=== PATIENT | male | born 1945 | race African-American/Black ===

== ENCOUNTER 2020-03-12 13:46 | Inpatient (IN) | payer MEDICAID, MEDICARE, OTHER ==
[~2020-03-12] VITALS: Ht 172.7 cm; Wt 111.9 kg
[2020-03-12] MEDS ORDERED: IV NORMAL SALINE 1000ML BAG 1,000 ML IV ONE ×4 (14:30→15:30)
[2020-03-12 14:37] LABS: BASO % 0 % (0-3); EOS % 0 % (0-3); HEMATOCRIT 42.1 % (39.0-53.0); HEMOGLOBIN 14.2 g/dL (13.0-17.5); LYMPH # 0.2 x10^3/uL (1.0-4.8); LYMPH % 2 % (24-48); MEAN CORPUSCULAR HEMOGLOBIN 30 pg (25-35); MEAN CORPUSCULAR HGB CONC 34 g/dL (31-37); MEAN CORPUSCULAR VOLUME 89 fL (79-100); MONO # 0.2 x10^3/uL (0.0-1.1); MONO % 2 % (0-9); NEUT # 10.5 x10^3/uL (1.8-7.7); NEUT % 97 % (31-73); PLATELET COUNT 131 x10^3/uL (140-400); RED BLOOD COUNT 4.73 x10^6/uL (4.30-5.70); RED CELL DISTRIBUTION WIDTH 14.9 % (11.5-14.5); WHITE BLOOD COUNT 10.9 x10^3/uL (4.0-11.0)
[2020-03-12 14:46] LABS: PROTHROMBIN TIME PATIENT 15.6 SEC (11.7-14.0)
[2020-03-12] MEDS ORDERED: cefTRIAXone IV Push 1 GM VIAL. IVP ONE (15:00)
--- NOTE | 2020-03-12 15:04 | RAD ---
INDICATION: Reason: fever / Spl. Instructions: / History: COMPARISON: None. FINDINGS: Single view of chest obtained. Enlarged cardiomediastinal Silhouette with poststernotomy changes. AICD. Degenerative changes of the shoulders and spine. Hypoexpanded examination with mild interstitial and groundglass opacities. IMPRESSION: * Hypoexpansion with mild interstitial and groundglass opacities. Could be from crowding of the vascular markings from hypoexpansion with atelectasis but mild edema or interstitial infiltrate can have this appearance. Electronically signed by: Herminio Huffman MD (03/12/2020 3:01 PM) [id number]
[2020-03-12 15:14] LABS: % BANDS 22 % (0-9); % LYMPHS 2 % (24-48); % MONOS 2 % (0-10); % SEGS 74 % (35-66)
[2020-03-12 15:15] LABS: PLT ESTIMATE DECREASED (ADEQUATE); TOXIC GRANULATION MOD; TOXIC VACUOLATION MOD
[2020-03-12] MEDS ORDERED: 0.9 % SOD CHL for STERILE FIELD 10 ML DISP.SYRIN. ONE (15:24)
[2020-03-12] MEDS ORDERED: LIDOCAINE 1% Multi-Dose 20 ML VIAL. INJ ONE (15:30)
[2020-03-12 16:14] LABS: CALCIUM 7.2 mg/dL (8.5-10.1); CREATININE 1.6 mg/dL (0.7-1.3); GFR 51.1; POTASSIUM 3.3 mmol/L (3.5-5.1)
[2020-03-12] MEDS ORDERED: NOREPINEPHRINE VIAL 8 MG in IV DEXTROSE 5% 250 ML IV ONE (16:15)
[2020-03-12 16:19] LABS: ALBUMIN 1.7 g/dL (3.4-5.0); ALBUMIN/GLOBULIN RATIO 0.5 (1.0-1.7); TOTAL BILIRUBIN 4.1 mg/dL (0.2-1.0)
[2020-03-12] MEDS ORDERED: IV NORMAL SALINE 1000ML BAG 1,000 ML IV SCH ×2 (16:28→16:33)
[2020-03-12] MEDS ORDERED: ONDANSETRON PF 4 MG/2 ML VIAL. IV PRN (16:30)
--- NOTE | 2020-03-12 16:30 | PDOC1 ---
History and Physical Date of Admission Date of Admission DATE: 03/12/20 TIME: 16:30 Identification/Chief Complaint Chief Complaint seen in er with fever from nursing facility 74 year old male who was brought here by EMS from [facility] area due to altered mental status. Per report, Patient's home health nurse checked on him today , found him to be confused and having a temperature so she called EMS to take him here. Upon to arrival to room, patient was confused, tachycardic and hypotensive. central line placed, started on pressors and iv antibiotics was not able to provide any information. History was very limited. Past Medical History Cardiovascular: HTN Family History Family History: Hypertension Social History Smoke: No ALCOHOL: none Drugs: None Current Medications Current Medications Current Medications Sodium Chloride 1,000 ml @ 1,000 mls/hr 1X ONCE IV Last administered on 03/12/20at 14:00; Start 03/12/20 at 14:30; Stop 03/12/20 at 15:29; Status DC Sodium Chloride 1,000 ml @ 1,000 mls/hr 1X ONCE IV Last administered on 03/12/20at 14:05; Start 03/12/20 at 14:30; Stop 03/12/20 at 15:29; Status DC Ceftriaxone Sodium (Rocephin) 1 gm 1X ONCE IVP ; Start 03/12/20 at 15:00; Stop 03/12/20 at 15:01; Status DC Sodium Chloride 1,000 ml @ 1,000 mls/hr 1X ONCE IV ; Start 03/12/20 at 15:30; Stop 03/12/20 at 16:29; Status DC Sodium Chloride 1,000 ml @ 1,000 mls/hr 1X ONCE IV ; Start 03/12/20 at 15:30; Stop 03/12/20 at 16:29; Status DC Sodium Chloride (NORMAL SALINE FLUSH for STERILE FIELD) 10 ml STK-MED ONCE .ROUTE ; Start 03/12/20 at 15:24; Stop 03/12/20 at 15:24; Status DC Lidocaine HCl (Lidocaine 1% 20ml Vial) 20 ml 1X ONCE INJ ; Start 03/12/20 at 15:30; Stop 03/12/20 at 15:31; Status DC Norepinephrine Bitartrate 8 mg/ Dextrose 258 ml @ 21.285 mls/ hr 1X ONCE IV ; Start 03/12/20 at 16:15; Stop 03/13/20 at 04:22 Calcium Gluconate (Calcium Gluconate) 1,000 mg 1X ONCE IVP ; Start 03/12/20 at 17:00; Stop 03/12/20 at 17:01 Allergies Allergies: Coded Allergies: No Known Drug Allergies (Unverified , 03/12/20) ROS Review of System unable to participate Hematological and Lymphatic: No: Bleeding Problems, Blood Clots, Blood Transf usions, Brusing, Night Sweats, Pallor, Swollen Lymph Nodes, Other Musculoskeletal: Yes Joint Stiffness Neurological: Yes Confusion Physical Exam Physical Exam acute distress, toxic appearance. [] HENT: Normocephalic, atraumatic, bilateral external ears normal, oropharynx selma st, no oral exudates, nose normal. [] Eyes: PERRLA, EOMI, conjunctiva normal, no discharge. [] Neck: Normal range of motion, no tenderness, supple, no stridor. [] Cardiovascular: Sinus tachycardia, regular rhythm, no murmur [] Lungs & Thorax: Bilateral breath sounds clear to auscultation [] Abdomen: Bowel sounds normal, soft, no tenderness, no masses, no pulsatile masses. [] Skin: Warm, dry, no erythema, no rash. [] Back: No tenderness, no CVA tenderness. [] Extremities: No tenderness, no cyanosis, no clubbing, ROM intact, no edema. [] Neurologic: appeared toxic but arousable to answer questions, moved all extremities, very confused. Psychologic:not able to evaluate due to condition. Heart: RRR Abdomen: Normal bowel sounds, Soft, No tenderness Rectal Exam: not examined Labs Labs Laboratory Tests Test 03/12/20 14:10 03/12/20 16:00 White Blood Count 10.9 x10^3/uL (4.0-11.0) Red Blood Count 4.73 x10^6/uL (4.30-5.70) Hemoglobin 14.2 g/dL (13.0-17.5) Hematocrit 42.1 % (39.0-53.0) Mean Corpuscular Volume 89 fL (79-100) Mean Corpuscular Hemoglobin 30 pg (25-35) Mean Corpuscular Hemoglobin Concent 34 g/dL (31-37) Red Cell Distribution Width 14.9 % (11.5-14.5) Platelet Count 131 x10^3/uL (140-400) Neutrophils (%) (Auto) 97 % (31-73) Lymphocytes (%) (Auto) 2 % (24-48) Monocytes (%) (Auto) 2 % (0-9) Eosinophils (%) (Auto) 0 % (0-3) Basophils (%) (Auto) 0 % (0-3) Neutrophils # (Auto) 10.5 x10^3/uL (1.8-7.7) Lymphocytes # (Auto) 0.2 x10^3/uL (1.0-4.8) Monocytes # (Auto) 0.2 x10^3/uL (0.0-1.1) Eosinophils # (Auto) 0.0 x10^3/uL (0.0-0.7) Basophils # (Auto) 0.0 x10^3/uL (0.0-0.2) Segmented Neutrophils % 74 % (35-66) Band Neutrophils % 22 % (0-9) Lymphocytes % 2 % (24-48) Monocytes % 2 % (0-10) Toxic Granulation Mod Toxic Vacuolation Mod Platelet Estimate Decreased (ADEQUATE) Prothrombin Time 15.6 SEC (11.7-14.0) Prothromb Time International Ratio 1.3 (0.8-1.1) Activated Partial Thromboplast Time 26 SEC (24-38) Lactic Acid Level 5.1 mmol/L (0.4-2.0) Sodium Level 139 mmol/L (136-145) Potassium Level 3.3 mmol/L (3.5-5.1) Chloride Level 104 mmol/L (98-107) Carbon Dioxide Level 23 mmol/L (21-32) Anion Gap 12 (6-14) Blood Urea Nitrogen 16 mg/dL (8-26) Creatinine 1.6 mg/dL (0.7-1.3) Estimated GFR (Cockcroft-Gault) 51.1 BUN/Creatinine Ratio 10 (6-20) Glucose Level 366 mg/dL (70-99) Calcium Level 7.2 mg/dL (8.5-10.1) Total Bilirubin 4.1 mg/dL (0.2-1.0) Aspartate Amino Transf (AST/SGOT) 131 U/L (15-37) Alanine Aminotransferase (ALT/SGPT) 99 U/L (16-63) Alkaline Phosphatase 273 U/L (46-116) Total Protein 5.0 g/dL (6.4-8.2) Albumin 1.7 g/dL (3.4-5.0) Albumin/Globulin Ratio 0.5 (1.0-1.7) Lipase 100 U/L (73-393) Laboratory Tests Test 03/12/20 14:10 03/12/20 16:00 White Blood Count 10.9 x10^3/uL (4.0-11.0) Red Blood Count 4.73 x10^6/uL (4.30-5.70) Hemoglobin 14.2 g/dL (13.0-17.5) Hematocrit 42.1 % (39.0-53.0) Mean Corpuscular Volume 89 fL (79-100) Mean Corpuscular Hemoglobin 30 pg (25-35) Mean Corpuscular Hemoglobin Concent 34 g/dL (31-37) Red Cell Distribution Width 14.9 % (11.5-14.5) Platelet Count 131 x10^3/uL (140-400) Neutrophils (%) (Auto) 97 % (31-73) Lymphocytes (%) (Auto) 2 % (24-48) Monocytes (%) (Auto) 2 % (0-9) Eosinophils (%) (Auto) 0 % (0-3) Basophils (%) (Auto) 0 % (0-3) Neutrophils # (Auto) 10.5 x10^3/uL (1.8-7.7) Lymphocytes # (Auto) 0.2 x10^3/uL (1.0-4.8) Monocytes # (Auto) 0.2 x10^3/uL (0.0-1.1) Eosinophils # (Auto) 0.0 x10^3/uL (0.0-0.7) Basophils # (Auto) 0.0 x10^3/uL (0.0-0.2) Segmented Neutrophils % 74 % (35-66) Band Neutrophils % 22 % (0-9) Lymphocytes % 2 % (24-48) Monocytes % 2 % (0-10) Toxic Granulation Mod Toxic Vacuolation Mod Platelet Estimate Decreased (ADEQUATE) Prothrombin Time 15.6 SEC (11.7-14.0) Prothromb Time International Ratio 1.3 (0.8-1.1) Activated Partial Thromboplast Time 26 SEC (24-38) Lactic Acid Level 5.1 mmol/L (0.4-2.0) Sodium Level 139 mmol/L (136-145) Potassium Level 3.3 mmol/L (3.5-5.1) Chloride Level 104 mmol/L (98-107) Carbon Dioxide Level 23 mmol/L (21-32) Anion Gap 12 (6-14) Blood Urea Nitrogen 16 mg/dL (8-26) Creatinine 1.6 mg/dL (0.7-1.3) Estimated GFR (Cockcroft-Gault) 51.1 BUN/Creatinine Ratio 10 (6-20) Glucose Level 366 mg/dL (70-99) Calcium Level 7.2 mg/dL (8.5-10.1) Total Bilirubin 4.1 mg/dL (0.2-1.0) Aspartate Amino Transf (AST/SGOT) 131 U/L (15-37) Alanine Aminotransferase (ALT/SGPT) 99 U/L (16-63) Alkaline Phosphatase 273 U/L (46-116) Total Protein 5.0 g/dL (6.4-8.2) Albumin 1.7 g/dL (3.4-5.0) Albumin/Globulin Ratio 0.5 (1.0-1.7) Lipase 100 U/L (73-393) Images Images PROCEDURE CT lumbar spine without contrast. HISTORY Low back pain and left radiculopathy. Defibrillator. TECHNIQUE Axial images and coronal and sagittal re-formatted images are provided. COMPARISON None. FINDINGS There are 5 lumbar type vertebral bodies. There is no fracture or dislocation. There is endplate sclerosis at L3-L4. There are vacuum discs at L1-L2, L2-L3, and L4-L5. There is narrowing of the interspace and potentially partial bridging fusion across L3-L4. There is atheromatous disease in the thoracic aorta. Degenerative findings would be better evaluated post myelogram. Estimates will be provided below: L1-L2: There is ligamentum flavum hypertrophy and facet hypertrophy which is greater on the right. Ligamentum flavum is partially calcified. There is also a disc bulge. There is at least mild to moderate canal stenosis and foraminal narrowing is probably high-grade. L2-L3: There is a disc osteophyte complex and there is facet and ligamentum flavum hypertrophy. There is probably severe canal stenosis and lateral recess narrowing. There is high-grade bilateral foraminal narrowing. L3-L4: There is a disc osteophyte complex and there is facet hypertrophy. There is at least mild to moderate canal stenosis and moderate foraminal narrowing. L4-L5: Disc bulge, facet hypertrophy, and ligamentum flavum hypertrophy likely results in at least moderate canal stenosis and high-grade foraminal narrowing. L5-S1: Disc bulge and facet hypertrophy are noted with at least mild to moderate right and mild left foraminal narrowing. IMPRESSION Multilevel degenerative changes with several levels of high-grade canal and foraminal compromise suspected. Consider post myelogram CT to better evaluate the degree of stenosis. Electronically signed by: Kristofer Santo MD (Apr 25, 2015 13:17:17) AP chest. HISTORY: Post line placement AP view was taken of the chest. There is a right jugular central line which extends to the right atrium. There is no pneumothorax. Left pacemaker is unchanged. Heart is mildly enlarged. There is mild vascular congestion. There is hazy basilar edema or infiltrates or atelectasis with little change. IMPRESSION: 1. Right jugular central line extends to the right atrium. 2. Little other change. Electronically signed by: Javi Ruelas MD (03/12/2020 4:42 PM) [id number] PATIENT: JIM BENTLEY NACCOUNT: [id number] : 1945 LOCATION: ER AGE: 74 SEX: M EXAM STATUS: PRE ER ORD. PHYSICIAN: KHOI MCCORMACK DO REASON: fever PROCEDURE: PORTABLE CHEST 1V INDICATION: Reason: fever / Spl. Instructions: / History: COMPARISON: None. FINDINGS: Single view of chest obtained. Enlarged cardiomediastinal Silhouette with poststernotomy changes. AICD. Degenerative changes of the shoulders and spine. Hypoexpanded examination with mild interstitial and groundglass opacities. IMPRESSION: * Hypoexpansion with mild interstitial and groundglass opacities. Could be from crowding of the vascular markings from hypoexpansion with atelectasis but mild edema or interstitial infiltrate can have this appearance. Electronically signed by: Francisco Mederos MD (03/12/2020 3:01 PM) [id number] DICTATED and SIGNED BY: FRANCISCO MEDEROS MD DATE: 03/12/20 1501 VTE Prophylaxis Ordered VTE Prophylaxis Devices: Yes VTE Pharmacological Prophylaxi: Yes Assessment/Plan Assessment/Plan Impression: Septic shock morbid obesity Suspected 2019 novel coronavirus infection AMS (altered mental status) Hypocalcemia Hypokalemia Multilevel degenerative changes with several levels of high-grade canal and foraminal compromise suspected. ON lS CT IN 2014 ADMITTED icu bed iv cefepime blood and urine cultures iv vanc pending ID CONSULT SEVERE SEPSIS PROTOCOL DVT PROPHYLAXIS ct abd, pelvis, PENDING 56 min cc time Justicifation of Admission Dx: Justifications for Admission: Justification of Admission Dx: Yes CHF: Cardiac Arrhythmias Comminuty Aquired Pneumonia: Bactermia Chronic Renal Failure: Encephalopathy Sepsis: Altered Mental Status Comments: SEPTIC SHOCK ERICA BARLOW MD Mar 12, 2020 16:30
--- NOTE | 2020-03-12 16:32 | PHYS DOC ---
General Adult EDM: Chief Complaint: ALTERED MENTAL STATUS HPI: HPI: Patient is a 74 year old male who was brought here by EMS from assisted area due to altered mental status. Per report, Patient's home health nurse checked on him today , found him to be confused and having a temperature so she called EMS to take him here. Upon to arrival to room, patient was confused, tachycardic and hypotensive. Patient was not able to provide any information. History was very limited. Review of Systems: Review of Systems: Able to obtain due to condition Heart Score: Risk Factors: Risk Factors: DM, Current or recent (<one month) smoker, HTN, HLP, family history of CAD, obesity. Risk Scores: Score 0 - 3: 2.5% MACE over next 6 weeks - Discharge Home Score 4 - 6: 20.3% MACE over next 6 weeks - Admit for Clinical Observation Score 7 - 10: 72.7% MACE over next 6 weeks - Early Invasive Strategies Current Medications: Current Medications Medications (Trade) Dose Ordered Sig/Uma Start Time Stop Time Status Last Admin Dose Admin Calcium Gluconate (Calcium Gluconate) 1,000 mg 1X ONCE 03/12/20 17:00 03/12/20 17:01 Ceftriaxone Sodium (Rocephin) 1 gm 1X ONCE 03/12/20 15:00 03/12/20 15:01 DC Lidocaine HCl (Lidocaine 1% 20ml Vial) 20 ml 1X ONCE 03/12/20 15:30 03/12/20 15:31 DC Norepinephrine Bitartrate 8 mg/ Dextrose 258 ml @ 21.285 mls/ hr 1X ONCE 03/12/20 16:15 03/13/20 04:22 Sodium Chloride (NORMAL SALINE FLUSH for STERILE FIELD) 10 ml STK-MED ONCE 03/12/20 15:24 03/12/20 15:24 DC Allergies: Allergies: Allergies Coded Allergies Type Severity Reaction Last Updated Verified Unable to Assess 03/12/20 No Physical Exam: PE: Constitutional: Well developed, well nourished, acute distress, toxic appearance. [] HENT: Normocephalic, atraumatic, bilateral external ears normal, oropharynx moist, no oral exudates, nose normal. [] Eyes: PERRLA, EOMI, conjunctiva normal, no discharge. [] Neck: Normal range of motion, no tenderness, supple, no stridor. [] Cardiovascular: Sinus tachycardia, regular rhythm, no murmur [] Lungs & Thorax: Bilateral breath sounds clear to auscultation [] Abdomen: Bowel sounds normal, soft, no tenderness, no masses, no pulsatile masses. [] Skin: Warm, dry, no erythema, no rash. [] Back: No tenderness, no CVA tenderness. [] Extremities: No tenderness, no cyanosis, no clubbing, ROM intact, no edema. [] Neurologic: appeared toxic but arousable to answer questions, moved all extremities, very confused. Psychologic:not able to evaluate due to condition. d Current Patient Data: Labs: Laboratory Tests Test 03/12/20 14:10 03/12/20 16:00 White Blood Count 10.9 x10^3/uL (4.0-11.0) Red Blood Count 4.73 x10^6/uL (4.30-5.70) Hemoglobin 14.2 g/dL (13.0-17.5) Hematocrit 42.1 % (39.0-53.0) Mean Corpuscular Volume 89 fL (79-100) Mean Corpuscular Hemoglobin 30 pg (25-35) Mean Corpuscular Hemoglobin Concent 34 g/dL (31-37) Red Cell Distribution Width 14.9 % (11.5-14.5) H Platelet Count 131 x10^3/uL (140-400) L Neutrophils (%) (Auto) 97 % (31-73) H Lymphocytes (%) (Auto) 2 % (24-48) L Monocytes (%) (Auto) 2 % (0-9) Eosinophils (%) (Auto) 0 % (0-3) Basophils (%) (Auto) 0 % (0-3) Neutrophils # (Auto) 10.5 x10^3/uL (1.8-7.7) H Lymphocytes # (Auto) 0.2 x10^3/uL (1.0-4.8) L Monocytes # (Auto) 0.2 x10^3/uL (0.0-1.1) Eosinophils # (Auto) 0.0 x10^3/uL (0.0-0.7) Basophils # (Auto) 0.0 x10^3/uL (0.0-0.2) Segmented Neutrophils % 74 % (35-66) H Band Neutrophils % 22 % (0-9) H Lymphocytes % 2 % (24-48) L Monocytes % 2 % (0-10) Toxic Granulation Mod Toxic Vacuolation Mod Platelet Estimate Decreased (ADEQUATE) Prothrombin Time 15.6 SEC (11.7-14.0) H Prothrombin Time INR 1.3 (0.8-1.1) H Activated Partial Thromboplast Time 26 SEC (24-38) Lactic Acid Level 5.1 mmol/L (0.4-2.0) *H Sodium Level 139 mmol/L (136-145) Potassium Level 3.3 mmol/L (3.5-5.1) L Chloride Level 104 mmol/L (98-107) Carbon Dioxide Level 23 mmol/L (21-32) Anion Gap 12 (6-14) Blood Urea Nitrogen 16 mg/dL (8-26) Creatinine 1.6 mg/dL (0.7-1.3) H Estimated GFR (Cockcroft-Gault) 51.1 BUN/Creatinine Ratio 10 (6-20) Glucose Level 366 mg/dL (70-99) H Calcium Level 7.2 mg/dL (8.5-10.1) L Total Bilirubin 4.1 mg/dL (0.2-1.0) H Aspartate Amino Transferase (AST) 131 U/L (15-37) H Alanine Aminotransferase (ALT) 99 U/L (16-63) H Alkaline Phosphatase 273 U/L (46-116) H Total Protein 5.0 g/dL (6.4-8.2) L Albumin 1.7 g/dL (3.4-5.0) L Albumin/Globulin Ratio 0.5 (1.0-1.7) L Lipase 100 U/L (73-393) Laboratory Tests 03/12/20 14:10 Laboratory Tests 03/12/20 16:00 EKG: EKG: EKG was done at 1359, heart rate 113 bpm, sinus tachycardia, no ST segment elevation. Radiology/Procedures: Radiology/Procedures: [][facility] [address] [place], [place] [id number] IMAGING REPORT Signed PATIENT: JIM BENTLEY NACCOUNT: [id number] : 1945 LOCATION: ER AGE: 74 SEX: M EXAM STATUS: PRE ER ORD. PHYSICIAN: KHOI MCCORMACK DO REASON: fever PROCEDURE: PORTABLE CHEST 1V INDICATION: Reason: fever / Spl. Instructions: / History: COMPARISON: None. FINDINGS: Single view of chest obtained. Enlarged cardiomediastinal Silhouette with poststernotomy changes. AICD. Degenerative changes of the shoulders and spine. Hypoexpanded examination with mild interstitial and groundglass opacities. IMPRESSION: * Hypoexpansion with mild interstitial and groundglass opacities. Could be from crowding of the vascular markings from hypoexpansion with atelectasis but mild edema or interstitial infiltrate can have this appearance. Electronically signed by: Francisco Mederos MD (03/12/2020 3:01 PM) [id number] DICTATED and SIGNED BY: FRANCISCO MEDEROS MD DATE: 03/12/20 1501 [facility] [address] [place] [address] IMAGING REPORT Signed PATIENT: JIM BENTLEY NACCOUNT: [id number] : 1945 LOCATION: ER AGE: 74 SEX: M EXAM STATUS: REG ER ORD. PHYSICIAN: KHOI MCCORMACK DO REASON: post CVL PLACEMENT PROCEDURE: CHEST AP ONLY AP chest. HISTORY: Post line placement AP view was taken of the chest. There is a right jugular central line which extends to the right atrium. There is no pneumothorax. Left pacemaker is unchanged. Heart is mildly enlarged. There is mild vascular congestion. There is hazy basilar edema or infiltrates or atelectasis with little change. IMPRESSION: 1. Right jugular central line extends to the right atrium. 2. Little other change. Electronically signed by: Javi Ruelas MD (03/12/2020 4:42 PM) [id number] DICTATED and SIGNED BY: JAVI RUELAS MD DATE: 03/12/20 1642 Central line placement procedure: Indication: Vascular access Consent: OBTAINED EMERGENTLY. Procedure: The patient was positioned appropriately and the skin over the RIGHT SIDE NECK, RIGHT IJ VEIN was prepped and draped in a sterile fashion. Local anesthesia was used. Ultrasound guidance was not utilized. A large bore needle was used to identify the vein. A guide wire was then inserted into the vein through the needle. A triple lumen catheter was then inserted into the vessel over the guide wire using the Seldinger technique. All ports showed good, free flowing blood return and were flushed with saline solution. The catheter was then securely fastened to the skin with sutures and covered with a sterile dressing. A post procedure X-ray was ordered. The patient tolerated the procedure well. Complications: none. Critical care time was [45] minutes which includes time at bedside, spent in discussion of patient's care with specialist and/or family members, with interpretation of laboratory and/or radiological studies and is exclusive of procedures. Course & Med Decision Making: Course & Med Decision Making Pertinent Labs and Imaging studies reviewed. (See chart for details) Patient is a 74-year-old male who was brought here from her long-term area due to altered mental status. Patient was found to have fever, low blood pressure, rapid heart rate. His lactic acid was elevated as well. Patient was given IV fluids in the ED, after 3 L normal saline her blood pressure was too low, a central venous catheter was placed on the right internal jugular vein. Levophed was initiated in the ER. Patient was given IV Rocephin and Zithromax. Patient will be admitted to the intensive care unit for further evaluation and treatment. Elizabeth Disclaimer: Elizabeth Disclaimer: This electronic medical record was generated, in whole or in part, using a voice recognition dictation system. Departure Departure Impression: Primary Impression: Septic shock Additional Impressions: Suspected 2019 novel coronavirus infection AMS (altered mental status) Hypocalcemia Hypokalemia Disposition: ADMITTED INPATIENT Admitting Physician: WILEY (DR. BARLOW) Condition: CRITICAL Referrals: UNKNOWN PCP NAME (PCP) Justicifation of Admission Dx: Justifications for Admission: Justification of Admission Dx: Yes Sepsis: Altered Mental Status KHOI MCCORMACK DO Mar 12, 2020 16:32
[2020-03-12] MEDS ORDERED: 0.9 % SODIUM CHLORIDE 10 ML DISP.SYRIN. IV PRN (16:45)
[2020-03-12] MEDS ORDERED: POTASSIUM CHLORIDE 10MEQ 100 ML IV SCH ×2 (16:45)
[2020-03-12] MEDS ORDERED: DEXTROSE 50% 25 GM / 50ML DISP.SYRIN. IV PRN ×2 (16:45→22:30)
[2020-03-12] MEDS ORDERED: VANCOMYCIN PER PHARMACY MC PRN (16:45)
[2020-03-12] MEDS ORDERED: SODIUM PHOSPHATE 15 MMOL in IV NORMAL SALINE 250ML 250 ML IV ONE (16:45)
[2020-03-12] MEDS ORDERED: SODIUM PHOSPHATE 30 MMOL in IV NORMAL SALINE 250ML 250 ML IV ONE (16:45)
[2020-03-12] MEDS ORDERED: PROCHLORPERAZINE 25 MG SUPP.RECT. PR PRN (16:45)
[2020-03-12] MEDS ORDERED: BISACODYL 10 MG SUPP.RECT. PR PRN (16:45)
--- NOTE | 2020-03-12 16:45 | RAD ---
AP chest. HISTORY: Post line placement AP view was taken of the chest. There is a right jugular central line which extends to the right atrium. There is no pneumothorax. Left pacemaker is unchanged. Heart is mildly enlarged. There is mild vascular congestion. There is hazy basilar edema or infiltrates or atelectasis with little change. IMPRESSION: 1. Right jugular central line extends to the right atrium. 2. Little other change. Electronically signed by: Javi Ruelas MD (03/12/2020 4:42 PM) [id number]
[2020-03-12] MEDS ORDERED: CALCIUM GLUCONATE 1,000 MG/10 ML VIAL. IVP ONE (17:00)
[2020-03-12] MEDS ORDERED: ELECTROLYTE (ICU) PROTOCOL. MC PRN (17:00)
[2020-03-12] MEDS ORDERED: INSULIN LISPRO 300 UNITS/3 ML VIAL. SQ SCH (17:00)
[2020-03-12] MEDS ORDERED: MAGNESIUM SULFATE 2GM 50 ML IV ONE (17:00)
[2020-03-12] MEDS ORDERED: AZITHRMYCN 500MG IVPB FOR OMNI 250 ML IV ONE (17:00)
[2020-03-12] MEDS: IV NORMAL SALINE 1000ML BAG 1,000 ML IV SCH (17:50)
[2020-03-12] MEDS: POTASSIUM CHLORIDE 10MEQ 100 ML IV SCH ×5 (17:55→22:51)
[2020-03-12] MEDS ORDERED: VANCOMYCIN 2 GM in IV NORMAL SALINE 500ML BAG 500 ML IV ONE (18:00)
[2020-03-12 18:31] LABS: BILIRUBIN,URINE LARGE (NEG); CLARITY,URINE TURBID; NITRITE,URINE POSITIVE (NEG); PROTEIN,URINE 100 mg/dL (NEG-TRACE)
--- NOTE | 2020-03-12 18:47 | NUR ---
Pharmacy Vancomycin Dosing Note S: Consulted to monitor and dose vancomycin started 03/12/20. O: JIM BENTLEY is a 74 year old M with Sepsis Other Antibiotics: CEFEPIME LABS: Last BUN: 16 Last Creatinine: 1.6 Creatinine Clearance: 49 mL/min Last WBC: 10.9 Tmax (past 24 hours): 102.1 Vancomycin Dosing: Dosing Weight: Adjusted Target Trough: 15-20 A: Based on: VANCO dosing guidelines P: 1. Begin Vancomycin 1500 mg IV q24h 2. Follow up Trough level on 03/14/20 at 1730 3. Pharmacy will continue to monitor, follow and adjust therapy as needed. KORI RIBEIRO, [facility], 03/12/20 0274
[2020-03-12 18:51] LABS: COLOR,URINE DK YELLOW
[2020-03-12 18:52] LABS: BACTERIA,URINE MANY /HPF (0-FEW); WBC,URINE TNTC /HPF (0-4)
[2020-03-12 19:03] LABS: YEAST,URINE PRESENT /HPF
[2020-03-12 19:05] LABS: RBC,URINE TNTC /HPF (0-2); SQUAMOUS EPITHELIAL CELL,UR FEW /LPF
[2020-03-12] MEDS ORDERED: FAMOTIDINE 20 MG/2 ML VIAL IVP SCH (21:00)
[2020-03-12] MEDS: NOREPINEPHRINE VIAL 8 MG in IV DEXTROSE 5% 250 ML IV PRN (21:20)
--- NOTE | 2020-03-12 21:21 | RAD ---
Exam: CT of abdomen and pelvis without contrast INDICATION: Sepsis TECHNIQUE: Sequential axial images through the abdomen and pelvis obtained without IV contrast. Sagittal and coronal reformatted images were reconstructed from the axial data and reviewed. Comparisons: None FINDINGS: Heart size is normal. Pacer with leads terminating the right heart. No pericardial. Trace bilateral pleural effusion. Strandy opacities at dependent portion lungs likely represent atelectasis. Evaluation of solid organs limited secondary to noncontrast technique. Liver, spleen, pancreas and adrenals are unremarkable. Gallbladder is distended. There is mild pericholecystic inflammatory changes noted. No perinephric inflammation or hydronephrosis. No renal or ureteral calculi are identified. No renal or ureteral calculi are identified. Bladder is decompressed not well evaluated. Prostate is normal. Large and small bowel are unremarkable. Appendix is is not identified. No free intra-abdominal air or fluid. No obstruction. Abdominal aorta has a normal course and caliber. No enlarged abdominal lymph nodes are identified. No suspicious osseous lesions or acute fracture. IMPRESSION: 1. Inflammatory changes surrounding the gallbladder which is mildly distended. Findings are suspicious for acute cholecystitis. HIDA scan can BE used for definitive evaluation. 2. Trace bilateral pleural effusions. Exposure: One or more of the following in the visualized dose reduction techniques were utilized for this examination: 1. Automated exposure control 2. Adjustment of the MA and/or KV according to patient size 3. Use of iterative of reconstructive technique Electronically signed by: Shavon Chavez MD (03/12/2020 9:18 PM) [id number]
[2020-03-12 22:00] VITALS: BP 96/64
[2020-03-12] MEDS: CEFEPIME HCL IV Push 1 GM VIAL. IVP SCH (22:49)
[2020-03-12] MEDS: HEPARIN for SUB-Q USE 5,000 UNIT/ML VIAL. SQ SCH (22:50)
[2020-03-12 23:00] VITALS: BP 107/74
[2020-03-13] VITALS (31 sets, daily range): BP systolic 72–167; BP diastolic 53–84
[2020-03-13] MEDS ORDERED: DEXTROSE 50% 25 GM / 50ML DISP.SYRIN. IV PRN (00:30)
[2020-03-13] MEDS: NOREPINEPHRINE VIAL 8 MG in IV DEXTROSE 5% 250 ML IV PRN ×3 (01:25→18:01)
[2020-03-13] MEDS: INSULIN LISPRO 300 UNITS/3 ML VIAL. SQ SCH ×5 (04:31→21:25)
[2020-03-13] MEDS: CEFEPIME HCL IV Push 1 GM VIAL. IVP SCH (05:51)
[2020-03-13] MEDS: HEPARIN for SUB-Q USE 5,000 UNIT/ML VIAL. SQ SCH ×3 (05:51→21:19)
--- NOTE | 2020-03-13 06:24 | EKG ---
[facility] [address] [place] [address] Test Date: 2020-03-12 Test Time: 13:59:55 Pat Name: JIM BENTLEY Department: Room: Gender: M Belly Packer: BIENVENIDO : 1945 Requested By: KHOI MCCORMACK Order Number: [id number] Reading MD: Measurements Intervals [place] Rate: 113 P: 127 IA: 180 QRS: -44 QRSD: 102 T: 51 QT: 326 QTc: 453 Interpretive Statements SINUS TACHYCARDIA ABNORMAL LEFT AXIS DEVIATION LEFT ANTERIOR FASCICULAR BLOCK ST & T ABNORMALITY, CONSIDER HIGH LATERAL ISCHEMIA OR LEFT VENTRICULAR STRAIN ABNORMAL ECG RI6.02 No previous ECG available for comparison
[2020-03-13 06:50] LABS: BASO # 0.1 x10^3/uL (0.0-0.2); BASO % 0 % (0-3); EOS % 0 % (0-3); HEMATOCRIT 38.2 % (39.0-53.0); HEMOGLOBIN 12.3 g/dL (13.0-17.5); LYMPH # 0.6 x10^3/uL (1.0-4.8); LYMPH % 2 % (24-48); MEAN CORPUSCULAR HEMOGLOBIN 29 pg (25-35); MEAN CORPUSCULAR HGB CONC 32 g/dL (31-37); MEAN CORPUSCULAR VOLUME 90 fL (79-100); MONO # 1.3 x10^3/uL (0.0-1.1); MONO % 4 % (0-9); NEUT % 93 % (31-73); PLATELET COUNT 123 x10^3/uL (140-400); RED BLOOD COUNT 4.26 x10^6/uL (4.30-5.70)
[2020-03-13 07:02] LABS: ALBUMIN 1.9 g/dL (3.4-5.0); ALBUMIN/GLOBULIN RATIO 0.5 (1.0-1.7); CALCIUM 7.3 mg/dL (8.5-10.1); CREATININE 1.7 mg/dL (0.7-1.3); GFR 47.7; POTASSIUM 4.8 mmol/L (3.5-5.1); TOTAL BILIRUBIN 6.1 mg/dL (0.2-1.0); TOTAL PROTEIN 5.9 g/dL (6.4-8.2)
[2020-03-13] MEDS ORDERED: INSULIN LISPRO 300 UNITS/3 ML VIAL. SQ SCH (08:00)
[2020-03-13] MEDS ORDERED: MEROPENEM 500 MG in IV NORMAL SALINE 50ML 50 ML IV SCH (08:45)
--- NOTE | 2020-03-13 08:58 | PDOC ---
Infectious Disease Note Vital Signs: Vital Signs Vital Signs Date Time Temp Pulse Resp B/P (MAP) Pulse Ox O2 Delivery O2 Flow Rate FiO2 03/13/20 06:00 92 26 109/72 (84) 99 Nasal Cannula 2.0 03/13/20 04:00 98.0 98.0 Medications: Inpatient Meds: Current Medications Medications (Trade) Dose Ordered Sig/Uma Start Time Stop Time Status Last Admin Dose Admin Azithromycin 250 ml @ 250 mls/hr 1X ONCE 03/12/20 17:00 03/12/20 17:59 DC 03/12/20 17:51 250 MLS/HR Bisacodyl (Dulcolax Supp) 10 mg PRN DAILY PRN 03/12/20 16:45 Calcium Gluconate (Calcium Gluconate) 1,000 mg 1X ONCE 03/12/20 17:00 03/12/20 17:01 DC 03/12/20 17:50 1,000 MG Cefepime HCl (Maxipime) 1 gm Q8HRS 03/12/20 22:00 03/13/20 08:46 DC 03/13/20 05:51 1 GM Ceftriaxone Sodium (Rocephin) 1 gm 1X ONCE 03/12/20 15:00 03/12/20 15:01 DC 03/12/20 16:41 1 GM Dextrose (Dextrose 50%-Water Syringe) 12.5 gm PRN Q15MIN PRN 03/13/20 00:30 Famotidine (Pepcid Vial) 20 mg BID 03/12/20 21:00 03/12/20 22:49 20 MG Heparin Sodium (Porcine) (Heparin Sodium) 5,000 unit Q8HRS 03/12/20 22:00 03/13/20 05:51 5,000 UNIT Info (Icu Electrolyte Protocol) 1 ea CONT PRN PRN 03/12/20 17:00 03/12/20 17:06 DC Insulin Human Lispro (HumaLOG) 0-9 UNITS Q4HRS 03/13/20 04:00 03/13/20 04:31 9 UNITS Lidocaine HCl (Lidocaine 1% 20ml Vial) 20 ml 1X ONCE 03/12/20 15:30 03/12/20 15:31 DC 03/12/20 15:30 20 ML Magnesium Sulfate 50 ml @ 25 mls/hr 1X ONCE 03/12/20 17:00 03/12/20 18:59 DC 03/12/20 17:51 25 MLS/HR Norepinephrine Bitartrate 8 mg/ Dextrose 258 ml @ 21.285 mls/ hr CONT PRN 03/12/20 22:30 03/13/20 05:52 57.8 MLS/HR Ondansetron HCl (Zofran) 4 mg PRN Q6HRS PRN 03/12/20 16:45 Potassium Chloride/Water 100 ml @ 100 mls/hr Q1H 03/12/20 16:45 03/12/20 17:00 DC Prochlorperazine (Compazine) 25 mg PRN Q12HR PRN 03/12/20 16:45 Sodium Chloride 1,000 ml @ 100 mls/hr Q10H 03/12/20 16:33 03/12/20 17:50 100 MLS/HR Sodium Chloride (NORMAL SALINE FLUSH for STERILE FIELD) 10 ml STK-MED ONCE 03/12/20 15:24 03/12/20 15:24 DC Sodium Chloride (Normal Saline Flush) 3 ml QSHIFT PRN 03/12/20 16:45 Sodium Phosphate 15 mmol/Sodium Chloride 255 ml @ 62.5 mls/hr 1X ONCE 03/12/20 16:45 03/12/20 17:00 DC Sodium Phosphate 30 mmol/Sodium Chloride 260 ml @ 62.5 mls/hr 1X ONCE 03/12/20 16:45 03/12/20 17:00 DC Vancomycin HCl (Vanco Per Pharmacy) 1 each PRN DAILY PRN 03/12/20 16:45 03/13/20 08:46 DC 03/12/20 18:45 1 EACH Vancomycin HCl (Vancomycin Trough Level) 1 each 1X ONCE 03/14/20 17:30 03/14/20 17:31 Vancomycin HCl 1.5 gm/Sodium Chloride 500 ml @ 250 mls/hr Q24H 03/13/20 18:00 Vancomycin HCl 2 gm/Sodium Chloride 500 ml @ 250 mls/hr 1X ONCE 03/12/20 18:00 03/12/20 19:59 DC 03/12/20 17:53 250 MLS/HR Labs: Lab Laboratory Tests Test 03/12/20 14:10 03/12/20 16:00 03/12/20 17:21 8/12/20 18:20 White Blood Count 10.9 x10^3/uL (4.0-11.0) Red Blood Count 4.73 x10^6/uL (4.30-5.70) Hemoglobin 14.2 g/dL (13.0-17.5) Hematocrit 42.1 % (39.0-53.0) Mean Corpuscular Volume 89 fL (79-100) Mean Corpuscular Hemoglobin 30 pg (25-35) Mean Corpuscular Hemoglobin Concent 34 g/dL (31-37) Red Cell Distribution Width 14.9 % (11.5-14.5) Platelet Count 131 x10^3/uL (140-400) Neutrophils (%) (Auto) 97 % (31-73) Lymphocytes (%) (Auto) 2 % (24-48) Monocytes (%) (Auto) 2 % (0-9) Eosinophils (%) (Auto) 0 % (0-3) Basophils (%) (Auto) 0 % (0-3) Neutrophils # (Auto) 10.5 x10^3/uL (1.8-7.7) Lymphocytes # (Auto) 0.2 x10^3/uL (1.0-4.8) Monocytes # (Auto) 0.2 x10^3/uL (0.0-1.1) Eosinophils # (Auto) 0.0 x10^3/uL (0.0-0.7) Basophils # (Auto) 0.0 x10^3/uL (0.0-0.2) Segmented Neutrophils % 74 % (35-66) Band Neutrophils % 22 % (0-9) Lymphocytes % 2 % (24-48) Monocytes % 2 % (0-10) Toxic Granulation Mod Toxic Vacuolation Mod Platelet Estimate Decreased (ADEQUATE) Prothrombin Time 15.6 SEC (11.7-14.0) Prothromb Time International Ratio 1.3 (0.8-1.1) Activated Partial Thromboplast Time 26 SEC (24-38) Lactic Acid Level 5.1 mmol/L (0.4-2.0) 2.8 mmol/L (0.4-2.0) Sodium Level 139 mmol/L (136-145) Potassium Level 3.3 mmol/L (3.5-5.1) Chloride Level 104 mmol/L (98-107) Carbon Dioxide Level 23 mmol/L (21-32) Anion Gap 12 (6-14) Blood Urea Nitrogen 16 mg/dL (8-26) Creatinine 1.6 mg/dL (0.7-1.3) Estimated GFR (Cockcroft-Gault) 51.1 BUN/Creatinine Ratio 10 (6-20) Glucose Level 366 mg/dL (70-99) Calcium Level 7.2 mg/dL (8.5-10.1) Magnesium Level 1.4 mg/dL (1.8-2.4) Total Bilirubin 4.1 mg/dL (0.2-1.0) Aspartate Amino Transf (AST/SGOT) 131 U/L (15-37) Alanine Aminotransferase (ALT/SGPT) 99 U/L (16-63) Alkaline Phosphatase 273 U/L (46-116) Troponin I Quantitative 0.062 ng/mL (0.000-0.055) Total Protein 5.0 g/dL (6.4-8.2) Albumin 1.7 g/dL (3.4-5.0) Albumin/Globulin Ratio 0.5 (1.0-1.7) Lipase 100 U/L (73-393) Thyroid Stimulating Hormone (TSH) 2.124 uIU/mL (0.358-3.74) Ammonia 17 mcmol/L (11-34) Urine Collection Type U cath Urine Color Dk yellow Urine Clarity Turbid Urine pH 5.0 (<5.0-8.0) Urine Specific [place] 1.020 (1.000-1.030) Urine Protein 100 mg/dL (NEG-TRACE) Urine Glucose (UA) 100 mg/dL (NEG) Urine Ketones (Stick) Trace mg/dL (NEG) Urine Blood Large (NEG) Urine Nitrite Positive (NEG) Urine Bilirubin Large (NEG) Urine Urobilinogen Dipstick 1.0 mg/dL (0.2 mg/dL) Urine Leukocyte Esterase Moderate (NEG) Urine RBC Tntc /HPF (0-2) Urine WBC Tntc /HPF (0-4) Urine Squamous Epithelial Cells Few /LPF Urine Transitional Epithelial Cells Few /LPF Urine Bacteria Many /HPF (0-FEW) Urine Mucus Marked /LPF Urine Yeast Present /HPF Test 03/12/20 21:32 03/13/20 00:18 03/13/20 04:27 03/13/20 06:15 Glucose (Fingerstick) 415 mg/dL (70-99) 436 mg/dL (70-99) 416 mg/dL (70-99) White Blood Count 29.0 x10^3/uL (4.0-11.0) Red Blood Count 4.26 x10^6/uL (4.30-5.70) Hemoglobin 12.3 g/dL (13.0-17.5) Hematocrit 38.2 % (39.0-53.0) Mean Corpuscular Volume 90 fL (79-100) Mean Corpuscular Hemoglobin 29 pg (25-35) Mean Corpuscular Hemoglobin Concent 32 g/dL (31-37) Red Cell Distribution Width 15.0 % (11.5-14.5) Platelet Count 123 x10^3/uL (140-400) Neutrophils (%) (Auto) 93 % (31-73) Lymphocytes (%) (Auto) 2 % (24-48) Monocytes (%) (Auto) 4 % (0-9) Eosinophils (%) (Auto) 0 % (0-3) Basophils (%) (Auto) 0 % (0-3) Neutrophils # (Auto) 27.0 x10^3/uL (1.8-7.7) Lymphocytes # (Auto) 0.6 x10^3/uL (1.0-4.8) Monocytes # (Auto) 1.3 x10^3/uL (0.0-1.1) Eosinophils # (Auto) 0.0 x10^3/uL (0.0-0.7) Basophils # (Auto) 0.1 x10^3/uL (0.0-0.2) Sodium Level 134 mmol/L (136-145) Potassium Level 4.8 mmol/L (3.5-5.1) Chloride Level 102 mmol/L (98-107) Carbon Dioxide Level 22 mmol/L (21-32) Anion Gap 10 (6-14) Blood Urea Nitrogen 23 mg/dL (8-26) Creatinine 1.7 mg/dL (0.7-1.3) Estimated GFR (Cockcroft-Gault) 47.7 BUN/Creatinine Ratio 14 (6-20) Glucose Level 450 mg/dL (70-99) Calcium Level 7.3 mg/dL (8.5-10.1) Total Bilirubin 6.1 mg/dL (0.2-1.0) Aspartate Amino Transf (AST/SGOT) 461 U/L (15-37) Alanine Aminotransferase (ALT/SGPT) 274 U/L (16-63) Alkaline Phosphatase 295 U/L (46-116) Total Protein 5.9 g/dL (6.4-8.2) Albumin 1.9 g/dL (3.4-5.0) Albumin/Globulin Ratio 0.5 (1.0-1.7) Objective: Assessment: Pt seen and examined IMP: Septic shock Gram neg bacteremia Hyperbilirubinemia, Abn LFTs,GB distention UTI Lactic acidosis NELLI Plan: Plan of Care DC Cefepime and Vanc Start merrem and zyvox f/u GNR in BC, repeat bc in am f/u labs and cults HIDA scan GI consult Critically ill D/W Nursing staff Thank you [id number] JAIDEN MARKS MD Mar 13, 2020 08:58
[2020-03-13] MEDS ORDERED: MAGNESIUM SULFATE 4GM 100 ML IV SCH (09:00)
[2020-03-13] MEDS: ELECTROLYTE (ICU) PROTOCOL. MC SCH (09:00)
[2020-03-13] MEDS ORDERED: LINEZOLID 600 MG TABLET PO SCH (09:00)
--- NOTE | 2020-03-13 09:21 | CONS ---
DATE OF CONSULTATION: 03/13/2020 REFERRING PHYSICIAN: Lai Davidson MD REASON FOR CONSULTATION: Septic shock. HISTORY OF PRESENT ILLNESS: A 74-year-old male who lives in assisted care living, who was brought in by EMS from the [facility] area due to altered mental status. The patient's home health nurse comes to visit him 3 times a week. She found him confused with fever. On arrival to the ER, the patient was confused, tachycardic, febrile and hypotensive. His white count was 10.9, hemoglobin of 14.2, hematocrit 42, platelets 131. Bandemia. Lactate of 5.1, creatinine of 1.6, lipase of 100, potassium of 3.3. The patient underwent chest x-ray, which showed mild interstitial and ground-glass opacities. COVID has been sent. He underwent right IJ tube placement. Abdomen and pelvic CT showed inflammatory changes around the gallbladder, which is mildly distended. Trace bilateral pleural effusion. The patient received azithromycin and ceftriaxone in the ER due to his antibiotics were changed to cefepime and IV vancomycin. ID consult has been requested for antibiotic management. Today, the patient is in ICU bed, a little more alert. Denies any headache or sore throat. Does have shortness of breath, some cough, abdominal pain, more in the lower quadrant and upper quadrant. Had burning while passing urine. Prior to admission, he also has neuropathy, which causes burning sensation in both the lower extremities. He is usually wheelchair bound. Denies any rash. Denies any sick contact. COVID-19 has been sent, which is pending at this time. Blood culture and urine culture are pending. PAST MEDICAL HISTORY: Hypertension, diabetes, snf resident, wheelchair bound. FAMILY HISTORY: As per HPI. SOCIAL HISTORY: No smoking, ETOH, or illicit drug use. 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 ALLERGIES: No known drug allergies. REVIEW OF SYSTEMS: Negative except for above in HPI. CURRENT MEDICATION: IV cefepime and vancomycin. Had dose of ceftriaxone and azithromycin in the ER, also had norepinephrine. PHYSICAL EXAMINATION: VITAL SIGNS: Temperature 98, T-max 102, pulse 92, respiratory rate 26, blood pressure 109/72, oxygen saturation 99% on 2 liters by nasal cannula. GENERAL: Alert, awake male, comfortable, tired appearing, in no acute distress. HEENT: Normocephalic, atraumatic, anicteric. No thrush. Oral mucosa moist. NECK: Supple. No JVD. LUNGS: Decreased breath sounds at the bases. No wheezing. HEART: S1, S2. No gallops or murmurs. Left sided chest wall PPM looks intact, clean. No overlying redness. ABDOMEN: Soft, obese, mildly distended. Mild diffuse tenderness, mainly in the lower quadrant and right upper quadrant. No rebound, no guarding. EXTREMITIES: No edema, no cyanosis, no clubbing. Nontender. NEUROLOGIC: Alert, awake, generalized weakness. PSYCHIATRIC: Pleasant, cooperative. LABORATORY DATA: WBC 29, was 10.9. Hemoglobin 12.3, was 14.2. Hematocrit 38.2, platelets 123. Lactate 5.1, repeat is 2.8. Sodium 134, potassium 4.8, chloride 102, bicarbonate 22, BUN 23, creatinine 1.7, calcium 7.3, lactate 2.8, total bilirubin 6.1, AST 461, ALT 274, alkaline phosphatase 295, total protein 5.9, albumin 1.5, lipase 100. TSH normal. Troponin 0.62, magnesium 1.4. UA shows moderate leukocyte esterase, wbc's too numerous to count, yeast present. DIAGNOSTICS: Abdominal and pelvic CT; inflammatory changes surrounding the gallbladder, which is mildly distended. Findings suspicious for acute cholecystitis. Trace bilateral pleural effusion. Chest x-ray as above. IMPRESSION: 1. Septic shock, source gastrointestinal and/or genitourinary. 2. Leukocytosis with bandemia. 3. Lactic acidosis. 4. Gram negative bacteremia source and or GI 5. Urinary tract infection. 6. Acute kidney injury. 7. Thrombocytopenia, likely sepsis. 8. Encephalopathy, likely sepsis, improving. 9. Hyperbilirubinemia, abnormal LFTs, gallbladder distention on CT. 10. Diabetes mellitus. 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 12.MO resident RECOMMENDATIONS: Discontinue IV vancomycin due to NELLI. Discontinue cefepime. Start Merrem and Zyvox. Follow up blood culture and urine culture. Obtain HIDA scan and or Ultrasound of abdomen GI consult. Follow up labs and cultures. COVID 19 pending Continue supportive care. Critically ill. Discussed with nursing staff. Thank you for allowing me to participate in this patient's care. If you have any questions, do not hesitate to contact me. JAIDEN MARKS MD DR: GEOVANY/errol JOB#: [id number] / [id number] ARSH
--- NOTE | 2020-03-13 09:48 | CONS ---
DATE OF CONSULTATION: 03/13/2020 PULMONARY CONSULTATION ATTENDING PHYSICIAN: Lai Davidson MD REASON FOR CONSULTATION: Sepsis. HISTORY OF PRESENT ILLNESS: The patient is a 74-year-old male who was brought in by EMS from a care home area to altered mental status. The patient was noted by health nurse that he was confused and having a temperature. EMS was called. He was confused on arrival. He was also hypotensive. The patient's blood pressure was in the 90s. He is not in any obvious respiratory distress. His pulse ox is 99% on 2 liters. His chest x-ray revealed only faint basal atelectasis. The patient received about 3 liters of IV fluids for sepsis. His white cell count is 29,000. His urine is consistent with too many wbc's and consistent with urinary tract infection. He is also requiring low-dose Levophed. I have been asked to see him for further evaluation. His COVID test is pending and visual exam was performed due to COVID pandemia. PAST MEDICAL HISTORY: History of hypertension. PAST SURGICAL HISTORY: Unknown. ALLERGIES: None. FAMILY HISTORY: Hypertension. SOCIAL HISTORY: Nonsmoker. MEDICATIONS: Reviewed as listed in the MRAD including antibiotic, meropenem and subcutaneous heparin for DVT prophylaxis. REVIEW OF SYSTEMS: Unable to obtain from the patient. PHYSICAL EXAMINATION: VITAL SIGNS: Stable. Pulse ox 99% on 2 liters. GENERAL: He is in no obvious respiratory distress. No paradoxical breathing. EXTREMITIES: Legs with no edema. LABORATORY DATA: Reviewed. BUN 23, creatinine 1.7. His AST and ALT are increased. Albumin is 1.9. INR 1.3. White cell count 29,000 this morning from admission of 10.9, hemoglobin 12.3 and platelets are 123. IMPRESSION: 1. Acute hypoxic respiratory failure secondary to septic shock. 2. Septic shock secondary to urinary tract infection. 3. Urinary tract infection. 4. No history of tobacco use. 5. Abnormal chest x-ray with only mild basal atelectasis. 6. Low suspicion for COVID. 7. Marked leukocytosis secondary to sepsis. I did not see the patient receive any steroids in the Emergency Room. 8. Possible mild chronic kidney disease. 9. Severe protein-calorie malnutrition. 10. Abnormal LFTs secondary to hypoperfusion from shock. RECOMMENDATIONS: 1. Continue with present nasal cannula at 2 liters. 2. Continue IV fluids. 3. Wean Levophed. 4. Broad-spectrum antibiotic per Infectious Disease. 5. Monitor all cultures including urine cultures. 6. DVT prophylaxis with heparin. 7. Discussed with RN. We will follow along with you. Critical care time 37 minutes. NAFISA SIN MD DR: CALEB/errol JOB#: [id number] / [id number]
[2020-03-13] MEDS: MEROPENEM 500 MG in IV NORMAL SALINE 50ML 50 ML IV SCH ×3 (10:24→18:33)
[2020-03-13] MEDS: FAMOTIDINE 20 MG/2 ML VIAL IVP SCH (10:44)
[2020-03-13] MEDS: MULTIVITAMIN with MINERAL TABLET. PO SCH (10:48)
[2020-03-13] MEDS: MORPHINE SULFATE 2 MG/ML VIAL. IV PRN (11:12)
[2020-03-13] MEDS: methylPREDNISolone SOD SUCC PF 40 MG/ML VIAL. IV SCH ×2 (11:14→18:34)
--- NOTE | 2020-03-13 12:02 | PDOC ---
[employer] PROGRESS NOTE Date of Service DOS: DATE: 03/13/20 TIME: 11:44 Chief Complaint Chief Complaint Acute hypoxic respiratory failure secondary to septic shock Septic shock secondary to urinary tract infection Urinary tract infection Diabetes mellitus No history of tobacco use Abnormal chest x-ray with only mild basal atelectasis. Low suspicion for COVID Marked leukocytosis secondary to sepsis Possible mild chronic kidney disease. Severe protein-calorie malnutrition. Abnormal LFTs secondary to hypoperfusion from shock History of Present Illness History of Present Illness 03/12/2020 Patient seen and examined in the ICU Afebrile On 2L O2 NC Calcium 7.3, Potassium 4.8 being replaced COVID-19 results pending Discussed with RN Chart reviewed Vitals/I&O Vitals/I&O: Vital Signs Date Time Temp Pulse Resp B/P (MAP) Pulse Ox O2 Delivery O2 Flow Rate FiO2 03/13/20 11:12 23 96 Nasal Cannula 2.0 03/13/20 06:00 92 109/72 (84) 03/13/20 04:00 98.0 98.0 I & O 03/12/20 03/12/20 03/13/20 15:00 23:00 07:00 Intake Total 4800 ml 2099.3 ml Output Total 20 ml 130 ml Balance 4780 ml 1969.3 ml Physical Exam General: Alert, Cooperative, No acute distress Heart: Regular rate, Normal S1 Abdomen: Normal bowel sounds, Soft, No tenderness Extremities: No clubbing, No cyanosis, No edema Skin: No rashes, No breakdown, No significant lesion Labs Labs: Laboratory Tests Test 03/12/20 14:10 03/12/20 16:00 03/12/20 17:21 03/12/20 18:20 White Blood Count 10.9 x10^3/uL (4.0-11.0) Red Blood Count 4.73 x10^6/uL (4.30-5.70) Hemoglobin 14.2 g/dL (13.0-17.5) Hematocrit 42.1 % (39.0-53.0) Mean Corpuscular Volume 89 fL (79-100) Mean Corpuscular Hemoglobin 30 pg (25-35) Mean Corpuscular Hemoglobin Concent 34 g/dL (31-37) Red Cell Distribution Width 14.9 % (11.5-14.5) Platelet Count 131 x10^3/uL (140-400) Neutrophils (%) (Auto) 97 % (31-73) Lymphocytes (%) (Auto) 2 % (24-48) Monocytes (%) (Auto) 2 % (0-9) Eosinophils (%) (Auto) 0 % (0-3) Basophils (%) (Auto) 0 % (0-3) Neutrophils # (Auto) 10.5 x10^3/uL (1.8-7.7) Lymphocytes # (Auto) 0.2 x10^3/uL (1.0-4.8) Monocytes # (Auto) 0.2 x10^3/uL (0.0-1.1) Eosinophils # (Auto) 0.0 x10^3/uL (0.0-0.7) Basophils # (Auto) 0.0 x10^3/uL (0.0-0.2) Segmented Neutrophils % 74 % (35-66) Band Neutrophils % 22 % (0-9) Lymphocytes % 2 % (24-48) Monocytes % 2 % (0-10) Toxic Granulation Mod Toxic Vacuolation Mod Platelet Estimate Decreased (ADEQUATE) Prothrombin Time 15.6 SEC (11.7-14.0) Prothromb Time International Ratio 1.3 (0.8-1.1) Activated Partial Thromboplast Time 26 SEC (24-38) Lactic Acid Level 5.1 mmol/L (0.4-2.0) 2.8 mmol/L (0.4-2.0) Sodium Level 139 mmol/L (136-145) Potassium Level 3.3 mmol/L (3.5-5.1) Chloride Level 104 mmol/L (98-107) Carbon Dioxide Level 23 mmol/L (21-32) Anion Gap 12 (6-14) Blood Urea Nitrogen 16 mg/dL (8-26) Creatinine 1.6 mg/dL (0.7-1.3) Estimated GFR (Cockcroft-Gault) 51.1 BUN/Creatinine Ratio 10 (6-20) Glucose Level 366 mg/dL (70-99) Calcium Level 7.2 mg/dL (8.5-10.1) Magnesium Level 1.4 mg/dL (1.8-2.4) Total Bilirubin 4.1 mg/dL (0.2-1.0) Aspartate Amino Transf (AST/SGOT) 131 U/L (15-37) Alanine Aminotransferase (ALT/SGPT) 99 U/L (16-63) Alkaline Phosphatase 273 U/L (46-116) Troponin I Quantitative 0.062 ng/mL (0.000-0.055) Total Protein 5.0 g/dL (6.4-8.2) Albumin 1.7 g/dL (3.4-5.0) Albumin/Globulin Ratio 0.5 (1.0-1.7) Lipase 100 U/L (73-393) Thyroid Stimulating Hormone (TSH) 2.124 uIU/mL (0.358-3.74) Ammonia 17 mcmol/L (11-34) Urine Collection Type U cath Urine Color Dk yellow Urine Clarity Turbid Urine pH 5.0 (<5.0-8.0) Urine Specific [place] 1.020 (1.000-1.030) Urine Protein 100 mg/dL (NEG-TRACE) Urine Glucose (UA) 100 mg/dL (NEG) Urine Ketones (Stick) Trace mg/dL (NEG) Urine Blood Large (NEG) Urine Nitrite Positive (NEG) Urine Bilirubin Large (NEG) Urine Urobilinogen Dipstick 1.0 mg/dL (0.2 mg/dL) Urine Leukocyte Esterase Moderate (NEG) Urine RBC Tntc /HPF (0-2) Urine WBC Tntc /HPF (0-4) Urine Squamous Epithelial Cells Few /LPF Urine Transitional Epithelial Cells Few /LPF Urine Bacteria Many /HPF (0-FEW) Urine Mucus Marked /LPF Urine Yeast Present /HPF Test 03/12/20 21:32 03/13/20 00:18 03/13/20 04:27 03/13/20 06:15 Glucose (Fingerstick) 415 mg/dL (70-99) 436 mg/dL (70-99) 416 mg/dL (70-99) White Blood Count 29.0 x10^3/uL (4.0-11.0) Red Blood Count 4.26 x10^6/uL (4.30-5.70) Hemoglobin 12.3 g/dL (13.0-17.5) Hematocrit 38.2 % (39.0-53.0) Mean Corpuscular Volume 90 fL (79-100) Mean Corpuscular Hemoglobin 29 pg (25-35) Mean Corpuscular Hemoglobin Concent 32 g/dL (31-37) Red Cell Distribution Width 15.0 % (11.5-14.5) Platelet Count 123 x10^3/uL (140-400) Neutrophils (%) (Auto) 93 % (31-73) Lymphocytes (%) (Auto) 2 % (24-48) Monocytes (%) (Auto) 4 % (0-9) Eosinophils (%) (Auto) 0 % (0-3) Basophils (%) (Auto) 0 % (0-3) Neutrophils # (Auto) 27.0 x10^3/uL (1.8-7.7) Lymphocytes # (Auto) 0.6 x10^3/uL (1.0-4.8) Monocytes # (Auto) 1.3 x10^3/uL (0.0-1.1) Eosinophils # (Auto) 0.0 x10^3/uL (0.0-0.7) Basophils # (Auto) 0.1 x10^3/uL (0.0-0.2) Sodium Level 134 mmol/L (136-145) Potassium Level 4.8 mmol/L (3.5-5.1) Chloride Level 102 mmol/L (98-107) Carbon Dioxide Level 22 mmol/L (21-32) Anion Gap 10 (6-14) Blood Urea Nitrogen 23 mg/dL (8-26) Creatinine 1.7 mg/dL (0.7-1.3) Estimated GFR (Cockcroft-Gault) 47.7 BUN/Creatinine Ratio 14 (6-20) Glucose Level 450 mg/dL (70-99) Calcium Level 7.3 mg/dL (8.5-10.1) Total Bilirubin 6.1 mg/dL (0.2-1.0) Aspartate Amino Transf (AST/SGOT) 461 U/L (15-37) Alanine Aminotransferase (ALT/SGPT) 274 U/L (16-63) Alkaline Phosphatase 295 U/L (46-116) Total Protein 5.9 g/dL (6.4-8.2) Albumin 1.9 g/dL (3.4-5.0) Albumin/Globulin Ratio 0.5 (1.0-1.7) Assessment and Plan Assessmemt and Plan Problems Medical Problems: (1) AMS (altered mental status) Status: Acute (2) Hypocalcemia Status: Acute (3) Hypokalemia Status: Acute (4) Septic shock Status: Acute (5) Suspected 2019 novel coronavirus infection Status: Acute ASSESSMENT Acute hypoxic respiratory failure secondary to septic shock Septic shock secondary to urinary tract infection Urinary tract infection Diabetes mellitus No history of tobacco use Abnormal chest x-ray with only mild basal atelectasis. Low suspicion for COVID Marked leukocytosis secondary to sepsis Possible mild chronic kidney disease. Severe protein-calorie malnutrition. Abnormal LFTs secondary to hypoperfusion from shock PLAN IV morphine PRN for pain Zyvox per ID Meropenem per ID Oxygen supplementation IV Fluids IV steroids Wean Levophed Blood and urine cultures pending Monitor electrolytes Awaiting GI consult DVT prophylaxis Full code Appreciate subspeciality input Comment Review of Relevant I have reviewed the following items thee (where applicable) has been applied. Medications: Current Medications Medications (Trade) Dose Ordered Sig/Uma Route PRN Reason Start Time Stop Time Status Last Admin Dose Admin Sodium Chloride 1,000 ml @ 1,000 mls/hr 1X ONCE IV 03/12/20 14:30 03/12/20 15:29 DC 03/12/20 14:00 Sodium Chloride 1,000 ml @ 1,000 mls/hr 1X ONCE IV 03/12/20 14:30 03/12/20 15:29 DC 03/12/20 14:05 Ceftriaxone Sodium (Rocephin) 1 gm 1X ONCE IVP 03/12/20 15:00 03/12/20 15:01 DC 03/12/20 16:41 Sodium Chloride 1,000 ml @ 1,000 mls/hr 1X ONCE IV 03/12/20 15:30 03/12/20 16:29 DC 03/12/20 16:38 Sodium Chloride 1,000 ml @ 1,000 mls/hr 1X ONCE IV 03/12/20 15:30 03/12/20 16:29 DC 03/12/20 16:39 Lidocaine HCl (Lidocaine 1% 20ml Vial) 20 ml 1X ONCE INJ 03/12/20 15:30 03/12/20 15:31 DC 03/12/20 15:30 Norepinephrine Bitartrate 8 mg/ Dextrose 258 ml @ 21.285 mls/ hr 1X ONCE IV 03/12/20 16:15 03/13/20 04:22 DC 03/12/20 16:28 Calcium Gluconate (Calcium Gluconate) 1,000 mg 1X ONCE IVP 03/12/20 17:00 03/12/20 17:01 DC 03/12/20 17:50 Ondansetron HCl (Zofran) 4 mg PRN Q8HRS PRN IV NAUSEA/VOMITING 03/12/20 16:30 03/13/20 16:29 03/13/20 02:56 Azithromycin 250 ml @ 250 mls/hr 1X ONCE IV 03/12/20 17:00 03/12/20 17:59 DC 03/12/20 17:51 Famotidine (Pepcid Vial) 20 mg BID IVP 03/12/20 21:00 03/13/20 09:34 DC 03/12/20 22:49 Heparin Sodium (Porcine) (Heparin Sodium) 5,000 unit Q8HRS SQ 03/12/20 22:00 03/13/20 05:51 Sodium Chloride 1,000 ml @ 100 mls/hr Q10H IV 03/12/20 16:33 03/12/20 17:50 Cefepime HCl (Maxipime) 1 gm Q8HRS IVP 03/12/20 22:00 03/13/20 08:46 DC 03/13/20 05:51 Vancomycin HCl (Vanco Per Pharmacy) 1 each PRN DAILY PRN MC SEE COMMENTS 03/12/20 16:45 03/13/20 08:46 DC 03/12/20 18:45 Potassium Chloride/Water 100 ml @ 100 mls/hr Q1H IV 03/12/20 19:00 03/12/20 22:59 DC 03/12/20 22:51 Magnesium Sulfate 50 ml @ 25 mls/hr 1X ONCE IV 03/12/20 17:00 03/12/20 18:59 DC 03/12/20 17:51 Vancomycin HCl 2 gm/Sodium Chloride 500 ml @ 250 mls/hr 1X ONCE IV 03/12/20 18:00 03/12/20 19:59 DC 03/12/20 17:53 Norepinephrine Bitartrate 8 mg/ Dextrose 258 ml @ 21.285 mls/ hr CONT PRN IV PER PROTOCOL 03/12/20 22:30 03/13/20 05:52 Insulin Human Lispro (HumaLOG) 0-9 UNITS Q4HRS SQ 03/13/20 04:00 03/13/20 10:42 Linezolid (Zyvox) 600 mg BID PO 03/13/20 09:00 03/13/20 10:48 Meropenem 500 mg/ Sodium Chloride 50 ml @ 100 mls/hr Q6HRS IV 03/13/20 09:00 03/13/20 10:24 Famotidine (Pepcid Vial) 20 mg DAILY IVP 03/14/20 09:00 03/13/20 10:44 Multivitamins (Thera M Plus) 1 tab DAILY PO 03/13/20 10:30 03/13/20 10:48 Methylprednisolone Sodium Succinate (SOLU-Medrol 40MG VIAL) 40 mg Q6HRS IV 03/13/20 11:00 03/13/20 11:14 Morphine Sulfate (Morphine Sulfate) 2 mg PRN Q2HR PRN IV PAIN 03/13/20 11:00 03/13/20 11:12 Justicifation of Admission Dx: Justifications for Admission: Justification of Admission Dx: Yes CHF: Cardiac Arrhythmias Comminuty Aquired Pneumonia: Bactermia Chronic Renal Failure: Encephalopathy Sepsis: Altered Mental Status THELMA BRUCE III DO Mar 13, 2020 12:02
[2020-03-13] MEDS: IV NORMAL SALINE 1000ML BAG 1,000 ML IV SCH ×3 (12:33→22:33)
[2020-03-13] MEDS ORDERED: INSULIN LISPRO 300 UNITS/3 ML VIAL. SQ STA (13:39)
--- NOTE | 2020-03-13 13:53 | NUR ---
SS following for discharge planning. SS reviewed pt chart and discussed with pt RN. Pt is from home and is currently requiring oxygen. Pt has sepsis. Pt on IV Meropenem and PO Zyvox. COVID19 pending. Pt has morin catheter and is NPO. SS will continue to follow for discharge planning.
--- NOTE | 2020-03-13 14:34 | PDOC2 ---
GI CONSULT Date of Service: DATE: 03/13/20 TIME: 14:34 Reason For Consult: sepsis, hyperbilirubinemia, GB distention HPI: HPI: 74 y/o male admitted w/ AMS, noted w/ UTI and GNR bacteremia. Additionally has been hypotensive and LFTs are elevated. CT noted inflammatory changes surrounding the gallbladder which is mildly distended. D/w nurse - mental status and BP have improved. Has c/o some abdominal pain. HIDA was ordered - not done due to pending COVID test. He tells me he vomited a few days ago at home but otherwise was feeling well until Tuesday when he "collapsed" in his chair waiting for a nurse to come take care of his legs - talks in detail about neuropathy. Thinks abdominal pain started Tuesday as well - across the middle, "sore," pretty much there all the time. Not sure aggravating or alleviating factors. Seems to also describe some urinary symptoms at home as well. Denies reflux/heartburn, dysphagia, chronic n/v, chronic abd pain, diarrhea, constipation, hematochezia, melena, change in appetite, or weight loss. No EGD or colonoscopy. "I think someone was going to give me a medicine for my gallbladder." No liver, pancreas, or PUD history. PMH: PMH: per chart - CAD, CHF, CVA, HTN, HLD, DM, UTI, neuropathy CABG, pacemaker FH: Family History: No pertinent hx Social History: Smoke: No ALCOHOL: none Drugs: None ROS: GEN: Denies fevers, chills, sweats HEENT: Denies blurred vision, sore throat CV: Denies chest pain RESP: Denies shortness of air, cough GI: Per HPI : Denies hematuria, dysuria ENDO: Denies weight changes NEURO: Denies confusion, dizziness MSK: +weakness SKIN: Denies jaundice, pruritus Vitals: Vitals: Vital Signs Date Time Temp Pulse Resp B/P (MAP) Pulse Ox O2 Delivery O2 Flow Rate FiO2 03/13/20 13:00 86 25 133/74 (93) 97 Nasal Cannula 2.0 03/13/20 07:00 98.5 98.5 Labs: Labs: Laboratory Tests Test 03/12/20 16:00 03/12/20 17:21 03/12/20 18:20 03/12/20 21:32 Sodium Level 139 mmol/L (136-145) Potassium Level 3.3 mmol/L (3.5-5.1) Chloride Level 104 mmol/L (98-107) Carbon Dioxide Level 23 mmol/L (21-32) Anion Gap 12 (6-14) Blood Urea Nitrogen 16 mg/dL (8-26) Creatinine 1.6 mg/dL (0.7-1.3) Estimated GFR (Cockcroft-Gault) 51.1 BUN/Creatinine Ratio 10 (6-20) Glucose Level 366 mg/dL (70-99) Calcium Level 7.2 mg/dL (8.5-10.1) Magnesium Level 1.4 mg/dL (1.8-2.4) Total Bilirubin 4.1 mg/dL (0.2-1.0) Aspartate Amino Transf (AST/SGOT) 131 U/L (15-37) Alanine Aminotransferase (ALT/SGPT) 99 U/L (16-63) Alkaline Phosphatase 273 U/L (46-116) Troponin I Quantitative 0.062 ng/mL (0.000-0.055) Total Protein 5.0 g/dL (6.4-8.2) Albumin 1.7 g/dL (3.4-5.0) Albumin/Globulin Ratio 0.5 (1.0-1.7) Lipase 100 U/L (73-393) Thyroid Stimulating Hormone (TSH) 2.124 uIU/mL (0.358-3.74) Ammonia 17 mcmol/L (11-34) Urine Collection Type U cath Urine Color Dk yellow Urine Clarity Turbid Urine pH 5.0 (<5.0-8.0) Urine Specific [place] 1.020 (1.000-1.030) Urine Protein 100 mg/dL (NEG-TRACE) Urine Glucose (UA) 100 mg/dL (NEG) Urine Ketones (Stick) Trace mg/dL (NEG) Urine Blood Large (NEG) Urine Nitrite Positive (NEG) Urine Bilirubin Large (NEG) Urine Urobilinogen Dipstick 1.0 mg/dL (0.2 mg/dL) Urine Leukocyte Esterase Moderate (NEG) Urine RBC Tntc /HPF (0-2) Urine WBC Tntc /HPF (0-4) Urine Squamous Epithelial Cells Few /LPF Urine Transitional Epithelial Cells Few /LPF Urine Bacteria Many /HPF (0-FEW) Urine Mucus Marked /LPF Urine Yeast Present /HPF Lactic Acid Level 2.8 mmol/L (0.4-2.0) Glucose (Fingerstick) 415 mg/dL (70-99) Test 03/13/20 00:18 03/13/20 04:27 03/13/20 06:15 03/13/20 12:26 Glucose (Fingerstick) 436 mg/dL (70-99) 416 mg/dL (70-99) 366 mg/dL (70-99) White Blood Count 29.0 x10^3/uL (4.0-11.0) Red Blood Count 4.26 x10^6/uL (4.30-5.70) Hemoglobin 12.3 g/dL (13.0-17.5) Hematocrit 38.2 % (39.0-53.0) Mean Corpuscular Volume 90 fL (79-100) Mean Corpuscular Hemoglobin 29 pg (25-35) Mean Corpuscular Hemoglobin Concent 32 g/dL (31-37) Red Cell Distribution Width 15.0 % (11.5-14.5) Platelet Count 123 x10^3/uL (140-400) Neutrophils (%) (Auto) 93 % (31-73) Lymphocytes (%) (Auto) 2 % (24-48) Monocytes (%) (Auto) 4 % (0-9) Eosinophils (%) (Auto) 0 % (0-3) Basophils (%) (Auto) 0 % (0-3) Neutrophils # (Auto) 27.0 x10^3/uL (1.8-7.7) Lymphocytes # (Auto) 0.6 x10^3/uL (1.0-4.8) Monocytes # (Auto) 1.3 x10^3/uL (0.0-1.1) Eosinophils # (Auto) 0.0 x10^3/uL (0.0-0.7) Basophils # (Auto) 0.1 x10^3/uL (0.0-0.2) Sodium Level 134 mmol/L (136-145) Potassium Level 4.8 mmol/L (3.5-5.1) Chloride Level 102 mmol/L (98-107) Carbon Dioxide Level 22 mmol/L (21-32) Anion Gap 10 (6-14) Blood Urea Nitrogen 23 mg/dL (8-26) Creatinine 1.7 mg/dL (0.7-1.3) Estimated GFR (Cockcroft-Gault) 47.7 BUN/Creatinine Ratio 14 (6-20) Glucose Level 450 mg/dL (70-99) Calcium Level 7.3 mg/dL (8.5-10.1) Total Bilirubin 6.1 mg/dL (0.2-1.0) Aspartate Amino Transf (AST/SGOT) 461 U/L (15-37) Alanine Aminotransferase (ALT/SGPT) 274 U/L (16-63) Alkaline Phosphatase 295 U/L (46-116) Total Protein 5.9 g/dL (6.4-8.2) Albumin 1.9 g/dL (3.4-5.0) Albumin/Globulin Ratio 0.5 (1.0-1.7) BLOOD CULTURE Final GRAM NEGATIVE RODS, IN 4 OF 4 BOTTLES, TWO SETS DRAWN. Allergies: Coded Allergies: No Known Drug Allergies (Unverified , 03/12/20) Medications: Current Medications Medications (Trade) Dose Ordered Sig/Uma Route PRN Reason Start Time Stop Time Status Last Admin Dose Admin Ceftriaxone Sodium (Rocephin) 1 gm 1X ONCE IVP 03/12/20 15:00 03/12/20 15:01 DC 03/12/20 16:41 Sodium Chloride 1,000 ml @ 1,000 mls/hr 1X ONCE IV 03/12/20 15:30 03/12/20 16:29 DC 03/12/20 16:38 Sodium Chloride 1,000 ml @ 1,000 mls/hr 1X ONCE IV 03/12/20 15:30 03/12/20 16:29 DC 03/12/20 16:39 Lidocaine HCl (Lidocaine 1% 20ml Vial) 20 ml 1X ONCE INJ 03/12/20 15:30 03/12/20 15:31 DC 03/12/20 15:30 Norepinephrine Bitartrate 8 mg/ Dextrose 258 ml @ 21.285 mls/ hr 1X ONCE IV 03/12/20 16:15 03/13/20 04:22 DC 03/12/20 16:28 Calcium Gluconate (Calcium Gluconate) 1,000 mg 1X ONCE IVP 03/12/20 17:00 8/12/20 17:01 DC 03/12/20 17:50 Ondansetron HCl (Zofran) 4 mg PRN Q8HRS PRN IV NAUSEA/VOMITING 03/12/20 16:30 03/13/20 16:29 03/13/20 02:56 Azithromycin 250 ml @ 250 mls/hr 1X ONCE IV 03/12/20 17:00 03/12/20 17:59 DC 03/12/20 17:51 Famotidine (Pepcid Vial) 20 mg BID IVP 03/12/20 21:00 03/13/20 09:34 DC 03/12/20 22:49 Heparin Sodium (Porcine) (Heparin Sodium) 5,000 unit Q8HRS SQ 03/12/20 22:00 03/13/20 05:51 Sodium Chloride 1,000 ml @ 100 mls/hr Q10H IV 03/12/20 16:33 03/12/20 17:50 Cefepime HCl (Maxipime) 1 gm Q8HRS IVP 03/12/20 22:00 03/13/20 08:46 DC 03/13/20 05:51 Vancomycin HCl (Vanco Per Pharmacy) 1 each PRN DAILY PRN MC SEE COMMENTS 03/12/20 16:45 03/13/20 08:46 DC 03/12/20 18:45 Potassium Chloride/Water 100 ml @ 100 mls/hr Q1H IV 03/12/20 19:00 03/12/20 22:59 DC 03/12/20 22:51 Magnesium Sulfate 50 ml @ 25 mls/hr 1X ONCE IV 03/12/20 17:00 03/12/20 18:59 DC 03/12/20 17:51 Vancomycin HCl 2 gm/Sodium Chloride 500 ml @ 250 mls/hr 1X ONCE IV 03/12/20 18:00 03/12/20 19:59 DC 03/12/20 17:53 Norepinephrine Bitartrate 8 mg/ Dextrose 258 ml @ 21.285 mls/ hr CONT PRN IV PER PROTOCOL 03/12/20 22:30 03/13/20 05:52 Insulin Human Lispro (HumaLOG) 0-9 UNITS Q4HRS SQ 03/13/20 04:00 03/13/20 10:42 Linezolid (Zyvox) 600 mg BID PO 8/13/20 09:00 03/13/20 10:48 Meropenem 500 mg/ Sodium Chloride 50 ml @ 100 mls/hr Q6HRS IV 03/13/20 09:00 03/13/20 10:24 Famotidine (Pepcid Vial) 20 mg DAILY IVP 03/14/20 09:00 03/13/20 10:44 Multivitamins (Thera M Plus) 1 tab DAILY PO 03/13/20 10:30 03/13/20 10:48 Methylprednisolone Sodium Succinate (SOLU-Medrol 40MG VIAL) 40 mg Q6HRS IV 03/13/20 11:00 03/13/20 11:14 Morphine Sulfate (Morphine Sulfate) 2 mg PRN Q2HR PRN IV PAIN 03/13/20 11:00 03/13/20 11:12 Imaging: Imaging: CXR IMPRESSION: * Hypoexpansion with mild interstitial and groundglass opacities. Could be from crowding of the vascular markings from hypoexpansion with atelectasis but mild edema or interstitial infiltrate can have this appearance. CXR IMPRESSION: 1. Right jugular central line extends to the right atrium. 2. Little other change. CT A/P FINDINGS: Heart size is normal. Pacer with leads terminating the right heart. No pericardial. Trace bilateral pleural effusion. Strandy opacities at dependent portion lungs likely represent atelectasis. Evaluation of solid organs limited secondary to noncontrast technique. Liver, spleen, pancreas and adrenals are unremarkable. Gallbladder is distended. There is mild pericholecystic inflammatory changes noted. No perinephric inflammation or hydronephrosis. No renal or ureteral calculi are identified. No renal or ureteral calculi are identified. Bladder is decompressed not well evaluated. Prostate is normal. Large and small bowel are unremarkable. Appendix is is not identified. No free intra-abdominal air or fluid. No obstruction. Abdominal aorta has a normal course and caliber. No enlarged abdominal lymph nodes are identified. No suspicious osseous lesions or acute fracture. IMPRESSION: 1. Inflammatory changes surrounding the gallbladder which is mildly distended. Findings are suspicious for acute cholecystitis. HIDA scan can BE used for definitive evaluation. 2. Trace bilateral pleural effusions. PE: GEN: NAD - has green mouth swabs dumped all over bed HEENT: Atraumatic, PERRL LUNGS: CTAB HEART: RRR ABD: quiet BS, soft, some distention, non-specifically tender throughout EXTREMITY: trace edema BLE, cool right foot SKIN: No rashes, no jaundice NEURO/PSYCH: awake and alert, probably some confusion, speaks slowly A/P: A/P: AMS, weakness, abd pain, vomiting Fever, hypotension GNR bacteremia, leukocytosis, lactic acidosis, anemia, elevated LFTs, UTI Abnormal CT - inflammatory changes surrounding GB w/ mild distention CRC screen - none R/o COVID-19 -- Await COVID test and HIDA, also added US and Hepatitis serology after d/w physician. Will also check anemia parameters for completeness. Agree w/ empiric acid-personal service representative. Other pending. LEONEL TYSON Mar 13, 2020 14:34
[2020-03-13] MEDS ORDERED: VANCOMYCIN 1.5 GM in IV NORMAL SALINE 500ML BAG 500 ML IV SCH (18:00)
[2020-03-13] MEDS: LACTOBACILLUS RHAMNOSUS GG 1 CAPSULE. PO SCH (21:00)
--- NOTE | 2020-03-13 23:32 | RAD ---
Limited abdomen ultrasound HISTORY: Elevated liver function tests, distended gallbladder on recent CT abdomen imaging. FINDINGS: The pancreas, upper bowel aorta and upper abdominal IVC are normal. The lower abdominal segments of the vessels are obscured by bowel gas shadowing. Normal liver echogenicity. No liver mass or nodularity. Small right pleural effusion along the diaphragm. Hepatopedal portal vein blood flow. No gallstones or inflammatory change of the gallbladder, bridging cap the gallbladder is noted. No biliary ductal dilation common body diameters 5 mm Right renal length 13.3 cm. No right renal mass, calculus or hydronephrosis. Spleen and left kidney were not evaluated. IMPRESSION: 1. Gallbladder is normal. No sonographic correlate for the inflammatory edema surrounding the gallbladder on recent CT imaging. No biliary ductal dilation. 2. Small right pleural effusion. Electronically signed by: Kyle Mata MD (03/13/2020 11:29 PM) [facility]
[2020-03-14] VITALS (21 sets, daily range): BP systolic 91–115; BP diastolic 58–73
[2020-03-14] MEDS: MEROPENEM 500 MG in IV NORMAL SALINE 50ML 50 ML IV SCH ×4 (00:26→22:17)
[2020-03-14] MEDS: methylPREDNISolone SOD SUCC PF 40 MG/ML VIAL. IV SCH ×4 (00:26→20:33)
[2020-03-14] MEDS: INSULIN LISPRO 300 UNITS/3 ML VIAL. SQ SCH ×6 (00:34→20:40)
[2020-03-14] MEDS: IV NORMAL SALINE 1000ML BAG 1,000 ML IV SCH ×2 (04:39→20:33)
[2020-03-14] MEDS: HEPARIN for SUB-Q USE 5,000 UNIT/ML VIAL. SQ SCH ×3 (07:28→22:21)
--- NOTE | 2020-03-14 08:19 | PDOC ---
Infectious Disease Note Subjective: Subjective pt is confused, alert comfortable off pressors no fevers last 24 hrs Vital Signs: Vital Signs Vital Signs Date Time Temp Pulse Resp B/P (MAP) Pulse Ox O2 Delivery O2 Flow Rate FiO2 03/14/20 07:00 80 21 115/73 (87) 99 Room Air 03/14/20 04:00 98.0 98.0 03/14/20 01:00 2.0 Physical Exam: PHYSICAL EXAM GENERAL: Alert, awake male, comfortable, tired appearing, in no acute distress. HEENT: Normocephalic, atraumatic, anicteric. No thrush. Oral mucosa moist. NECK: Supple. No JVD. LUNGS: Decreased breath sounds at the bases. No wheezing. HEART: S1, S2. No gallops or murmurs. Left sided chest wall PPM looks intact, clean. No overlying redness. ABDOMEN: Soft, obese, mildly distended. Mild diffuse tenderness, mainly in the lower quadrant and right upper quadrant. No rebound, no guarding. EXTREMITIES: No edema, no cyanosis, no clubbing. Nontender. NEUROLOGIC: Alert, awake, generalized weakness. PSYCHIATRIC: Pleasant, cooperative. Medications: Inpatient Meds: Current Medications Medications (Trade) Dose Ordered Sig/Uma Start Time Stop Time Status Last Admin Dose Admin Azithromycin 250 ml @ 250 mls/hr 1X ONCE 03/12/20 17:00 03/12/20 17:59 DC 03/12/20 17:51 250 MLS/HR Bisacodyl (Dulcolax Supp) 10 mg PRN DAILY PRN 03/12/20 16:45 Calcium Gluconate (Calcium Gluconate) 1,000 mg 1X ONCE 03/12/20 17:00 03/12/20 17:01 DC 03/12/20 17:50 1,000 MG Cefepime HCl (Maxipime) 1 gm Q8HRS 03/12/20 22:00 03/13/20 08:46 DC 03/13/20 05:51 1 GM Ceftriaxone Sodium (Rocephin) 1 gm 1X ONCE 03/12/20 15:00 03/12/20 15:01 DC 03/12/20 16:41 1 GM Dextrose (Dextrose 50%-Water Syringe) 12.5 gm PRN Q15MIN PRN 03/13/20 00:30 Famotidine (Pepcid Vial) 20 mg DAILY 03/14/20 09:00 03/13/20 10:44 20 MG Heparin Sodium (Porcine) (Heparin Sodium) 5,000 unit Q8HRS 03/12/20 22:00 03/14/20 07:28 5,000 UNIT Info (Icu Electrolyte Protocol) 1 ea CONT PRN PRN 03/12/20 17:00 03/12/20 17:06 DC Insulin Human Lispro (HumaLOG) 30 units 1X STAT 03/13/20 13:39 03/13/20 13:49 DC 03/13/20 13:39 30 UNITS Lactobacillus Rhamnosus (Culturelle) 1 cap BID 03/13/20 21:00 Lidocaine HCl (Lidocaine 1% 20ml Vial) 20 ml 1X ONCE 03/12/20 15:30 03/12/20 15:31 DC 03/12/20 15:30 20 ML Linezolid (Zyvox) 600 mg BID 03/13/20 09:00 03/13/20 21:11 DC 03/13/20 10:48 600 MG Linezolid/Dextrose 300 ml @ 300 mls/hr Q12HR 03/13/20 22:00 03/13/20 21:19 300 MLS/HR Magnesium Sulfate 50 ml @ 25 mls/hr 1X ONCE 03/12/20 17:00 03/12/20 18:59 DC 03/12/20 17:51 25 MLS/HR Meropenem 500 mg/ Sodium Chloride 50 ml @ 100 mls/hr Q6HRS 03/13/20 09:00 03/14/20 07:26 100 MLS/HR Methylprednisolone Sodium Succinate (SOLU-Medrol 40MG VIAL) 40 mg Q6HRS 03/13/20 11:00 03/14/20 07:27 40 MG Morphine Sulfate (Morphine Sulfate) 2 mg PRN Q2HR PRN 03/13/20 11:00 03/13/20 11:12 2 MG Multivitamins (Thera M Plus) 1 tab DAILY 03/13/20 10:30 03/13/20 10:48 1 TAB Norepinephrine Bitartrate 8 mg/ Dextrose 258 ml @ 21.285 mls/ hr CONT PRN 03/12/20 22:30 03/13/20 18:01 27.671 MLS/HR Ondansetron HCl (Zofran) 4 mg PRN Q6HRS PRN 03/12/20 16:45 Potassium Chloride/Water 100 ml @ 100 mls/hr Q1H 03/12/20 16:45 03/12/20 17:00 DC Prochlorperazine (Compazine) 25 mg PRN Q12HR PRN 03/12/20 16:45 Sodium Chloride 1,000 ml @ 100 mls/hr Q10H 03/12/20 16:33 03/14/20 04:39 100 MLS/HR Sodium Chloride (NORMAL SALINE FLUSH for STERILE FIELD) 10 ml STK-MED ONCE 03/12/20 15:24 03/12/20 15:24 DC Sodium Chloride (Normal Saline Flush) 3 ml QSHIFT PRN 03/12/20 16:45 Sodium Phosphate 15 mmol/Sodium Chloride 255 ml @ 62.5 mls/hr 1X ONCE 03/12/20 16:45 03/12/20 17:00 DC Sodium Phosphate 30 mmol/Sodium Chloride 260 ml @ 62.5 mls/hr 1X ONCE 03/12/20 16:45 03/12/20 17:00 DC Vancomycin HCl (Vanco Per Pharmacy) 1 each PRN DAILY PRN 03/12/20 16:45 03/13/20 08:46 DC 03/12/20 18:45 1 EACH Vancomycin HCl (Vancomycin Trough Level) 1 each 1X ONCE 03/14/20 17:30 03/14/20 17:31 Cancel Vancomycin HCl 1.5 gm/Sodium Chloride 500 ml @ 250 mls/hr Q24H 03/13/20 18:00 03/13/20 08:48 DC Vancomycin HCl 2 gm/Sodium Chloride 500 ml @ 250 mls/hr 1X ONCE 03/12/20 18:00 03/12/20 19:59 DC 03/12/20 17:53 250 MLS/HR Labs: Lab Laboratory Tests Test 03/13/20 12:26 03/13/20 18:26 03/13/20 21:21 03/14/20 00:27 Glucose (Fingerstick) 366 mg/dL (70-99) 246 mg/dL (70-99) 249 mg/dL (70-99) 256 mg/dL (70-99) Test 03/14/20 04:23 Glucose (Fingerstick) 191 mg/dL (70-99) Objective: Assessment: 1. Septic shock from gram neg sepsis ,improving 2. Leukocytosis with bandemia. 3. Lactic acidosis. 4. Gram negative bacteremia source and or GI 5. Urinary tract infection. 6. Acute kidney injury. 7. Thrombocytopenia, likely sepsis. 8. Encephalopathy, likely sepsis, improving. 9. Acute cholecysitis Hyperbilirubinemia, abnormal LFTs, gallbladder distention on CT.HIDA scan noted 10. Diabetes mellitus. 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 Follow up blood culture and urine culture. Follow up labs and cultures. Continue supportive care. Critically ill. gen surgery consulted Discussed with nursing staff. JAIDEN MARKS MD Mar 14, 2020 08:18
[2020-03-14] MEDS: ELECTROLYTE (ICU) PROTOCOL. MC SCH (09:00)
[2020-03-14] MEDS: MULTIVITAMIN with MINERAL TABLET. PO SCH (09:00)
[2020-03-14] MEDS: LACTOBACILLUS RHAMNOSUS GG 1 CAPSULE. PO SCH ×2 (09:00→20:44)
[2020-03-14] MEDS ORDERED: MORPHINE SULFATE 4 MG/ML VIAL. IV ONE (09:15)
--- NOTE | 2020-03-14 10:35 | RAD ---
HEPATOBILIARY SCAN WITH EJECTION FRACTION 03/14/2020 10:26 AM History: Reason: abn liver func,abn ct / Spl. Instructions: / History: Procedure: Serial static images are obtained of the liver and biliary system in the frontal projection following IV administration of 5.5 mCi of Technetium 99m Choletec. Over one hour, gallbladder was nonvisualized, subsequently 4 mg of IV morphine was administered imaging over the abdomen continued for 30 minutes. Findings: There is clearance of radiotracer from the blood pool in the liver. Excretion into the biliary tree and proximal small bowel is seen. The gallbladder is nonvisualized despite the administration of morphine. Findings are concerning for acute cholecystitis. Abnormal radiotracer seen projecting over the thorax. Scattered represent minimal residual radiotracer within the patient's known right internal jugular central line. IMPRESSION: Nonvisualization of the gallbladder, despite the administration of IV morphine, concerning for acute cholecystitis Electronically signed by: Brian Rose MD (03/14/2020 10:31 AM) [id number]
--- NOTE | 2020-03-14 10:37 | NUR ---
[id number] To and from [place], full monitor,RN w" probable " cholecystitis" reported. Speech in room w swallow completed.. Edentulous at this time. Call to significant other to "hopefully bring in". Communication w hospitalist on return to unit. Able to down grade w MD to place orders. Earlier communication w charge nurse on above plan. Able to talk w girlfriend w observed improved emotional outlook afterwards. Bedside echo in progress. Surgery consult per Ross ALCALA . Frances -Gail ALCALA in room w brief H/P . will communicate Luis Enrique Alexandre after his current case is complete.
--- NOTE | 2020-03-14 11:17 | PDOC ---
[facility] [facility] PROGRESS NOTE Date of Service DOS: DATE: 03/14/20 TIME: 11:13 Chief Complaint Chief Complaint Acute hypoxic respiratory failure secondary to septic shock Septic shock secondary to urinary tract infection Urinary tract infection Diabetes mellitus No history of tobacco use Abnormal chest x-ray with only mild basal atelectasis. Low suspicion for COVID Marked leukocytosis secondary to sepsis Possible mild chronic kidney disease. Severe protein-calorie malnutrition. Abnormal LFTs secondary to hypoperfusion from shock History of Present Illness History of Present Illness 03/14/2020 Patient seen and examined in ICU Afebrile, off oxygen supplementation Off Levophed COVID negative Discussed with RN Chart reviewed 03/12/2020 Patient seen and examined in the ICU Afebrile On 2L O2 NC Calcium 7.3, Potassium 4.8 being replaced COVID-19 results pending Discussed with RN Chart reviewed Vitals/I&O Vitals/I&O: Vital Signs Date Time Temp Pulse Resp B/P (MAP) Pulse Ox O2 Delivery O2 Flow Rate FiO2 03/14/20 09:22 20 96 Room Air 03/14/20 07:00 80 115/73 (87) 03/14/20 04:00 98.0 98.0 03/14/20 01:00 2.0 I & O 03/13/20 03/13/20 03/14/20 15:00 23:00 07:00 Intake Total 50 ml 1100 ml 1598 ml Output Total 240 ml 186 ml 145 ml Balance -190 ml 914 ml 1453 ml Physical Exam Physical Exam: GENERAL: Alert, awake male, comfortable, tired appearing, in no acute distress. HEENT: Normocephalic, atraumatic, anicteric. No thrush. Oral mucosa moist. NECK: Supple. No JVD. LUNGS: Decreased breath sounds at the bases. No wheezing. HEART: S1, S2. No gallops or murmurs. Left sided chest wall PPM looks intact, clean. No overlying redness. ABDOMEN: Soft, obese, mildly distended. Mild diffuse tenderness, mainly in the lower quadrant and right upper quadrant. No rebound, no guarding. EXTREMITIES: No edema, no cyanosis, no clubbing. Nontender. NEUROLOGIC: Alert, awake, generalized weakness. PSYCHIATRIC: Pleasant, cooperative. General: Alert, Cooperative, No acute distress Heart: Regular rate, Normal S1 Abdomen: Normal bowel sounds, Soft, No tenderness Extremities: No clubbing, No cyanosis, No edema Skin: No rashes, No breakdown, No significant lesion Labs Labs: Laboratory Tests Test 03/13/20 12:26 03/13/20 18:26 03/13/20 21:21 03/14/20 00:27 Glucose (Fingerstick) 366 mg/dL (70-99) 246 mg/dL (70-99) 249 mg/dL (70-99) 256 mg/dL (70-99) Test 03/14/20 04:23 Glucose (Fingerstick) 191 mg/dL (70-99) Assessment and Plan Assessmemt and Plan Problems Medical Problems: (1) AMS (altered mental status) Status: Acute (2) Hypocalcemia Status: Acute (3) Hypokalemia Status: Acute (4) Septic shock Status: Acute (5) Suspected 2019 novel coronavirus infection Status: Acute ASSESSMENT Acute hypoxic respiratory failure secondary to septic shock Septic shock secondary to urinary tract infection Urinary tract infection Diabetes mellitus No history of tobacco use Abnormal chest x-ray with only mild basal atelectasis. Low suspicion for COVID Marked leukocytosis secondary to sepsis Possible mild chronic kidney disease. Severe protein-calorie malnutrition. Abnormal LFTs secondary to hypoperfusion from shock PLAN IV morphine PRN for pain Zyvox per ID Meropenem per ID Oxygen supplementation IV Fluids IV steroids Replace electrolytes per protocol Monitor electrolytes DVT prophylaxis Full code Appreciate subspeciality input Comment Review of Relevant I have reviewed the following items thee (where applicable) has been applied. Medications: Current Medications Medications (Trade) Dose Ordered Sig/Uma Route PRN Reason Start Time Stop Time Status Last Admin Dose Admin Famotidine (Pepcid Vial) 20 mg DAILY IVP 03/14/20 09:00 03/13/20 10:44 Insulin Human Lispro (HumaLOG) 30 units 1X STAT SQ 03/13/20 13:39 03/13/20 13:49 DC 03/13/20 13:39 Linezolid/Dextrose 300 ml @ 300 mls/hr Q12HR IV 03/13/20 22:00 03/13/20 21:19 Morphine Sulfate (Morphine Sulfate) 4 mg 1X ONCE IV 03/14/20 09:15 03/14/20 09:16 DC 03/14/20 09:22 Justicifation of Admission Dx: Justifications for Admission: Justification of Admission Dx: Yes CHF: Cardiac Arrhythmias Comminuty Aquired Pneumonia: Bactermia Chronic Renal Failure: Encephalopathy Sepsis: Altered Mental Status THELMA BRUCE III DO Mar 14, 2020 11:17
--- NOTE | 2020-03-14 11:36 | PDOC ---
Provider Note Provider Note pt not seen. Out of ICU for tests Justicifation of Admission Dx: Justifications for Admission: Justification of Admission Dx: Yes CHF: Cardiac Arrhythmias Comminuty Aquired Pneumonia: Bactermia Chronic Renal Failure: Encephalopathy Sepsis: Altered Mental Status NAFISA SIN MD Mar 14, 2020 11:36
--- NOTE | 2020-03-14 11:43 | PDOC2 ---
RAMU RED GRIEF COUNSELLOR 03/14/20 1143: CONSULT Date of Consult Date of Consult DATE: 03/14/20 TIME: 11:36 Reason for Consult Reason for Consult: cholecystitis Referring Physician Referring Physician: Dr Negrete Identification/Chief Complaint Chief Complaint abdominal pain Source Source: Chart review, Patient History of Present Illness Reason for Visit: Admitted with AMS, UTI, bactereima Hypotensive, pressor support now off Elevated LFTs, HIDA with cholecystitis--reports generalized abdominal pain for a few weeks. Associated nausea and emesis. Past Medical History Past Medical History CAD, CHF, CVA, HTN, HLD, DM, UTI, neuropathy CABG, pacemaker Past Surgical History Past Surgical History: CABG Family History Family History: Hypertension Social History No ALCOHOL: none Drugs: None Current Problem List Problem List Problems Medical Problems: (1) AMS (altered mental status) Status: Acute (2) Hypocalcemia Status: Acute (3) Hypokalemia Status: Acute (4) Septic shock Status: Acute (5) Suspected 2019 novel coronavirus infection Status: Acute Current Medications Current Medications Current Medications Sodium Chloride 1,000 ml @ 1,000 mls/hr 1X ONCE IV Last administered on 03/12/20at 14:00; Start 03/12/20 at 14:30; Stop 03/12/20 at 15:29; Status DC Sodium Chloride 1,000 ml @ 1,000 mls/hr 1X ONCE IV Last administered on 03/12/20at 14:05; Start 03/12/20 at 14:30; Stop 03/12/20 at 15:29; Status DC Ceftriaxone Sodium (Rocephin) 1 gm 1X ONCE IVP Last administered on 03/12/20at 16:41; Start 03/12/20 at 15:00; Stop 03/12/20 at 15:01; Status DC Sodium Chloride 1,000 ml @ 1,000 mls/hr 1X ONCE IV Last administered on 03/12/20at 16:38; Start 03/12/20 at 15:30; Stop 03/12/20 at 16:29; Status DC Sodium Chloride 1,000 ml @ 1,000 mls/hr 1X ONCE IV Last administered on 03/12/20at 16:39; Start 03/12/20 at 15:30; Stop 03/12/20 at 16:29; Status DC Sodium Chloride (NORMAL SALINE FLUSH for STERILE FIELD) 10 ml STK-MED ONCE .ROUTE ; Start 03/12/20 at 15:24; Stop 03/12/20 at 15:24; Status DC Lidocaine HCl (Lidocaine 1% 20ml Vial) 20 ml 1X ONCE INJ Last administered on 03/12/20at 15:30; Start 03/12/20 at 15:30; Stop 03/12/20 at 15:31; Status DC Norepinephrine Bitartrate 8 mg/ Dextrose 258 ml @ 21.285 mls/ hr 1X ONCE IV Last administered on 03/12/20at 16:28; Start 03/12/20 at 16:15; Stop 03/13/20 at 04:22; Status DC Calcium Gluconate (Calcium Gluconate) 1,000 mg 1X ONCE IVP Last administered on 03/12/20at 17:50; Start 03/12/20 at 17:00; Stop 03/12/20 at 17:01; Status DC Ondansetron HCl (Zofran) 4 mg PRN Q8HRS PRN IV NAUSEA/VOMITING Last administered on 03/13/20at 02:56; Start 03/12/20 at 16:30; Stop 03/13/20 at 16:29; Status DC Sodium Chloride 1,000 ml @ 75 mls/hr [id number] IV ; Start 03/12/20 at 16:28; Stop 03/12/20 at 22:33; Status DC Azithromycin 250 ml @ 250 mls/hr 1X ONCE IV Last administered on 03/12/20at 17:51; Start 03/12/20 at 17:00; Stop 03/12/20 at 17:59; Status DC Ondansetron HCl (Zofran) 4 mg PRN Q6HRS PRN IVP NAUSEA/VOMITING; Start 03/12/20 at 16:45 Prochlorperazine (Compazine) 25 mg PRN Q12HR PRN [place] NAUSEA/VOMITING; Start 03/12/20 at 16:45 Famotidine (Pepcid Vial) 20 mg BID IVP Last administered on 03/12/20at 22:49; Start 03/12/20 at 21:00; Stop 03/13/20 at 09:34; Status DC Info (Icu Electrolyte Protocol) 1 ea DAILY MC ; Start 03/13/20 at 09:00 Heparin Sodium (Porcine) (Heparin Sodium) 5,000 unit Q8HRS SQ Last administered on 03/14/20at 07:28; Start 03/12/20 at 22:00 Sodium Chloride (Normal Saline Flush) 3 ml QSHIFT PRN IV AFTER MEDS AND BLOOD DRAWS; Start 03/12/20 at 16:45 Sodium Chloride 1,000 ml @ 1,000 mls/hr Q1H IV ; Start 03/12/20 at 16:33; Stop 03/12/20 at 17:32; Status DC Sodium Chloride 1,000 ml @ 100 mls/hr Q10H IV Last administered on 03/14/20at 04:39; Start 03/12/20 at 16:33 Bisacodyl (Dulcolax Supp) 10 mg PRN DAILY PRN [place] CONSTIPATION; Start 03/12/20 at 16:45 Cefepime HCl (Maxipime) 1 gm Q8HRS IVP Last administered on 03/13/20at 05:51; Start 03/12/20 at 22:00; Stop 03/13/20 at 08:46; Status DC Vancomycin HCl (Vanco Per Pharmacy) 1 each PRN DAILY PRN MC SEE COMMENTS Last administered on 03/12/20at 18:45; Start 03/12/20 at 16:45; Stop 03/13/20 at 08:46; Status DC Potassium Chloride/Water 100 ml @ 100 mls/hr Q1H IV Last administered on 03/12/20at 22:51; Start 03/12/20 at 19:00; Stop 03/12/20 at 22:59; Status DC Potassium Chloride/Water 100 ml @ 100 mls/hr Q1H IV ; Start 03/12/20 at 16:45; Stop 03/12/20 at 17:00; Status DC Potassium Chloride/Water 100 ml @ 100 mls/hr Q1H IV ; Start 03/12/20 at 16:45; Stop 03/12/20 at 17:00; Status DC Magnesium Sulfate 100 ml @ 50 mls/hr DAILY IV ; Start 03/13/20 at 09:00; Stop 03/12/20 at 17:00; Status DC Sodium Phosphate 15 mmol/Sodium Chloride 255 ml @ 62.5 mls/hr 1X ONCE IV ; Start 03/12/20 at 16:45; Stop 03/12/20 at 17:00; Status DC Sodium Phosphate 30 mmol/Sodium Chloride 260 ml @ 62.5 mls/hr 1X ONCE IV ; Start 03/12/20 at 16:45; Stop 03/12/20 at 17:00; Status DC Insulin Human Lispro (HumaLOG) 0-7 UNITS TIDWMEALS SQ ; Start 03/12/20 at 17:00; Stop 03/12/20 at 22:33; Status DC Dextrose (Dextrose 50%-Water Syringe) 12.5 gm PRN Q15MIN PRN IV SEE COMMENTS; Start 03/12/20 at 16:45; Stop 03/12/20 at 22:33; Status DC Info (Icu Electrolyte Protocol) 1 ea CONT PRN PRN MC SEE COMMENTS; Start 03/12/20 at 17:00; Stop 03/12/20 at 17:06; Status DC Magnesium Sulfate 50 ml @ 25 mls/hr 1X ONCE IV Last administered on 03/12/20at 17:51; Start 03/12/20 at 17:00; Stop 03/12/20 at 18:59; Status DC Vancomycin HCl 2 gm/Sodium Chloride 500 ml @ 250 mls/hr 1X ONCE IV Last administered on 03/12/20at 17:53; Start 03/12/20 at 18:00; Stop 03/12/20 at 19:59; Status DC Vancomycin HCl 1.5 gm/Sodium Chloride 500 ml @ 250 mls/hr Q24H IV ; Start 03/13/20 at 18:00; Stop 03/13/20 at 08:48; Status DC Vancomycin HCl (Vancomycin Trough Level) 1 each 1X ONCE MC ; Start 03/14/20 at 17:30; Stop 03/14/20 at 17:31; Status Cancel Norepinephrine Bitartrate 8 mg/ Dextrose 258 ml @ 21.285 mls/ hr CONT PRN IV PER PROTOCOL Last administered on 03/13/20at 18:01; Start 03/12/20 at 22:30 Insulin Human Lispro (HumaLOG) 0-7 UNITS TIDWMEALS SQ ; Start 03/13/20 at 08:00; Stop 03/13/20 at 00:30; Status DC Dextrose (Dextrose 50%-Water Syringe) 12.5 gm PRN Q15MIN PRN IV SEE COMMENTS; Start 03/12/20 at 22:30; Stop 03/13/20 at 00:30; Status DC Insulin Human Lispro (HumaLOG) 0-9 UNITS Q4HRS SQ Last administered on 03/14/20at 00:34; Start 03/13/20 at 04:00 Dextrose (Dextrose 50%-Water Syringe) 12.5 gm PRN Q15MIN PRN IV SEE COMMENTS; Start 03/13/20 at 00:30 Meropenem 500 mg/ Sodium Chloride 50 ml @ 100 mls/hr Q6H IV ; Start 03/13/20 at 08:45; Stop 03/13/20 at 08:53; Status DC Linezolid (Zyvox) 600 mg BID PO Last administered on 03/13/20at 10:48; Start 03/13/20 at 09:00; Stop 03/13/20 at 21:11; Status DC Meropenem 500 mg/ Sodium Chloride 50 ml @ 100 mls/hr Q6HRS IV Last administered on 03/14/20at 07:26; Start 03/13/20 at 09:00 Famotidine (Pepcid Vial) 20 mg DAILY IVP Last administered on 03/13/20at 10:44; Start 03/14/20 at 09:00 Multivitamins (Thera M Plus) 1 tab DAILY PO Last administered on 03/13/20at 10:48; Start 03/13/20 at 10:30 Methylprednisolone Sodium Succinate (SOLU-Medrol 40MG VIAL) 40 mg Q6HRS IV Last administered on 03/14/20at 07:27; Start 03/13/20 at 11:00 Morphine Sulfate (Morphine Sulfate) 2 mg PRN Q2HR PRN IV PAIN Last administered on 03/13/20at 11:12; Start 03/13/20 at 11:00 Insulin Human Lispro (HumaLOG) 30 units 1X STAT SQ Last administered on 03/13/20at 13:39; Start 03/13/20 at 13:39; Stop 03/13/20 at 13:49; Status DC Lactobacillus Rhamnosus (Culturelle) 1 cap BID PO ; Start 03/13/20 at 21:00 Linezolid/Dextrose 300 ml @ 300 mls/hr Q12HR IV Last administered on 03/13/20at 21:19; Start 03/13/20 at 22:00 Morphine Sulfate (Morphine Sulfate) 4 mg 1X ONCE IV Last administered on 03/14/20at 09:22; Start 03/14/20 at 09:15; Stop 03/14/20 at 09:16; Status DC Allergies Allergies: Coded Allergies: No Known Drug Allergies (Unverified , 03/12/20) ROS General: YES: Fatigue (+); No: Chills, Other (fevers ) PSYCHOLOGICAL ROS: No: Anxiety, Depression Eyes: No Blurry vision, No Double vision Hematological and Lymphatic: No: Bleeding Problems, Blood Clots Respiratory: No: Cough, Shortness of breath Cardiovascular: No Chest Pain, No Palpitations Gastrointestinal: Yes Other (see hpi) Genitourinary: No Dysuria, No Retention Musculoskeletal: Yes Muscular Weakness; No Joint Pain Neurological: No Impaired Coord/balance, No Numbness/Tingling Skin: No Pruritus, No Rash Physical Exam General: Alert, Cooperative HEENT: Atraumatic, PERRLA Lungs: Clear to auscultation, Normal air movement Heart: Regular rate, Normal S1, Normal S2 Abdomen: Soft, Other (tenderness to upper abdomen) Extremities: No clubbing, No cyanosis Skin: No rashes, No breakdown Psych/Mental Status: Other (dementia ) Vitals VITALS Vital Signs Date Time Temp Pulse Resp B/P (MAP) Pulse Ox O2 Delivery O2 Flow Rate FiO2 03/14/20 09:22 20 96 Room Air 03/14/20 07:00 80 115/73 (87) 03/14/20 04:00 98.0 98.0 03/14/20 01:00 2.0 Labs Labs Laboratory Tests Test 03/12/20 14:00 03/12/20 14:10 03/12/20 16:00 03/12/20 17:21 Coronavirus (PCR) Not detected (Not Detected) White Blood Count 10.9 x10^3/uL (4.0-11.0) Red Blood Count 4.73 x10^6/uL (4.30-5.70) Hemoglobin 14.2 g/dL (13.0-17.5) Hematocrit 42.1 % (39.0-53.0) Mean Corpuscular Volume 89 fL (79-100) Mean Corpuscular Hemoglobin 30 pg (25-35) Mean Corpuscular Hemoglobin Concent 34 g/dL (31-37) Red Cell Distribution Width 14.9 % (11.5-14.5) Platelet Count 131 x10^3/uL (140-400) Neutrophils (%) (Auto) 97 % (31-73) Lymphocytes (%) (Auto) 2 % (24-48) Monocytes (%) (Auto) 2 % (0-9) Eosinophils (%) (Auto) 0 % (0-3) Basophils (%) (Auto) 0 % (0-3) Neutrophils # (Auto) 10.5 x10^3/uL (1.8-7.7) Lymphocytes # (Auto) 0.2 x10^3/uL (1.0-4.8) Monocytes # (Auto) 0.2 x10^3/uL (0.0-1.1) Eosinophils # (Auto) 0.0 x10^3/uL (0.0-0.7) Basophils # (Auto) 0.0 x10^3/uL (0.0-0.2) Segmented Neutrophils % 74 % (35-66) Band Neutrophils % 22 % (0-9) Lymphocytes % 2 % (24-48) Monocytes % 2 % (0-10) Toxic Granulation Mod Toxic Vacuolation Mod Platelet Estimate Decreased (ADEQUATE) Prothrombin Time 15.6 SEC (11.7-14.0) Prothromb Time International Ratio 1.3 (0.8-1.1) Activated Partial Thromboplast Time 26 SEC (24-38) Lactic Acid Level 5.1 mmol/L (0.4-2.0) Sodium Level 139 mmol/L (136-145) Potassium Level 3.3 mmol/L (3.5-5.1) Chloride Level 104 mmol/L (98-107) Carbon Dioxide Level 23 mmol/L (21-32) Anion Gap 12 (6-14) Blood Urea Nitrogen 16 mg/dL (8-26) Creatinine 1.6 mg/dL (0.7-1.3) Estimated GFR (Cockcroft-Gault) 51.1 BUN/Creatinine Ratio 10 (6-20) Glucose Level 366 mg/dL (70-99) Calcium Level 7.2 mg/dL (8.5-10.1) Magnesium Level 1.4 mg/dL (1.8-2.4) Total Bilirubin 4.1 mg/dL (0.2-1.0) Aspartate Amino Transf (AST/SGOT) 131 U/L (15-37) Alanine Aminotransferase (ALT/SGPT) 99 U/L (16-63) Alkaline Phosphatase 273 U/L (46-116) Troponin I Quantitative 0.062 ng/mL (0.000-0.055) Total Protein 5.0 g/dL (6.4-8.2) Albumin 1.7 g/dL (3.4-5.0) Albumin/Globulin Ratio 0.5 (1.0-1.7) Lipase 100 U/L (73-393) Thyroid Stimulating Hormone (TSH) 2.124 uIU/mL (0.358-3.74) Ammonia 17 mcmol/L (11-34) Test 03/12/20 18:20 03/12/20 21:32 03/13/20 00:18 03/13/20 04:27 Urine Collection Type U cath Urine Color Dk yellow Urine Clarity Turbid Urine pH 5.0 (<5.0-8.0) Urine Specific [place] 1.020 (1.000-1.030) Urine Protein 100 mg/dL (NEG-TRACE) Urine Glucose (UA) 100 mg/dL (NEG) Urine Ketones (Stick) Trace mg/dL (NEG) Urine Blood Large (NEG) Urine Nitrite Positive (NEG) Urine Bilirubin Large (NEG) Urine Urobilinogen Dipstick 1.0 mg/dL (0.2 mg/dL) Urine Leukocyte Esterase Moderate (NEG) Urine RBC Tntc /HPF (0-2) Urine WBC Tntc /HPF (0-4) Urine Squamous Epithelial Cells Few /LPF Urine Transitional Epithelial Cells Few /LPF Urine Bacteria Many /HPF (0-FEW) Urine Mucus Marked /LPF Urine Yeast Present /HPF Lactic Acid Level 2.8 mmol/L (0.4-2.0) Glucose (Fingerstick) 415 mg/dL (70-99) 436 mg/dL (70-99) 416 mg/dL (70-99) Test 03/13/20 06:15 03/13/20 12:26 03/13/20 18:26 03/13/20 21:21 White Blood Count 29.0 x10^3/uL (4.0-11.0) Red Blood Count 4.26 x10^6/uL (4.30-5.70) Hemoglobin 12.3 g/dL (13.0-17.5) Hematocrit 38.2 % (39.0-53.0) Mean Corpuscular Volume 90 fL (79-100) Mean Corpuscular Hemoglobin 29 pg (25-35) Mean Corpuscular Hemoglobin Concent 32 g/dL (31-37) Red Cell Distribution Width 15.0 % (11.5-14.5) Platelet Count 123 x10^3/uL (140-400) Neutrophils (%) (Auto) 93 % (31-73) Lymphocytes (%) (Auto) 2 % (24-48) Monocytes (%) (Auto) 4 % (0-9) Eosinophils (%) (Auto) 0 % (0-3) Basophils (%) (Auto) 0 % (0-3) Neutrophils # (Auto) 27.0 x10^3/uL (1.8-7.7) Lymphocytes # (Auto) 0.6 x10^3/uL (1.0-4.8) Monocytes # (Auto) 1.3 x10^3/uL (0.0-1.1) Eosinophils # (Auto) 0.0 x10^3/uL (0.0-0.7) Basophils # (Auto) 0.1 x10^3/uL (0.0-0.2) Sodium Level 134 mmol/L (136-145) Potassium Level 4.8 mmol/L (3.5-5.1) Chloride Level 102 mmol/L (98-107) Carbon Dioxide Level 22 mmol/L (21-32) Anion Gap 10 (6-14) Blood Urea Nitrogen 23 mg/dL (8-26) Creatinine 1.7 mg/dL (0.7-1.3) Estimated GFR (Cockcroft-Gault) 47.7 BUN/Creatinine Ratio 14 (6-20) Glucose Level 450 mg/dL (70-99) Calcium Level 7.3 mg/dL (8.5-10.1) Iron Level 17 ug/dL (65-175) Total Iron Binding Capacity 128 ug/dL (250-450) Iron Saturation 13 % (15-34) Total Bilirubin 6.1 mg/dL (0.2-1.0) Aspartate Amino Transf (AST/SGOT) 461 U/L (15-37) Alanine Aminotransferase (ALT/SGPT) 274 U/L (16-63) Alkaline Phosphatase 295 U/L (46-116) Total Protein 5.9 g/dL (6.4-8.2) Albumin 1.9 g/dL (3.4-5.0) Albumin/Globulin Ratio 0.5 (1.0-1.7) Vitamin B12 Level 1044 pg/mL (247-911) Hepatitis A IgM Antibody Nonreactive (Nonreactive) Hepatitis B Surface Antigen Nonreactive (Nonreactive) Hepatitis B Core IgM Antibody Nonreactive (Nonreactive) Hepatitis C IgG Antibody Nonreactive (Nonreactive) Glucose (Fingerstick) 366 mg/dL (70-99) 246 mg/dL (70-99) 249 mg/dL (70-99) Test 03/14/20 00:27 03/14/20 04:23 Glucose (Fingerstick) 256 mg/dL (70-99) 191 mg/dL (70-99) Laboratory Tests Test 03/13/20 12:26 03/13/20 18:26 03/13/20 21:21 03/14/20 00:27 Glucose (Fingerstick) 366 mg/dL (70-99) 246 mg/dL (70-99) 249 mg/dL (70-99) 256 mg/dL (70-99) Test 03/14/20 04:23 Glucose (Fingerstick) 191 mg/dL (70-99) Assessment/Plan Assessment/Plan Cholecystitis--wbc 29, noted LFTS t bili 6 UTI, bactereima beside echo currently will review with ERICA Lundberg MD 03/14/20 1350: CONSULT Assessment/Plan Assessment/Plan Patient seen and examined by me, patient very confused does not understand why he is here in the hospital. His abdomen is soft nondistended he is tender in the right upper quadrant. HIDA scan does show nonopacification of the gallbladder consistent with cholecystitis his sepsis is likely related to both cholecystitis as well as urosepsis. 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 We will plan for laparoscopic cholecystectomy in the next day or 2 after he is received antibiotics and has been overall condition is improved. Agree with Lina assessment plan RAMU RED APRN Mar 14, 2020 11:43 ERICA MANCINI MD Mar 14, 2020 13:50
[2020-03-14] MEDS ORDERED: PERFLUTREN PROTEIN-A MICROSPHR 0.22 MG/ML 3 ML VIAL. IV ONE (12:15)
[2020-03-14 12:49] LABS: BASO # 0.1 x10^3/uL (0.0-0.2); BASO % 0 % (0-3); EOS # 0.2 x10^3/uL (0.0-0.7); EOS % 1 % (0-3); HEMATOCRIT 39.5 % (39.0-53.0); HEMOGLOBIN 13.3 g/dL (13.0-17.5); LYMPH # 0.4 x10^3/uL (1.0-4.8); LYMPH % 2 % (24-48); MEAN CORPUSCULAR HEMOGLOBIN 30 pg (25-35); MEAN CORPUSCULAR HGB CONC 34 g/dL (31-37); MEAN CORPUSCULAR VOLUME 88 fL (79-100); MONO # 0.4 x10^3/uL (0.0-1.1); MONO % 2 % (0-9); NEUT # 19.9 x10^3/uL (1.8-7.7); NEUT % 95 % (31-73); PLATELET COUNT 87 x10^3/uL (140-400); RED BLOOD COUNT 4.47 x10^6/uL (4.30-5.70); RED CELL DISTRIBUTION WIDTH 15.4 % (11.5-14.5)
[2020-03-14 12:59] LABS: CALCIUM 7.4 mg/dL (8.5-10.1); CREATININE 2.5 mg/dL (0.7-1.3); GFR 30.5
[2020-03-14 13:05] LABS: ALBUMIN 1.7 g/dL (3.4-5.0); DIRECT BILIRUBIN 2.9 mg/dL (0.0-0.2); TOTAL BILIRUBIN 3.3 mg/dL (0.2-1.0); TOTAL PROTEIN 4.7 g/dL (6.4-8.2)
[2020-03-14 13:07] LABS: POTASSIUM 5.2 mmol/L (3.5-5.1)
[2020-03-14 13:11] LABS: % BANDS 21 % (0-9); % LYMPHS 1 % (24-48); % METAS 1 % (0-0); % MONOS 2 % (0-10); % SEGS 75 % (35-66); ANISOCYTOSIS SLIGHT; NUCLEATED RBC 1; PLT ESTIMATE DECREASED (ADEQUATE)
[2020-03-14 13:12] LABS: TOXIC VACUOLATION SLIGHT
--- NOTE | 2020-03-14 13:26 | PDOC ---
Date of Service: DATE: 03/14/20 TIME: 13:19 Subjective: Subjective: Trying to figure out what's going on. Has some abdominal pain. Says he was told his gallbladder was a problem a year ago - "I should be mindful of it." Objective: Objective: D/w Dr. Rose this morning, also pt's nurse. Surgery consulted re: abnormal HIDA. BP better. Vital Signs: Vital Signs Date Time Temp Pulse Resp B/P (MAP) Pulse Ox O2 Delivery O2 Flow Rate FiO2 03/14/20 09:22 20 96 Room Air 03/14/20 07:00 80 115/73 (87) 03/14/20 04:00 98.0 98.0 03/14/20 01:00 2.0 Labs: Laboratory Tests Test 03/13/20 18:26 03/13/20 21:21 03/14/20 00:27 03/14/20 04:23 Glucose (Fingerstick) 246 mg/dL 249 mg/dL 256 mg/dL 191 mg/dL Test 03/14/20 12:35 White Blood Count 21.0 x10^3/uL Red Blood Count 4.47 x10^6/uL Hemoglobin 13.3 g/dL Hematocrit 39.5 % Mean Corpuscular Volume 88 fL Mean Corpuscular Hemoglobin 30 pg Mean Corpuscular Hemoglobin Concent 34 g/dL Red Cell Distribution Width 15.4 % Platelet Count 87 x10^3/uL Neutrophils (%) (Auto) 95 % Lymphocytes (%) (Auto) 2 % Monocytes (%) (Auto) 2 % Eosinophils (%) (Auto) 1 % Basophils (%) (Auto) 0 % Neutrophils # (Auto) 19.9 x10^3/uL Lymphocytes # (Auto) 0.4 x10^3/uL Monocytes # (Auto) 0.4 x10^3/uL Eosinophils # (Auto) 0.2 x10^3/uL Basophils # (Auto) 0.1 x10^3/uL Segmented Neutrophils % 75 % Band Neutrophils % 21 % Lymphocytes % 1 % Monocytes % 2 % Metamyelocytes % 1 % Nucleated Red Blood Cells 1 Toxic Vacuolation Slight Dohle Bodies Present Platelet Estimate Decreased Anisocytosis Slight Sodium Level 136 mmol/L Potassium Level 5.2 mmol/L Chloride Level 104 mmol/L Carbon Dioxide Level 21 mmol/L Anion Gap 11 Blood Urea Nitrogen 38 mg/dL Creatinine 2.5 mg/dL Estimated GFR (Cockcroft-Gault) 30.5 Glucose Level 278 mg/dL Calcium Level 7.4 mg/dL Total Bilirubin 3.3 mg/dL Direct Bilirubin 2.9 mg/dL Aspartate Amino Transf (AST/SGOT) 213 U/L Alanine Aminotransferase (ALT/SGPT) 245 U/L Alkaline Phosphatase 270 U/L Total Protein 4.7 g/dL Albumin 1.7 g/dL Imaging: US IMPRESSION: 1. Gallbladder is normal. No sonographic correlate for the inflammatory edema surrounding the gallbladder on recent CT imaging. No biliary ductal dilation. 2. Small right pleural effusion. HIDA IMPRESSION: Nonvisualization of the gallbladder, despite the administration of IV morphine, concerning for acute cholecystitis. 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 See full rpt in interventions. Swallow of thin and puree appeared safe and generally efficient. Solids were non-functional d/t lmtd dentition. Pt reported a friend could bring his upper denture to the hospital. IMPRESSIONS: Functional swallow. Needs modified diet until upper denture is available. Anticipate safe and efficient intake to meet nutritional needs and take po meds. RECOMMENDATIONS: Initiate full liquid diet, thin liquid ok. Will f/u w/solids when denture available. Precautions posted. Diet orders entered. Results d/w RN Mansi and pt. PE: GEN: NAD LUNGS: CTAB HEART: RRR ABD: soft, doesn't seem tender NEURO/PSYCH: probably a little forgetful/confused A/P: Abd pain GNR bacteremia, leukocytosis (better), ACD/ROSALBA, thrombocytopenia, elevated LFTs (better), UTI, hyperkalemina/NELLI (worse) Abnormal HIDA COVID negative -- Await surgery recs - defer diet to them. Justicifation of Admission Dx: Justifications for Admission: Justification of Admission Dx: Yes CHF: Cardiac Arrhythmias Comminuty Aquired Pneumonia: Bactermia Chronic Renal Failure: Encephalopathy Sepsis: Altered Mental Status LEONEL TYSON Mar 14, 2020 13:26
--- NOTE | 2020-03-14 14:51 | NUR ---
SS following up with discharge planning. SS reviewed pt chart and discussed with pt RN. Pt is currently on room air. Pt on IV Zyvox and IV Meropenem. COVID19 negative. Pt scheduled for Gall Bladder removal. SS will continue to follow for discharge planning.
--- NOTE | 2020-03-14 17:22 | CARD ---
MR#: [id number] Date of Study: 03/14/2020 Ordering Physician: ERICA BARLOW, Referring Physician: ERICA BARLOW, Tech: APPROVED REPORT EXAM: Two-dimensional and M-mode echocardiogram with Doppler and color Doppler. Other Information Technically limited study due to body habitus. INDICATION Dyspnea Chest Pain Echo Enhancing Agent Indication: Endocardial border delineation Agent/Amount Used: Optison 2mL RISK FACTORS Hypertension Obesity Hyperlipidemia 2D DIMENSIONS RVDd2.4 (2.9-3.5cm)Left Atrium(2D)3.4 (1.6-4.0cm) IVSd0.9 (0.7-1.1cm)Aortic Root(2D)3.6 (2.0-3.7cm) LVDd5.2 (3.9-5.9cm)LVOT Diameter1.9 (1.8-2.4cm) PWd0.9 (0.7-1.1cm)LVDs4.8 (2.5-4.0cm) FS (%) 8.5 %SV24.6 ml LVEF(%)18.6 (>50%) Aortic Valve AoV Peak Awde.116.1cm/sAoV VTI26.7cm AO Peak GR.5.4mmHgLVOT Peak Wade.56.3cm/s AO Mean GR.3mmHgAVA (VMAX)1.33cm2 Mitral Valve MV E Idpthxoo37.7cm/sMV DECEL [id number] MV A Jqmkzqxy30.9cm/sE/A Ratio0.9 Pulmonary Valve PV Peak Jsqdztpe58.3cm/s Tricuspid Valve TR P. Aixinlpg144gw/sTR Peak Gr.19mmHg LEFT VENTRICLE The left ventricle is normal size. There is normal left ventricular wall thickness. The systolic func tion is moderately reduced. EF 30-35% Inferior and posterior adan appear severely hypokinetic. Tissu e Doppler imaging reveals severe left ventricular diastolic dysfunction. RIGHT VENTRICLE The right ventricle is normal size. There is normal right ventricular wall thickness. The right ventr icular systolic function is normal. There is a pacemaker/ICD lead in the RV/RA ATRIA The left atrium is moderately dilated. The right atrium is moderately dilated. The interatrial septum is intact with no evidence for an atrial septal defect or patent foramen ovale as noted on 2-D or Do ppler imaging. AORTIC VALVE The aortic valve is normal in structure and function. Doppler and Color Flow revealed no significant aortic regurgitation. There is no significant aortic valvular stenosis. MITRAL VALVE The mitral valve is normal in structure and function. There is no evidence of mitral valve prolapse. There is no mitral valve stenosis. Doppler and Color-flow revealed mild mitral regurgitation. TRICUSPID VALVE The tricuspid valve is normal in structure and function. Doppler and Color Flow revealed trace tricus pid regurgitation. There is no tricuspid valve prolapse or vegetation. There is no tricuspid valve st enosis. PULMONIC VALVE Doppler and Color Flow revealed no pulmonic valvular regurgitation. There is no pulmonic valvular anastacia nosis. GREAT VESSELS The aortic root is normal in size. The ascending aorta is normal in size. The IVC is normal in size a nd collapses >50% with inspiration. PERICARDIAL EFFUSION There is no evidence of significant pericardial effusion. Critical Notification Critical Value: No <Conclusion> The systolic function is moderately reduced. EF 30-35% Inferior and posterior adan appear severely hypokinetic. There is a pacemaker/ICD lead in the RV/RA Signed by : Arturo Merchant, Electronically Approved : 03/14/2020 17:21:53
[2020-03-15] VITALS (18 sets, daily range): BP systolic 16–142; BP diastolic 60–78
[2020-03-15] MEDS: INSULIN LISPRO 300 UNITS/3 ML VIAL. SQ SCH ×6 (00:14→20:40)
[2020-03-15] MEDS: methylPREDNISolone SOD SUCC PF 40 MG/ML VIAL. IV SCH ×4 (00:15→16:58)
[2020-03-15] MEDS: IV NORMAL SALINE 1000ML BAG 1,000 ML IV SCH ×2 (04:06→16:18)
[2020-03-15 04:23] LABS: BASO # 0.1 x10^3/uL (0.0-0.2); BASO % 0 % (0-3); EOS % 0 % (0-3); HEMATOCRIT 38.2 % (39.0-53.0); HEMOGLOBIN 12.7 g/dL (13.0-17.5); LYMPH # 0.6 x10^3/uL (1.0-4.8); LYMPH % 3 % (24-48); MEAN CORPUSCULAR HEMOGLOBIN 29 pg (25-35); MEAN CORPUSCULAR HGB CONC 33 g/dL (31-37); MEAN CORPUSCULAR VOLUME 88 fL (79-100); MONO # 0.4 x10^3/uL (0.0-1.1); MONO % 2 % (0-9); NEUT # 21.1 x10^3/uL (1.8-7.7); NEUT % 95 % (31-73); PLATELET COUNT 91 x10^3/uL (140-400); RED BLOOD COUNT 4.35 x10^6/uL (4.30-5.70); RED CELL DISTRIBUTION WIDTH 14.7 % (11.5-14.5); WHITE BLOOD COUNT 22.2 x10^3/uL (4.0-11.0)
[2020-03-15 05:04] LABS: CALCIUM 6.7 mg/dL (8.5-10.1); CREATININE 2.7 mg/dL (0.7-1.3); GFR 27.9; POTASSIUM 4.6 mmol/L (3.5-5.1)
[2020-03-15 05:06] LABS: ALBUMIN 1.5 g/dL (3.4-5.0); DIRECT BILIRUBIN 1.4 mg/dL (0.0-0.2); TOTAL BILIRUBIN 1.8 mg/dL (0.2-1.0); TOTAL PROTEIN 4.5 g/dL (6.4-8.2)
[2020-03-15] MEDS: MEROPENEM 500 MG in IV NORMAL SALINE 50ML 50 ML IV SCH ×3 (05:35→21:54)
[2020-03-15] MEDS: HEPARIN for SUB-Q USE 5,000 UNIT/ML VIAL. SQ SCH ×3 (05:41→21:56)
--- NOTE | 2020-03-15 06:21 | PDOC ---
PULMONARY PROGRESS NOTES DATE: 03/15/20 TIME: 06:19 Subjective on ra, denies sob, cough, has abd pain, off levo Vitals Vital Signs Date Time Temp Pulse Resp B/P (MAP) Pulse Ox O2 Delivery O2 Flow Rate FiO2 03/15/20 06:00 65 13 99/67 (78) 95 Room Air 03/15/20 04:00 96.3 96.3 Comments ros as mentioned as above other sys otherwise neg ROS: No Nausea, No Chest Pain General: Alert HEENT: Other (nc at perrl ) Lungs: Clear Cardiovascular: S1, S2 Abdomen: Soft Neuro Exam: Alert Extremities: Other (edema) Skin: Warm Labs Laboratory Tests Test 03/13/20 12:26 03/13/20 18:26 03/13/20 21:21 03/14/20 00:27 Glucose (Fingerstick) 366 mg/dL (70-99) 246 mg/dL (70-99) 249 mg/dL (70-99) 256 mg/dL (70-99) Test 03/14/20 04:23 03/14/20 12:35 03/14/20 13:14 03/14/20 17:58 Glucose (Fingerstick) 191 mg/dL (70-99) 302 mg/dL (70-99) 276 mg/dL (70-99) White Blood Count 21.0 x10^3/uL (4.0-11.0) Red Blood Count 4.47 x10^6/uL (4.30-5.70) Hemoglobin 13.3 g/dL (13.0-17.5) Hematocrit 39.5 % (39.0-53.0) Mean Corpuscular Volume 88 fL (79-100) Mean Corpuscular Hemoglobin 30 pg (25-35) Mean Corpuscular Hemoglobin Concent 34 g/dL (31-37) Red Cell Distribution Width 15.4 % (11.5-14.5) Platelet Count 87 x10^3/uL (140-400) Neutrophils (%) (Auto) 95 % (31-73) Lymphocytes (%) (Auto) 2 % (24-48) Monocytes (%) (Auto) 2 % (0-9) Eosinophils (%) (Auto) 1 % (0-3) Basophils (%) (Auto) 0 % (0-3) Neutrophils # (Auto) 19.9 x10^3/uL (1.8-7.7) Lymphocytes # (Auto) 0.4 x10^3/uL (1.0-4.8) Monocytes # (Auto) 0.4 x10^3/uL (0.0-1.1) Eosinophils # (Auto) 0.2 x10^3/uL (0.0-0.7) Basophils # (Auto) 0.1 x10^3/uL (0.0-0.2) Segmented Neutrophils % 75 % (35-66) Band Neutrophils % 21 % (0-9) Lymphocytes % 1 % (24-48) Monocytes % 2 % (0-10) Metamyelocytes % 1 % (0-0) Nucleated Red Blood Cells 1 Toxic Vacuolation Slight Dohle Bodies Present Platelet Estimate Decreased (ADEQUATE) Anisocytosis Slight Sodium Level 136 mmol/L (136-145) Potassium Level 5.2 mmol/L (3.5-5.1) Chloride Level 104 mmol/L (98-107) Carbon Dioxide Level 21 mmol/L (21-32) Anion Gap 11 (6-14) Blood Urea Nitrogen 38 mg/dL (8-26) Creatinine 2.5 mg/dL (0.7-1.3) Estimated GFR (Cockcroft-Gault) 30.5 Glucose Level 278 mg/dL (70-99) Calcium Level 7.4 mg/dL (8.5-10.1) Total Bilirubin 3.3 mg/dL (0.2-1.0) Direct Bilirubin 2.9 mg/dL (0.0-0.2) Aspartate Amino Transf (AST/SGOT) 213 U/L (15-37) Alanine Aminotransferase (ALT/SGPT) 245 U/L (16-63) Alkaline Phosphatase 270 U/L (46-116) Total Protein 4.7 g/dL (6.4-8.2) Albumin 1.7 g/dL (3.4-5.0) Test 03/14/20 20:37 03/15/20 00:12 03/15/20 04:02 03/15/20 04:05 Glucose (Fingerstick) 216 mg/dL (70-99) 222 mg/dL (70-99) 235 mg/dL (70-99) White Blood Count 22.2 x10^3/uL (4.0-11.0) Red Blood Count 4.35 x10^6/uL (4.30-5.70) Hemoglobin 12.7 g/dL (13.0-17.5) Hematocrit 38.2 % (39.0-53.0) Mean Corpuscular Volume 88 fL (79-100) Mean Corpuscular Hemoglobin 29 pg (25-35) Mean Corpuscular Hemoglobin Concent 33 g/dL (31-37) Red Cell Distribution Width 14.7 % (11.5-14.5) Platelet Count 91 x10^3/uL (140-400) Neutrophils (%) (Auto) 95 % (31-73) Lymphocytes (%) (Auto) 3 % (24-48) Monocytes (%) (Auto) 2 % (0-9) Eosinophils (%) (Auto) 0 % (0-3) Basophils (%) (Auto) 0 % (0-3) Neutrophils # (Auto) 21.1 x10^3/uL (1.8-7.7) Lymphocytes # (Auto) 0.6 x10^3/uL (1.0-4.8) Monocytes # (Auto) 0.4 x10^3/uL (0.0-1.1) Eosinophils # (Auto) 0.0 x10^3/uL (0.0-0.7) Basophils # (Auto) 0.1 x10^3/uL (0.0-0.2) Sodium Level 135 mmol/L (136-145) Potassium Level 4.6 mmol/L (3.5-5.1) Chloride Level 106 mmol/L (98-107) Carbon Dioxide Level 20 mmol/L (21-32) Anion Gap 9 (6-14) Blood Urea Nitrogen 46 mg/dL (8-26) Creatinine 2.7 mg/dL (0.7-1.3) Estimated GFR (Cockcroft-Gault) 27.9 Glucose Level 239 mg/dL (70-99) Calcium Level 6.7 mg/dL (8.5-10.1) Total Bilirubin 1.8 mg/dL (0.2-1.0) Direct Bilirubin 1.4 mg/dL (0.0-0.2) Aspartate Amino Transf (AST/SGOT) 110 U/L (15-37) Alanine Aminotransferase (ALT/SGPT) 185 U/L (16-63) Alkaline Phosphatase 288 U/L (46-116) Total Protein 4.5 g/dL (6.4-8.2) Albumin 1.5 g/dL (3.4-5.0) Lipase 139 U/L (73-393) Laboratory Tests Test 03/14/20 12:35 03/14/20 13:14 03/14/20 17:58 03/14/20 20:37 White Blood Count 21.0 x10^3/uL (4.0-11.0) Red Blood Count 4.47 x10^6/uL (4.30-5.70) Hemoglobin 13.3 g/dL (13.0-17.5) Hematocrit 39.5 % (39.0-53.0) Mean Corpuscular Volume 88 fL (79-100) Mean Corpuscular Hemoglobin 30 pg (25-35) Mean Corpuscular Hemoglobin Concent 34 g/dL (31-37) Red Cell Distribution Width 15.4 % (11.5-14.5) Platelet Count 87 x10^3/uL (140-400) Neutrophils (%) (Auto) 95 % (31-73) Lymphocytes (%) (Auto) 2 % (24-48) Monocytes (%) (Auto) 2 % (0-9) Eosinophils (%) (Auto) 1 % (0-3) Basophils (%) (Auto) 0 % (0-3) Neutrophils # (Auto) 19.9 x10^3/uL (1.8-7.7) Lymphocytes # (Auto) 0.4 x10^3/uL (1.0-4.8) Monocytes # (Auto) 0.4 x10^3/uL (0.0-1.1) Eosinophils # (Auto) 0.2 x10^3/uL (0.0-0.7) Basophils # (Auto) 0.1 x10^3/uL (0.0-0.2) Segmented Neutrophils % 75 % (35-66) Band Neutrophils % 21 % (0-9) Lymphocytes % 1 % (24-48) Monocytes % 2 % (0-10) Metamyelocytes % 1 % (0-0) Nucleated Red Blood Cells 1 Toxic Vacuolation Slight Dohle Bodies Present Platelet Estimate Decreased (ADEQUATE) Anisocytosis Slight Sodium Level 136 mmol/L (136-145) Potassium Level 5.2 mmol/L (3.5-5.1) Chloride Level 104 mmol/L (98-107) Carbon Dioxide Level 21 mmol/L (21-32) Anion Gap 11 (6-14) Blood Urea Nitrogen 38 mg/dL (8-26) Creatinine 2.5 mg/dL (0.7-1.3) Estimated GFR (Cockcroft-Gault) 30.5 Glucose Level 278 mg/dL (70-99) Calcium Level 7.4 mg/dL (8.5-10.1) Total Bilirubin 3.3 mg/dL (0.2-1.0) Direct Bilirubin 2.9 mg/dL (0.0-0.2) Aspartate Amino Transf (AST/SGOT) 213 U/L (15-37) Alanine Aminotransferase (ALT/SGPT) 245 U/L (16-63) Alkaline Phosphatase 270 U/L (46-116) Total Protein 4.7 g/dL (6.4-8.2) Albumin 1.7 g/dL (3.4-5.0) Glucose (Fingerstick) 302 mg/dL (70-99) 276 mg/dL (70-99) 216 mg/dL (70-99) Test 03/15/20 00:12 03/15/20 04:02 03/15/20 04:05 Glucose (Fingerstick) 222 mg/dL (70-99) 235 mg/dL (70-99) White Blood Count 22.2 x10^3/uL (4.0-11.0) Red Blood Count 4.35 x10^6/uL (4.30-5.70) Hemoglobin 12.7 g/dL (13.0-17.5) Hematocrit 38.2 % (39.0-53.0) Mean Corpuscular Volume 88 fL (79-100) Mean Corpuscular Hemoglobin 29 pg (25-35) Mean Corpuscular Hemoglobin Concent 33 g/dL (31-37) Red Cell Distribution Width 14.7 % (11.5-14.5) Platelet Count 91 x10^3/uL (140-400) Neutrophils (%) (Auto) 95 % (31-73) Lymphocytes (%) (Auto) 3 % (24-48) Monocytes (%) (Auto) 2 % (0-9) Eosinophils (%) (Auto) 0 % (0-3) Basophils (%) (Auto) 0 % (0-3) Neutrophils # (Auto) 21.1 x10^3/uL (1.8-7.7) Lymphocytes # (Auto) 0.6 x10^3/uL (1.0-4.8) Monocytes # (Auto) 0.4 x10^3/uL (0.0-1.1) Eosinophils # (Auto) 0.0 x10^3/uL (0.0-0.7) Basophils # (Auto) 0.1 x10^3/uL (0.0-0.2) Sodium Level 135 mmol/L (136-145) Potassium Level 4.6 mmol/L (3.5-5.1) Chloride Level 106 mmol/L (98-107) Carbon Dioxide Level 20 mmol/L (21-32) Anion Gap 9 (6-14) Blood Urea Nitrogen 46 mg/dL (8-26) Creatinine 2.7 mg/dL (0.7-1.3) Estimated GFR (Cockcroft-Gault) 27.9 Glucose Level 239 mg/dL (70-99) Calcium Level 6.7 mg/dL (8.5-10.1) Total Bilirubin 1.8 mg/dL (0.2-1.0) Direct Bilirubin 1.4 mg/dL (0.0-0.2) Aspartate Amino Transf (AST/SGOT) 110 U/L (15-37) Alanine Aminotransferase (ALT/SGPT) 185 U/L (16-63) Alkaline Phosphatase 288 U/L (46-116) Total Protein 4.5 g/dL (6.4-8.2) Albumin 1.5 g/dL (3.4-5.0) Lipase 139 U/L (73-393) Impression . IMPRESSION: 1. Acute hypoxic respiratory failure secondary to septic shock. 2. Septic shock secondary to urinary tract infection, ? cholecystitis. off pressors 3. Urinary tract infection. 4. No history of tobacco use. 5. Abnormal chest x-ray with only mild basal atelectasis. 6. COVID neg. 7. Marked leukocytosis secondary to sepsis. I did not see the patient receive any steroids in the Emergency Room. 8. Possible mild chronic kidney disease. 9. Severe protein-calorie malnutrition. 10. Abnormal LFTs secondary to hypoperfusion from shock. Plan . RECOMMENDATIONS: 1. 02 titration 2. Continue IV fluids. 3. off Levophed. 4. Broad-spectrum antibiotic per Infectious Disease. 5. Monitor all cultures including urine cultures. 6. DVT prophylaxis with heparin. 7. laparoscopic cholecystectomy per surgery Discussed with RN. We will follow along with you. FRANKIE EHAD MD Mar 15, 2020 06:20
[2020-03-15] MEDS: FAMOTIDINE 20 MG/2 ML VIAL IVP SCH (08:37)
[2020-03-15] MEDS: ELECTROLYTE (ICU) PROTOCOL. MC SCH (08:43)
[2020-03-15] MEDS: LACTOBACILLUS RHAMNOSUS GG 1 CAPSULE. PO SCH ×2 (08:44→20:27)
[2020-03-15] MEDS: MULTIVITAMIN with MINERAL TABLET. PO SCH (08:44)
--- NOTE | 2020-03-15 08:46 | PDOC ---
SURGICAL PROGRESS NOTE DATE: 03/15/20 TIME: 08:44 Subjective Patient resting comfortably no complaints Vital Signs Vital Signs Date Time Temp Pulse Resp B/P (MAP) Pulse Ox O2 Delivery O2 Flow Rate FiO2 03/15/20 08:00 97.4 67 18 16/78 (58) 96 Room Air 97.4 I&O Intake and Output 03/15/20 07:00 Intake Total 1801 ml Output Total 415 ml Balance 1386 ml Intake Oral 60 ml IV Total 1741 ml Output Urine Total 415 ml PATIENT HAS A CARRION: Yes General: Alert, Cooperative, No acute distress Abdomen: Normal bowel sounds, Soft, Other (Mildly tender to palpation over the pubic symphysis more so than right upper quadrant) Labs Laboratory Tests Test 03/13/20 12:26 03/13/20 18:26 03/13/20 21:21 03/14/20 00:27 Glucose (Fingerstick) 366 mg/dL (70-99) 246 mg/dL (70-99) 249 mg/dL (70-99) 256 mg/dL (70-99) Test 03/14/20 04:23 03/14/20 12:35 03/14/20 13:14 03/14/20 17:58 Glucose (Fingerstick) 191 mg/dL (70-99) 302 mg/dL (70-99) 276 mg/dL (70-99) White Blood Count 21.0 x10^3/uL (4.0-11.0) Red Blood Count 4.47 x10^6/uL (4.30-5.70) Hemoglobin 13.3 g/dL (13.0-17.5) Hematocrit 39.5 % (39.0-53.0) Mean Corpuscular Volume 88 fL (79-100) Mean Corpuscular Hemoglobin 30 pg (25-35) Mean Corpuscular Hemoglobin Concent 34 g/dL (31-37) Red Cell Distribution Width 15.4 % (11.5-14.5) Platelet Count 87 x10^3/uL (140-400) Neutrophils (%) (Auto) 95 % (31-73) Lymphocytes (%) (Auto) 2 % (24-48) Monocytes (%) (Auto) 2 % (0-9) Eosinophils (%) (Auto) 1 % (0-3) Basophils (%) (Auto) 0 % (0-3) Neutrophils # (Auto) 19.9 x10^3/uL (1.8-7.7) Lymphocytes # (Auto) 0.4 x10^3/uL (1.0-4.8) Monocytes # (Auto) 0.4 x10^3/uL (0.0-1.1) Eosinophils # (Auto) 0.2 x10^3/uL (0.0-0.7) Basophils # (Auto) 0.1 x10^3/uL (0.0-0.2) Segmented Neutrophils % 75 % (35-66) Band Neutrophils % 21 % (0-9) Lymphocytes % 1 % (24-48) Monocytes % 2 % (0-10) Metamyelocytes % 1 % (0-0) Nucleated Red Blood Cells 1 Toxic Vacuolation Slight Dohle Bodies Present Platelet Estimate Decreased (ADEQUATE) Anisocytosis Slight Sodium Level 136 mmol/L (136-145) Potassium Level 5.2 mmol/L (3.5-5.1) Chloride Level 104 mmol/L (98-107) Carbon Dioxide Level 21 mmol/L (21-32) Anion Gap 11 (6-14) Blood Urea Nitrogen 38 mg/dL (8-26) Creatinine 2.5 mg/dL (0.7-1.3) Estimated GFR (Cockcroft-Gault) 30.5 Glucose Level 278 mg/dL (70-99) Calcium Level 7.4 mg/dL (8.5-10.1) Total Bilirubin 3.3 mg/dL (0.2-1.0) Direct Bilirubin 2.9 mg/dL (0.0-0.2) Aspartate Amino Transf (AST/SGOT) 213 U/L (15-37) Alanine Aminotransferase (ALT/SGPT) 245 U/L (16-63) Alkaline Phosphatase 270 U/L (46-116) Total Protein 4.7 g/dL (6.4-8.2) Albumin 1.7 g/dL (3.4-5.0) Test 03/14/20 20:37 03/15/20 00:12 03/15/20 04:02 03/15/20 04:05 Glucose (Fingerstick) 216 mg/dL (70-99) 222 mg/dL (70-99) 235 mg/dL (70-99) White Blood Count 22.2 x10^3/uL (4.0-11.0) Red Blood Count 4.35 x10^6/uL (4.30-5.70) Hemoglobin 12.7 g/dL (13.0-17.5) Hematocrit 38.2 % (39.0-53.0) Mean Corpuscular Volume 88 fL (79-100) Mean Corpuscular Hemoglobin 29 pg (25-35) Mean Corpuscular Hemoglobin Concent 33 g/dL (31-37) Red Cell Distribution Width 14.7 % (11.5-14.5) Platelet Count 91 x10^3/uL (140-400) Neutrophils (%) (Auto) 95 % (31-73) Lymphocytes (%) (Auto) 3 % (24-48) Monocytes (%) (Auto) 2 % (0-9) Eosinophils (%) (Auto) 0 % (0-3) Basophils (%) (Auto) 0 % (0-3) Neutrophils # (Auto) 21.1 x10^3/uL (1.8-7.7) Lymphocytes # (Auto) 0.6 x10^3/uL (1.0-4.8) Monocytes # (Auto) 0.4 x10^3/uL (0.0-1.1) Eosinophils # (Auto) 0.0 x10^3/uL (0.0-0.7) Basophils # (Auto) 0.1 x10^3/uL (0.0-0.2) Sodium Level 135 mmol/L (136-145) Potassium Level 4.6 mmol/L (3.5-5.1) Chloride Level 106 mmol/L (98-107) Carbon Dioxide Level 20 mmol/L (21-32) Anion Gap 9 (6-14) Blood Urea Nitrogen 46 mg/dL (8-26) Creatinine 2.7 mg/dL (0.7-1.3) Estimated GFR (Cockcroft-Gault) 27.9 Glucose Level 239 mg/dL (70-99) Calcium Level 6.7 mg/dL (8.5-10.1) Total Bilirubin 1.8 mg/dL (0.2-1.0) Direct Bilirubin 1.4 mg/dL (0.0-0.2) Aspartate Amino Transf (AST/SGOT) 110 U/L (15-37) Alanine Aminotransferase (ALT/SGPT) 185 U/L (16-63) Alkaline Phosphatase 288 U/L (46-116) Total Protein 4.5 g/dL (6.4-8.2) Albumin 1.5 g/dL (3.4-5.0) Lipase 139 U/L (73-393) Test 03/15/20 07:44 Glucose (Fingerstick) 203 mg/dL (70-99) Laboratory Tests Test 03/14/20 12:35 03/14/20 13:14 03/14/20 17:58 03/14/20 20:37 White Blood Count 21.0 x10^3/uL (4.0-11.0) Red Blood Count 4.47 x10^6/uL (4.30-5.70) Hemoglobin 13.3 g/dL (13.0-17.5) Hematocrit 39.5 % (39.0-53.0) Mean Corpuscular Volume 88 fL (79-100) Mean Corpuscular Hemoglobin 30 pg (25-35) Mean Corpuscular Hemoglobin Concent 34 g/dL (31-37) Red Cell Distribution Width 15.4 % (11.5-14.5) Platelet Count 87 x10^3/uL (140-400) Neutrophils (%) (Auto) 95 % (31-73) Lymphocytes (%) (Auto) 2 % (24-48) Monocytes (%) (Auto) 2 % (0-9) Eosinophils (%) (Auto) 1 % (0-3) Basophils (%) (Auto) 0 % (0-3) Neutrophils # (Auto) 19.9 x10^3/uL (1.8-7.7) Lymphocytes # (Auto) 0.4 x10^3/uL (1.0-4.8) Monocytes # (Auto) 0.4 x10^3/uL (0.0-1.1) Eosinophils # (Auto) 0.2 x10^3/uL (0.0-0.7) Basophils # (Auto) 0.1 x10^3/uL (0.0-0.2) Segmented Neutrophils % 75 % (35-66) Band Neutrophils % 21 % (0-9) Lymphocytes % 1 % (24-48) Monocytes % 2 % (0-10) Metamyelocytes % 1 % (0-0) Nucleated Red Blood Cells 1 Toxic Vacuolation Slight Dohle Bodies Present Platelet Estimate Decreased (ADEQUATE) Anisocytosis Slight Sodium Level 136 mmol/L (136-145) Potassium Level 5.2 mmol/L (3.5-5.1) Chloride Level 104 mmol/L (98-107) Carbon Dioxide Level 21 mmol/L (21-32) Anion Gap 11 (6-14) Blood Urea Nitrogen 38 mg/dL (8-26) Creatinine 2.5 mg/dL (0.7-1.3) Estimated GFR (Cockcroft-Gault) 30.5 Glucose Level 278 mg/dL (70-99) Calcium Level 7.4 mg/dL (8.5-10.1) Total Bilirubin 3.3 mg/dL (0.2-1.0) Direct Bilirubin 2.9 mg/dL (0.0-0.2) Aspartate Amino Transf (AST/SGOT) 213 U/L (15-37) Alanine Aminotransferase (ALT/SGPT) 245 U/L (16-63) Alkaline Phosphatase 270 U/L (46-116) Total Protein 4.7 g/dL (6.4-8.2) Albumin 1.7 g/dL (3.4-5.0) Glucose (Fingerstick) 302 mg/dL (70-99) 276 mg/dL (70-99) 216 mg/dL (70-99) Test 03/15/20 00:12 03/15/20 04:02 03/15/20 04:05 03/15/20 07:44 Glucose (Fingerstick) 222 mg/dL (70-99) 235 mg/dL (70-99) 203 mg/dL (70-99) White Blood Count 22.2 x10^3/uL (4.0-11.0) Red Blood Count 4.35 x10^6/uL (4.30-5.70) Hemoglobin 12.7 g/dL (13.0-17.5) Hematocrit 38.2 % (39.0-53.0) Mean Corpuscular Volume 88 fL (79-100) Mean Corpuscular Hemoglobin 29 pg (25-35) Mean Corpuscular Hemoglobin Concent 33 g/dL (31-37) Red Cell Distribution Width 14.7 % (11.5-14.5) Platelet Count 91 x10^3/uL (140-400) Neutrophils (%) (Auto) 95 % (31-73) Lymphocytes (%) (Auto) 3 % (24-48) Monocytes (%) (Auto) 2 % (0-9) Eosinophils (%) (Auto) 0 % (0-3) Basophils (%) (Auto) 0 % (0-3) Neutrophils # (Auto) 21.1 x10^3/uL (1.8-7.7) Lymphocytes # (Auto) 0.6 x10^3/uL (1.0-4.8) Monocytes # (Auto) 0.4 x10^3/uL (0.0-1.1) Eosinophils # (Auto) 0.0 x10^3/uL (0.0-0.7) Basophils # (Auto) 0.1 x10^3/uL (0.0-0.2) Sodium Level 135 mmol/L (136-145) Potassium Level 4.6 mmol/L (3.5-5.1) Chloride Level 106 mmol/L (98-107) Carbon Dioxide Level 20 mmol/L (21-32) Anion Gap 9 (6-14) Blood Urea Nitrogen 46 mg/dL (8-26) Creatinine 2.7 mg/dL (0.7-1.3) Estimated GFR (Cockcroft-Gault) 27.9 Glucose Level 239 mg/dL (70-99) Calcium Level 6.7 mg/dL (8.5-10.1) Total Bilirubin 1.8 mg/dL (0.2-1.0) Direct Bilirubin 1.4 mg/dL (0.0-0.2) Aspartate Amino Transf (AST/SGOT) 110 U/L (15-37) Alanine Aminotransferase (ALT/SGPT) 185 U/L (16-63) Alkaline Phosphatase 288 U/L (46-116) Total Protein 4.5 g/dL (6.4-8.2) Albumin 1.5 g/dL (3.4-5.0) Lipase 139 U/L (73-393) Problem List Problems Medical Problems: (1) AMS (altered mental status) Status: Acute (2) Hypocalcemia Status: Acute (3) Hypokalemia Status: Acute (4) Septic shock Status: Acute (5) Suspected 2019 novel coronavirus infection Status: Acute Assessment/Plan Multiple medical problems likely urosepsis. Unsure as to how much the gonzalez makayla contributes to his current problems Agree with GI will observe at this point possible surgical intervention if needed first of the week Advance diet when patient able Justicifation of Admission Dx: Justifications for Admission: Justification of Admission Dx: Yes CHF: Cardiac Arrhythmias Comminuty Aquired Pneumonia: Bactermia Chronic Renal Failure: Encephalopathy Sepsis: Altered Mental Status ERICA MANCINI MD Mar 15, 2020 08:46
--- NOTE | 2020-03-15 08:56 | PDOC ---
Infectious Disease Note Subjective Subjective c/o abdominal pain No fevers last 48 hrs ROS ROS as mentioned above Vital Sign Vital Signs Vital Signs Date Time Temp Pulse Resp B/P (MAP) Pulse Ox O2 Delivery O2 Flow Rate FiO2 03/15/20 08:00 97.4 67 18 16/78 (58) 96 Room Air 97.4 Physical Exam PHYSICAL EXAM GENERAL: Propped up in bed, awake, calm in NAD HEENT: Oral mucosa moist. No thrush NECK: Supple. No JVD. LUNGS: Decreased breath sounds at the bases. No wheezing. HEART: S1, S2. No gallops or murmurs. Left sided chest wall PPM looks intact, clean. ABDOMEN: Soft, obese, mild diffuse tenderness. No rebound, no guarding. : Gates in place EXTREMITIES: Trace edema lower extremities, bilaterally. No cyanosis, no clubbing. NEUROLOGIC: Awake, generalized weakness. RIJ (03/12) without signs of complications Labs Lab Laboratory Tests Test 03/14/20 12:35 03/14/20 13:14 03/14/20 17:58 03/14/20 20:37 White Blood Count 21.0 x10^3/uL (4.0-11.0) Red Blood Count 4.47 x10^6/uL (4.30-5.70) Hemoglobin 13.3 g/dL (13.0-17.5) Hematocrit 39.5 % (39.0-53.0) Mean Corpuscular Volume 88 fL (79-100) Mean Corpuscular Hemoglobin 30 pg (25-35) Mean Corpuscular Hemoglobin Concent 34 g/dL (31-37) Red Cell Distribution Width 15.4 % (11.5-14.5) Platelet Count 87 x10^3/uL (140-400) Neutrophils (%) (Auto) 95 % (31-73) Lymphocytes (%) (Auto) 2 % (24-48) Monocytes (%) (Auto) 2 % (0-9) Eosinophils (%) (Auto) 1 % (0-3) Basophils (%) (Auto) 0 % (0-3) Neutrophils # (Auto) 19.9 x10^3/uL (1.8-7.7) Lymphocytes # (Auto) 0.4 x10^3/uL (1.0-4.8) Monocytes # (Auto) 0.4 x10^3/uL (0.0-1.1) Eosinophils # (Auto) 0.2 x10^3/uL (0.0-0.7) Basophils # (Auto) 0.1 x10^3/uL (0.0-0.2) Segmented Neutrophils % 75 % (35-66) Band Neutrophils % 21 % (0-9) Lymphocytes % 1 % (24-48) Monocytes % 2 % (0-10) Metamyelocytes % 1 % (0-0) Nucleated Red Blood Cells 1 Toxic Vacuolation Slight Dohle Bodies Present Platelet Estimate Decreased (ADEQUATE) Anisocytosis Slight Sodium Level 136 mmol/L (136-145) Potassium Level 5.2 mmol/L (3.5-5.1) Chloride Level 104 mmol/L (98-107) Carbon Dioxide Level 21 mmol/L (21-32) Anion Gap 11 (6-14) Blood Urea Nitrogen 38 mg/dL (8-26) Creatinine 2.5 mg/dL (0.7-1.3) Estimated GFR (Cockcroft-Gault) 30.5 Glucose Level 278 mg/dL (70-99) Calcium Level 7.4 mg/dL (8.5-10.1) Total Bilirubin 3.3 mg/dL (0.2-1.0) Direct Bilirubin 2.9 mg/dL (0.0-0.2) Aspartate Amino Transf (AST/SGOT) 213 U/L (15-37) Alanine Aminotransferase (ALT/SGPT) 245 U/L (16-63) Alkaline Phosphatase 270 U/L (46-116) Total Protein 4.7 g/dL (6.4-8.2) Albumin 1.7 g/dL (3.4-5.0) Glucose (Fingerstick) 302 mg/dL (70-99) 276 mg/dL (70-99) 216 mg/dL (70-99) Test 03/15/20 00:12 03/15/20 04:02 03/15/20 04:05 03/15/20 07:44 Glucose (Fingerstick) 222 mg/dL (70-99) 235 mg/dL (70-99) 203 mg/dL (70-99) White Blood Count 22.2 x10^3/uL (4.0-11.0) Red Blood Count 4.35 x10^6/uL (4.30-5.70) Hemoglobin 12.7 g/dL (13.0-17.5) Hematocrit 38.2 % (39.0-53.0) Mean Corpuscular Volume 88 fL (79-100) Mean Corpuscular Hemoglobin 29 pg (25-35) Mean Corpuscular Hemoglobin Concent 33 g/dL (31-37) Red Cell Distribution Width 14.7 % (11.5-14.5) Platelet Count 91 x10^3/uL (140-400) Neutrophils (%) (Auto) 95 % (31-73) Lymphocytes (%) (Auto) 3 % (24-48) Monocytes (%) (Auto) 2 % (0-9) Eosinophils (%) (Auto) 0 % (0-3) Basophils (%) (Auto) 0 % (0-3) Neutrophils # (Auto) 21.1 x10^3/uL (1.8-7.7) Lymphocytes # (Auto) 0.6 x10^3/uL (1.0-4.8) Monocytes # (Auto) 0.4 x10^3/uL (0.0-1.1) Eosinophils # (Auto) 0.0 x10^3/uL (0.0-0.7) Basophils # (Auto) 0.1 x10^3/uL (0.0-0.2) Sodium Level 135 mmol/L (136-145) Potassium Level 4.6 mmol/L (3.5-5.1) Chloride Level 106 mmol/L (98-107) Carbon Dioxide Level 20 mmol/L (21-32) Anion Gap 9 (6-14) Blood Urea Nitrogen 46 mg/dL (8-26) Creatinine 2.7 mg/dL (0.7-1.3) Estimated GFR (Cockcroft-Gault) 27.9 Glucose Level 239 mg/dL (70-99) Calcium Level 6.7 mg/dL (8.5-10.1) Total Bilirubin 1.8 mg/dL (0.2-1.0) Direct Bilirubin 1.4 mg/dL (0.0-0.2) Aspartate Amino Transf (AST/SGOT) 110 U/L (15-37) Alanine Aminotransferase (ALT/SGPT) 185 U/L (16-63) Alkaline Phosphatase 288 U/L (46-116) Total Protein 4.5 g/dL (6.4-8.2) Albumin 1.5 g/dL (3.4-5.0) Lipase 139 U/L (73-393) Micro 03/12. BLOOD CULTURE LC Final Final GRAM NEGATIVE RODS FINAL ID= [ESCHERICHIA COLI ESBL] ESCHERICHIA COLI ESBL 03/12. URINE CULTURE Final Final GREATER THAN 100,000 CFU/ML GRAM POSITIVE RODS on 03/14/20 at 1343 FINAL ID= [LACTOBACILLUS SPECIES] Objective Assessment Septic shock from gram neg sepsis, improving. ESBL + E. coli Leukocytosis with bandemia, in part steroids Lactic acidosis. Gram negative bacteremia source likely GI. ESBL + E. coli Urinary tract infection. LACTOBACILLUS SPECIES Acute kidney injury. Thrombocytopenia, likely sepsis. Encephalopathy, likely sepsis, improving. Acute cholecysitis Hyperbilirubinemia, abnormal LFTs, gallbladder distention on CT.HIDA scan noted Diabetes mellitus. 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 [place] resident Plan Plan of Care cont Merrem d/c Zyvox. Probiotics Monitor lab values/temp f/u BC from 03/14 Maintain aspiration precautions Gen surg following. Lap juan planned Contact isolation for ESBL Discussed with nursing Critically ill. Attending Co-Sign Attending Co-Sign The patient was seen and interviewed as well as examined at the bedside. The chart was reviewed. The case was discussed. Agree with the plan of care. JORDAN BARR APRN Mar 15, 2020 08:56 JAIDEN MARKS MD Mar 15, 2020 13:04
[2020-03-15 09:36] LABS: PHOSPHORUS 2.8 mg/dL (2.6-4.7)
--- NOTE | 2020-03-15 12:08 | PDOC ---
[employer] PROGRESS NOTE Date of Service DOS: DATE: 03/15/20 TIME: 12:00 Chief Complaint Chief Complaint Acute hypoxic respiratory failure secondary to septic shock Septic shock secondary to urinary tract infection Urinary tract infection Diabetes mellitus No history of tobacco use Abnormal chest x-ray with only mild basal atelectasis. Low suspicion for COVID Marked leukocytosis secondary to sepsis Possible mild chronic kidney disease. Severe protein-calorie malnutrition. Abnormal LFTs secondary to hypoperfusion from shock History of Present Illness History of Present Illness 03/15/20 Patient seen and examined in ICU Chart reviewed Discussed with RN Patient now on full liquid diet 03/14/2020 Patient seen and examined in ICU Afebrile, off oxygen supplementation Off Levophed COVID negative Discussed with RN Chart reviewed 03/12/2020 Patient seen and examined in the ICU Afebrile On 2L O2 NC Calcium 7.3, Potassium 4.8 being replaced COVID-19 results pending Discussed with RN Chart reviewed Vitals/I&O Vitals/I&O: Vital Signs Date Time Temp Pulse Resp B/P (MAP) Pulse Ox O2 Delivery O2 Flow Rate FiO2 03/15/20 11:00 62 20 101/66 (78) 99 Room Air 03/15/20 08:00 97.4 97.4 I & O 03/14/20 03/14/20 03/15/20 15:00 23:00 07:00 Intake Total 50 ml 1240 ml 511 ml Output Total 135 ml 125 ml 155 ml Balance -85 ml 1115 ml 356 ml Physical Exam Physical Exam: GENERAL: Propped up in bed, awake, calm in NAD HEENT: Oral mucosa moist. No thrush NECK: Supple. No JVD. LUNGS: Decreased breath sounds at the bases. No wheezing. HEART: S1, S2. No gallops or murmurs. Left sided chest wall PPM looks intact, clean. ABDOMEN: Soft, obese, mild diffuse tenderness. No rebound, no guarding. : Gates in place EXTREMITIES: Trace edema lower extremities, bilaterally. No cyanosis, no clubbing. NEUROLOGIC: Awake, generalized weakness. RIJ (03/12) without signs of complications General: Alert, Cooperative, No acute distress Heart: Regular rate, Normal S1, Normal S2 Lungs: Clear Abdomen: Soft, Other (Mildly tender to palpation over the pubic symphysis more so than right upper quadrant) Extremities: No clubbing, No cyanosis Skin: No rashes, No breakdown Labs Labs: Laboratory Tests Test 03/14/20 12:35 03/14/20 13:14 03/14/20 17:58 03/14/20 20:37 White Blood Count 21.0 x10^3/uL (4.0-11.0) Red Blood Count 4.47 x10^6/uL (4.30-5.70) Hemoglobin 13.3 g/dL (13.0-17.5) Hematocrit 39.5 % (39.0-53.0) Mean Corpuscular Volume 88 fL (79-100) Mean Corpuscular Hemoglobin 30 pg (25-35) Mean Corpuscular Hemoglobin Concent 34 g/dL (31-37) Red Cell Distribution Width 15.4 % (11.5-14.5) Platelet Count 87 x10^3/uL (140-400) Neutrophils (%) (Auto) 95 % (31-73) Lymphocytes (%) (Auto) 2 % (24-48) Monocytes (%) (Auto) 2 % (0-9) Eosinophils (%) (Auto) 1 % (0-3) Basophils (%) (Auto) 0 % (0-3) Neutrophils # (Auto) 19.9 x10^3/uL (1.8-7.7) Lymphocytes # (Auto) 0.4 x10^3/uL (1.0-4.8) Monocytes # (Auto) 0.4 x10^3/uL (0.0-1.1) Eosinophils # (Auto) 0.2 x10^3/uL (0.0-0.7) Basophils # (Auto) 0.1 x10^3/uL (0.0-0.2) Segmented Neutrophils % 75 % (35-66) Band Neutrophils % 21 % (0-9) Lymphocytes % 1 % (24-48) Monocytes % 2 % (0-10) Metamyelocytes % 1 % (0-0) Nucleated Red Blood Cells 1 Toxic Vacuolation Slight Dohle Bodies Present Platelet Estimate Decreased (ADEQUATE) Anisocytosis Slight Sodium Level 136 mmol/L (136-145) Potassium Level 5.2 mmol/L (3.5-5.1) Chloride Level 104 mmol/L (98-107) Carbon Dioxide Level 21 mmol/L (21-32) Anion Gap 11 (6-14) Blood Urea Nitrogen 38 mg/dL (8-26) Creatinine 2.5 mg/dL (0.7-1.3) Estimated GFR (Cockcroft-Gault) 30.5 Glucose Level 278 mg/dL (70-99) Calcium Level 7.4 mg/dL (8.5-10.1) Total Bilirubin 3.3 mg/dL (0.2-1.0) Direct Bilirubin 2.9 mg/dL (0.0-0.2) Aspartate Amino Transf (AST/SGOT) 213 U/L (15-37) Alanine Aminotransferase (ALT/SGPT) 245 U/L (16-63) Alkaline Phosphatase 270 U/L (46-116) Total Protein 4.7 g/dL (6.4-8.2) Albumin 1.7 g/dL (3.4-5.0) Glucose (Fingerstick) 302 mg/dL (70-99) 276 mg/dL (70-99) 216 mg/dL (70-99) Test 03/15/20 00:12 03/15/20 04:02 03/15/20 04:05 03/15/20 07:44 Glucose (Fingerstick) 222 mg/dL (70-99) 235 mg/dL (70-99) 203 mg/dL (70-99) White Blood Count 22.2 x10^3/uL (4.0-11.0) Red Blood Count 4.35 x10^6/uL (4.30-5.70) Hemoglobin 12.7 g/dL (13.0-17.5) Hematocrit 38.2 % (39.0-53.0) Mean Corpuscular Volume 88 fL (79-100) Mean Corpuscular Hemoglobin 29 pg (25-35) Mean Corpuscular Hemoglobin Concent 33 g/dL (31-37) Red Cell Distribution Width 14.7 % (11.5-14.5) Platelet Count 91 x10^3/uL (140-400) Neutrophils (%) (Auto) 95 % (31-73) Lymphocytes (%) (Auto) 3 % (24-48) Monocytes (%) (Auto) 2 % (0-9) Eosinophils (%) (Auto) 0 % (0-3) Basophils (%) (Auto) 0 % (0-3) Neutrophils # (Auto) 21.1 x10^3/uL (1.8-7.7) Lymphocytes # (Auto) 0.6 x10^3/uL (1.0-4.8) Monocytes # (Auto) 0.4 x10^3/uL (0.0-1.1) Eosinophils # (Auto) 0.0 x10^3/uL (0.0-0.7) Basophils # (Auto) 0.1 x10^3/uL (0.0-0.2) Sodium Level 135 mmol/L (136-145) Potassium Level 4.6 mmol/L (3.5-5.1) Chloride Level 106 mmol/L (98-107) Carbon Dioxide Level 20 mmol/L (21-32) Anion Gap 9 (6-14) Blood Urea Nitrogen 46 mg/dL (8-26) Creatinine 2.7 mg/dL (0.7-1.3) Estimated GFR (Cockcroft-Gault) 27.9 Glucose Level 239 mg/dL (70-99) Calcium Level 6.7 mg/dL (8.5-10.1) Phosphorus Level 2.8 mg/dL (2.6-4.7) Magnesium Level 2.0 mg/dL (1.8-2.4) Total Bilirubin 1.8 mg/dL (0.2-1.0) Direct Bilirubin 1.4 mg/dL (0.0-0.2) Aspartate Amino Transf (AST/SGOT) 110 U/L (15-37) Alanine Aminotransferase (ALT/SGPT) 185 U/L (16-63) Alkaline Phosphatase 288 U/L (46-116) Total Protein 4.5 g/dL (6.4-8.2) Albumin 1.5 g/dL (3.4-5.0) Lipase 139 U/L (73-393) Assessment and Plan Assessmemt and Plan Problems Medical Problems: (1) AMS (altered mental status) Status: Acute (2) Hypocalcemia Status: Acute (3) Hypokalemia Status: Acute (4) Septic shock Status: Acute (5) Suspected 2019 novel coronavirus infection Status: Acute Assessment: Acute hypoxic respiratory failure secondary to septic shock Septic shock secondary to urinary tract infection Urinary tract infection Diabetes mellitus No history of tobacco use Abnormal chest x-ray with only mild basal atelectasis. Low suspicion for COVID Marked leukocytosis secondary to sepsis Possible mild chronic kidney disease. Severe protein-calorie malnutrition. Abnormal LFTs secondary to hypoperfusion from shock Plan: ICU monitoring Full code DVT prophylaxis Full liquid diet Awaiting cholecystectomy IV antibiotics per ID Appreciate subspecialist input Comment Review of Relevant I have reviewed the following items thee (where applicable) has been applied. Medications: Current Medications Medications (Trade) Dose Ordered Sig/Uma Route PRN Reason Start Time Stop Time Status Last Admin Dose Admin Meropenem 500 mg/ Sodium Chloride 50 ml @ 100 mls/hr Q8HRS IV 03/14/20 22:00 03/15/20 05:35 Justicifation of Admission Dx: Justifications for Admission: Justification of Admission Dx: Yes CHF: Cardiac Arrhythmias Comminuty Aquired Pneumonia: Bactermia Chronic Renal Failure: Encephalopathy Sepsis: Altered Mental Status THELMA BRUCE III DO Mar 15, 2020 12:08
[2020-03-15] MEDS: MORPHINE SULFATE 2 MG/ML VIAL. IV PRN ×2 (13:48→20:27)
[2020-03-16] MEDS: IV NORMAL SALINE 1000ML BAG 1,000 ML IV SCH ×3 (00:33→21:59)
[2020-03-16] MEDS: methylPREDNISolone SOD SUCC PF 40 MG/ML VIAL. IV SCH ×4 (00:35→18:50)
[2020-03-16] MEDS: INSULIN LISPRO 300 UNITS/3 ML VIAL. SQ SCH ×6 (00:40→20:35)
[2020-03-16 02:37] VITALS: BP 113/79
[2020-03-16] MEDS: MORPHINE SULFATE 2 MG/ML VIAL. IV PRN ×2 (04:36→13:52)
[2020-03-16] MEDS: HEPARIN for SUB-Q USE 5,000 UNIT/ML VIAL. SQ SCH ×3 (05:37→22:01)
[2020-03-16 05:38] LABS: BASO % 0 % (0-3); EOS % 0 % (0-3); HEMATOCRIT 40.6 % (39.0-53.0); HEMOGLOBIN 13.6 g/dL (13.0-17.5); LYMPH # 0.6 x10^3/uL (1.0-4.8); LYMPH % 3 % (24-48); MEAN CORPUSCULAR HEMOGLOBIN 29 pg (25-35); MEAN CORPUSCULAR HGB CONC 34 g/dL (31-37); MEAN CORPUSCULAR VOLUME 88 fL (79-100); MONO # 0.4 x10^3/uL (0.0-1.1); MONO % 2 % (0-9); NEUT # 18.2 x10^3/uL (1.8-7.7); NEUT % 95 % (31-73); PLATELET COUNT 96 x10^3/uL (140-400); RED BLOOD COUNT 4.61 x10^6/uL (4.30-5.70); RED CELL DISTRIBUTION WIDTH 15.6 % (11.5-14.5); WHITE BLOOD COUNT 19.2 x10^3/uL (4.0-11.0)
[2020-03-16] MEDS: MEROPENEM 500 MG in IV NORMAL SALINE 50ML 50 ML IV SCH ×3 (05:40→22:00)
[2020-03-16 05:43] LABS: CALCIUM 6.9 mg/dL (8.5-10.1); CREATININE 2.9 mg/dL (0.7-1.3); GFR 25.7; POTASSIUM 4.7 mmol/L (3.5-5.1)
[2020-03-16 07:00] VITALS: BP 136/94
--- NOTE | 2020-03-16 07:46 | PDOC ---
SURGICAL PROGRESS NOTE DATE: 03/16/20 TIME: 07:45 Subjective Patient resting comfortably in bed denies any abdominal pain Vital Signs Vital Signs Date Time Temp Pulse Resp B/P (MAP) Pulse Ox O2 Delivery O2 Flow Rate FiO2 03/16/20 07:00 97.4 67 18 136/94 (108) 96 Room Air 2.0 97.4 I&O Intake and Output 03/16/20 07:00 Intake Total 1400 ml Output Total 255 ml Balance 1145 ml Intake Oral 150 ml IV Total 1250 ml Output Urine Total 255 ml PATIENT HAS A CARRION: Yes General: Alert, Cooperative, No acute distress Abdomen: Normal bowel sounds, Soft, No tenderness Labs Laboratory Tests Test 03/14/20 12:35 03/14/20 13:14 03/14/20 17:58 03/14/20 20:37 White Blood Count 21.0 x10^3/uL (4.0-11.0) Red Blood Count 4.47 x10^6/uL (4.30-5.70) Hemoglobin 13.3 g/dL (13.0-17.5) Hematocrit 39.5 % (39.0-53.0) Mean Corpuscular Volume 88 fL (79-100) Mean Corpuscular Hemoglobin 30 pg (25-35) Mean Corpuscular Hemoglobin Concent 34 g/dL (31-37) Red Cell Distribution Width 15.4 % (11.5-14.5) Platelet Count 87 x10^3/uL (140-400) Neutrophils (%) (Auto) 95 % (31-73) Lymphocytes (%) (Auto) 2 % (24-48) Monocytes (%) (Auto) 2 % (0-9) Eosinophils (%) (Auto) 1 % (0-3) Basophils (%) (Auto) 0 % (0-3) Neutrophils # (Auto) 19.9 x10^3/uL (1.8-7.7) Lymphocytes # (Auto) 0.4 x10^3/uL (1.0-4.8) Monocytes # (Auto) 0.4 x10^3/uL (0.0-1.1) Eosinophils # (Auto) 0.2 x10^3/uL (0.0-0.7) Basophils # (Auto) 0.1 x10^3/uL (0.0-0.2) Segmented Neutrophils % 75 % (35-66) Band Neutrophils % 21 % (0-9) Lymphocytes % 1 % (24-48) Monocytes % 2 % (0-10) Metamyelocytes % 1 % (0-0) Nucleated Red Blood Cells 1 Toxic Vacuolation Slight Dohle Bodies Present Platelet Estimate Decreased (ADEQUATE) Anisocytosis Slight Sodium Level 136 mmol/L (136-145) Potassium Level 5.2 mmol/L (3.5-5.1) Chloride Level 104 mmol/L (98-107) Carbon Dioxide Level 21 mmol/L (21-32) Anion Gap 11 (6-14) Blood Urea Nitrogen 38 mg/dL (8-26) Creatinine 2.5 mg/dL (0.7-1.3) Estimated GFR (Cockcroft-Gault) 30.5 Glucose Level 278 mg/dL (70-99) Calcium Level 7.4 mg/dL (8.5-10.1) Total Bilirubin 3.3 mg/dL (0.2-1.0) Direct Bilirubin 2.9 mg/dL (0.0-0.2) Aspartate Amino Transf (AST/SGOT) 213 U/L (15-37) Alanine Aminotransferase (ALT/SGPT) 245 U/L (16-63) Alkaline Phosphatase 270 U/L (46-116) Total Protein 4.7 g/dL (6.4-8.2) Albumin 1.7 g/dL (3.4-5.0) Glucose (Fingerstick) 302 mg/dL (70-99) 276 mg/dL (70-99) 216 mg/dL (70-99) Test 03/15/20 00:12 03/15/20 04:02 03/15/20 04:05 03/15/20 07:44 Glucose (Fingerstick) 222 mg/dL (70-99) 235 mg/dL (70-99) 203 mg/dL (70-99) White Blood Count 22.2 x10^3/uL (4.0-11.0) Red Blood Count 4.35 x10^6/uL (4.30-5.70) Hemoglobin 12.7 g/dL (13.0-17.5) Hematocrit 38.2 % (39.0-53.0) Mean Corpuscular Volume 88 fL (79-100) Mean Corpuscular Hemoglobin 29 pg (25-35) Mean Corpuscular Hemoglobin Concent 33 g/dL (31-37) Red Cell Distribution Width 14.7 % (11.5-14.5) Platelet Count 91 x10^3/uL (140-400) Neutrophils (%) (Auto) 95 % (31-73) Lymphocytes (%) (Auto) 3 % (24-48) Monocytes (%) (Auto) 2 % (0-9) Eosinophils (%) (Auto) 0 % (0-3) Basophils (%) (Auto) 0 % (0-3) Neutrophils # (Auto) 21.1 x10^3/uL (1.8-7.7) Lymphocytes # (Auto) 0.6 x10^3/uL (1.0-4.8) Monocytes # (Auto) 0.4 x10^3/uL (0.0-1.1) Eosinophils # (Auto) 0.0 x10^3/uL (0.0-0.7) Basophils # (Auto) 0.1 x10^3/uL (0.0-0.2) Sodium Level 135 mmol/L (136-145) Potassium Level 4.6 mmol/L (3.5-5.1) Chloride Level 106 mmol/L (98-107) Carbon Dioxide Level 20 mmol/L (21-32) Anion Gap 9 (6-14) Blood Urea Nitrogen 46 mg/dL (8-26) Creatinine 2.7 mg/dL (0.7-1.3) Estimated GFR (Cockcroft-Gault) 27.9 Glucose Level 239 mg/dL (70-99) Calcium Level 6.7 mg/dL (8.5-10.1) Phosphorus Level 2.8 mg/dL (2.6-4.7) Magnesium Level 2.0 mg/dL (1.8-2.4) Total Bilirubin 1.8 mg/dL (0.2-1.0) Direct Bilirubin 1.4 mg/dL (0.0-0.2) Aspartate Amino Transf (AST/SGOT) 110 U/L (15-37) Alanine Aminotransferase (ALT/SGPT) 185 U/L (16-63) Alkaline Phosphatase 288 U/L (46-116) Total Protein 4.5 g/dL (6.4-8.2) Albumin 1.5 g/dL (3.4-5.0) Lipase 139 U/L (73-393) Test 03/15/20 12:57 03/15/20 16:39 03/15/20 20:15 03/16/20 00:22 Glucose (Fingerstick) 225 mg/dL (70-99) 237 mg/dL (70-99) 202 mg/dL (70-99) 248 mg/dL (70-99) Test 03/16/20 03:59 03/16/20 05:15 Glucose (Fingerstick) 187 mg/dL (70-99) White Blood Count 19.2 x10^3/uL (4.0-11.0) Red Blood Count 4.61 x10^6/uL (4.30-5.70) Hemoglobin 13.6 g/dL (13.0-17.5) Hematocrit 40.6 % (39.0-53.0) Mean Corpuscular Volume 88 fL (79-100) Mean Corpuscular Hemoglobin 29 pg (25-35) Mean Corpuscular Hemoglobin Concent 34 g/dL (31-37) Red Cell Distribution Width 15.6 % (11.5-14.5) Platelet Count 96 x10^3/uL (140-400) Neutrophils (%) (Auto) 95 % (31-73) Lymphocytes (%) (Auto) 3 % (24-48) Monocytes (%) (Auto) 2 % (0-9) Eosinophils (%) (Auto) 0 % (0-3) Basophils (%) (Auto) 0 % (0-3) Neutrophils # (Auto) 18.2 x10^3/uL (1.8-7.7) Lymphocytes # (Auto) 0.6 x10^3/uL (1.0-4.8) Monocytes # (Auto) 0.4 x10^3/uL (0.0-1.1) Eosinophils # (Auto) 0.0 x10^3/uL (0.0-0.7) Basophils # (Auto) 0.0 x10^3/uL (0.0-0.2) Sodium Level 138 mmol/L (136-145) Potassium Level 4.7 mmol/L (3.5-5.1) Chloride Level 108 mmol/L (98-107) Carbon Dioxide Level 21 mmol/L (21-32) Anion Gap 9 (6-14) Blood Urea Nitrogen 56 mg/dL (8-26) Creatinine 2.9 mg/dL (0.7-1.3) Estimated GFR (Cockcroft-Gault) 25.7 Glucose Level 223 mg/dL (70-99) Calcium Level 6.9 mg/dL (8.5-10.1) Laboratory Tests Test 03/15/20 12:57 03/15/20 16:39 03/15/20 20:15 03/16/20 00:22 Glucose (Fingerstick) 225 mg/dL (70-99) 237 mg/dL (70-99) 202 mg/dL (70-99) 248 mg/dL (70-99) Test 03/16/20 03:59 03/16/20 05:15 Glucose (Fingerstick) 187 mg/dL (70-99) White Blood Count 19.2 x10^3/uL (4.0-11.0) Red Blood Count 4.61 x10^6/uL (4.30-5.70) Hemoglobin 13.6 g/dL (13.0-17.5) Hematocrit 40.6 % (39.0-53.0) Mean Corpuscular Volume 88 fL (79-100) Mean Corpuscular Hemoglobin 29 pg (25-35) Mean Corpuscular Hemoglobin Concent 34 g/dL (31-37) Red Cell Distribution Width 15.6 % (11.5-14.5) Platelet Count 96 x10^3/uL (140-400) Neutrophils (%) (Auto) 95 % (31-73) Lymphocytes (%) (Auto) 3 % (24-48) Monocytes (%) (Auto) 2 % (0-9) Eosinophils (%) (Auto) 0 % (0-3) Basophils (%) (Auto) 0 % (0-3) Neutrophils # (Auto) 18.2 x10^3/uL (1.8-7.7) Lymphocytes # (Auto) 0.6 x10^3/uL (1.0-4.8) Monocytes # (Auto) 0.4 x10^3/uL (0.0-1.1) Eosinophils # (Auto) 0.0 x10^3/uL (0.0-0.7) Basophils # (Auto) 0.0 x10^3/uL (0.0-0.2) Sodium Level 138 mmol/L (136-145) Potassium Level 4.7 mmol/L (3.5-5.1) Chloride Level 108 mmol/L (98-107) Carbon Dioxide Level 21 mmol/L (21-32) Anion Gap 9 (6-14) Blood Urea Nitrogen 56 mg/dL (8-26) Creatinine 2.9 mg/dL (0.7-1.3) Estimated GFR (Cockcroft-Gault) 25.7 Glucose Level 223 mg/dL (70-99) Calcium Level 6.9 mg/dL (8.5-10.1) Problem List Problems Medical Problems: (1) AMS (altered mental status) Status: Acute (2) Hypocalcemia Status: Acute (3) Hypokalemia Status: Acute (4) Septic shock Status: Acute (5) Suspected 2019 novel coronavirus infection Status: Acute Assessment/Plan Urosepsis white count improving afebrile Multiple medical problems high risk for surgery, will monitor closely for improvement still may need cholecystectomy Justicifation of Admission Dx: Justifications for Admission: Justification of Admission Dx: Yes CHF: Cardiac Arrhythmias Comminuty Aquired Pneumonia: Bactermia Chronic Renal Failure: Encephalopathy Sepsis: Altered Mental Status ERICA MANCINI MD Mar 16, 2020 07:46
--- NOTE | 2020-03-16 09:21 | PDOC ---
PULMONARY PROGRESS NOTES DATE: 03/16/20 TIME: 09:21 Subjective on ra, denies sob, cough, has abd pain, Vitals Vital Signs Date Time Temp Pulse Resp B/P (MAP) Pulse Ox O2 Delivery O2 Flow Rate FiO2 03/16/20 07:00 97.4 67 18 136/94 (108) 96 Room Air 2.0 97.4 Comments ros as mentioned as above other sys otherwise neg ROS: No Nausea, No Chest Pain General: Alert HEENT: Other (nc at perrl ) Lungs: Clear Cardiovascular: S1, S2 Abdomen: Soft Neuro Exam: Alert Extremities: Other Skin: Warm Labs Laboratory Tests Test 03/14/20 12:35 03/14/20 13:14 03/14/20 17:58 03/14/20 20:37 White Blood Count 21.0 x10^3/uL (4.0-11.0) Red Blood Count 4.47 x10^6/uL (4.30-5.70) Hemoglobin 13.3 g/dL (13.0-17.5) Hematocrit 39.5 % (39.0-53.0) Mean Corpuscular Volume 88 fL (79-100) Mean Corpuscular Hemoglobin 30 pg (25-35) Mean Corpuscular Hemoglobin Concent 34 g/dL (31-37) Red Cell Distribution Width 15.4 % (11.5-14.5) Platelet Count 87 x10^3/uL (140-400) Neutrophils (%) (Auto) 95 % (31-73) Lymphocytes (%) (Auto) 2 % (24-48) Monocytes (%) (Auto) 2 % (0-9) Eosinophils (%) (Auto) 1 % (0-3) Basophils (%) (Auto) 0 % (0-3) Neutrophils # (Auto) 19.9 x10^3/uL (1.8-7.7) Lymphocytes # (Auto) 0.4 x10^3/uL (1.0-4.8) Monocytes # (Auto) 0.4 x10^3/uL (0.0-1.1) Eosinophils # (Auto) 0.2 x10^3/uL (0.0-0.7) Basophils # (Auto) 0.1 x10^3/uL (0.0-0.2) Segmented Neutrophils % 75 % (35-66) Band Neutrophils % 21 % (0-9) Lymphocytes % 1 % (24-48) Monocytes % 2 % (0-10) Metamyelocytes % 1 % (0-0) Nucleated Red Blood Cells 1 Toxic Vacuolation Slight Dohle Bodies Present Platelet Estimate Decreased (ADEQUATE) Anisocytosis Slight Sodium Level 136 mmol/L (136-145) Potassium Level 5.2 mmol/L (3.5-5.1) Chloride Level 104 mmol/L (98-107) Carbon Dioxide Level 21 mmol/L (21-32) Anion Gap 11 (6-14) Blood Urea Nitrogen 38 mg/dL (8-26) Creatinine 2.5 mg/dL (0.7-1.3) Estimated GFR (Cockcroft-Gault) 30.5 Glucose Level 278 mg/dL (70-99) Calcium Level 7.4 mg/dL (8.5-10.1) Total Bilirubin 3.3 mg/dL (0.2-1.0) Direct Bilirubin 2.9 mg/dL (0.0-0.2) Aspartate Amino Transf (AST/SGOT) 213 U/L (15-37) Alanine Aminotransferase (ALT/SGPT) 245 U/L (16-63) Alkaline Phosphatase 270 U/L (46-116) Total Protein 4.7 g/dL (6.4-8.2) Albumin 1.7 g/dL (3.4-5.0) Glucose (Fingerstick) 302 mg/dL (70-99) 276 mg/dL (70-99) 216 mg/dL (70-99) Test 03/15/20 00:12 03/15/20 04:02 03/15/20 04:05 03/15/20 07:44 Glucose (Fingerstick) 222 mg/dL (70-99) 235 mg/dL (70-99) 203 mg/dL (70-99) White Blood Count 22.2 x10^3/uL (4.0-11.0) Red Blood Count 4.35 x10^6/uL (4.30-5.70) Hemoglobin 12.7 g/dL (13.0-17.5) Hematocrit 38.2 % (39.0-53.0) Mean Corpuscular Volume 88 fL (79-100) Mean Corpuscular Hemoglobin 29 pg (25-35) Mean Corpuscular Hemoglobin Concent 33 g/dL (31-37) Red Cell Distribution Width 14.7 % (11.5-14.5) Platelet Count 91 x10^3/uL (140-400) Neutrophils (%) (Auto) 95 % (31-73) Lymphocytes (%) (Auto) 3 % (24-48) Monocytes (%) (Auto) 2 % (0-9) Eosinophils (%) (Auto) 0 % (0-3) Basophils (%) (Auto) 0 % (0-3) Neutrophils # (Auto) 21.1 x10^3/uL (1.8-7.7) Lymphocytes # (Auto) 0.6 x10^3/uL (1.0-4.8) Monocytes # (Auto) 0.4 x10^3/uL (0.0-1.1) Eosinophils # (Auto) 0.0 x10^3/uL (0.0-0.7) Basophils # (Auto) 0.1 x10^3/uL (0.0-0.2) Sodium Level 135 mmol/L (136-145) Potassium Level 4.6 mmol/L (3.5-5.1) Chloride Level 106 mmol/L (98-107) Carbon Dioxide Level 20 mmol/L (21-32) Anion Gap 9 (6-14) Blood Urea Nitrogen 46 mg/dL (8-26) Creatinine 2.7 mg/dL (0.7-1.3) Estimated GFR (Cockcroft-Gault) 27.9 Glucose Level 239 mg/dL (70-99) Calcium Level 6.7 mg/dL (8.5-10.1) Phosphorus Level 2.8 mg/dL (2.6-4.7) Magnesium Level 2.0 mg/dL (1.8-2.4) Total Bilirubin 1.8 mg/dL (0.2-1.0) Direct Bilirubin 1.4 mg/dL (0.0-0.2) Aspartate Amino Transf (AST/SGOT) 110 U/L (15-37) Alanine Aminotransferase (ALT/SGPT) 185 U/L (16-63) Alkaline Phosphatase 288 U/L (46-116) Total Protein 4.5 g/dL (6.4-8.2) Albumin 1.5 g/dL (3.4-5.0) Lipase 139 U/L (73-393) Test 03/15/20 12:57 03/15/20 16:39 03/15/20 20:15 03/16/20 00:22 Glucose (Fingerstick) 225 mg/dL (70-99) 237 mg/dL (70-99) 202 mg/dL (70-99) 248 mg/dL (70-99) Test 03/16/20 03:59 03/16/20 05:15 Glucose (Fingerstick) 187 mg/dL (70-99) White Blood Count 19.2 x10^3/uL (4.0-11.0) Red Blood Count 4.61 x10^6/uL (4.30-5.70) Hemoglobin 13.6 g/dL (13.0-17.5) Hematocrit 40.6 % (39.0-53.0) Mean Corpuscular Volume 88 fL (79-100) Mean Corpuscular Hemoglobin 29 pg (25-35) Mean Corpuscular Hemoglobin Concent 34 g/dL (31-37) Red Cell Distribution Width 15.6 % (11.5-14.5) Platelet Count 96 x10^3/uL (140-400) Neutrophils (%) (Auto) 95 % (31-73) Lymphocytes (%) (Auto) 3 % (24-48) Monocytes (%) (Auto) 2 % (0-9) Eosinophils (%) (Auto) 0 % (0-3) Basophils (%) (Auto) 0 % (0-3) Neutrophils # (Auto) 18.2 x10^3/uL (1.8-7.7) Lymphocytes # (Auto) 0.6 x10^3/uL (1.0-4.8) Monocytes # (Auto) 0.4 x10^3/uL (0.0-1.1) Eosinophils # (Auto) 0.0 x10^3/uL (0.0-0.7) Basophils # (Auto) 0.0 x10^3/uL (0.0-0.2) Sodium Level 138 mmol/L (136-145) Potassium Level 4.7 mmol/L (3.5-5.1) Chloride Level 108 mmol/L (98-107) Carbon Dioxide Level 21 mmol/L (21-32) Anion Gap 9 (6-14) Blood Urea Nitrogen 56 mg/dL (8-26) Creatinine 2.9 mg/dL (0.7-1.3) Estimated GFR (Cockcroft-Gault) 25.7 Glucose Level 223 mg/dL (70-99) Calcium Level 6.9 mg/dL (8.5-10.1) Laboratory Tests Test 03/15/20 12:57 03/15/20 16:39 03/15/20 20:15 03/16/20 00:22 Glucose (Fingerstick) 225 mg/dL (70-99) 237 mg/dL (70-99) 202 mg/dL (70-99) 248 mg/dL (70-99) Test 03/16/20 03:59 03/16/20 05:15 Glucose (Fingerstick) 187 mg/dL (70-99) White Blood Count 19.2 x10^3/uL (4.0-11.0) Red Blood Count 4.61 x10^6/uL (4.30-5.70) Hemoglobin 13.6 g/dL (13.0-17.5) Hematocrit 40.6 % (39.0-53.0) Mean Corpuscular Volume 88 fL (79-100) Mean Corpuscular Hemoglobin 29 pg (25-35) Mean Corpuscular Hemoglobin Concent 34 g/dL (31-37) Red Cell Distribution Width 15.6 % (11.5-14.5) Platelet Count 96 x10^3/uL (140-400) Neutrophils (%) (Auto) 95 % (31-73) Lymphocytes (%) (Auto) 3 % (24-48) Monocytes (%) (Auto) 2 % (0-9) Eosinophils (%) (Auto) 0 % (0-3) Basophils (%) (Auto) 0 % (0-3) Neutrophils # (Auto) 18.2 x10^3/uL (1.8-7.7) Lymphocytes # (Auto) 0.6 x10^3/uL (1.0-4.8) Monocytes # (Auto) 0.4 x10^3/uL (0.0-1.1) Eosinophils # (Auto) 0.0 x10^3/uL (0.0-0.7) Basophils # (Auto) 0.0 x10^3/uL (0.0-0.2) Sodium Level 138 mmol/L (136-145) Potassium Level 4.7 mmol/L (3.5-5.1) Chloride Level 108 mmol/L (98-107) Carbon Dioxide Level 21 mmol/L (21-32) Anion Gap 9 (6-14) Blood Urea Nitrogen 56 mg/dL (8-26) Creatinine 2.9 mg/dL (0.7-1.3) Estimated GFR (Cockcroft-Gault) 25.7 Glucose Level 223 mg/dL (70-99) Calcium Level 6.9 mg/dL (8.5-10.1) Impression . IMPRESSION: 1. Acute hypoxic respiratory failure secondary to septic shock. resolved 2. Septic shock from gram neg sepsis, improving. source, GI / ESBL + E. coli. 3. Urinary tract infection. 4. No history of tobacco use. 5. Abnormal chest x-ray with only mild basal atelectasis. 6. COVID neg. 7. Marked leukocytosis secondary to sepsis. I did not see the patient receive any steroids in the Emergency Room. improving 8. Possible mild chronic kidney disease. 9. Severe protein-calorie malnutrition. 10. Abnormal LFTs secondary to hypoperfusion from shock/cholecystitis. Plan . RECOMMENDATIONS: 1. 02 titration 2. Continue IV fluids. 3. laparoscopic cholecystectomy per surgery 4. Broad-spectrum antibiotic per Infectious Disease. 5. fu all cultures including urine cultures. blood cx, ESBL + E. coli. 6. DVT prophylaxis with heparin. Discussed with RN. We will follow along with you. FRANKIE HEAD MD Mar 16, 2020 09:21
[2020-03-16] MEDS: LACTOBACILLUS RHAMNOSUS GG 1 CAPSULE. PO SCH ×2 (09:31→20:31)
[2020-03-16] MEDS: MULTIVITAMIN with MINERAL TABLET. PO SCH (09:31)
[2020-03-16] MEDS: FAMOTIDINE 20 MG/2 ML VIAL IVP SCH (09:32)
[2020-03-16 11:00] VITALS: BP 130/76
--- NOTE | 2020-03-16 11:01 | PDOC ---
Infectious Disease Note Subjective Subjective Transferred to 4N Feeling some better c/o some flank abdominal pain, bilaterally Decrease UO Denies N/V/D/fever/chills ROS ROS as mentioned above Vital Sign Vital Signs Vital Signs Date Time Temp Pulse Resp B/P (MAP) Pulse Ox O2 Delivery O2 Flow Rate FiO2 03/16/20 07:00 97.4 67 18 136/94 (108) 96 Room Air 2.0 97.4 Physical Exam PHYSICAL EXAM GENERAL: Propped up in bed, alert, in NAD. Looks better HEENT: Oral mucosa moist. No thrush NECK: Supple. No JVD. LUNGS: Decreased breath sounds at the bases. No wheezing. HEART: S1, S2. No gallops or murmurs. Left sided chest wall PPM looks intact, clean. ABDOMEN: Soft, obese, tender flank areas, bilaterally. No rebound, no guarding. : Gates in place EXTREMITIES: Trace edema lower extremities, bilaterally. No cyanosis, no clubbing. NEUROLOGIC: Alert, oriented, generalized weakness. RIJ (03/12) without signs of complications Labs Lab Laboratory Tests Test 03/15/20 12:57 03/15/20 16:39 03/15/20 20:15 03/16/20 00:22 Glucose (Fingerstick) 225 mg/dL (70-99) 237 mg/dL (70-99) 202 mg/dL (70-99) 248 mg/dL (70-99) Test 03/16/20 03:59 03/16/20 05:15 03/16/20 09:28 03/16/20 09:30 Glucose (Fingerstick) 187 mg/dL (70-99) 195 mg/dL (70-99) 169 mg/dL (70-99) White Blood Count 19.2 x10^3/uL (4.0-11.0) Red Blood Count 4.61 x10^6/uL (4.30-5.70) Hemoglobin 13.6 g/dL (13.0-17.5) Hematocrit 40.6 % (39.0-53.0) Mean Corpuscular Volume 88 fL (79-100) Mean Corpuscular Hemoglobin 29 pg (25-35) Mean Corpuscular Hemoglobin Concent 34 g/dL (31-37) Red Cell Distribution Width 15.6 % (11.5-14.5) Platelet Count 96 x10^3/uL (140-400) Neutrophils (%) (Auto) 95 % (31-73) Lymphocytes (%) (Auto) 3 % (24-48) Monocytes (%) (Auto) 2 % (0-9) Eosinophils (%) (Auto) 0 % (0-3) Basophils (%) (Auto) 0 % (0-3) Neutrophils # (Auto) 18.2 x10^3/uL (1.8-7.7) Lymphocytes # (Auto) 0.6 x10^3/uL (1.0-4.8) Monocytes # (Auto) 0.4 x10^3/uL (0.0-1.1) Eosinophils # (Auto) 0.0 x10^3/uL (0.0-0.7) Basophils # (Auto) 0.0 x10^3/uL (0.0-0.2) Sodium Level 138 mmol/L (136-145) Potassium Level 4.7 mmol/L (3.5-5.1) Chloride Level 108 mmol/L (98-107) Carbon Dioxide Level 21 mmol/L (21-32) Anion Gap 9 (6-14) Blood Urea Nitrogen 56 mg/dL (8-26) Creatinine 2.9 mg/dL (0.7-1.3) Estimated GFR (Cockcroft-Gault) 25.7 Glucose Level 223 mg/dL (70-99) Calcium Level 6.9 mg/dL (8.5-10.1) Micro 03/14. BLOOD CULTURE Final GRAM NEGATIVE RODS, IN 1 OF 2 BOTTLES, TWO SETS DRAWN. CALLED TO NILDA VILLALBA RN ON AT 9:10 ON 03/16/20 [facility] 03/12. BLOOD CULTURE LC Final Final GRAM NEGATIVE RODS FINAL ID= [ESCHERICHIA COLI ESBL] ESCHERICHIA COLI ESBL ANTIMICROBIAL SUSCEPTIBILITY Final Comment NEG JARET 56 ESCHERICHIA COLI ESBL ANTIBIOTIC RESULT INTERPRETATION AMPICILLIN/SULBACTAM 8/ S AMIKACIN <=16 S AMPICILLIN >16 R* AMOXICILLIN/K CLAVULANATE <=8/4 S AZTREONAM 16 ESBL CEFTRIAXONE >32 ESBL CEFTAZIDIME 16 ESBL CEFOTAXIME-ESBL >1 ESBL CEFOTAXIME >32 ESBL CEFOXITIN <=8 S CIPROFLOXACIN >2 R CEFEPIME >16 R* CEFUROXIME >16 R* CEFTAZIDIME/AVIBACTAM <=4 S ERTAPENEM <=0.5 S GENTAMICIN 4 S LEVOFLOXACIN >4 R MEROPENEM <=1 S PIPERACILLIN/TAZOBACTAM <=8 S TRIMETHOPRIM/SULFAMETHOXAZOLE >/38 R TETRACYCLINE >8 R TOBRAMYCIN <=2 S 03/12. URINE CULTURE Final Final GREATER THAN 100,000 CFU/ML GRAM POSITIVE RODS on 03/14/20 at 1343 FINAL ID= [LACTOBACILLUS SPECIES] Objective Assessment Septic shock from gram neg sepsis, improving. ESBL + E. coli. Leukocytosis with bandemia, in part steroids Lactic acidosis. Gram negative bacteremia source likely GI and/or . ESBL + E. coli. Repeat BC 03/14 + GNR Urinary tract infection. LACTOBACILLUS SPECIES Acute kidney injury - Cr worsening Thrombocytopenia, likely sepsis. Encephalopathy, likely sepsis, improving. Acute cholecysitis Hyperbilirubinemia, abnormal LFTs, gallbladder distention on CT. HIDA scan noted. US neg Diabetes mellitus. 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 [place] resident Plan Plan of Care cont Merrem, dose to be adjusted for renal function as needed, D//w pharmacy Probiotics Monitor lab values/temp f/u BC from 03/14 GNR ID still pending Maintain aspiration precautions Gen surg following. Lap juan planned Consult renal for NELLI Contact isolation for ESBL Discussed with nursing Patient seen and examined. Labs, micro, and chart reviewed. I agree with the above REGISTERED ROUTE ASSOCIATE. JORDAN BARR APRN Mar 16, 2020 11:01 JAIDEN MARKS MD Mar 16, 2020 14:58
--- NOTE | 2020-03-16 11:10 | PDOC ---
PROGRESS NOTES Date of Service: DATE: 03/16/20 TIME: 11:08 Chief Complaint Chief Complaint Acute hypoxic respiratory failure secondary to septic shock, improving, out of ICU yesterday, Sepsis, and Septic shock secondary to urinary tract infection w/ ESBL + E. coli. and lactobacillus Diabetes mellitus 2 acute or chronic systolic CHF, EF 35 %, discussed with Dr. Merchant, echo read today acute renal failure on CKD 2, Severe protein-calorie malnutrition. HIDA showed cholecystitis, , gen surg following, may need juan surgery, above problems need to be addressed in short term History of Present Illness History of Present Illness no merrem on 4n donig better, appreciate consults 03/15/20 Patient seen and examined in ICU Chart reviewed Discussed with RN Patient now on full liquid diet 03/14/2020 Patient seen and examined in ICU Afebrile, off oxygen supplementation Off Levophed COVID negative Discussed with RN Chart reviewed 03/12/2020 Patient seen and examined in the ICU Afebrile On 2L O2 NC Calcium 7.3, Potassium 4.8 being replaced COVID-19 results pending Discussed with RN Chart reviewed Vitals Vitals Vital Signs Date Time Temp Pulse Resp B/P (MAP) Pulse Ox O2 Delivery O2 Flow Rate FiO2 03/16/20 11:00 97.5 67 18 130/76 (94) 96 Room Air 97.5 03/16/20 07:00 2.0 Physical Exam Physical Exam GENERAL: Propped up in bed, alert, in NAD. Looks better HEENT: Oral mucosa moist. No thrush NECK: Supple. No JVD. LUNGS: Decreased breath sounds at the bases. No wheezing. HEART: S1, S2. No gallops or murmurs. Left sided chest wall PPM looks intact, clean. ABDOMEN: Soft, obese, tender flank areas, bilaterally. No rebound, no guarding. : Gates in place EXTREMITIES: Trace edema lower extremities, bilaterally. No cyanosis, no clubbing. NEUROLOGIC: Alert, oriented, generalized weakness. RIJ (03/12) without signs of complications General: Alert, Cooperative, No acute distress Heart: Regular rate, Normal S1, Normal S2 Lungs: Clear Abdomen: Normal bowel sounds, Soft, No tenderness Extremities: No clubbing, No cyanosis Skin: No rashes, No breakdown Labs LABS Laboratory Tests Test 03/15/20 12:57 03/15/20 16:39 03/15/20 20:15 03/16/20 00:22 Glucose (Fingerstick) 225 mg/dL (70-99) 237 mg/dL (70-99) 202 mg/dL (70-99) 248 mg/dL (70-99) Test 03/16/20 03:59 03/16/20 05:15 03/16/20 09:28 03/16/20 09:30 Glucose (Fingerstick) 187 mg/dL (70-99) 195 mg/dL (70-99) 169 mg/dL (70-99) White Blood Count 19.2 x10^3/uL (4.0-11.0) Red Blood Count 4.61 x10^6/uL (4.30-5.70) Hemoglobin 13.6 g/dL (13.0-17.5) Hematocrit 40.6 % (39.0-53.0) Mean Corpuscular Volume 88 fL (79-100) Mean Corpuscular Hemoglobin 29 pg (25-35) Mean Corpuscular Hemoglobin Concent 34 g/dL (31-37) Red Cell Distribution Width 15.6 % (11.5-14.5) Platelet Count 96 x10^3/uL (140-400) Neutrophils (%) (Auto) 95 % (31-73) Lymphocytes (%) (Auto) 3 % (24-48) Monocytes (%) (Auto) 2 % (0-9) Eosinophils (%) (Auto) 0 % (0-3) Basophils (%) (Auto) 0 % (0-3) Neutrophils # (Auto) 18.2 x10^3/uL (1.8-7.7) Lymphocytes # (Auto) 0.6 x10^3/uL (1.0-4.8) Monocytes # (Auto) 0.4 x10^3/uL (0.0-1.1) Eosinophils # (Auto) 0.0 x10^3/uL (0.0-0.7) Basophils # (Auto) 0.0 x10^3/uL (0.0-0.2) Sodium Level 138 mmol/L (136-145) Potassium Level 4.7 mmol/L (3.5-5.1) Chloride Level 108 mmol/L (98-107) Carbon Dioxide Level 21 mmol/L (21-32) Anion Gap 9 (6-14) Blood Urea Nitrogen 56 mg/dL (8-26) Creatinine 2.9 mg/dL (0.7-1.3) Estimated GFR (Cockcroft-Gault) 25.7 Glucose Level 223 mg/dL (70-99) Calcium Level 6.9 mg/dL (8.5-10.1) Assessment and Plan Assessmemt and Plan Problems Medical Problems: (1) AMS (altered mental status) Status: Acute (2) Hypocalcemia Status: Acute (3) Hypokalemia Status: Acute (4) Septic shock Status: Acute (5) Suspected 2019 novel coronavirus infection Status: Acute Comment Review of Relevant I have reviewed the following items thee (where applicable) has been applied. Labs Laboratory Tests Test 03/14/20 12:35 03/14/20 13:14 03/14/20 17:58 03/14/20 20:37 White Blood Count 21.0 x10^3/uL (4.0-11.0) Red Blood Count 4.47 x10^6/uL (4.30-5.70) Hemoglobin 13.3 g/dL (13.0-17.5) Hematocrit 39.5 % (39.0-53.0) Mean Corpuscular Volume 88 fL (79-100) Mean Corpuscular Hemoglobin 30 pg (25-35) Mean Corpuscular Hemoglobin Concent 34 g/dL (31-37) Red Cell Distribution Width 15.4 % (11.5-14.5) Platelet Count 87 x10^3/uL (140-400) Neutrophils (%) (Auto) 95 % (31-73) Lymphocytes (%) (Auto) 2 % (24-48) Monocytes (%) (Auto) 2 % (0-9) Eosinophils (%) (Auto) 1 % (0-3) Basophils (%) (Auto) 0 % (0-3) Neutrophils # (Auto) 19.9 x10^3/uL (1.8-7.7) Lymphocytes # (Auto) 0.4 x10^3/uL (1.0-4.8) Monocytes # (Auto) 0.4 x10^3/uL (0.0-1.1) Eosinophils # (Auto) 0.2 x10^3/uL (0.0-0.7) Basophils # (Auto) 0.1 x10^3/uL (0.0-0.2) Segmented Neutrophils % 75 % (35-66) Band Neutrophils % 21 % (0-9) Lymphocytes % 1 % (24-48) Monocytes % 2 % (0-10) Metamyelocytes % 1 % (0-0) Nucleated Red Blood Cells 1 Toxic Vacuolation Slight Dohle Bodies Present Platelet Estimate Decreased (ADEQUATE) Anisocytosis Slight Sodium Level 136 mmol/L (136-145) Potassium Level 5.2 mmol/L (3.5-5.1) Chloride Level 104 mmol/L (98-107) Carbon Dioxide Level 21 mmol/L (21-32) Anion Gap 11 (6-14) Blood Urea Nitrogen 38 mg/dL (8-26) Creatinine 2.5 mg/dL (0.7-1.3) Estimated GFR (Cockcroft-Gault) 30.5 Glucose Level 278 mg/dL (70-99) Calcium Level 7.4 mg/dL (8.5-10.1) Total Bilirubin 3.3 mg/dL (0.2-1.0) Direct Bilirubin 2.9 mg/dL (0.0-0.2) Aspartate Amino Transf (AST/SGOT) 213 U/L (15-37) Alanine Aminotransferase (ALT/SGPT) 245 U/L (16-63) Alkaline Phosphatase 270 U/L (46-116) Total Protein 4.7 g/dL (6.4-8.2) Albumin 1.7 g/dL (3.4-5.0) Glucose (Fingerstick) 302 mg/dL (70-99) 276 mg/dL (70-99) 216 mg/dL (70-99) Test 03/15/20 00:12 03/15/20 04:02 03/15/20 04:05 03/15/20 07:44 Glucose (Fingerstick) 222 mg/dL (70-99) 235 mg/dL (70-99) 203 mg/dL (70-99) White Blood Count 22.2 x10^3/uL (4.0-11.0) Red Blood Count 4.35 x10^6/uL (4.30-5.70) Hemoglobin 12.7 g/dL (13.0-17.5) Hematocrit 38.2 % (39.0-53.0) Mean Corpuscular Volume 88 fL (79-100) Mean Corpuscular Hemoglobin 29 pg (25-35) Mean Corpuscular Hemoglobin Concent 33 g/dL (31-37) Red Cell Distribution Width 14.7 % (11.5-14.5) Platelet Count 91 x10^3/uL (140-400) Neutrophils (%) (Auto) 95 % (31-73) Lymphocytes (%) (Auto) 3 % (24-48) Monocytes (%) (Auto) 2 % (0-9) Eosinophils (%) (Auto) 0 % (0-3) Basophils (%) (Auto) 0 % (0-3) Neutrophils # (Auto) 21.1 x10^3/uL (1.8-7.7) Lymphocytes # (Auto) 0.6 x10^3/uL (1.0-4.8) Monocytes # (Auto) 0.4 x10^3/uL (0.0-1.1) Eosinophils # (Auto) 0.0 x10^3/uL (0.0-0.7) Basophils # (Auto) 0.1 x10^3/uL (0.0-0.2) Sodium Level 135 mmol/L (136-145) Potassium Level 4.6 mmol/L (3.5-5.1) Chloride Level 106 mmol/L (98-107) Carbon Dioxide Level 20 mmol/L (21-32) Anion Gap 9 (6-14) Blood Urea Nitrogen 46 mg/dL (8-26) Creatinine 2.7 mg/dL (0.7-1.3) Estimated GFR (Cockcroft-Gault) 27.9 Glucose Level 239 mg/dL (70-99) Calcium Level 6.7 mg/dL (8.5-10.1) Phosphorus Level 2.8 mg/dL (2.6-4.7) Magnesium Level 2.0 mg/dL (1.8-2.4) Total Bilirubin 1.8 mg/dL (0.2-1.0) Direct Bilirubin 1.4 mg/dL (0.0-0.2) Aspartate Amino Transf (AST/SGOT) 110 U/L (15-37) Alanine Aminotransferase (ALT/SGPT) 185 U/L (16-63) Alkaline Phosphatase 288 U/L (46-116) Total Protein 4.5 g/dL (6.4-8.2) Albumin 1.5 g/dL (3.4-5.0) Lipase 139 U/L (73-393) Test 03/15/20 12:57 03/15/20 16:39 03/15/20 20:15 03/16/20 00:22 Glucose (Fingerstick) 225 mg/dL (70-99) 237 mg/dL (70-99) 202 mg/dL (70-99) 248 mg/dL (70-99) Test 03/16/20 03:59 03/16/20 05:15 03/16/20 09:28 03/16/20 09:30 Glucose (Fingerstick) 187 mg/dL (70-99) 195 mg/dL (70-99) 169 mg/dL (70-99) White Blood Count 19.2 x10^3/uL (4.0-11.0) Red Blood Count 4.61 x10^6/uL (4.30-5.70) Hemoglobin 13.6 g/dL (13.0-17.5) Hematocrit 40.6 % (39.0-53.0) Mean Corpuscular Volume 88 fL (79-100) Mean Corpuscular Hemoglobin 29 pg (25-35) Mean Corpuscular Hemoglobin Concent 34 g/dL (31-37) Red Cell Distribution Width 15.6 % (11.5-14.5) Platelet Count 96 x10^3/uL (140-400) Neutrophils (%) (Auto) 95 % (31-73) Lymphocytes (%) (Auto) 3 % (24-48) Monocytes (%) (Auto) 2 % (0-9) Eosinophils (%) (Auto) 0 % (0-3) Basophils (%) (Auto) 0 % (0-3) Neutrophils # (Auto) 18.2 x10^3/uL (1.8-7.7) Lymphocytes # (Auto) 0.6 x10^3/uL (1.0-4.8) Monocytes # (Auto) 0.4 x10^3/uL (0.0-1.1) Eosinophils # (Auto) 0.0 x10^3/uL (0.0-0.7) Basophils # (Auto) 0.0 x10^3/uL (0.0-0.2) Sodium Level 138 mmol/L (136-145) Potassium Level 4.7 mmol/L (3.5-5.1) Chloride Level 108 mmol/L (98-107) Carbon Dioxide Level 21 mmol/L (21-32) Anion Gap 9 (6-14) Blood Urea Nitrogen 56 mg/dL (8-26) Creatinine 2.9 mg/dL (0.7-1.3) Estimated GFR (Cockcroft-Gault) 25.7 Glucose Level 223 mg/dL (70-99) Calcium Level 6.9 mg/dL (8.5-10.1) Laboratory Tests Test 03/15/20 12:57 03/15/20 16:39 03/15/20 20:15 03/16/20 00:22 Glucose (Fingerstick) 225 mg/dL (70-99) 237 mg/dL (70-99) 202 mg/dL (70-99) 248 mg/dL (70-99) Test 03/16/20 03:59 03/16/20 05:15 03/16/20 09:28 03/16/20 09:30 Glucose (Fingerstick) 187 mg/dL (70-99) 195 mg/dL (70-99) 169 mg/dL (70-99) White Blood Count 19.2 x10^3/uL (4.0-11.0) Red Blood Count 4.61 x10^6/uL (4.30-5.70) Hemoglobin 13.6 g/dL (13.0-17.5) Hematocrit 40.6 % (39.0-53.0) Mean Corpuscular Volume 88 fL (79-100) Mean Corpuscular Hemoglobin 29 pg (25-35) Mean Corpuscular Hemoglobin Concent 34 g/dL (31-37) Red Cell Distribution Width 15.6 % (11.5-14.5) Platelet Count 96 x10^3/uL (140-400) Neutrophils (%) (Auto) 95 % (31-73) Lymphocytes (%) (Auto) 3 % (24-48) Monocytes (%) (Auto) 2 % (0-9) Eosinophils (%) (Auto) 0 % (0-3) Basophils (%) (Auto) 0 % (0-3) Neutrophils # (Auto) 18.2 x10^3/uL (1.8-7.7) Lymphocytes # (Auto) 0.6 x10^3/uL (1.0-4.8) Monocytes # (Auto) 0.4 x10^3/uL (0.0-1.1) Eosinophils # (Auto) 0.0 x10^3/uL (0.0-0.7) Basophils # (Auto) 0.0 x10^3/uL (0.0-0.2) Sodium Level 138 mmol/L (136-145) Potassium Level 4.7 mmol/L (3.5-5.1) Chloride Level 108 mmol/L (98-107) Carbon Dioxide Level 21 mmol/L (21-32) Anion Gap 9 (6-14) Blood Urea Nitrogen 56 mg/dL (8-26) Creatinine 2.9 mg/dL (0.7-1.3) Estimated GFR (Cockcroft-Gault) 25.7 Glucose Level 223 mg/dL (70-99) Calcium Level 6.9 mg/dL (8.5-10.1) Microbiology 03/14/20 Blood Culture - Final, Complete 03/12/20 Urine Culture - Final, Complete Medications Current Medications Sodium Chloride 1,000 ml @ 1,000 mls/hr 1X ONCE IV Last administered on 03/12/20at 14:00; Start 03/12/20 at 14:30; Stop 03/12/20 at 15:29; Status DC Sodium Chloride 1,000 ml @ 1,000 mls/hr 1X ONCE IV Last administered on 03/12/20at 14:05; Start 03/12/20 at 14:30; Stop 03/12/20 at 15:29; Status DC Ceftriaxone Sodium (Rocephin) 1 gm 1X ONCE IVP Last administered on 03/12/20at 16:41; Start 03/12/20 at 15:00; Stop 03/12/20 at 15:01; Status DC Sodium Chloride 1,000 ml @ 1,000 mls/hr 1X ONCE IV Last administered on 03/12/20at 16:38; Start 03/12/20 at 15:30; Stop 03/12/20 at 16:29; Status DC Sodium Chloride 1,000 ml @ 1,000 mls/hr 1X ONCE IV Last administered on 03/12/20at 16:39; Start 03/12/20 at 15:30; Stop 03/12/20 at 16:29; Status DC Sodium Chloride (NORMAL SALINE FLUSH for STERILE FIELD) 10 ml STK-MED ONCE .ROUTE ; Start 03/12/20 at 15:24; Stop 03/12/20 at 15:24; Status DC Lidocaine HCl (Lidocaine 1% 20ml Vial) 20 ml 1X ONCE INJ Last administered on 03/12/20at 15:30; Start 03/12/20 at 15:30; Stop 03/12/20 at 15:31; Status DC Norepinephrine Bitartrate 8 mg/ Dextrose 258 ml @ 21.285 mls/ hr 1X ONCE IV Last administered on 03/12/20at 16:28; Start 03/12/20 at 16:15; Stop 03/13/20 at 04:22; Status DC Calcium Gluconate (Calcium Gluconate) 1,000 mg 1X ONCE IVP Last administered on 03/12/20at 17:50; Start 03/12/20 at 17:00; Stop 03/12/20 at 17:01; Status DC Ondansetron HCl (Zofran) 4 mg PRN Q8HRS PRN IV NAUSEA/VOMITING Last administered on 03/13/20at 02:56; Start 03/12/20 at 16:30; Stop 03/13/20 at 16:29; Status DC Sodium Chloride 1,000 ml @ 75 mls/hr [id number] IV ; Start 03/12/20 at 16:28; Stop 03/12/20 at 22:33; Status DC Azithromycin 250 ml @ 250 mls/hr 1X ONCE IV Last administered on 03/12/20at 17:51; Start 03/12/20 at 17:00; Stop 03/12/20 at 17:59; Status DC Ondansetron HCl (Zofran) 4 mg PRN Q6HRS PRN IVP NAUSEA/VOMITING; Start 03/12/20 at 16:45 Prochlorperazine (Compazine) 25 mg PRN Q12HR PRN [place] NAUSEA/VOMITING; Start 03/12/20 at 16:45 Famotidine (Pepcid Vial) 20 mg BID IVP Last administered on 03/12/20at 22:49; Start 03/12/20 at 21:00; Stop 03/13/20 at 09:34; Status DC Info ([facility] Electrolyte Protocol) 1 ea DAILY MC ; Start 03/13/20 at 09:00; Stop 03/16/20 at 07:29; Status DC Heparin Sodium (Porcine) (Heparin Sodium) 5,000 unit Q8HRS SQ Last administered on 03/16/20at 05:37; Start 03/12/20 at 22:00 Sodium Chloride (Normal Saline Flush) 3 ml QSHIFT PRN IV AFTER MEDS AND BLOOD DRAWS; Start 03/12/20 at 16:45 Sodium Chloride 1,000 ml @ 1,000 mls/hr Q1H IV ; Start 03/12/20 at 16:33; Stop 03/12/20 at 17:32; Status DC Sodium Chloride 1,000 ml @ 100 mls/hr Q10H IV Last administered on 03/16/20at 00:33; Start 03/12/20 at 16:33 Bisacodyl (Dulcolax Supp) 10 mg PRN DAILY PRN [place] CONSTIPATION; Start 03/12/20 at 16:45 Cefepime HCl (Maxipime) 1 gm Q8HRS IVP Last administered on 03/13/20at 05:51; Start 03/12/20 at 22:00; Stop 03/13/20 at 08:46; Status DC Vancomycin HCl (Vanco Per Pharmacy) 1 each PRN DAILY PRN MC SEE COMMENTS Last administered on 03/12/20at 18:45; Start 03/12/20 at 16:45; Stop 03/13/20 at 08:46; Status DC Potassium Chloride/Water 100 ml @ 100 mls/hr Q1H IV Last administered on 03/12/20at 22:51; Start 03/12/20 at 19:00; Stop 03/12/20 at 22:59; Status DC Potassium Chloride/Water 100 ml @ 100 mls/hr Q1H IV ; Start 03/12/20 at 16:45; Stop 03/12/20 at 17:00; Status DC Potassium Chloride/Water 100 ml @ 100 mls/hr Q1H IV ; Start 03/12/20 at 16:45; Stop 03/12/20 at 17:00; Status DC Magnesium Sulfate 100 ml @ 50 mls/hr DAILY IV ; Start 03/13/20 at 09:00; Stop 03/12/20 at 17:00; Status DC Sodium Phosphate 15 mmol/Sodium Chloride 255 ml @ 62.5 mls/hr 1X ONCE IV ; Start 03/12/20 at 16:45; Stop 03/12/20 at 17:00; Status DC Sodium Phosphate 30 mmol/Sodium Chloride 260 ml @ 62.5 mls/hr 1X ONCE IV ; Start 03/12/20 at 16:45; Stop 03/12/20 at 17:00; Status DC Insulin Human Lispro (HumaLOG) 0-7 UNITS TIDWMEALS SQ ; Start 03/12/20 at 17:00; Stop 03/12/20 at 22:33; Status DC Dextrose (Dextrose 50%-Water Syringe) 12.5 gm PRN Q15MIN PRN IV SEE COMMENTS; Start 03/12/20 at 16:45; Stop 03/12/20 at 22:33; Status DC Info ([facility]cu Electrolyte Protocol) 1 ea CONT PRN PRN MC SEE COMMENTS; Start 03/12/20 at 17:00; Stop 03/12/20 at 17:06; Status DC Magnesium Sulfate 50 ml @ 25 mls/hr 1X ONCE IV Last administered on 03/12/20at 17:51; Start 03/12/20 at 17:00; Stop 03/12/20 at 18:59; Status DC Vancomycin HCl 2 gm/Sodium Chloride 500 ml @ 250 mls/hr 1X ONCE IV Last administered on 03/12/20at 17:53; Start 03/12/20 at 18:00; Stop 03/12/20 at 19:59; Status DC Vancomycin HCl 1.5 gm/Sodium Chloride 500 ml @ 250 mls/hr Q24H IV ; Start 03/13/20 at 18:00; Stop 03/13/20 at 08:48; Status DC Vancomycin HCl (Vancomycin Trough Level) 1 each 1X ONCE MC ; Start 03/14/20 at 17:30; Stop 03/14/20 at 17:31; Status Cancel Norepinephrine Bitartrate 8 mg/ Dextrose 258 ml @ 21.285 mls/ hr CONT PRN IV PER PROTOCOL Last administered on 03/13/20at 18:01; Start 03/12/20 at 22:30 Insulin Human Lispro (HumaLOG) 0-7 UNITS TIDWMEALS SQ ; Start 03/13/20 at 08:00; Stop 03/13/20 at 00:30; Status DC Dextrose (Dextrose 50%-Water Syringe) 12.5 gm PRN Q15MIN PRN IV SEE COMMENTS; Start 03/12/20 at 22:30; Stop 03/13/20 at 00:30; Status DC Insulin Human Lispro (HumaLOG) 0-9 UNITS Q4HRS SQ Last administered on 03/16/20at 09:42; Start 03/13/20 at 04:00 Dextrose (Dextrose 50%-Water Syringe) 12.5 gm PRN Q15MIN PRN IV SEE COMMENTS; Start 03/13/20 at 00:30 Meropenem 500 mg/ Sodium Chloride 50 ml @ 100 mls/hr Q6H IV ; Start 03/13/20 at 08:45; Stop 03/13/20 at 08:53; Status DC Linezolid (Zyvox) 600 mg BID PO Last administered on 03/13/20at 10:48; Start 03/13/20 at 09:00; Stop 03/13/20 at 21:11; Status DC Meropenem 500 mg/ Sodium Chloride 50 ml @ 100 mls/hr Q6HRS IV Last administered on 03/14/20at 13:02; Start 03/13/20 at 09:00; Stop 03/14/20 at 15:30; Status DC Famotidine (Pepcid Vial) 20 mg DAILY IVP Last administered on 03/16/20at 09:32; Start 03/14/20 at 09:00 Multivitamins (Thera M Plus) 1 tab DAILY PO Last administered on 03/16/20at 09:31; Start 03/13/20 at 10:30 Methylprednisolone Sodium Succinate (SOLU-Medrol 40MG VIAL) 40 mg Q6HRS IV Last administered on 03/16/20at 05:36; Start 03/13/20 at 11:00 Morphine Sulfate (Morphine Sulfate) 2 mg PRN Q2HR PRN IV PAIN Last administered on 03/16/20at 04:36; Start 03/13/20 at 11:00 Insulin Human Lispro (HumaLOG) 30 units 1X STAT SQ Last administered on 03/13/20at 13:39; Start 03/13/20 at 13:39; Stop 03/13/20 at 13:49; Status DC Lactobacillus Rhamnosus (Culturelle) 1 cap BID PO Last administered on 03/16/20at 09:31; Start 03/13/20 at 21:00 Linezolid/Dextrose 300 ml @ 300 mls/hr Q12HR IV Last administered on 03/15/20at 08:37; Start 03/13/20 at 22:00; Stop 03/15/20 at 08:55; Status DC Morphine Sulfate (Morphine Sulfate) 4 mg 1X ONCE IV Last administered on 03/14/20at 09:22; Start 03/14/20 at 09:15; Stop 03/14/20 at 09:16; Status DC Perflutren Protein Type A Microsphe (Optison) 0.66 mg 1X ONCE IV ; Start 03/14/20 at 12:15; Stop 03/14/20 at 12:21; Status DC Meropenem 500 mg/ Sodium Chloride 50 ml @ 100 mls/hr Q8HRS IV Last administered on 03/16/20at 05:40; Start 03/14/20 at 22:00 Vitals/I & O Vital Sign - Last 24 Hours 03/15/20 03/15/20 03/15/20 03/15/20 12:00 12:00 13:00 13:48 Temp 97.9 97.9 Pulse 64 68 Resp 17 12 16 B/P (MAP) 119/72 (88) 129/78 (95) Pulse Ox 97 97 94 O2 Delivery Room Air Room Air Room Air Room Air 03/15/20 03/15/20 03/15/20 03/15/20 14:00 14:18 17:44 19:00 Temp 96.4 97.2 96.4 97.2 Pulse 65 65 65 Resp 26 26 18 18 B/P (MAP) 101/63 (76) 142/76 (98) 129/75 (93) Pulse Ox 95 95 96 95 O2 Delivery Room Air Room Air Room Air Room Air O2 Flow Rate 2.0 03/15/20 03/15/20 03/15/20 03/15/20 20:00 20:27 20:57 23:00 Temp 97.1 97.1 Pulse 68 Resp 20 20 18 B/P (MAP) 140/68 (92) Pulse Ox 95 93 91 O2 Delivery Room Air Room Air Room Air Room Air O2 Flow Rate 2.0 03/16/20 03/16/20 03/16/20 03/16/20 02:37 04:36 07:00 11:00 Temp 97.8 97.4 97.5 97.8 97.4 97.5 Pulse 66 67 67 Resp 18 20 18 18 B/P (MAP) 113/79 (90) 136/94 (108) 130/76 (94) Pulse Ox 97 97 96 96 O2 Delivery Room Air Room Air Room Air Room Air O2 Flow Rate 2.0 2.0 Intake and Output 03/15/20 03/15/20 03/16/20 15:00 23:00 07:00 Intake Total 350 ml 900 ml 150 ml Output Total 210 ml 45 ml Balance 140 ml 855 ml 150 ml Justicifation of Admission Dx: Justifications for Admission: Justification of Admission Dx: Yes CHF: Cardiac Arrhythmias Comminuty Aquired Pneumonia: Bactermia Chronic Renal Failure: Encephalopathy Sepsis: Altered Mental Status [place]STER BAJWA MD Mar 16, 2020 11:10
[2020-03-16 15:00] VITALS: BP 141/71
--- NOTE | 2020-03-16 18:23 | CONS ---
DATE OF CONSULTATION: REQUESTING PHYSICIAN: Hospitalist. REASON FOR CONSULTATION: Renal failure. HISTORY OF PRESENT ILLNESS: A 74-year-old gentleman resides in assisted living. He was brought to the hospital with altered mentation on 03/12/2020. He was found to have a Gram-negative sepsis of GI/ source. His mental status is improved with treatment. However, renal function has declined. Now he has creatinine of 2.9, GFR 25.7. Presentation labs were notable for creatinine of 1.6, GFR 51 mL per minute consistent with chronic kidney disease stage 3. The patient does not recall renal problems prior to these acute events. He does have diabetes mellitus and hypertension, treated for the same. Abdominal CT without contrast revealed no evidence of hydronephrosis or renal calculi. Renal ultrasound revealed right kidney 13.3 cm. No hydronephrosis. Calculi, spleen and left kidney were not evaluated. In this setting, Nephrology evaluation is requested. PAST MEDICAL HISTORY: Diabetes mellitus, hypertension, possible chronic kidney disease stage 3, acute cholecystitis, urinary tract infection/pyelonephritis, metabolic encephalopathy, permanent pacemaker placement. ALLERGIES: None. MEDICATIONS: Reviewed per medication list. FAMILY HISTORY: Noncontributory. SOCIAL HISTORY: The patient resides at [facility]. REVIEW OF SYSTEMS: No headache, sinus problem, nasal drainage, epistaxis, change in vision or hearing. No difficulty swallowing. No fever, chills, cough, sputum production, or hemoptysis. No chest pain, shortness of breath, PND, orthopnea, dyspnea on exertion. No further abdominal pain. No nausea, vomiting, diarrhea. No seizures or malignancies. PHYSICAL EXAMINATION: GENERAL APPEARANCE: The patient is awake, conversant. HEENT: Clear. NECK: No increased JVD. No thyromegaly, mass, or adenopathy. LUNGS: Decreased breath sound at bases, otherwise clear. CARDIAC: Without S3 or rub. ABDOMEN: Obese, bowel sounds present, nontender. EXTREMITIES: 1+ bilateral lower extremity edema. NEUROLOGIC: Nonfocal, nonlocalized. PSYCHIATRIC: Poor attention to details. IMPRESSION: 1. Acute renal failure, likely superimposed on chronic kidney disease stage 3. 2. Current setting of diabetes mellitus and hypertension. 3. Acute renal failure, occurring in the setting of presentation of sepsis of GI/ source, treated with antibiotics. RECOMMENDATIONS: 1. Isotonic saline administration to increase intravascular volume. 2. Avoid nephrotoxins. 3. Renal imaging has been pursued. 4. We will trend labs, pending the above. JOSHUA LUNA MD DR: BIJAL/errol JOB#: [id number] / [id number]
[2020-03-16 19:12] VITALS: BP 133/85
[2020-03-16 23:00] VITALS: BP 139/87
[2020-03-17] VITALS (7 sets, daily range): BP systolic 129–173; BP diastolic 75–110
[2020-03-17] MEDS: methylPREDNISolone SOD SUCC PF 40 MG/ML VIAL. IV SCH ×4 (00:38→16:59)
[2020-03-17] MEDS: MORPHINE SULFATE 2 MG/ML VIAL. IV PRN ×4 (00:42→17:00)
[2020-03-17] MEDS: MEROPENEM 500 MG in IV NORMAL SALINE 50ML 50 ML IV SCH ×3 (05:08→21:39)
[2020-03-17] MEDS: HEPARIN for SUB-Q USE 5,000 UNIT/ML VIAL. SQ SCH ×3 (05:22→21:41)
[2020-03-17] MEDS: IV NORMAL SALINE 1000ML BAG 1,000 ML IV SCH ×2 (05:23→16:30)
[2020-03-17] MEDS ORDERED: ALTEPLASE 1MG SYRINGE. INT CAT ONE (06:00)
[2020-03-17 07:42] LABS: ALBUMIN 1.7 g/dL (3.4-5.0); ALBUMIN/GLOBULIN RATIO 0.4 (1.0-1.7); CREATININE 2.8 mg/dL (0.7-1.3); GFR 26.8; TOTAL BILIRUBIN 1.3 mg/dL (0.2-1.0); TOTAL PROTEIN 5.5 g/dL (6.4-8.2)
[2020-03-17] MEDS: MULTIVITAMIN with MINERAL TABLET. PO SCH (08:30)
[2020-03-17] MEDS: LACTOBACILLUS RHAMNOSUS GG 1 CAPSULE. PO SCH ×2 (08:30→20:55)
[2020-03-17] MEDS: FAMOTIDINE 20 MG/2 ML VIAL IVP SCH (08:30)
[2020-03-17] MEDS: INSULIN LISPRO 300 UNITS/3 ML VIAL. SQ SCH ×4 (08:43→21:42)
[2020-03-17 08:45] LABS: BASO % 0 % (0-3); EOS % 0 % (0-3); HEMATOCRIT 43.6 % (39.0-53.0); HEMOGLOBIN 14.5 g/dL (13.0-17.5); LYMPH # 0.7 x10^3/uL (1.0-4.8); LYMPH % 5 % (24-48); MEAN CORPUSCULAR HEMOGLOBIN 30 pg (25-35); MEAN CORPUSCULAR HGB CONC 33 g/dL (31-37); MEAN CORPUSCULAR VOLUME 88 fL (79-100); MONO # 0.3 x10^3/uL (0.0-1.1); MONO % 2 % (0-9); NEUT # 12.1 x10^3/uL (1.8-7.7); NEUT % 92 % (31-73); PLATELET COUNT 97 x10^3/uL (140-400); RED BLOOD COUNT 4.93 x10^6/uL (4.30-5.70); RED CELL DISTRIBUTION WIDTH 16.1 % (11.5-14.5); WHITE BLOOD COUNT 13.1 x10^3/uL (4.0-11.0)
--- NOTE | 2020-03-17 09:03 | NUR ---
IP: Pt blood culture returned with (R) E.coli with ESBL requiring contact precautions.
--- NOTE | 2020-03-17 09:41 | NUR ---
SW following. Discussed with RN, pt from [facility] (ph: [phone]) half-way in [place], [place]. Pt on IV meropenem, room air, regular diet. Per RN, pt is confused - no contacts listed in chart. SW will continue to follow.
--- NOTE | 2020-03-17 09:51 | PDOC ---
DATE OF SERVICE DATE: 03/17/20 TIME: 09:50 SUBJECTIVE ROS States feeling better OBJECTIVE Vital Signs Vital Signs Date Time Temp Pulse Resp B/P (MAP) Pulse Ox O2 Delivery O2 Flow Rate FiO2 03/17/20 09:14 Room Air 03/17/20 06:20 20 94 2.0 03/17/20 03:21 97.9 65 129/75 (93) 97.9 I & 0 Intake and Output 03/17/20 07:00 Intake Total 100 ml Balance 100 ml Intake Oral 100 ml PHYSICAL EXAM Physical Exam GENERAL: Propped up in bed, alert, in NAD. HEENT: Oral mucosa moist. NECK: Supple. LUNGS: Decreased breath sounds at the bases. Non labored HEART: S1, S2. No gallops or murmurs. ABDOMEN: Soft, obese, : Gates in place EXTREMITIES: Trace edema lower extremities, bilaterally. No cyanosis, no clubbing. NEUROLOGIC: Alert, oriented, generalized weakness. DIAGNOSIS/ASSESSMENT Assessment & Plan Acute renal failure - ATN 2/2 Septic shock Cr peaked at 2.9-->2.8 today - ?[place] At presentation 1.6, UOP is marginal currently , UA c/w UTI Baseline renal function unknown , CT abdomen- Unremrkable Kidneys and bladder, US- Rt Kidney unremarkable, Lt not evaluated Diabetes mellitus Hypertension- stable Septic shock from gram neg sepsis, improving. Gram negative bacteremia source likely GI and/or Urinary tract infection Thrombocytopenia, likely sepsis. Encephalopathy, likely sepsis, improving. Acute cholecysitis Hyperbilirubinemia, abnormal LFTs, gallbladder distention on CT. HIDA scan done. US neg Permanent pacemaker in place. [facility] resident COMMENT/RELEVANT DATA Meds Current Medications Medications (Trade) Dose Ordered Sig/Uma Start Time Stop Time Status Last Admin Dose Admin Alteplase, Recombinant (Cathflo For Central Catheter Clearance) 1 mg 1X ONCE 03/17/20 06:00 03/17/20 06:01 DC 03/17/20 05:50 1 MG Azithromycin 250 ml @ 250 mls/hr 1X ONCE 03/12/20 17:00 03/12/20 17:59 DC 03/12/20 17:51 250 MLS/HR Bisacodyl (Dulcolax Supp) 10 mg PRN DAILY PRN 03/12/20 16:45 Calcium Gluconate (Calcium Gluconate) 1,000 mg 1X ONCE 03/12/20 17:00 03/12/20 17:01 DC 03/12/20 17:50 1,000 MG Cefepime HCl (Maxipime) 1 gm Q8HRS 03/12/20 22:00 03/13/20 08:46 DC 03/13/20 05:51 1 GM Ceftriaxone Sodium (Rocephin) 1 gm 1X ONCE 03/12/20 15:00 03/12/20 15:01 DC 03/12/20 16:41 1 GM Dextrose (Dextrose 50%-Water Syringe) 12.5 gm PRN Q15MIN PRN 03/13/20 00:30 Famotidine (Pepcid Vial) 20 mg DAILY 03/14/20 09:00 03/17/20 08:30 20 MG Heparin Sodium (Porcine) (Heparin Sodium) 5,000 unit Q8HRS 03/12/20 22:00 03/17/20 05:22 5,000 UNIT Info (Icu Electrolyte Protocol) 1 ea CONT PRN PRN 03/12/20 17:00 03/12/20 17:06 DC Insulin Human Lispro (HumaLOG) 0-9 UNITS TIDACHC 03/16/20 21:00 03/17/20 08:43 5 UNITS Lactobacillus Rhamnosus (Culturelle) 1 cap BID 03/13/20 21:00 03/17/20 08:30 1 CAP Lidocaine HCl (Lidocaine 1% 20ml Vial) 20 ml 1X ONCE 03/12/20 15:30 03/12/20 15:31 DC 03/12/20 15:30 20 ML Linezolid (Zyvox) 600 mg BID 03/13/20 09:00 03/13/20 21:11 DC 03/13/20 10:48 600 MG Linezolid/Dextrose 300 ml @ 300 mls/hr Q12HR 03/13/20 22:00 03/15/20 08:55 DC 03/15/20 08:37 300 MLS/HR Magnesium Sulfate 50 ml @ 25 mls/hr 1X ONCE 03/12/20 17:00 03/12/20 18:59 DC 03/12/20 17:51 25 MLS/HR Meropenem 500 mg/ Sodium Chloride 50 ml @ 100 mls/hr Q8HRS 03/14/20 22:00 03/17/20 05:08 100 MLS/HR Methylprednisolone Sodium Succinate (SOLU-Medrol 40MG VIAL) 40 mg Q6HRS 03/13/20 11:00 03/17/20 05:20 40 MG Morphine Sulfate (Morphine Sulfate) 4 mg 1X ONCE 03/14/20 09:15 03/14/20 09:16 DC 03/14/20 09:22 4 MG Multivitamins (Thera M Plus) 1 tab DAILY 03/13/20 10:30 03/17/20 08:30 1 TAB Norepinephrine Bitartrate 8 mg/ Dextrose 258 ml @ 21.285 mls/ hr CONT PRN 03/12/20 22:30 03/16/20 13:45 DC 03/13/20 18:01 27.671 MLS/HR Ondansetron HCl (Zofran) 4 mg PRN Q6HRS PRN 03/12/20 16:45 Perflutren Protein Type A Microsphe (Optison) 0.66 mg 1X ONCE 03/14/20 12:15 03/14/20 12:21 DC Potassium Chloride/Water 100 ml @ 100 mls/hr Q1H 03/12/20 16:45 03/12/20 17:00 DC Prochlorperazine (Compazine) 25 mg PRN Q12HR PRN 03/12/20 16:45 Sodium Chloride 1,000 ml @ 100 mls/hr Q10H 03/12/20 16:33 03/17/20 05:23 100 MLS/HR Sodium Chloride (NORMAL SALINE FLUSH for STERILE FIELD) 10 ml STK-MED ONCE 03/12/20 15:24 03/12/20 15:24 DC Sodium Chloride (Normal Saline Flush) 3 ml QSHIFT PRN 03/12/20 16:45 Sodium Phosphate 15 mmol/Sodium Chloride 255 ml @ 62.5 mls/hr 1X ONCE 03/12/20 16:45 03/12/20 17:00 DC Sodium Phosphate 30 mmol/Sodium Chloride 260 ml @ 62.5 mls/hr 1X ONCE 03/12/20 16:45 03/12/20 17:00 DC Vancomycin HCl (Vanco Per Pharmacy) 1 each PRN DAILY PRN 03/12/20 16:45 03/13/20 08:46 DC 03/12/20 18:45 1 EACH Vancomycin HCl (Vancomycin Trough Level) 1 each 1X ONCE 03/14/20 17:30 03/14/20 17:31 Cancel Vancomycin HCl 1.5 gm/Sodium Chloride 500 ml @ 250 mls/hr Q24H 03/13/20 18:00 03/13/20 08:48 DC Vancomycin HCl 2 gm/Sodium Chloride 500 ml @ 250 mls/hr 1X ONCE 03/12/20 18:00 03/12/20 19:59 DC 03/12/20 17:53 250 MLS/HR Lab Laboratory Tests Test 03/16/20 11:42 03/16/20 16:44 03/16/20 20:34 03/17/20 07:17 Glucose (Fingerstick) 181 mg/dL (70-99) 211 mg/dL (70-99) 181 mg/dL (70-99) White Blood Count 13.1 x10^3/uL (4.0-11.0) Red Blood Count 4.93 x10^6/uL (4.30-5.70) Hemoglobin 14.5 g/dL (13.0-17.5) Hematocrit 43.6 % (39.0-53.0) Mean Corpuscular Volume 88 fL (79-100) Mean Corpuscular Hemoglobin 30 pg (25-35) Mean Corpuscular Hemoglobin Concent 33 g/dL (31-37) Red Cell Distribution Width 16.1 % (11.5-14.5) Platelet Count 97 x10^3/uL (140-400) Neutrophils (%) (Auto) 92 % (31-73) Lymphocytes (%) (Auto) 5 % (24-48) Monocytes (%) (Auto) 2 % (0-9) Eosinophils (%) (Auto) 0 % (0-3) Basophils (%) (Auto) 0 % (0-3) Neutrophils # (Auto) 12.1 x10^3/uL (1.8-7.7) Lymphocytes # (Auto) 0.7 x10^3/uL (1.0-4.8) Monocytes # (Auto) 0.3 x10^3/uL (0.0-1.1) Eosinophils # (Auto) 0.0 x10^3/uL (0.0-0.7) Basophils # (Auto) 0.0 x10^3/uL (0.0-0.2) Sodium Level 137 mmol/L (136-145) Potassium Level 5.0 mmol/L (3.5-5.1) Chloride Level 108 mmol/L (98-107) Carbon Dioxide Level 17 mmol/L (21-32) Anion Gap 12 (6-14) Blood Urea Nitrogen 64 mg/dL (8-26) Creatinine 2.8 mg/dL (0.7-1.3) Estimated GFR (Cockcroft-Gault) 26.8 BUN/Creatinine Ratio 23 (6-20) Glucose Level 222 mg/dL (70-99) Calcium Level 7.0 mg/dL (8.5-10.1) Total Bilirubin 1.3 mg/dL (0.2-1.0) Aspartate Amino Transf (AST/SGOT) 36 U/L (15-37) Alanine Aminotransferase (ALT/SGPT) 106 U/L (16-63) Alkaline Phosphatase 281 U/L (46-116) Total Protein 5.5 g/dL (6.4-8.2) Albumin 1.7 g/dL (3.4-5.0) Albumin/Globulin Ratio 0.4 (1.0-1.7) Test 03/17/20 07:27 Glucose (Fingerstick) 202 mg/dL (70-99) Results All relevant outside records, renal labs, imaging studies, telemetry/EKG's were reviewed. Justicifation of Admission Dx: Justifications for Admission: Justification of Admission Dx: Yes CHF: Cardiac Arrhythmias Comminuty Aquired Pneumonia: Bactermia Chronic Renal Failure: Encephalopathy Sepsis: Altered Mental Status SANGEETA AGUIRRE MD Mar 17, 2020 09:51
--- NOTE | 2020-03-17 09:54 | PDOC ---
PULMONARY PROGRESS NOTES DATE: 03/17/20 TIME: 09:52 Subjective on ra, denies sob, cough, has abd pain, Vitals Vital Signs Date Time Temp Pulse Resp B/P (MAP) Pulse Ox O2 Delivery O2 Flow Rate FiO2 03/17/20 09:14 Room Air 03/17/20 06:20 20 94 2.0 03/17/20 03:21 97.9 65 129/75 (93) 97.9 Comments ros as mentioned as above other sys otherwise neg ROS: No Nausea, No Chest Pain General: Alert HEENT: Other (nc at [facility] ) Lungs: Clear Cardiovascular: S1, S2 Abdomen: Soft Neuro Exam: Alert Extremities: Other Skin: Warm Labs Laboratory Tests Test 03/15/20 12:57 03/15/20 16:39 03/15/20 20:15 03/16/20 00:22 Glucose (Fingerstick) 225 mg/dL (70-99) 237 mg/dL (70-99) 202 mg/dL (70-99) 248 mg/dL (70-99) Test 03/16/20 03:59 03/16/20 05:15 03/16/20 09:28 03/16/20 09:30 Glucose (Fingerstick) 187 mg/dL (70-99) 195 mg/dL (70-99) 169 mg/dL (70-99) White Blood Count 19.2 x10^3/uL (4.0-11.0) Red Blood Count 4.61 x10^6/uL (4.30-5.70) Hemoglobin 13.6 g/dL (13.0-17.5) Hematocrit 40.6 % (39.0-53.0) Mean Corpuscular Volume 88 fL (79-100) Mean Corpuscular Hemoglobin 29 pg (25-35) Mean Corpuscular Hemoglobin Concent 34 g/dL (31-37) Red Cell Distribution Width 15.6 % (11.5-14.5) Platelet Count 96 x10^3/uL (140-400) Neutrophils (%) (Auto) 95 % (31-73) Lymphocytes (%) (Auto) 3 % (24-48) Monocytes (%) (Auto) 2 % (0-9) Eosinophils (%) (Auto) 0 % (0-3) Basophils (%) (Auto) 0 % (0-3) Neutrophils # (Auto) 18.2 x10^3/uL (1.8-7.7) Lymphocytes # (Auto) 0.6 x10^3/uL (1.0-4.8) Monocytes # (Auto) 0.4 x10^3/uL (0.0-1.1) Eosinophils # (Auto) 0.0 x10^3/uL (0.0-0.7) Basophils # (Auto) 0.0 x10^3/uL (0.0-0.2) Sodium Level 138 mmol/L (136-145) Potassium Level 4.7 mmol/L (3.5-5.1) Chloride Level 108 mmol/L (98-107) Carbon Dioxide Level 21 mmol/L (21-32) Anion Gap 9 (6-14) Blood Urea Nitrogen 56 mg/dL (8-26) Creatinine 2.9 mg/dL (0.7-1.3) Estimated GFR (Cockcroft-Gault) 25.7 Glucose Level 223 mg/dL (70-99) Calcium Level 6.9 mg/dL (8.5-10.1) Test 03/16/20 11:42 03/16/20 16:44 03/16/20 20:34 03/17/20 07:17 Glucose (Fingerstick) 181 mg/dL (70-99) 211 mg/dL (70-99) 181 mg/dL (70-99) White Blood Count 13.1 x10^3/uL (4.0-11.0) Red Blood Count 4.93 x10^6/uL (4.30-5.70) Hemoglobin 14.5 g/dL (13.0-17.5) Hematocrit 43.6 % (39.0-53.0) Mean Corpuscular Volume 88 fL (79-100) Mean Corpuscular Hemoglobin 30 pg (25-35) Mean Corpuscular Hemoglobin Concent 33 g/dL (31-37) Red Cell Distribution Width 16.1 % (11.5-14.5) Platelet Count 97 x10^3/uL (140-400) Neutrophils (%) (Auto) 92 % (31-73) Lymphocytes (%) (Auto) 5 % (24-48) Monocytes (%) (Auto) 2 % (0-9) Eosinophils (%) (Auto) 0 % (0-3) Basophils (%) (Auto) 0 % (0-3) Neutrophils # (Auto) 12.1 x10^3/uL (1.8-7.7) Lymphocytes # (Auto) 0.7 x10^3/uL (1.0-4.8) Monocytes # (Auto) 0.3 x10^3/uL (0.0-1.1) Eosinophils # (Auto) 0.0 x10^3/uL (0.0-0.7) Basophils # (Auto) 0.0 x10^3/uL (0.0-0.2) Sodium Level 137 mmol/L (136-145) Potassium Level 5.0 mmol/L (3.5-5.1) Chloride Level 108 mmol/L (98-107) Carbon Dioxide Level 17 mmol/L (21-32) Anion Gap 12 (6-14) Blood Urea Nitrogen 64 mg/dL (8-26) Creatinine 2.8 mg/dL (0.7-1.3) Estimated GFR (Cockcroft-Gault) 26.8 BUN/Creatinine Ratio 23 (6-20) Glucose Level 222 mg/dL (70-99) Calcium Level 7.0 mg/dL (8.5-10.1) Total Bilirubin 1.3 mg/dL (0.2-1.0) Aspartate Amino Transf (AST/SGOT) 36 U/L (15-37) Alanine Aminotransferase (ALT/SGPT) 106 U/L (16-63) Alkaline Phosphatase 281 U/L (46-116) Total Protein 5.5 g/dL (6.4-8.2) Albumin 1.7 g/dL (3.4-5.0) Albumin/Globulin Ratio 0.4 (1.0-1.7) Test 03/17/20 07:27 Glucose (Fingerstick) 202 mg/dL (70-99) Laboratory Tests Test 03/16/20 11:42 03/16/20 16:44 03/16/20 20:34 03/17/20 07:17 Glucose (Fingerstick) 181 mg/dL (70-99) 211 mg/dL (70-99) 181 mg/dL (70-99) White Blood Count 13.1 x10^3/uL (4.0-11.0) Red Blood Count 4.93 x10^6/uL (4.30-5.70) Hemoglobin 14.5 g/dL (13.0-17.5) Hematocrit 43.6 % (39.0-53.0) Mean Corpuscular Volume 88 fL (79-100) Mean Corpuscular Hemoglobin 30 pg (25-35) Mean Corpuscular Hemoglobin Concent 33 g/dL (31-37) Red Cell Distribution Width 16.1 % (11.5-14.5) Platelet Count 97 x10^3/uL (140-400) Neutrophils (%) (Auto) 92 % (31-73) Lymphocytes (%) (Auto) 5 % (24-48) Monocytes (%) (Auto) 2 % (0-9) Eosinophils (%) (Auto) 0 % (0-3) Basophils (%) (Auto) 0 % (0-3) Neutrophils # (Auto) 12.1 x10^3/uL (1.8-7.7) Lymphocytes # (Auto) 0.7 x10^3/uL (1.0-4.8) Monocytes # (Auto) 0.3 x10^3/uL (0.0-1.1) Eosinophils # (Auto) 0.0 x10^3/uL (0.0-0.7) Basophils # (Auto) 0.0 x10^3/uL (0.0-0.2) Sodium Level 137 mmol/L (136-145) Potassium Level 5.0 mmol/L (3.5-5.1) Chloride Level 108 mmol/L (98-107) Carbon Dioxide Level 17 mmol/L (21-32) Anion Gap 12 (6-14) Blood Urea Nitrogen 64 mg/dL (8-26) Creatinine 2.8 mg/dL (0.7-1.3) Estimated GFR (Cockcroft-Gault) 26.8 BUN/Creatinine Ratio 23 (6-20) Glucose Level 222 mg/dL (70-99) Calcium Level 7.0 mg/dL (8.5-10.1) Total Bilirubin 1.3 mg/dL (0.2-1.0) Aspartate Amino Transf (AST/SGOT) 36 U/L (15-37) Alanine Aminotransferase (ALT/SGPT) 106 U/L (16-63) Alkaline Phosphatase 281 U/L (46-116) Total Protein 5.5 g/dL (6.4-8.2) Albumin 1.7 g/dL (3.4-5.0) Albumin/Globulin Ratio 0.4 (1.0-1.7) Test 03/17/20 07:27 Glucose (Fingerstick) 202 mg/dL (70-99) Impression . IMPRESSION: 1. Acute hypoxic respiratory failure secondary to septic shock. resolved. on RA 2. Septic shock from gram neg sepsis, improving. source, GI / ESBL + E. coli. 3. Urinary tract infection. 4. No history of tobacco use. 5. Abnormal chest x-ray with only mild basal atelectasis. 6. COVID neg. 7. Marked leukocytosis secondary to sepsis. improving 8. chronic kidney disease. 9. Severe protein-calorie malnutrition. 10. Abnormal LFTs secondary to hypoperfusion from shock/cholecystitis. Plan . 1. 02 titration. on RA now 2. prn IV fluids. 3. laparoscopic cholecystectomy per surgery in future 4. Broad-spectrum antibiotic per Infectious Disease. 5. fu all cultures including urine cultures. blood cx, ESBL + E. coli. 6. DVT prophylaxis with heparin. Discussed with RN. stable pulmonary status. not much to add. will sign off NAFISA SIN MD Mar 17, 2020 09:54
--- NOTE | 2020-03-17 10:17 | PDOC ---
[facility] [employer] 03/17/20 1017: SURGICAL PROGRESS NOTE DATE: 03/17/20 TIME: 10:15 Subjective up in room still with abdominal pain No vomiting Vital Signs Vital Signs Date Time Temp Pulse Resp B/P (MAP) Pulse Ox O2 Delivery O2 Flow Rate FiO2 03/17/20 09:14 Room Air 03/17/20 07:00 97.5 68 18 136/88 (104) 95 97.5 03/17/20 06:20 2.0 I&O Intake and Output 03/17/20 06:59 Intake Total 100 ml Balance 100 ml Intake Oral 100 ml General: Cooperative, No acute distress Abdomen: Soft, Other (mild ttp upper abdomen ) Labs Laboratory Tests Test 03/15/20 12:57 03/15/20 16:39 03/15/20 20:15 03/16/20 00:22 Glucose (Fingerstick) 225 mg/dL (70-99) 237 mg/dL (70-99) 202 mg/dL (70-99) 248 mg/dL (70-99) Test 03/16/20 03:59 03/16/20 05:15 03/16/20 09:28 03/16/20 09:30 Glucose (Fingerstick) 187 mg/dL (70-99) 195 mg/dL (70-99) 169 mg/dL (70-99) White Blood Count 19.2 x10^3/uL (4.0-11.0) Red Blood Count 4.61 x10^6/uL (4.30-5.70) Hemoglobin 13.6 g/dL (13.0-17.5) Hematocrit 40.6 % (39.0-53.0) Mean Corpuscular Volume 88 fL (79-100) Mean Corpuscular Hemoglobin 29 pg (25-35) Mean Corpuscular Hemoglobin Concent 34 g/dL (31-37) Red Cell Distribution Width 15.6 % (11.5-14.5) Platelet Count 96 x10^3/uL (140-400) Neutrophils (%) (Auto) 95 % (31-73) Lymphocytes (%) (Auto) 3 % (24-48) Monocytes (%) (Auto) 2 % (0-9) Eosinophils (%) (Auto) 0 % (0-3) Basophils (%) (Auto) 0 % (0-3) Neutrophils # (Auto) 18.2 x10^3/uL (1.8-7.7) Lymphocytes # (Auto) 0.6 x10^3/uL (1.0-4.8) Monocytes # (Auto) 0.4 x10^3/uL (0.0-1.1) Eosinophils # (Auto) 0.0 x10^3/uL (0.0-0.7) Basophils # (Auto) 0.0 x10^3/uL (0.0-0.2) Sodium Level 138 mmol/L (136-145) Potassium Level 4.7 mmol/L (3.5-5.1) Chloride Level 108 mmol/L (98-107) Carbon Dioxide Level 21 mmol/L (21-32) Anion Gap 9 (6-14) Blood Urea Nitrogen 56 mg/dL (8-26) Creatinine 2.9 mg/dL (0.7-1.3) Estimated GFR (Cockcroft-Gault) 25.7 Glucose Level 223 mg/dL (70-99) Calcium Level 6.9 mg/dL (8.5-10.1) Test 03/16/20 11:42 03/16/20 16:44 03/16/20 20:34 03/17/20 07:17 Glucose (Fingerstick) 181 mg/dL (70-99) 211 mg/dL (70-99) 181 mg/dL (70-99) White Blood Count 13.1 x10^3/uL (4.0-11.0) Red Blood Count 4.93 x10^6/uL (4.30-5.70) Hemoglobin 14.5 g/dL (13.0-17.5) Hematocrit 43.6 % (39.0-53.0) Mean Corpuscular Volume 88 fL (79-100) Mean Corpuscular Hemoglobin 30 pg (25-35) Mean Corpuscular Hemoglobin Concent 33 g/dL (31-37) Red Cell Distribution Width 16.1 % (11.5-14.5) Platelet Count 97 x10^3/uL (140-400) Neutrophils (%) (Auto) 92 % (31-73) Lymphocytes (%) (Auto) 5 % (24-48) Monocytes (%) (Auto) 2 % (0-9) Eosinophils (%) (Auto) 0 % (0-3) Basophils (%) (Auto) 0 % (0-3) Neutrophils # (Auto) 12.1 x10^3/uL (1.8-7.7) Lymphocytes # (Auto) 0.7 x10^3/uL (1.0-4.8) Monocytes # (Auto) 0.3 x10^3/uL (0.0-1.1) Eosinophils # (Auto) 0.0 x10^3/uL (0.0-0.7) Basophils # (Auto) 0.0 x10^3/uL (0.0-0.2) Sodium Level 137 mmol/L (136-145) Potassium Level 5.0 mmol/L (3.5-5.1) Chloride Level 108 mmol/L (98-107) Carbon Dioxide Level 17 mmol/L (21-32) Anion Gap 12 (6-14) Blood Urea Nitrogen 64 mg/dL (8-26) Creatinine 2.8 mg/dL (0.7-1.3) Estimated GFR (Cockcroft-Gault) 26.8 BUN/Creatinine Ratio 23 (6-20) Glucose Level 222 mg/dL (70-99) Calcium Level 7.0 mg/dL (8.5-10.1) Total Bilirubin 1.3 mg/dL (0.2-1.0) Aspartate Amino Transf (AST/SGOT) 36 U/L (15-37) Alanine Aminotransferase (ALT/SGPT) 106 U/L (16-63) Alkaline Phosphatase 281 U/L (46-116) Total Protein 5.5 g/dL (6.4-8.2) Albumin 1.7 g/dL (3.4-5.0) Albumin/Globulin Ratio 0.4 (1.0-1.7) Test 03/17/20 07:27 Glucose (Fingerstick) 202 mg/dL (70-99) Laboratory Tests Test 03/16/20 11:42 03/16/20 16:44 03/16/20 20:34 03/17/20 07:17 Glucose (Fingerstick) 181 mg/dL (70-99) 211 mg/dL (70-99) 181 mg/dL (70-99) White Blood Count 13.1 x10^3/uL (4.0-11.0) Red Blood Count 4.93 x10^6/uL (4.30-5.70) Hemoglobin 14.5 g/dL (13.0-17.5) Hematocrit 43.6 % (39.0-53.0) Mean Corpuscular Volume 88 fL (79-100) Mean Corpuscular Hemoglobin 30 pg (25-35) Mean Corpuscular Hemoglobin Concent 33 g/dL (31-37) Red Cell Distribution Width 16.1 % (11.5-14.5) Platelet Count 97 x10^3/uL (140-400) Neutrophils (%) (Auto) 92 % (31-73) Lymphocytes (%) (Auto) 5 % (24-48) Monocytes (%) (Auto) 2 % (0-9) Eosinophils (%) (Auto) 0 % (0-3) Basophils (%) (Auto) 0 % (0-3) Neutrophils # (Auto) 12.1 x10^3/uL (1.8-7.7) Lymphocytes # (Auto) 0.7 x10^3/uL (1.0-4.8) Monocytes # (Auto) 0.3 x10^3/uL (0.0-1.1) Eosinophils # (Auto) 0.0 x10^3/uL (0.0-0.7) Basophils # (Auto) 0.0 x10^3/uL (0.0-0.2) Sodium Level 137 mmol/L (136-145) Potassium Level 5.0 mmol/L (3.5-5.1) Chloride Level 108 mmol/L (98-107) Carbon Dioxide Level 17 mmol/L (21-32) Anion Gap 12 (6-14) Blood Urea Nitrogen 64 mg/dL (8-26) Creatinine 2.8 mg/dL (0.7-1.3) Estimated GFR (Cockcroft-Gault) 26.8 BUN/Creatinine Ratio 23 (6-20) Glucose Level 222 mg/dL (70-99) Calcium Level 7.0 mg/dL (8.5-10.1) Total Bilirubin 1.3 mg/dL (0.2-1.0) Aspartate Amino Transf (AST/SGOT) 36 U/L (15-37) Alanine Aminotransferase (ALT/SGPT) 106 U/L (16-63) Alkaline Phosphatase 281 U/L (46-116) Total Protein 5.5 g/dL (6.4-8.2) Albumin 1.7 g/dL (3.4-5.0) Albumin/Globulin Ratio 0.4 (1.0-1.7) Test 03/17/20 07:27 Glucose (Fingerstick) 202 mg/dL (70-99) Problem List Problems Medical Problems: (1) AMS (altered mental status) Status: Acute (2) Hypocalcemia Status: Acute (3) Hypokalemia Status: Acute (4) Septic shock Status: Acute (5) Suspected 2019 novel coronavirus infection Status: Acute Assessment/Plan supportive care will review with Dr Mancini Justicifation of Admission Dx: Justifications for Admission: Justification of Admission Dx: Yes CHF: Cardiac Arrhythmias Comminuty Aquired Pneumonia: Bactermia Chronic Renal Failure: Encephalopathy Sepsis: Altered Mental Status ERICA MANCINI MD 03/17/20 1209: SURGICAL PROGRESS NOTE Assessment/Plan Improving labs. Continue supportive care. Continued abd pain plan cholecystectomy this week [facility]U [employer] Mar 17, 2020 10:17 ERICA MANCINI MD Mar 17, 2020 12:09
--- NOTE | 2020-03-17 10:33 | PDOC ---
Date of Service: DATE: 03/17/20 TIME: 10:26 Subjective: Subjective: Didn't eat breakfast because can't eat pork. Abdomen still hurts. No vomiting. Has stooled. Objective: Vital Signs: Vital Signs Date Time Temp Pulse Resp B/P (MAP) Pulse Ox O2 Delivery O2 Flow Rate FiO2 03/17/20 09:14 Room Air 03/17/20 07:00 97.5 68 18 136/88 (104) 95 97.5 03/17/20 06:20 2.0 Labs: Laboratory Tests Test 03/16/20 11:42 03/16/20 16:44 03/16/20 20:34 03/17/20 07:17 Glucose (Fingerstick) 181 mg/dL 211 mg/dL 181 mg/dL White Blood Count 13.1 x10^3/uL Red Blood Count 4.93 x10^6/uL Hemoglobin 14.5 g/dL Hematocrit 43.6 % Mean Corpuscular Volume 88 fL Mean Corpuscular Hemoglobin 30 pg Mean Corpuscular Hemoglobin Concent 33 g/dL Red Cell Distribution Width 16.1 % Platelet Count 97 x10^3/uL Neutrophils (%) (Auto) 92 % Lymphocytes (%) (Auto) 5 % Monocytes (%) (Auto) 2 % Eosinophils (%) (Auto) 0 % Basophils (%) (Auto) 0 % Neutrophils # (Auto) 12.1 x10^3/uL Lymphocytes # (Auto) 0.7 x10^3/uL Monocytes # (Auto) 0.3 x10^3/uL Eosinophils # (Auto) 0.0 x10^3/uL Basophils # (Auto) 0.0 x10^3/uL Sodium Level 137 mmol/L Potassium Level 5.0 mmol/L Chloride Level 108 mmol/L Carbon Dioxide Level 17 mmol/L Anion Gap 12 Blood Urea Nitrogen 64 mg/dL Creatinine 2.8 mg/dL Estimated GFR (Cockcroft-Gault) 26.8 BUN/Creatinine Ratio 23 Glucose Level 222 mg/dL Calcium Level 7.0 mg/dL Total Bilirubin 1.3 mg/dL Aspartate Amino Transf (AST/SGOT) 36 U/L Alanine Aminotransferase (ALT/SGPT) 106 U/L Alkaline Phosphatase 281 U/L Total Protein 5.5 g/dL Albumin 1.7 g/dL Albumin/Globulin Ratio 0.4 Test 03/17/20 07:27 Glucose (Fingerstick) 202 mg/dL URINE CULTURE Final Final GREATER THAN 100,000 CFU/ML GRAM POSITIVE RODS on 03/14/20 at 1343 FINAL ID= [LACTOBACILLUS SPECIES] BLOOD CULTURE LC Final Final GRAM NEGATIVE RODS FINAL ID= [ESCHERICHIA COLI ESBL] PE: GEN: NAD LUNGS: CTAB HEART: RRR ABD: non-specific upper abdominal discomfort NEURO/PSYCH: A & O 3 A/P: Abd pain E coli bacteremia, Lactobacillus UTI ACD/ROSALBA, thrombocytopenia, elevated LFTs (better), NELLI/CKD Abnormal HIDA COVID negative -- Will adjust diet orders - he doesn't eat pork. 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 Will review w/ Dr. Muller. Justicifation of Admission Dx: Justifications for Admission: Justification of Admission Dx: Yes CHF: Cardiac Arrhythmias Comminuty Aquired Pneumonia: Bactermia Chronic Renal Failure: Encephalopathy Sepsis: Altered Mental Status LEONEL TYSON Mar 17, 2020 10:33
--- NOTE | 2020-03-17 13:04 | PDOC ---
Infectious Disease Note Subjective Subjective Feeling some better c/o some flank abdominal pain, bilaterally Decrease UO Denies N/V/D/fever/chills Vital Sign Vital Signs Vital Signs Date Time Temp Pulse Resp B/P (MAP) Pulse Ox O2 Delivery O2 Flow Rate FiO2 03/17/20 09:14 Room Air 03/17/20 07:00 97.5 68 18 136/88 (104) 95 97.5 03/17/20 06:20 2.0 Physical Exam PHYSICAL EXAM GENERAL: Propped up in bed, alert, in NAD. Looks better HEENT: Oral mucosa moist. No thrush NECK: Supple. No JVD. LUNGS: Decreased breath sounds at the bases. No wheezing. HEART: S1, S2. No gallops or murmurs. Left sided chest wall PPM looks intact, clean. ABDOMEN: Soft, obese, tender flank areas, bilaterally. No rebound, no guarding. : Gates in place EXTREMITIES: Trace edema lower extremities, bilaterally. No cyanosis, no clubbing. NEUROLOGIC: Alert, oriented, generalized weakness. RIJ (03/12) without signs of complications Labs Lab Laboratory Tests Test 03/16/20 16:44 03/16/20 20:34 03/17/20 07:17 03/17/20 07:27 Glucose (Fingerstick) 211 mg/dL (70-99) 181 mg/dL (70-99) 202 mg/dL (70-99) White Blood Count 13.1 x10^3/uL (4.0-11.0) Red Blood Count 4.93 x10^6/uL (4.30-5.70) Hemoglobin 14.5 g/dL (13.0-17.5) Hematocrit 43.6 % (39.0-53.0) Mean Corpuscular Volume 88 fL (79-100) Mean Corpuscular Hemoglobin 30 pg (25-35) Mean Corpuscular Hemoglobin Concent 33 g/dL (31-37) Red Cell Distribution Width 16.1 % (11.5-14.5) Platelet Count 97 x10^3/uL (140-400) Neutrophils (%) (Auto) 92 % (31-73) Lymphocytes (%) (Auto) 5 % (24-48) Monocytes (%) (Auto) 2 % (0-9) Eosinophils (%) (Auto) 0 % (0-3) Basophils (%) (Auto) 0 % (0-3) Neutrophils # (Auto) 12.1 x10^3/uL (1.8-7.7) Lymphocytes # (Auto) 0.7 x10^3/uL (1.0-4.8) Monocytes # (Auto) 0.3 x10^3/uL (0.0-1.1) Eosinophils # (Auto) 0.0 x10^3/uL (0.0-0.7) Basophils # (Auto) 0.0 x10^3/uL (0.0-0.2) Sodium Level 137 mmol/L (136-145) Potassium Level 5.0 mmol/L (3.5-5.1) Chloride Level 108 mmol/L (98-107) Carbon Dioxide Level 17 mmol/L (21-32) Anion Gap 12 (6-14) Blood Urea Nitrogen 64 mg/dL (8-26) Creatinine 2.8 mg/dL (0.7-1.3) Estimated GFR (Cockcroft-Gault) 26.8 BUN/Creatinine Ratio 23 (6-20) Glucose Level 222 mg/dL (70-99) Calcium Level 7.0 mg/dL (8.5-10.1) Total Bilirubin 1.3 mg/dL (0.2-1.0) Aspartate Amino Transf (AST/SGOT) 36 U/L (15-37) Alanine Aminotransferase (ALT/SGPT) 106 U/L (16-63) Alkaline Phosphatase 281 U/L (46-116) Total Protein 5.5 g/dL (6.4-8.2) Albumin 1.7 g/dL (3.4-5.0) Albumin/Globulin Ratio 0.4 (1.0-1.7) Test 03/17/20 11:39 Glucose (Fingerstick) 232 mg/dL (70-99) Micro Microbiology 03/14/20 Blood Culture - Preliminary, Resulted 03/12/20 Urine Culture - Final, Complete Objective Assessment Septic shock from gram neg sepsis, improving. ESBL + E. coli. Leukocytosis with bandemia, in part steroids Lactic acidosis. Gram negative bacteremia source likely GI and/or . ESBL + E. coli. Repeat BC 03/14 + GNR Urinary tract infection. LACTOBACILLUS SPECIES Acute kidney injury - Cr worsening Thrombocytopenia, likely sepsis. Encephalopathy, likely sepsis, improving. Acute cholecysitis Hyperbilirubinemia, abnormal LFTs, gallbladder distention on CT. HIDA scan noted. US neg Diabetes mellitus. 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 NH resident Plan Plan of Care Given + Blood cults from 03/14 - D/c IJ Blood cults in am cont Merrem, dose to be adjusted for renal function as needed, D//w pharmacy Probiotics Monitor lab values/temp f/u BC from 03/14 GNR ID still pending Maintain aspiration precautions Gen surg following. Lap juan planned in am Consult renal for NELLI Contact isolation for ESBL Discussed with nursing HERMILA MARTINES MD Mar 17, 2020 13:04
--- NOTE | 2020-03-17 14:50 | PDOC ---
PROGRESS NOTES Date of Service: DATE: 03/17/20 TIME: 14:38 Chief Complaint Chief Complaint Acute hypoxic respiratory failure secondary to septic shock, improving, out of ICU yesterday, Sepsis, and Septic shock secondary to urinary tract infection w/ ESBL + E. coli. and lactobacillus Diabetes mellitus 2 acute or chronic systolic CHF, EF 35 %, discussed with Dr. Merchant, echo read today acute renal failure on CKD 2, Severe protein-calorie malnutrition. HIDA showed cholecystitis, , gen surg following, may need juan surgery, above problems need to be addressed in short term History of Present Illness History of Present Illness Patient reports continued aching abdominal pain. He denies any fever, or vomiting. He hopes to have cholecystectomy by Tuesday. Vitals Vitals Vital Signs Date Time Temp Pulse Resp B/P (MAP) Pulse Ox O2 Delivery O2 Flow Rate FiO2 03/17/20 11:00 97.8 70 18 132/80 (97) 95 Room Air 97.8 03/17/20 06:20 2.0 Physical Exam Physical Exam GENERAL: Propped up in bed, alert, in NAD HEENT: Oral mucosa moist. No thrush NECK: Supple. No JVD. LUNGS: Decreased breath sounds at the bases. No wheezing. HEART: S1, S2. No gallops or murmurs. Left sided chest wall PPM looks intact, clean. ABDOMEN: Soft, obese, tender flank areas, bilaterally. No rebound, no guarding. : Gates in place EXTREMITIES: Trace edema lower extremities, bilaterally. No cyanosis, no clu bbing. NEUROLOGIC: Alert, oriented, generalized weakness. RIJ (03/12) without signs of complications General: Cooperative, No acute distress Heart: Regular rate, Normal S1, Normal S2 Lungs: Clear Abdomen: Soft, Other (mild ttp upper abdomen, obese abdomen ) Extremities: No clubbing, No cyanosis Skin: No rashes, No breakdown Labs LABS Laboratory Tests Test 03/16/20 16:44 03/16/20 20:34 03/17/20 07:17 03/17/20 07:27 Glucose (Fingerstick) 211 mg/dL (70-99) 181 mg/dL (70-99) 202 mg/dL (70-99) White Blood Count 13.1 x10^3/uL (4.0-11.0) Red Blood Count 4.93 x10^6/uL (4.30-5.70) Hemoglobin 14.5 g/dL (13.0-17.5) Hematocrit 43.6 % (39.0-53.0) Mean Corpuscular Volume 88 fL (79-100) Mean Corpuscular Hemoglobin 30 pg (25-35) Mean Corpuscular Hemoglobin Concent 33 g/dL (31-37) Red Cell Distribution Width 16.1 % (11.5-14.5) Platelet Count 97 x10^3/uL (140-400) Neutrophils (%) (Auto) 92 % (31-73) Lymphocytes (%) (Auto) 5 % (24-48) Monocytes (%) (Auto) 2 % (0-9) Eosinophils (%) (Auto) 0 % (0-3) Basophils (%) (Auto) 0 % (0-3) Neutrophils # (Auto) 12.1 x10^3/uL (1.8-7.7) Lymphocytes # (Auto) 0.7 x10^3/uL (1.0-4.8) Monocytes # (Auto) 0.3 x10^3/uL (0.0-1.1) Eosinophils # (Auto) 0.0 x10^3/uL (0.0-0.7) Basophils # (Auto) 0.0 x10^3/uL (0.0-0.2) Sodium Level 137 mmol/L (136-145) Potassium Level 5.0 mmol/L (3.5-5.1) Chloride Level 108 mmol/L (98-107) Carbon Dioxide Level 17 mmol/L (21-32) Anion Gap 12 (6-14) Blood Urea Nitrogen 64 mg/dL (8-26) Creatinine 2.8 mg/dL (0.7-1.3) Estimated GFR (Cockcroft-Gault) 26.8 BUN/Creatinine Ratio 23 (6-20) Glucose Level 222 mg/dL (70-99) Calcium Level 7.0 mg/dL (8.5-10.1) Total Bilirubin 1.3 mg/dL (0.2-1.0) Aspartate Amino Transf (AST/SGOT) 36 U/L (15-37) Alanine Aminotransferase (ALT/SGPT) 106 U/L (16-63) Alkaline Phosphatase 281 U/L (46-116) Total Protein 5.5 g/dL (6.4-8.2) Albumin 1.7 g/dL (3.4-5.0) Albumin/Globulin Ratio 0.4 (1.0-1.7) Test 03/17/20 11:39 Glucose (Fingerstick) 232 mg/dL (70-99) Review of Systems Review of Systems Abdominal pain. No nausea, no vomiting, no fever. All other systems negative. Assessment and Plan Assessmemt and Plan Problems Medical Problems: (1) AMS (altered mental status) Status: Acute (2) Hypocalcemia Status: Acute (3) Hypokalemia Status: Acute (4) Septic shock Status: Acute (5) Suspected 2019 novel coronavirus infection Status: Acute (6) Acute cholecystitis Status: Acute Plan: Continue IV antibiotics. Plan for lap juan this week. Comment Review of Relevant I have reviewed the following items thee (where applicable) has been applied. Labs Laboratory Tests Test 03/15/20 16:39 03/15/20 20:15 03/16/20 00:22 03/16/20 03:59 Glucose (Fingerstick) 237 mg/dL (70-99) 202 mg/dL (70-99) 248 mg/dL (70-99) 187 mg/dL (70-99) Test 03/16/20 05:15 03/16/20 09:28 03/16/20 09:30 03/16/20 11:42 White Blood Count 19.2 x10^3/uL (4.0-11.0) Red Blood Count 4.61 x10^6/uL (4.30-5.70) Hemoglobin 13.6 g/dL (13.0-17.5) Hematocrit 40.6 % (39.0-53.0) Mean Corpuscular Volume 88 fL (79-100) Mean Corpuscular Hemoglobin 29 pg (25-35) Mean Corpuscular Hemoglobin Concent 34 g/dL (31-37) Red Cell Distribution Width 15.6 % (11.5-14.5) Platelet Count 96 x10^3/uL (140-400) Neutrophils (%) (Auto) 95 % (31-73) Lymphocytes (%) (Auto) 3 % (24-48) Monocytes (%) (Auto) 2 % (0-9) Eosinophils (%) (Auto) 0 % (0-3) Basophils (%) (Auto) 0 % (0-3) Neutrophils # (Auto) 18.2 x10^3/uL (1.8-7.7) Lymphocytes # (Auto) 0.6 x10^3/uL (1.0-4.8) Monocytes # (Auto) 0.4 x10^3/uL (0.0-1.1) Eosinophils # (Auto) 0.0 x10^3/uL (0.0-0.7) Basophils # (Auto) 0.0 x10^3/uL (0.0-0.2) Sodium Level 138 mmol/L (136-145) Potassium Level 4.7 mmol/L (3.5-5.1) Chloride Level 108 mmol/L (98-107) Carbon Dioxide Level 21 mmol/L (21-32) Anion Gap 9 (6-14) Blood Urea Nitrogen 56 mg/dL (8-26) Creatinine 2.9 mg/dL (0.7-1.3) Estimated GFR (Cockcroft-Gault) 25.7 Glucose Level 223 mg/dL (70-99) Calcium Level 6.9 mg/dL (8.5-10.1) Glucose (Fingerstick) 195 mg/dL (70-99) 169 mg/dL (70-99) 181 mg/dL (70-99) Test 03/16/20 16:44 03/16/20 20:34 03/17/20 07:17 03/17/20 07:27 Glucose (Fingerstick) 211 mg/dL (70-99) 181 mg/dL (70-99) 202 mg/dL (70-99) White Blood Count 13.1 x10^3/uL (4.0-11.0) Red Blood Count 4.93 x10^6/uL (4.30-5.70) Hemoglobin 14.5 g/dL (13.0-17.5) Hematocrit 43.6 % (39.0-53.0) Mean Corpuscular Volume 88 fL (79-100) Mean Corpuscular Hemoglobin 30 pg (25-35) Mean Corpuscular Hemoglobin Concent 33 g/dL (31-37) Red Cell Distribution Width 16.1 % (11.5-14.5) Platelet Count 97 x10^3/uL (140-400) Neutrophils (%) (Auto) 92 % (31-73) Lymphocytes (%) (Auto) 5 % (24-48) Monocytes (%) (Auto) 2 % (0-9) Eosinophils (%) (Auto) 0 % (0-3) Basophils (%) (Auto) 0 % (0-3) Neutrophils # (Auto) 12.1 x10^3/uL (1.8-7.7) Lymphocytes # (Auto) 0.7 x10^3/uL (1.0-4.8) Monocytes # (Auto) 0.3 x10^3/uL (0.0-1.1) Eosinophils # (Auto) 0.0 x10^3/uL (0.0-0.7) Basophils # (Auto) 0.0 x10^3/uL (0.0-0.2) Sodium Level 137 mmol/L (136-145) Potassium Level 5.0 mmol/L (3.5-5.1) Chloride Level 108 mmol/L (98-107) Carbon Dioxide Level 17 mmol/L (21-32) Anion Gap 12 (6-14) Blood Urea Nitrogen 64 mg/dL (8-26) Creatinine 2.8 mg/dL (0.7-1.3) Estimated GFR (Cockcroft-Gault) 26.8 BUN/Creatinine Ratio 23 (6-20) Glucose Level 222 mg/dL (70-99) Calcium Level 7.0 mg/dL (8.5-10.1) Total Bilirubin 1.3 mg/dL (0.2-1.0) Aspartate Amino Transf (AST/SGOT) 36 U/L (15-37) Alanine Aminotransferase (ALT/SGPT) 106 U/L (16-63) Alkaline Phosphatase 281 U/L (46-116) Total Protein 5.5 g/dL (6.4-8.2) Albumin 1.7 g/dL (3.4-5.0) Albumin/Globulin Ratio 0.4 (1.0-1.7) Test 03/17/20 11:39 Glucose (Fingerstick) 232 mg/dL (70-99) Laboratory Tests Test 03/16/20 16:44 8/16/20 20:34 03/17/20 07:17 03/17/20 07:27 Glucose (Fingerstick) 211 mg/dL (70-99) 181 mg/dL (70-99) 202 mg/dL (70-99) White Blood Count 13.1 x10^3/uL (4.0-11.0) Red Blood Count 4.93 x10^6/uL (4.30-5.70) Hemoglobin 14.5 g/dL (13.0-17.5) Hematocrit 43.6 % (39.0-53.0) Mean Corpuscular Volume 88 fL (79-100) Mean Corpuscular Hemoglobin 30 pg (25-35) Mean Corpuscular Hemoglobin Concent 33 g/dL (31-37) Red Cell Distribution Width 16.1 % (11.5-14.5) Platelet Count 97 x10^3/uL (140-400) Neutrophils (%) (Auto) 92 % (31-73) Lymphocytes (%) (Auto) 5 % (24-48) Monocytes (%) (Auto) 2 % (0-9) Eosinophils (%) (Auto) 0 % (0-3) Basophils (%) (Auto) 0 % (0-3) Neutrophils # (Auto) 12.1 x10^3/uL (1.8-7.7) Lymphocytes # (Auto) 0.7 x10^3/uL (1.0-4.8) Monocytes # (Auto) 0.3 x10^3/uL (0.0-1.1) Eosinophils # (Auto) 0.0 x10^3/uL (0.0-0.7) Basophils # (Auto) 0.0 x10^3/uL (0.0-0.2) Sodium Level 137 mmol/L (136-145) Potassium Level 5.0 mmol/L (3.5-5.1) Chloride Level 108 mmol/L (98-107) Carbon Dioxide Level 17 mmol/L (21-32) Anion Gap 12 (6-14) Blood Urea Nitrogen 64 mg/dL (8-26) Creatinine 2.8 mg/dL (0.7-1.3) Estimated GFR (Cockcroft-Gault) 26.8 BUN/Creatinine Ratio 23 (6-20) Glucose Level 222 mg/dL (70-99) Calcium Level 7.0 mg/dL (8.5-10.1) Total Bilirubin 1.3 mg/dL (0.2-1.0) Aspartate Amino Transf (AST/SGOT) 36 U/L (15-37) Alanine Aminotransferase (ALT/SGPT) 106 U/L (16-63) Alkaline Phosphatase 281 U/L (46-116) Total Protein 5.5 g/dL (6.4-8.2) Albumin 1.7 g/dL (3.4-5.0) Albumin/Globulin Ratio 0.4 (1.0-1.7) Test 03/17/20 11:39 Glucose (Fingerstick) 232 mg/dL (70-99) Microbiology 03/14/20 Blood Culture - Preliminary, Resulted 03/12/20 Urine Culture - Final, Complete Medications Current Medications Sodium Chloride 1,000 ml @ 1,000 mls/hr 1X ONCE IV Last administered on 03/12/20at 14:00; Start 03/12/20 at 14:30; Stop 03/12/20 at 15:29; Status DC Sodium Chloride 1,000 ml @ 1,000 mls/hr 1X ONCE IV Last administered on 03/12/20at 14:05; Start 03/12/20 at 14:30; Stop 03/12/20 at 15:29; Status DC Ceftriaxone Sodium (Rocephin) 1 gm 1X ONCE IVP Last administered on 03/12/20at 16:41; Start 03/12/20 at 15:00; Stop 03/12/20 at 15:01; Status DC Sodium Chloride 1,000 ml @ 1,000 mls/hr 1X ONCE IV Last administered on 03/12/20at 16:38; Start 03/12/20 at 15:30; Stop 03/12/20 at 16:29; Status DC Sodium Chloride 1,000 ml @ 1,000 mls/hr 1X ONCE IV Last administered on 03/12/20at 16:39; Start 03/12/20 at 15:30; Stop 03/12/20 at 16:29; Status DC Sodium Chloride (NORMAL SALINE FLUSH for STERILE FIELD) 10 ml STK-MED ONCE .ROUTE ; Start 03/12/20 at 15:24; Stop 03/12/20 at 15:24; Status DC Lidocaine HCl (Lidocaine 1% 20ml Vial) 20 ml 1X ONCE INJ Last administered on 03/12/20at 15:30; Start 03/12/20 at 15:30; Stop 03/12/20 at 15:31; Status DC Norepinephrine Bitartrate 8 mg/ Dextrose 258 ml @ 21.285 mls/ hr 1X ONCE IV Last administered on 03/12/20at 16:28; Start 03/12/20 at 16:15; Stop 03/13/20 at 04:22; Status DC Calcium Gluconate (Calcium Gluconate) 1,000 mg 1X ONCE IVP Last administered on 03/12/20at 17:50; Start 03/12/20 at 17:00; Stop 03/12/20 at 17:01; Status DC Ondansetron HCl (Zofran) 4 mg PRN Q8HRS PRN IV NAUSEA/VOMITING Last administered on 03/13/20at 02:56; Start 03/12/20 at 16:30; Stop 03/13/20 at 16:29; Status DC Sodium Chloride 1,000 ml @ 75 mls/hr [id number] IV ; Start 03/12/20 at 16:28; Stop 03/12/20 at 22:33; Status DC Azithromycin 250 ml @ 250 mls/hr 1X ONCE IV Last administered on 03/12/20at 17:51; Start 03/12/20 at 17:00; Stop 03/12/20 at 17:59; Status DC Ondansetron HCl (Zofran) 4 mg PRN Q6HRS PRN IVP NAUSEA/VOMITING; Start 03/12/20 at 16:45 Prochlorperazine (Compazine) 25 mg PRN Q12HR PRN [place] NAUSEA/VOMITING; Start 03/12/20 at 16:45 Famotidine (Pepcid Vial) 20 mg BID IVP Last administered on 03/12/20at 22:49; Start 03/12/20 at 21:00; Stop 03/13/20 at 09:34; Status DC Info (Icu Electrolyte Protocol) 1 ea DAILY MC ; Start 03/13/20 at 09:00; Stop 03/16/20 at 07:29; Status DC Heparin Sodium (Porcine) (Heparin Sodium) 5,000 unit Q8HRS SQ Last administered on 03/17/20at 05:22; Start 03/12/20 at 22:00 Sodium Chloride (Normal Saline Flush) 3 ml QSHIFT PRN IV AFTER MEDS AND BLOOD DRAWS; Start 03/12/20 at 16:45 Sodium Chloride 1,000 ml @ 1,000 mls/hr Q1H IV ; Start 03/12/20 at 16:33; Stop 03/12/20 at 17:32; Status DC Sodium Chloride 1,000 ml @ 100 mls/hr Q10H IV Last administered on 03/17/20at 05:23; Start 03/12/20 at 16:33 Bisacodyl (Dulcolax Supp) 10 mg PRN DAILY PRN [place] CONSTIPATION; Start 03/12/20 at 16:45 Cefepime HCl (Maxipime) 1 gm Q8HRS IVP Last administered on 03/13/20at 05:51; Start 03/12/20 at 22:00; Stop 03/13/20 at 08:46; Status DC Vancomycin HCl (Vanco Per Pharmacy) 1 each PRN DAILY PRN MC SEE COMMENTS Last administered on 03/12/20at 18:45; Start 03/12/20 at 16:45; Stop 03/13/20 at 08:46; Status DC Potassium Chloride/Water 100 ml @ 100 mls/hr Q1H IV Last administered on 03/12/20at 22:51; Start 03/12/20 at 19:00; Stop 03/12/20 at 22:59; Status DC Potassium Chloride/Water 100 ml @ 100 mls/hr Q1H IV ; Start 03/12/20 at 16:45; Stop 03/12/20 at 17:00; Status DC Potassium Chloride/Water 100 ml @ 100 mls/hr Q1H IV ; Start 03/12/20 at 16:45; Stop 03/12/20 at 17:00; Status DC Magnesium Sulfate 100 ml @ 50 mls/hr DAILY IV ; Start 03/13/20 at 09:00; Stop 03/12/20 at 17:00; Status DC Sodium Phosphate 15 mmol/Sodium Chloride 255 ml @ 62.5 mls/hr 1X ONCE IV ; Start 03/12/20 at 16:45; Stop 03/12/20 at 17:00; Status DC Sodium Phosphate 30 mmol/Sodium Chloride 260 ml @ 62.5 mls/hr 1X ONCE IV ; Start 03/12/20 at 16:45; Stop 03/12/20 at 17:00; Status DC Insulin Human Lispro (HumaLOG) 0-7 UNITS TIDWMEALS SQ ; Start 03/12/20 at 17:00; Stop 03/12/20 at 22:33; Status DC Dextrose (Dextrose 50%-Water Syringe) 12.5 gm PRN Q15MIN PRN IV SEE COMMENTS; Start 03/12/20 at 16:45; Stop 03/12/20 at 22:33; Status DC Info (Icu Electrolyte Protocol) 1 ea CONT PRN PRN MC SEE COMMENTS; Start 03/12/20 at 17:00; Stop 03/12/20 at 17:06; Status DC Magnesium Sulfate 50 ml @ 25 mls/hr 1X ONCE IV Last administered on 03/12/20at 17:51; Start 03/12/20 at 17:00; Stop 03/12/20 at 18:59; Status DC Vancomycin HCl 2 gm/Sodium Chloride 500 ml @ 250 mls/hr 1X ONCE IV Last administered on 03/12/20at 17:53; Start 03/12/20 at 18:00; Stop 03/12/20 at 19:59; Status DC Vancomycin HCl 1.5 gm/Sodium Chloride 500 ml @ 250 mls/hr Q24H IV ; Start 03/13/20 at 18:00; Stop 03/13/20 at 08:48; Status DC Vancomycin HCl (Vancomycin Trough Level) 1 each 1X ONCE MC ; Start 03/14/20 at 17:30; Stop 03/14/20 at 17:31; Status Cancel Norepinephrine Bitartrate 8 mg/ Dextrose 258 ml @ 21.285 mls/ hr CONT PRN IV PER PROTOCOL Last administered on 03/13/20at 18:01; Start 03/12/20 at 22:30; Stop 03/16/20 at 13:45; Status DC Insulin Human Lispro (HumaLOG) 0-7 UNITS TIDWMEALS SQ ; Start 03/13/20 at 08:00; Stop 03/13/20 at 00:30; Status DC Dextrose (Dextrose 50%-Water Syringe) 12.5 gm PRN Q15MIN PRN IV SEE COMMENTS; Start 03/12/20 at 22:30; Stop 03/13/20 at 00:30; Status DC Insulin Human Lispro (HumaLOG) 0-9 UNITS Q4HRS SQ Last administered on 03/16/20at 18:56; Start 03/13/20 at 04:00; Stop 03/16/20 at 19:15; Status DC Dextrose (Dextrose 50%-Water Syringe) 12.5 gm PRN Q15MIN PRN IV SEE COMMENTS; Start 03/13/20 at 00:30 Meropenem 500 mg/ Sodium Chloride 50 ml @ 100 mls/hr Q6H IV ; Start 03/13/20 at 08:45; Stop 03/13/20 at 08:53; Status DC Linezolid (Zyvox) 600 mg BID PO Last administered on 03/13/20at 10:48; Start 03/13/20 at 09:00; Stop 03/13/20 at 21:11; Status DC Meropenem 500 mg/ Sodium Chloride 50 ml @ 100 mls/hr Q6HRS IV Last administered on 03/14/20at 13:02; Start 03/13/20 at 09:00; Stop 03/14/20 at 15:30; Status DC Famotidine (Pepcid Vial) 20 mg DAILY IVP Last administered on 03/17/20at 08:30; Start 03/14/20 at 09:00; Stop 03/17/20 at 10:32; Status DC Multivitamins (Thera M Plus) 1 tab DAILY PO Last administered on 03/17/20at 08 :30; Start 03/13/20 at 10:30 Methylprednisolone Sodium Succinate (SOLU-Medrol 40MG VIAL) 40 mg Q6HRS IV Last administered on 03/17/20at 12:44; Start 03/13/20 at 11:00 Morphine Sulfate (Morphine Sulfate) 2 mg PRN Q2HR PRN IV PAIN Last administered on 03/17/20at 08:44; Start 03/13/20 at 11:00 Insulin Human Lispro (HumaLOG) 30 units 1X STAT SQ Last administered on 03/13/20at 13:39; Start 03/13/20 at 13:39; Stop 03/13/20 at 13:49; Status DC Lactobacillus Rhamnosus (Culturelle) 1 cap BID PO Last administered on 03/17/20at 08:30; Start 03/13/20 at 21:00 Linezolid/Dextrose 300 ml @ 300 mls/hr Q12HR IV Last administered on 03/15/20at 08:37; Start 03/13/20 at 22:00; Stop 03/15/20 at 08:55; Status DC Morphine Sulfate (Morphine Sulfate) 4 mg 1X ONCE IV Last administered on 03/14/20at 09:22; Start 03/14/20 at 09:15; Stop 03/14/20 at 09:16; Status DC Perflutren Protein Type A Microsphe (Optison) 0.66 mg 1X ONCE IV ; Start 03/14/20 at 12:15; Stop 03/14/20 at 12:21; Status DC Meropenem 500 mg/ Sodium Chloride 50 ml @ 100 mls/hr Q8HRS IV Last administered on 03/17/20at 05:08; Start 03/14/20 at 22:00 Insulin Human Lispro (HumaLOG) 0-9 UNITS TIDACHC SQ Last administered on 03/17/20at 12:52; Start 03/16/20 at 21:00 Alteplase, Recombinant (Cathflo For Central Catheter Clearance) 1 mg 1X ONCE INT CAT Last administered on 03/17/20at 05:50; Start 03/17/20 at 06:00; Stop 03/17/20 at 06:01; Status DC Famotidine (Pepcid) 20 mg QHS PO ; Start 03/17/20 at 21:00 Ringer's Solution 1,000 ml @ 30 mls/hr Q24H IV ; Start 03/18/20 at 07:00; Stop 03/18/20 at 18:59 Lidocaine HCl (Xylocaine-Mpf 1% 2ml Vial) 2 ml PRN 1X PRN ID PRIOR TO IV START; Start 03/18/20 at 07:00; Stop 03/19/20 at 06:59 Vitals/I & O Vital Sign - Last 24 Hours 03/16/20 03/16/20 03/16/20 03/16/20 15:00 19:12 20:00 23:00 Temp 97.5 97.0 98.0 97.5 97.0 98.0 Pulse 71 66 67 Resp 18 16 18 B/P (MAP) 141/71 (94) 133/85 (101) 139/87 (104) Pulse Ox 97 94 98 O2 Delivery Room Air Room Air Room Air Room Air 03/17/20 03/17/20 03/17/20 03/17/20 00:42 01:12 03:21 05:25 Temp 97.9 97.9 Pulse 65 Resp 20 20 18 20 B/P (MAP) 129/75 (93) Pulse Ox 98 98 92 92 O2 Delivery Room Air Room Air Room Air Room Air 03/17/20 03/17/20 03/17/20 03/17/20 06:20 07:00 08:00 08:44 Temp 97.5 97.5 Pulse 68 Resp 20 18 B/P (MAP) 136/88 (104) Pulse Ox 94 95 O2 Delivery Room Air Room Air Room Air Room Air O2 Flow Rate 2.0 03/17/20 03/17/20 09:14 11:00 Temp 97.8 97.8 Pulse 70 Resp 18 B/P (MAP) 132/80 (97) Pulse Ox 95 O2 Delivery Room Air Room Air Intake and Output 03/16/20 03/16/20 03/17/20 15:00 23:00 07:00 Intake Total 100 ml Balance 100 ml Justicifation of Admission Dx: Justifications for Admission: Justification of Admission Dx: Yes CHF: Cardiac Arrhythmias Comminuty Aquired Pneumonia: Bactermia Chronic Renal Failure: Encephalopathy Sepsis: Altered Mental Status MANOLO SANTANA MD Mar 17, 2020 14:50
--- NOTE | 2020-03-17 19:30 | NUR ---
returned page informed of ordered to d/c central line positive for ESBL in the blood tried to start IV no success okay for anesthesiologist to start IV dont pull central line till pt had IV access and also renew catheter order
--- NOTE | 2020-03-17 19:35 | NUR ---
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 mg for anesthesiologist to start IV
[2020-03-17] MEDS: FAMOTIDINE 20 MG TABLET. PO SCH (20:54)
[2020-03-17] MEDS ORDERED: hydrALAZINE 20 MG/ML VIAL. IVP PRN ×2 (23:45)
--- NOTE | 2020-03-17 23:45 | NUR ---
returned paged informed of pt elevated BP as follows 160/107 @ 1900,2100 BP150/96 p 70,2300 BP 173/110 p68 with order
[2020-03-18] VITALS (14 sets, daily range): BP systolic 121–162; BP diastolic 61–102
[2020-03-18] MEDS: methylPREDNISolone SOD SUCC PF 40 MG/ML VIAL. IV SCH ×5 (00:06→23:59)
[2020-03-18] MEDS: IV NORMAL SALINE 1000ML BAG 1,000 ML IV SCH ×4 (00:07→23:59)
[2020-03-18] MEDS: MEROPENEM 500 MG in IV NORMAL SALINE 50ML 50 ML IV SCH ×3 (05:41→21:48)
[2020-03-18] MEDS: HEPARIN for SUB-Q USE 5,000 UNIT/ML VIAL. SQ SCH ×3 (05:49→22:00)
[2020-03-18] MEDS ORDERED: LIDOCAINE 1% PF 2 ML VIAL. ID PRN (07:00)
[2020-03-18] MEDS ORDERED: IV RINGERS,LACTATED 1000ML 1,000 ML IV SCH ×2 (07:00→14:25)
--- NOTE | 2020-03-18 07:00 | NUR ---
returned paged informed Dr patient received 2 doses of heparin @ 9160 and @ 8449 with order to hold heparin
[2020-03-18] MEDS: MULTIVITAMIN with MINERAL TABLET. PO SCH (07:03)
[2020-03-18] MEDS: LACTOBACILLUS RHAMNOSUS GG 1 CAPSULE. PO SCH ×2 (07:03→21:47)
[2020-03-18] MEDS: INSULIN LISPRO 300 UNITS/3 ML VIAL. SQ SCH ×4 (07:07→21:00)
[2020-03-18 07:09] LABS: BASO % 0 % (0-3); EOS % 0 % (0-3); HEMATOCRIT 51.1 % (39.0-53.0); HEMOGLOBIN 16.5 g/dL (13.0-17.5); LYMPH # 0.8 x10^3/uL (1.0-4.8); LYMPH % 7 % (24-48); MEAN CORPUSCULAR HEMOGLOBIN 29 pg (25-35); MEAN CORPUSCULAR HGB CONC 32 g/dL (31-37); MEAN CORPUSCULAR VOLUME 90 fL (79-100); MONO # 0.4 x10^3/uL (0.0-1.1); MONO % 3 % (0-9); NEUT # 9.9 x10^3/uL (1.8-7.7); NEUT % 89 % (31-73); PLATELET COUNT 95 x10^3/uL (140-400); RED BLOOD COUNT 5.65 x10^6/uL (4.30-5.70); RED CELL DISTRIBUTION WIDTH 16.5 % (11.5-14.5); WHITE BLOOD COUNT 11.1 x10^3/uL (4.0-11.0)
[2020-03-18 07:21] LABS: CALCIUM 7.4 mg/dL (8.5-10.1); CREATININE 2.7 mg/dL (0.7-1.3); GFR 27.9
[2020-03-18 07:25] LABS: POTASSIUM 5.7 mmol/L (3.5-5.1)
--- NOTE | 2020-03-18 09:46 | NUR ---
SW following. Discussed with RN, pt having lap juan today. MATTHEW spoke with pt's sister, Yadira Connelly (ph: [phone]), she advised pt's gf at [facility] takes pt to the store and for errands, and a nurse comes 3x a week to check on pt. Yadira advised Karen Zepeda (ph: [phone]), knows all the information about whether it is home health or not. MATTHEW left voicemail for Karen, requesting a call back. MATTHEW will continue to follow.
--- NOTE | 2020-03-18 10:30 | PDOC ---
Infectious Disease Note Subjective Subjective Feeling some better Some nausea at times c/o some flank abdominal pain, bilaterally at times Decrease UO Denies V/D/fever/chills Vital Sign Vital Signs Vital Signs Date Time Temp Pulse Resp B/P (MAP) Pulse Ox O2 Delivery O2 Flow Rate FiO2 03/18/20 08:32 97.6 71 18 144/88 (106) 95 Room Air 97.6 Physical Exam PHYSICAL EXAM GENERAL: Propped up in bed, alert, in NAD HEENT: Oral mucosa moist. No thrush NECK: Supple. No JVD. LUNGS: Decreased breath sounds at the bases. No wheezing. HEART: S1, S2. No gallops or murmurs. Left sided chest wall PPM looks intact, clean. ABDOMEN: Soft, obese, tender flank areas, bilaterally. No rebound, no guarding. : Gates in place EXTREMITIES: Trace edema lower extremities, bilaterally. No cyanosis, no clubbing. NEUROLOGIC: Alert, oriented, generalized weakness. RIJ (03/12) without signs of complications Labs Lab Laboratory Tests Test 03/17/20 11:39 03/17/20 16:35 03/17/20 20:52 03/18/20 07:03 Glucose (Fingerstick) 232 mg/dL (70-99) 186 mg/dL (70-99) 220 mg/dL (70-99) 184 mg/dL (70-99) White Blood Count 11.1 x10^3/uL (4.0-11.0) Red Blood Count 5.65 x10^6/uL (4.30-5.70) Hemoglobin 16.5 g/dL (13.0-17.5) Hematocrit 51.1 % (39.0-53.0) Mean Corpuscular Volume 90 fL (79-100) Mean Corpuscular Hemoglobin 29 pg (25-35) Mean Corpuscular Hemoglobin Concent 32 g/dL (31-37) Red Cell Distribution Width 16.5 % (11.5-14.5) Platelet Count 95 x10^3/uL (140-400) Neutrophils (%) (Auto) 89 % (31-73) Lymphocytes (%) (Auto) 7 % (24-48) Monocytes (%) (Auto) 3 % (0-9) Eosinophils (%) (Auto) 0 % (0-3) Basophils (%) (Auto) 0 % (0-3) Neutrophils # (Auto) 9.9 x10^3/uL (1.8-7.7) Lymphocytes # (Auto) 0.8 x10^3/uL (1.0-4.8) Monocytes # (Auto) 0.4 x10^3/uL (0.0-1.1) Eosinophils # (Auto) 0.0 x10^3/uL (0.0-0.7) Basophils # (Auto) 0.0 x10^3/uL (0.0-0.2) Sodium Level 136 mmol/L (136-145) Potassium Level 5.7 mmol/L (3.5-5.1) Chloride Level 109 mmol/L (98-107) Carbon Dioxide Level 15 mmol/L (21-32) Anion Gap 12 (6-14) Blood Urea Nitrogen 69 mg/dL (8-26) Creatinine 2.7 mg/dL (0.7-1.3) Estimated GFR (Cockcroft-Gault) 27.9 Glucose Level 220 mg/dL (70-99) Calcium Level 7.4 mg/dL (8.5-10.1) Micro Microbiology 03/14/20 Blood Culture - Preliminary, Resulted 03/12/20 Urine Culture - Final, Complete Objective Assessment Septic shock from gram neg sepsis, improving. ESBL + E. coli. Leukocytosis with bandemia, in part steroids - better Lactic acidosis. Gram negative bacteremia source likely GI and/or . ESBL + E. coli. Repeat BC 03/14 + GNR 03/17 neg so far Urinary tract infection. LACTOBACILLUS SPECIES Acute kidney injury - Cr worsening Thrombocytopenia, likely sepsis. Encephalopathy, likely sepsis, improving. Acute cholecysitis Hyperbilirubinemia, abnormal LFTs, gallbladder distention on CT. HIDA scan noted. US neg Diabetes mellitus. 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 MI resident Plan Plan of Care Given + Blood cults from 03/14 - D/c IJ orderd but not done as difficult access so will be changed in surgery today Blood cults in am 03/17 cont Merrem, dose to be adjusted for renal function as needed, D//w pharmacy Probiotics Monitor lab values/temp f/u BC from 03/14 GNR ID still pending Maintain aspiration precautions Gen surg following. Lap juan planned Consult renal for NELLI Contact isolation for ESBL Discussed with nursing HERMILA MARTINES MD Mar 18, 2020 10:30
--- NOTE | 2020-03-18 11:24 | PDOC ---
DATE OF SERVICE DATE: 03/18/20 TIME: 11:21 SUBJECTIVE ROS Reports feeling frustrated as he doesnt know when is his surgery planned No other complaints OBJECTIVE Vital Signs Vital Signs Date Time Temp Pulse Resp B/P (MAP) Pulse Ox O2 Delivery O2 Flow Rate FiO2 03/18/20 08:32 97.6 71 18 144/88 (106) 95 Room Air 97.6 I & 0 Intake and Output 03/18/20 07:00 Intake Total 580 ml Output Total 750 ml Balance -170 ml Intake Oral 580 ml Output Urine Total 750 ml # Bowel Movements 1 PHYSICAL EXAM Physical Exam GENERAL: Propped up in bed, alert, in NAD. HEENT: Oral mucosa moist. NECK: Supple. LUNGS: Decreased breath sounds at the bases. Non labored HEART: S1, S2. No gallops or murmurs. ABDOMEN: Soft, obese, : Gates in place EXTREMITIES: Trace edema lower extremities, bilaterally. No cyanosis, no clubbing. NEUROLOGIC: Alert, oriented, generalized weakness. DIAGNOSIS/ASSESSMENT Assessment & Plan Acute renal failure - ATN 2/2 Septic shock Cr peaked at 2.9-->2.7 today , monitor At presentation 1.6, UOP improving , UA c/w UTI Baseline renal function unknown , CT abdomen- Unremarkable Kidneys and bladder, US- Rt Kidney unremarkable, Lt not evaluated Avoid Nephrotoxins, supportive care , I/O Diabetes mellitus Hypertension- stable Septic shock from gram neg sepsis, improving. Gram negative bacteremia source likely GI and/or Urinary tract infection Thrombocytopenia, likely sepsis. Encephalopathy, likely sepsis, improving. Acute cholecysitis Hyperbilirubinemia, abnormal LFTs, gallbladder distention on CT. HIDA scan done. 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 NM resident COMMENT/RELEVANT DATA Meds Current Medications Medications (Trade) Dose Ordered Sig/Uma Start Time Stop Time Status Last Admin Dose Admin Alteplase, Recombinant (Cathflo For Central Catheter Clearance) 1 mg 1X ONCE 03/17/20 06:00 03/17/20 06:01 DC 03/17/20 05:50 1 MG Azithromycin 250 ml @ 250 mls/hr 1X ONCE 03/12/20 17:00 03/12/20 17:59 DC 03/12/20 17:51 250 MLS/HR Bisacodyl (Dulcolax Supp) 10 mg PRN DAILY PRN 03/12/20 16:45 Calcium Gluconate (Calcium Gluconate) 1,000 mg 1X ONCE 03/12/20 17:00 03/12/20 17:01 DC 03/12/20 17:50 1,000 MG Cefepime HCl (Maxipime) 1 gm Q8HRS 03/12/20 22:00 03/13/20 08:46 DC 03/13/20 05:51 1 GM Ceftriaxone Sodium (Rocephin) 1 gm 1X ONCE 03/12/20 15:00 03/12/20 15:01 DC 03/12/20 16:41 1 GM Dextrose (Dextrose 50%-Water Syringe) 12.5 gm PRN Q15MIN PRN 03/13/20 00:30 Famotidine (Pepcid Vial) 20 mg DAILY 03/14/20 09:00 03/17/20 10:32 DC 03/17/20 08:30 20 MG Famotidine (Pepcid) 20 mg QHS 03/17/20 21:00 03/17/20 20:54 20 MG Heparin Sodium (Porcine) (Heparin Sodium) 5,000 unit Q8HRS 03/12/20 22:00 03/18/20 05:49 5,000 UNIT Hydralazine HCl (Apresoline Inj) 10 mg PRN Q4HRS PRN 03/17/20 23:45 03/18/20 00:06 10 MG Info (Icu Electrolyte Protocol) 1 ea CONT PRN PRN 03/12/20 17:00 03/12/20 17:06 DC Insulin Human Lispro (HumaLOG) 0-9 UNITS TIDACHC 03/16/20 21:00 03/17/20 21:42 3 UNITS Lactobacillus Rhamnosus (Culturelle) 1 cap BID 03/13/20 21:00 03/17/20 20:55 1 CAP Lidocaine HCl (Lidocaine 1% 20ml Vial) 20 ml 1X ONCE 03/12/20 15:30 03/12/20 15:31 DC 03/12/20 15:30 20 ML Lidocaine HCl (Xylocaine-Mpf 1% 2ml Vial) 2 ml PRN 1X PRN 03/18/20 07:00 03/19/20 06:59 Linezolid (Zyvox) 600 mg BID 03/13/20 09:00 03/13/20 21:11 DC 03/13/20 10:48 600 MG Linezolid/Dextrose 300 ml @ 300 mls/hr Q12HR 03/13/20 22:00 03/15/20 08:55 DC 03/15/20 08:37 300 MLS/HR Magnesium Sulfate 50 ml @ 25 mls/hr 1X ONCE 03/12/20 17:00 03/12/20 18:59 DC 03/12/20 17:51 25 MLS/HR Meropenem 500 mg/ Sodium Chloride 50 ml @ 100 mls/hr Q8HRS 03/14/20 22:00 03/18/20 05:41 100 MLS/HR Methylprednisolone Sodium Succinate (SOLU-Medrol 40MG VIAL) 40 mg Q6HRS 03/13/20 11:00 03/18/20 05:38 40 MG Morphine Sulfate (Morphine Sulfate) 4 mg 1X ONCE 03/14/20 09:15 03/14/20 09:16 DC 03/14/20 09:22 4 MG Multivitamins (Thera M Plus) 1 tab DAILY 03/13/20 10:30 03/17/20 08:30 1 TAB Norepinephrine Bitartrate 8 mg/ Dextrose 258 ml @ 21.285 mls/ hr CONT PRN 03/12/20 22:30 03/16/20 13:45 DC 03/13/20 18:01 27.671 MLS/HR Ondansetron HCl (Zofran) 4 mg PRN Q6HRS PRN 03/12/20 16:45 Perflutren Protein Type A Microsphe (Optison) 0.66 mg 1X ONCE 03/14/20 12:15 03/14/20 12:21 DC Potassium Chloride/Water 100 ml @ 100 mls/hr Q1H 03/12/20 16:45 03/12/20 17:00 DC Prochlorperazine (Compazine) 25 mg PRN Q12HR PRN 03/12/20 16:45 Ringer's Solution 1,000 ml @ 30 mls/hr Q24H 03/18/20 07:00 03/18/20 18:59 Sodium Chloride 1,000 ml @ 100 mls/hr Q10H 03/12/20 16:33 03/18/20 00:07 100 MLS/HR Sodium Chloride (NORMAL SALINE FLUSH for STERILE FIELD) 10 ml STK-MED ONCE 03/12/20 15:24 03/12/20 15:24 DC Sodium Chloride (Normal Saline Flush) 3 ml QSHIFT PRN 03/12/20 16:45 Sodium Phosphate 15 mmol/Sodium Chloride 255 ml @ 62.5 mls/hr 1X ONCE 03/12/20 16:45 03/12/20 17:00 DC Sodium Phosphate 30 mmol/Sodium Chloride 260 ml @ 62.5 mls/hr 1X ONCE 03/12/20 16:45 03/12/20 17:00 DC Vancomycin HCl (Vanco Per Pharmacy) 1 each PRN DAILY PRN 03/12/20 16:45 03/13/20 08:46 DC 03/12/20 18:45 1 EACH Vancomycin HCl (Vancomycin Trough Level) 1 each 1X ONCE 03/14/20 17:30 03/14/20 17:31 Cancel Vancomycin HCl 1.5 gm/Sodium Chloride 500 ml @ 250 mls/hr Q24H 03/13/20 18:00 03/13/20 08:48 DC Vancomycin HCl 2 gm/Sodium Chloride 500 ml @ 250 mls/hr 1X ONCE 03/12/20 18:00 03/12/20 19:59 DC 03/12/20 17:53 250 MLS/HR Lab Laboratory Tests Test 03/17/20 11:39 03/17/20 16:35 03/17/20 20:52 03/18/20 07:03 Glucose (Fingerstick) 232 mg/dL (70-99) 186 mg/dL (70-99) 220 mg/dL (70-99) 184 mg/dL (70-99) White Blood Count 11.1 x10^3/uL (4.0-11.0) Red Blood Count 5.65 x10^6/uL (4.30-5.70) Hemoglobin 16.5 g/dL (13.0-17.5) Hematocrit 51.1 % (39.0-53.0) Mean Corpuscular Volume 90 fL (79-100) Mean Corpuscular Hemoglobin 29 pg (25-35) Mean Corpuscular Hemoglobin Concent 32 g/dL (31-37) Red Cell Distribution Width 16.5 % (11.5-14.5) Platelet Count 95 x10^3/uL (140-400) Neutrophils (%) (Auto) 89 % (31-73) Lymphocytes (%) (Auto) 7 % (24-48) Monocytes (%) (Auto) 3 % (0-9) Eosinophils (%) (Auto) 0 % (0-3) Basophils (%) (Auto) 0 % (0-3) Neutrophils # (Auto) 9.9 x10^3/uL (1.8-7.7) Lymphocytes # (Auto) 0.8 x10^3/uL (1.0-4.8) Monocytes # (Auto) 0.4 x10^3/uL (0.0-1.1) Eosinophils # (Auto) 0.0 x10^3/uL (0.0-0.7) Basophils # (Auto) 0.0 x10^3/uL (0.0-0.2) Sodium Level 136 mmol/L (136-145) Potassium Level 5.7 mmol/L (3.5-5.1) Chloride Level 109 mmol/L (98-107) Carbon Dioxide Level 15 mmol/L (21-32) Anion Gap 12 (6-14) Blood Urea Nitrogen 69 mg/dL (8-26) Creatinine 2.7 mg/dL (0.7-1.3) Estimated GFR (Cockcroft-Gault) 27.9 Glucose Level 220 mg/dL (70-99) Calcium Level 7.4 mg/dL (8.5-10.1) Results All relevant outside records, renal labs, imaging studies, telemetry/EKG's were reviewed. Justicifation of Admission Dx: Justifications for Admission: Justification of Admission Dx: Yes CHF: Cardiac Arrhythmias Comminuty Aquired Pneumonia: Bactermia Chronic Renal Failure: Encephalopathy Sepsis: Altered Mental Status SANGEETA AGUIRRE MD Mar 18, 2020 11:24
--- NOTE | 2020-03-18 12:51 | PDOC ---
Date of Service: DATE: 03/18/20 TIME: 12:48 Subjective: Subjective: Abdomen a little sore on the sides, asks about surgery. Objective: Vital Signs: Vital Signs Date Time Temp Pulse Resp B/P (MAP) Pulse Ox O2 Delivery O2 Flow Rate FiO2 03/18/20 11:00 97.7 70 18 153/87 (109) 99 Room Air 97.7 Labs: Laboratory Tests Test 03/17/20 16:35 03/17/20 20:52 03/18/20 07:03 03/18/20 12:12 Glucose (Fingerstick) 186 mg/dL 220 mg/dL 184 mg/dL 220 mg/dL White Blood Count 11.1 x10^3/uL Red Blood Count 5.65 x10^6/uL Hemoglobin 16.5 g/dL Hematocrit 51.1 % Mean Corpuscular Volume 90 fL Mean Corpuscular Hemoglobin 29 pg Mean Corpuscular Hemoglobin Concent 32 g/dL Red Cell Distribution Width 16.5 % Platelet Count 95 x10^3/uL Neutrophils (%) (Auto) 89 % Lymphocytes (%) (Auto) 7 % Monocytes (%) (Auto) 3 % Eosinophils (%) (Auto) 0 % Basophils (%) (Auto) 0 % Neutrophils # (Auto) 9.9 x10^3/uL Lymphocytes # (Auto) 0.8 x10^3/uL Monocytes # (Auto) 0.4 x10^3/uL Eosinophils # (Auto) 0.0 x10^3/uL Basophils # (Auto) 0.0 x10^3/uL Sodium Level 136 mmol/L Potassium Level 5.7 mmol/L Chloride Level 109 mmol/L Carbon Dioxide Level 15 mmol/L Anion Gap 12 Blood Urea Nitrogen 69 mg/dL Creatinine 2.7 mg/dL Estimated GFR (Cockcroft-Gault) 27.9 Glucose Level 220 mg/dL Calcium Level 7.4 mg/dL Procedure Result BLOOD CULTURE LC Final Final GRAM NEGATIVE RODS FINAL ID= [ESCHERICHIA COLI ESBL] ESCHERICHIA COLI ESBL ANTIMICROBIAL SUSCEPTIBILITY Final Comment NEG JARET 56 ESCHERICHIA COLI ESBL ANTIBIOTIC RESULT INTERPRETATION AMPICILLIN/SULBACTAM 8/4 S AMIKACIN <=16 S AMPICILLIN >16 R* AMOXICILLIN/K CLAVULANATE <=8/4 S AZTREONAM >16 ESBL CEFTRIAXONE >32 ESBL CEFTAZIDIME >16 ESBL CEFOTAXIME-ESBL >1 ESBL CEFOTAXIME >32 ESBL CEFOXITIN <=8 S CIPROFLOXACIN >2 R CEFEPIME >16 R* CEFUROXIME >16 R* CEFTAZIDIME/AVIBACTAM <=4 S ERTAPENEM <=0.5 S GENTAMICIN <=2 S LEVOFLOXACIN >4 R MEROPENEM <=1 S PIPERACILLIN/TAZOBACTAM <=8 S TRIMETHOPRIM/SULFAMETHOXAZOLE >2/38 R TETRACYCLINE >8 R TOBRAMYCIN <=2 S Unless otherwise specified, Testing Performed by: [address] [address] For Inquires, the Physician may contact the Microbiology department at [phone] PE: GEN: NAD LUNGS: CTAB HEART: RRR ABD: soft, not particularly tender NEURO/PSYCH: A & O 3 A/P: Abd pain, abnormal HIDA E coli bacteremia, Lactobacillus UTI Thrombocytopenia, elevated LFTs (better), NELLI/CKD COVID negative -- Cholecystectomy today? Will follow. Justicifation of Admission Dx: Justifications for Admission: Justification of Admission Dx: Yes CHF: Cardiac Arrhythmias Comminuty Aquired Pneumonia: Bactermia Chronic Renal Failure: Encephalopathy Sepsis: Altered Mental Status LEONEL TYSON Mar 18, 2020 12:51
[2020-03-18] MEDS: MORPHINE SULFATE 2 MG/ML VIAL. IV PRN ×2 (13:01→17:54)
[2020-03-18] MEDS ORDERED: PROPOFOL 10 MG/ML (20ML) VIAL. IV ONE (13:58)
[2020-03-18] MEDS ORDERED: ROCURONIUM 50 MG/5 ML VIAL. ONE (13:58)
[2020-03-18] MEDS ORDERED: fentaNYL PF VIAL 100 MCG/2 ML VIAL ONE ×2 (13:58→17:15)
[2020-03-18] MEDS ORDERED: LIDOCAINE 2% PF 5 ML VIAL. ONE (13:58)
[2020-03-18] MEDS ORDERED: SUCCINYLCHOLINE 200 MG/10 ML VIAL. ONE (13:58)
[2020-03-18] MEDS ORDERED: GLYCOPYRROLATE 1 MG/5 ML VIAL. ONE ×2 (14:03→15:34)
[2020-03-18] MEDS ORDERED: NEOSTIGMINE METHYLSULFATE 5 MG/5 ML SYRINGE. ONE ×2 (14:03→15:34)
[2020-03-18] MEDS ORDERED: ONDANSETRON PF 4 MG/2 ML VIAL. ONE (14:03)
[2020-03-18] MEDS ORDERED: HYDROmorphone 2 MG/ML VIAL IV PRN (14:30)
[2020-03-18] MEDS ORDERED: ONDANSETRON PF 4 MG/2 ML VIAL. IV PRN (14:30)
[2020-03-18] MEDS ORDERED: MORPHINE SULFATE 2 MG/ML VIAL. IV PRN (14:30)
[2020-03-18] MEDS ORDERED: fentaNYL PF VIAL 100 MCG/2 ML VIAL IV PRN ×2 (14:30)
[2020-03-18] MEDS ORDERED: PROCHLORPERAZINE 10 MG/2 ML VIAL. IV PRN (14:30)
[2020-03-18] MEDS ORDERED: INSULIN LISPRO 100 UNIT/ML 3ML VIAL for OP,RR ONLY. SQ PRN (14:30)
[2020-03-18] MEDS ORDERED: BUPIVACAINE-EPI 0.25%-1:200000 MPF 30 ML VIAL. ONE (14:38)
[2020-03-18] MEDS ORDERED: SURGICEL HEMOSTAT 4X8 EACH. ONE (14:38)
[2020-03-18] MEDS ORDERED: DEXAMETHASONE SOD PHOS 4 MG/ML VIAL ONE (15:23)
--- NOTE | 2020-03-18 16:17 | PDOC ---
PROGRESS NOTES Date of Service: DATE: 03/18/20 TIME: 16:09 Chief Complaint Chief Complaint Acute hypoxic respiratory failure secondary to septic shock, improving, out of ICU yesterday, Sepsis, and Septic shock secondary to urinary tract infection w/ ESBL + E. coli. and lactobacillus Diabetes mellitus 2 acute or chronic systolic CHF, EF 35 %, discussed with Dr. Merchant, echo read today acute renal failure on CKD 2, Severe protein-calorie malnutrition. HIDA showed cholecystitis, , gen surg following, may need juan surgery, above problems need to be addressed in short term History of Present Illness History of Present Illness Patient still with some abdominal pain. He is anxious for surgery today. He denies any fever, or vomiting. Vitals Vitals Vital Signs Date Time Temp Pulse Resp B/P (MAP) Pulse Ox O2 Delivery O2 Flow Rate FiO2 03/18/20 13:59 97.7 72 15 173/96 96 Room Air 97.7 Physical Exam Physical Exam GENERAL: Alert, in NAD HEENT: Oral mucosa moist. No thrush NECK: Supple. No JVD. LUNGS: Decreased breath sounds at the bases. No wheezing. HEART: S1, S2. No gallops or murmurs. Left sided chest wall PPM looks intact, clean. ABDOMEN: Soft, obese, tender flank areas, bilaterally. No rebound, no guarding. : Gates in place EXTREMITIES: Trace edema lower extremities, bilaterally. No cyanosis, no clubbing. NEUROLOGIC: Alert, oriented, generalized weakness. RIJ (03/12) without signs of complications General: Cooperative, No acute distress Heart: Regular rate, Normal S1, Normal S2 Lungs: Clear Abdomen: Soft, Other (mild ttp upper abdomen, obese abdomen ) Extremities: No clubbing, No cyanosis Skin: No rashes, No breakdown Labs LABS Laboratory Tests Test 03/17/20 16:35 03/17/20 20:52 03/18/20 07:03 03/18/20 12:12 Glucose (Fingerstick) 186 mg/dL (70-99) 220 mg/dL (70-99) 184 mg/dL (70-99) 220 mg/dL (70-99) White Blood Count 11.1 x10^3/uL (4.0-11.0) Red Blood Count 5.65 x10^6/uL (4.30-5.70) Hemoglobin 16.5 g/dL (13.0-17.5) Hematocrit 51.1 % (39.0-53.0) Mean Corpuscular Volume 90 fL (79-100) Mean Corpuscular Hemoglobin 29 pg (25-35) Mean Corpuscular Hemoglobin Concent 32 g/dL (31-37) Red Cell Distribution Width 16.5 % (11.5-14.5) Platelet Count 95 x10^3/uL (140-400) Neutrophils (%) (Auto) 89 % (31-73) Lymphocytes (%) (Auto) 7 % (24-48) Monocytes (%) (Auto) 3 % (0-9) Eosinophils (%) (Auto) 0 % (0-3) Basophils (%) (Auto) 0 % (0-3) Neutrophils # (Auto) 9.9 x10^3/uL (1.8-7.7) Lymphocytes # (Auto) 0.8 x10^3/uL (1.0-4.8) Monocytes # (Auto) 0.4 x10^3/uL (0.0-1.1) Eosinophils # (Auto) 0.0 x10^3/uL (0.0-0.7) Basophils # (Auto) 0.0 x10^3/uL (0.0-0.2) Sodium Level 136 mmol/L (136-145) Potassium Level 5.7 mmol/L (3.5-5.1) Chloride Level 109 mmol/L (98-107) Carbon Dioxide Level 15 mmol/L (21-32) Anion Gap 12 (6-14) Blood Urea Nitrogen 69 mg/dL (8-26) Creatinine 2.7 mg/dL (0.7-1.3) Estimated GFR (Cockcroft-Gault) 27.9 Glucose Level 220 mg/dL (70-99) Calcium Level 7.4 mg/dL (8.5-10.1) Test 03/18/20 14:21 Glucose (Fingerstick) 211 mg/dL (70-99) Review of Systems Review of Systems Abdominal pain. Denies vomiting. Denies fever. All other systems negative. Assessment and Plan Assessmemt and Plan Problems Medical Problems: (1) AMS (altered mental status) Status: Acute (2) Hypocalcemia Status: Acute (3) Hypokalemia Status: Acute (4) Septic shock Status: Acute (5) Abnormal HIDA concerning for cholecystitis Status: Acute (6) Suspected 2019 novel coronavirus infection Status: Acute Plan: Cholecystectomy today Comment Review of Relevant I have reviewed the following items thee (where applicable) has been applied. Labs Laboratory Tests Test 03/16/20 16:44 03/16/20 20:34 03/17/20 07:17 03/17/20 07:27 Glucose (Fingerstick) 211 mg/dL (70-99) 181 mg/dL (70-99) 202 mg/dL (70-99) White Blood Count 13.1 x10^3/uL (4.0-11.0) Red Blood Count 4.93 x10^6/uL (4.30-5.70) Hemoglobin 14.5 g/dL (13.0-17.5) Hematocrit 43.6 % (39.0-53.0) Mean Corpuscular Volume 88 fL (79-100) Mean Corpuscular Hemoglobin 30 pg (25-35) Mean Corpuscular Hemoglobin Concent 33 g/dL (31-37) Red Cell Distribution Width 16.1 % (11.5-14.5) Platelet Count 97 x10^3/uL (140-400) Neutrophils (%) (Auto) 92 % (31-73) Lymphocytes (%) (Auto) 5 % (24-48) Monocytes (%) (Auto) 2 % (0-9) Eosinophils (%) (Auto) 0 % (0-3) Basophils (%) (Auto) 0 % (0-3) Neutrophils # (Auto) 12.1 x10^3/uL (1.8-7.7) Lymphocytes # (Auto) 0.7 x10^3/uL (1.0-4.8) Monocytes # (Auto) 0.3 x10^3/uL (0.0-1.1) Eosinophils # (Auto) 0.0 x10^3/uL (0.0-0.7) Basophils # (Auto) 0.0 x10^3/uL (0.0-0.2) Sodium Level 137 mmol/L (136-145) Potassium Level 5.0 mmol/L (3.5-5.1) Chloride Level 108 mmol/L (98-107) Carbon Dioxide Level 17 mmol/L (21-32) Anion Gap 12 (6-14) Blood Urea Nitrogen 64 mg/dL (8-26) Creatinine 2.8 mg/dL (0.7-1.3) Estimated GFR (Cockcroft-Gault) 26.8 BUN/Creatinine Ratio 23 (6-20) Glucose Level 222 mg/dL (70-99) Calcium Level 7.0 mg/dL (8.5-10.1) Total Bilirubin 1.3 mg/dL (0.2-1.0) Aspartate Amino Transf (AST/SGOT) 36 U/L (15-37) Alanine Aminotransferase (ALT/SGPT) 106 U/L (16-63) Alkaline Phosphatase 281 U/L (46-116) Total Protein 5.5 g/dL (6.4-8.2) Albumin 1.7 g/dL (3.4-5.0) Albumin/Globulin Ratio 0.4 (1.0-1.7) Test 03/17/20 11:39 03/17/20 16:35 03/17/20 20:52 03/18/20 07:03 Glucose (Fingerstick) 232 mg/dL (70-99) 186 mg/dL (70-99) 220 mg/dL (70-99) 184 mg/dL (70-99) White Blood Count 11.1 x10^3/uL (4.0-11.0) Red Blood Count 5.65 x10^6/uL (4.30-5.70) Hemoglobin 16.5 g/dL (13.0-17.5) Hematocrit 51.1 % (39.0-53.0) Mean Corpuscular Volume 90 fL (79-100) Mean Corpuscular Hemoglobin 29 pg (25-35) Mean Corpuscular Hemoglobin Concent 32 g/dL (31-37) Red Cell Distribution Width 16.5 % (11.5-14.5) Platelet Count 95 x10^3/uL (140-400) Neutrophils (%) (Auto) 89 % (31-73) Lymphocytes (%) (Auto) 7 % (24-48) Monocytes (%) (Auto) 3 % (0-9) Eosinophils (%) (Auto) 0 % (0-3) Basophils (%) (Auto) 0 % (0-3) Neutrophils # (Auto) 9.9 x10^3/uL (1.8-7.7) Lymphocytes # (Auto) 0.8 x10^3/uL (1.0-4.8) Monocytes # (Auto) 0.4 x10^3/uL (0.0-1.1) Eosinophils # (Auto) 0.0 x10^3/uL (0.0-0.7) Basophils # (Auto) 0.0 x10^3/uL (0.0-0.2) Sodium Level 136 mmol/L (136-145) Potassium Level 5.7 mmol/L (3.5-5.1) Chloride Level 109 mmol/L (98-107) Carbon Dioxide Level 15 mmol/L (21-32) Anion Gap 12 (6-14) Blood Urea Nitrogen 69 mg/dL (8-26) Creatinine 2.7 mg/dL (0.7-1.3) Estimated GFR (Cockcroft-Gault) 27.9 Glucose Level 220 mg/dL (70-99) Calcium Level 7.4 mg/dL (8.5-10.1) Test 03/18/20 12:12 03/18/20 14:21 Glucose (Fingerstick) 220 mg/dL (70-99) 211 mg/dL (70-99) Laboratory Tests Test 03/17/20 16:35 03/17/20 20:52 03/18/20 07:03 03/18/20 12:12 Glucose (Fingerstick) 186 mg/dL (70-99) 220 mg/dL (70-99) 184 mg/dL (70-99) 220 mg/dL (70-99) White Blood Count 11.1 x10^3/uL (4.0-11.0) Red Blood Count 5.65 x10^6/uL (4.30-5.70) Hemoglobin 16.5 g/dL (13.0-17.5) Hematocrit 51.1 % (39.0-53.0) Mean Corpuscular Volume 90 fL (79-100) Mean Corpuscular Hemoglobin 29 pg (25-35) Mean Corpuscular Hemoglobin Concent 32 g/dL (31-37) Red Cell Distribution Width 16.5 % (11.5-14.5) Platelet Count 95 x10^3/uL (140-400) Neutrophils (%) (Auto) 89 % (31-73) Lymphocytes (%) (Auto) 7 % (24-48) Monocytes (%) (Auto) 3 % (0-9) Eosinophils (%) (Auto) 0 % (0-3) Basophils (%) (Auto) 0 % (0-3) Neutrophils # (Auto) 9.9 x10^3/uL (1.8-7.7) Lymphocytes # (Auto) 0.8 x10^3/uL (1.0-4.8) Monocytes # (Auto) 0.4 x10^3/uL (0.0-1.1) Eosinophils # (Auto) 0.0 x10^3/uL (0.0-0.7) Basophils # (Auto) 0.0 x10^3/uL (0.0-0.2) Sodium Level 136 mmol/L (136-145) Potassium Level 5.7 mmol/L (3.5-5.1) Chloride Level 109 mmol/L (98-107) Carbon Dioxide Level 15 mmol/L (21-32) Anion Gap 12 (6-14) Blood Urea Nitrogen 69 mg/dL (8-26) Creatinine 2.7 mg/dL (0.7-1.3) Estimated GFR (Cockcroft-Gault) 27.9 Glucose Level 220 mg/dL (70-99) Calcium Level 7.4 mg/dL (8.5-10.1) Test 03/18/20 14:21 Glucose (Fingerstick) 211 mg/dL (70-99) Microbiology 03/17/20 Blood Culture - Preliminary, Resulted NO GROWTH AFTER 1 DAY 03/12/20 Urine Culture - Final, Complete Medications Current Medications Sodium Chloride 1,000 ml @ 1,000 mls/hr 1X ONCE IV Last administered on 03/12/20at 14:00; Start 03/12/20 at 14:30; Stop 03/12/20 at 15:29; Status DC Sodium Chloride 1,000 ml @ 1,000 mls/hr 1X ONCE IV Last administered on 03/12/20at 14:05; Start 03/12/20 at 14:30; Stop 03/12/20 at 15:29; Status DC Ceftriaxone Sodium (Rocephin) 1 gm 1X ONCE IVP Last administered on 03/12/20at 16:41; Start 03/12/20 at 15:00; Stop 03/12/20 at 15:01; Status DC Sodium Chloride 1,000 ml @ 1,000 mls/hr 1X ONCE IV Last administered on 03/12/20at 16:38; Start 03/12/20 at 15:30; Stop 03/12/20 at 16:29; Status DC Sodium Chloride 1,000 ml @ 1,000 mls/hr 1X ONCE IV Last administered on 03/12/20at 16:39; Start 03/12/20 at 15:30; Stop 03/12/20 at 16:29; Status DC Sodium Chloride (NORMAL SALINE FLUSH for STERILE FIELD) 10 ml STK-MED ONCE .ROUTE ; Start 03/12/20 at 15:24; Stop 03/12/20 at 15:24; Status DC Lidocaine HCl (Lidocaine 1% 20ml Vial) 20 ml 1X ONCE INJ Last administered on 03/12/20at 15:30; Start 03/12/20 at 15:30; Stop 03/12/20 at 15:31; Status DC Norepinephrine Bitartrate 8 mg/ Dextrose 258 ml @ 21.285 mls/ hr 1X ONCE IV Last administered on 03/12/20at 16:28; Start 03/12/20 at 16:15; Stop 03/13/20 at 04:22; Status DC Calcium Gluconate (Calcium Gluconate) 1,000 mg 1X ONCE IVP Last administered on 03/12/20at 17:50; Start 03/12/20 at 17:00; Stop 03/12/20 at 17:01; Status DC Ondansetron HCl (Zofran) 4 mg PRN Q8HRS PRN IV NAUSEA/VOMITING Last administered on 03/13/20at 02:56; Start 03/12/20 at 16:30; Stop 03/13/20 at 16:29; Status DC Sodium Chloride 1,000 ml @ 75 mls/hr [id number] IV ; Start 03/12/20 at 16:28; Stop 03/12/20 at 22:33; Status DC Azithromycin 250 ml @ 250 mls/hr 1X ONCE IV Last administered on 03/12/20at 17:51; Start 03/12/20 at 17:00; Stop 03/12/20 at 17:59; Status DC Ondansetron HCl (Zofran) 4 mg PRN Q6HRS PRN IVP NAUSEA/VOMITING; Start 03/12/20 at 16:45 Prochlorperazine (Compazine) 25 mg PRN Q12HR PRN [place] NAUSEA/VOMITING; Start 03/12/20 at 16:45 Famotidine (Pepcid Vial) 20 mg BID IVP Last administered on 03/12/20at 22:49; Start 03/12/20 at 21:00; Stop 03/13/20 at 09:34; Status DC Info ([facility] Electrolyte Protocol) 1 ea DAILY MC ; Start 03/13/20 at 09:00; Stop 03/16/20 at 07:29; Status DC Heparin Sodium (Porcine) (Heparin Sodium) 5,000 unit Q8HRS SQ Last administered on 03/18/20at 05:49; Start 03/12/20 at 22:00 Sodium Chloride (Normal Saline Flush) 3 ml QSHIFT PRN IV AFTER MEDS AND BLOOD DRAWS; Start 03/12/20 at 16:45 Sodium Chloride 1,000 ml @ 1,000 mls/hr Q1H IV ; Start 03/12/20 at 16:33; Stop 03/12/20 at 17:32; Status DC Sodium Chloride 1,000 ml @ 100 mls/hr Q10H IV Last administered on 03/18/20at 00:07; Start 03/12/20 at 16:33 Bisacodyl (Dulcolax Supp) 10 mg PRN DAILY PRN [place] CONSTIPATION; Start 03/12/20 at 16:45 Cefepime HCl (Maxipime) 1 gm Q8HRS IVP Last administered on 03/13/20at 05:51; Start 03/12/20 at 22:00; Stop 03/13/20 at 08:46; Status DC Vancomycin HCl (Vanco Per Pharmacy) 1 each PRN DAILY PRN MC SEE COMMENTS Last administered on 03/12/20at 18:45; Start 03/12/20 at 16:45; Stop 03/13/20 at 08:46; Status DC Potassium Chloride/Water 100 ml @ 100 mls/hr Q1H IV Last administered on 03/12/20at 22:51; Start 03/12/20 at 19:00; Stop 03/12/20 at 22:59; Status DC Potassium Chloride/Water 100 ml @ 100 mls/hr Q1H IV ; Start 03/12/20 at 16:45; Stop 03/12/20 at 17:00; Status DC Potassium Chloride/Water 100 ml @ 100 mls/hr Q1H IV ; Start 03/12/20 at 16:45; Stop 03/12/20 at 17:00; Status DC Magnesium Sulfate 100 ml @ 50 mls/hr DAILY IV ; Start 03/13/20 at 09:00; Stop 03/12/20 at 17:00; Status DC Sodium Phosphate 15 mmol/Sodium Chloride 255 ml @ 62.5 mls/hr 1X ONCE IV ; Start 03/12/20 at 16:45; Stop 03/12/20 at 17:00; Status DC Sodium Phosphate 30 mmol/Sodium Chloride 260 ml @ 62.5 mls/hr 1X ONCE IV ; Start 03/12/20 at 16:45; Stop 03/12/20 at 17:00; Status DC Insulin Human Lispro (HumaLOG) 0-7 UNITS TIDWMEALS SQ ; Start 03/12/20 at 17:00; Stop 03/12/20 at 22:33; Status DC Dextrose (Dextrose 50%-Water Syringe) 12.5 gm PRN Q15MIN PRN IV SEE COMMENTS; Start 03/12/20 at 16:45; Stop 03/12/20 at 22:33; Status DC Info ([facility] Electrolyte Protocol) 1 ea CONT PRN PRN MC SEE COMMENTS; Start 03/12/20 at 17:00; Stop 03/12/20 at 17:06; Status DC Magnesium Sulfate 50 ml @ 25 mls/hr 1X ONCE IV Last administered on 03/12/20at 17:51; Start 03/12/20 at 17:00; Stop 03/12/20 at 18:59; Status DC Vancomycin HCl 2 gm/Sodium Chloride 500 ml @ 250 mls/hr 1X ONCE IV Last administered on 03/12/20at 17:53; Start 03/12/20 at 18:00; Stop 03/12/20 at 19:59; Status DC Vancomycin HCl 1.5 gm/Sodium Chloride 500 ml @ 250 mls/hr Q24H IV ; Start 03/13/20 at 18:00; Stop 03/13/20 at 08:48; Status DC Vancomycin HCl (Vancomycin Trough Level) 1 each 1X ONCE MC ; Start 03/14/20 at 17:30; Stop 03/14/20 at 17:31; Status Cancel Norepinephrine Bitartrate 8 mg/ Dextrose 258 ml @ 21.285 mls/ hr CONT PRN IV PER PROTOCOL Last administered on 03/13/20at 18:01; Start 03/12/20 at 22:30; Stop 03/16/20 at 13:45; Status DC Insulin Human Lispro (HumaLOG) 0-7 UNITS TIDWMEALS SQ ; Start 03/13/20 at 08:00; Stop 03/13/20 at 00:30; Status DC Dextrose (Dextrose 50%-Water Syringe) 12.5 gm PRN Q15MIN PRN IV SEE COMMENTS; Start 03/12/20 at 22:30; Stop 03/13/20 at 00:30; Status DC Insulin Human Lispro (HumaLOG) 0-9 UNITS Q4HRS SQ Last administered on 03/16/20at 18:56; Start 03/13/20 at 04:00; Stop 03/16/20 at 19:15; Status DC Dextrose (Dextrose 50%-Water Syringe) 12.5 gm PRN Q15MIN PRN IV SEE COMMENTS; Start 03/13/20 at 00:30 Meropenem 500 mg/ Sodium Chloride 50 ml @ 100 mls/hr Q6H IV ; Start 03/13/20 at 08:45; Stop 03/13/20 at 08:53; Status DC Linezolid (Zyvox) 600 mg BID PO Last administered on 03/13/20at 10:48; Start 03/13/20 at 09:00; Stop 03/13/20 at 21:11; Status DC Meropenem 500 mg/ Sodium Chloride 50 ml @ 100 mls/hr Q6HRS IV Last administered on 03/14/20at 13:02; Start 03/13/20 at 09:00; Stop 03/14/20 at 15:30; Status DC Famotidine (Pepcid Vial) 20 mg DAILY IVP Last administered on 03/17/20at 08:30; Start 03/14/20 at 09:00; Stop 03/17/20 at 10:32; Status DC Multivitamins (Thera M Plus) 1 tab DAILY PO Last administered on 03/17/20 08:30; Start 03/13/20 at 10:30 Methylprednisolone Sodium Succinate (SOLU-Medrol 40MG VIAL) 40 mg Q6HRS IV Last administered on 03/18/20at 13:00; Start 03/13/20 at 11:00 Morphine Sulfate (Morphine Sulfate) 2 mg PRN Q2HR PRN IV PAIN Last administered on 03/18/20at 13:01; Start 03/13/20 at 11:00 Insulin Human Lispro (HumaLOG) 30 units 1X STAT SQ Last administered on 03/13/20at 13:39; Start 03/13/20 at 13:39; Stop 03/13/20 at 13:49; Status DC Lactobacillus Rhamnosus (Culturelle) 1 cap BID PO Last administered on 03/17/20at 20:55; Start 03/13/20 at 21:00 Linezolid/Dextrose 300 ml @ 300 mls/hr Q12HR IV Last administered on 03/15/20at 08:37; Start 03/13/20 at 22:00; Stop 03/15/20 at 08:55; Status DC Morphine Sulfate (Morphine Sulfate) 4 mg 1X ONCE IV Last administered on 03/14/20at 09:22; Start 03/14/20 at 09:15; Stop 03/14/20 at 09:16; Status DC Perflutren Protein Type A Microsphe (Optison) 0.66 mg 1X ONCE IV ; Start 03/14/20 at 12:15; Stop 03/14/20 at 12:21; Status DC Meropenem 500 mg/ Sodium Chloride 50 ml @ 100 mls/hr Q8HRS IV Last administered on 03/18/20at 13:00; Start 03/14/20 at 22:00 Insulin Human Lispro (HumaLOG) 0-9 UNITS TIDACHC SQ Last administered on 03/18/20at 13:10; Start 03/16/20 at 21:00 Alteplase, Recombinant (Cathflo For Central Catheter Clearance) 1 mg 1X ONCE INT CAT Last administered on 03/17/20at 05:50; Start 03/17/20 at 06:00; Stop 03/17/20 at 06:01; Status DC Famotidine (Pepcid) 20 mg QHS PO Last administered on 03/17/20at 20:54; Start 03/17/20 at 21:00 Ringer's Solution 1,000 ml @ 30 mls/hr Q24H IV ; Start 03/18/20 at 07:00; Stop 03/18/20 at 18:59 Lidocaine HCl (Xylocaine-Mpf 1% 2ml Vial) 2 ml PRN 1X PRN ID PRIOR TO IV START; Start 03/18/20 at 07:00; Stop 03/19/20 at 06:59 Hydralazine HCl (Apresoline Inj) 10 mg PRN Q4HRS PRN IVP ELEVATED BP, SEE COMMENTS; Start 03/17/20 at 23:45; Stop 03/17/20 at 23:49; Status DC Hydralazine HCl (Apresoline Inj) 10 mg PRN Q4HRS PRN IVP ELEVATED BP, SEE COMMENTS Last administered on 03/18/20at 00:06; Start 03/17/20 at 23:45 Propofol (Diprivan) 200 mg STK-MED ONCE IV ; Start 03/18/20 at 13:58; Stop 03/18/20 at 13:59; Status DC Lidocaine HCl (Lidocaine Pf 2% Vial) 5 ml STK-MED ONCE .ROUTE ; Start 03/18/20 at 13:58; Stop 03/18/20 at 13:59; Status DC Succinylcholine Chloride (Anectine) 200 mg STK-MED ONCE .ROUTE ; Start 03/18/20 at 13:58; Stop 03/18/20 at 13:59; Status DC Rocuronium [place] (Zemuron) 50 mg STK-MED ONCE .ROUTE ; Start 03/18/20 at 13:58; Stop 03/18/20 at 13:59; Status DC Fentanyl Citrate (Fentanyl 2ml Vial) 100 mcg STK-MED ONCE .ROUTE ; Start 03/18/20 at 13:58; Stop 03/18/20 at 13:59; Status DC Neostigmine [place] (Neostigmine Methylsulfate) 5 mg STK-MED ONCE .ROUTE ; Start 03/18/20 at 14:03; Stop 03/18/20 at 14:04; Status DC Glycopyrrolate (Robinul) 1 mg STK-MED ONCE .ROUTE ; Start 03/18/20 at 14:03; Stop 8/18/20 at 14:04; Status DC Ondansetron HCl (Zofran) 4 mg STK-MED ONCE .ROUTE ; Start 03/18/20 at 14:03; Stop 03/18/20 at 14:04; Status DC Ondansetron HCl (Zofran) 4 mg PRN Q6HRS PRN IV NAUSEA/VOMITING; Start 03/18/20 at 14:30; Stop 03/19/20 at 14:29 Fentanyl Citrate (Fentanyl 2ml Vial) 25 mcg PRN Q5MIN PRN IV MILD PAIN 1-3; Start 03/18/20 at 14:30; Stop 03/19/20 at 14:29 Fentanyl Citrate (Fentanyl 2ml Vial) 50 mcg PRN Q5MIN PRN IV MODERATE TO SEVERE PAIN; Start 03/18/20 at 14:30; Stop 03/19/20 at 14:29 Morphine Sulfate (Morphine Sulfate) 1 mg PRN Q10MIN PRN IV SEVERE PAIN 7-10; Start 03/18/20 at 14:30; Stop 03/19/20 at 14:29 Ringer's Solution 1,000 ml @ 30 mls/hr Q24H IV ; Start 03/18/20 at 14:25; Stop 03/19/20 at 02:24 Hydromorphone HCl (Dilaudid) 0.5 mg PRN Q10MIN PRN IV SEV PAIN, Second choice; Start 03/18/20 at 14:30; Stop 03/19/20 at 14:29 Prochlorperazine Edisylate (Compazine) 5 mg PACU PRN PRN IV NAUSEA, MRX1; Start 03/18/20 at 14:30; Stop 03/19/20 at 14:29 Insulin Human Lispro (HumaLOG VIAL for OP,RR ONLY) 0-10 units PRN Q1HR PRN SQ PER PROTOCOL Last administered on 03/18/20at 14:35; Start 03/18/20 at 14:30; Stop 03/19/20 at 14:29 Cellulose (Surgicel Hemostat 4x8) 1 each STK-MED ONCE .ROUTE ; Start 03/18/20 at 14:38; Stop 03/18/20 at 14:38; Status DC Bupivacaine HCl/ Epinephrine Bitart (Sensorcaine-Epi 0.25%-1:915256 Mpf) 30 ml STK-MED ONCE .ROUTE Last administered on 03/18/20at 15:42; Start 03/18/20 at 14:38; Stop 03/18/20 at 14:39; Status DC Dexamethasone Sodium Phosphate (Decadron) 4 mg STK-MED ONCE .ROUTE ; Start 03/18/20 at 15:23; Stop 03/18/20 at 15:23; Status DC Neostigmine [place] (Neostigmine Methylsulfate) 5 mg STK-MED ONCE .ROUTE ; Start 03/18/20 at 15:34; Stop 03/18/20 at 15:34; Status DC Glycopyrrolate (Robinul) 1 mg STK-MED ONCE .ROUTE ; Start 03/18/20 at 15:34; Stop 03/18/20 at 15:34; Status DC Vitals/I & O Vital Sign - Last 24 Hours 03/17/20 03/17/20 03/17/20 03/17/20 17:00 17:30 19:00 19:30 Temp 97.6 97.6 Pulse 70 Resp 20 B/P (MAP) 160/107 (124) Pulse Ox 98 O2 Delivery Room Air Room Air Room Air Room Air 03/17/20 03/17/20 03/18/20 03/18/20 21:00 23:00 00:06 03:00 Temp 97.4 97.7 97.4 97.7 Pulse 70 68 68 74 Resp 20 20 B/P (MAP) 150/96 (114) 173/110 (131) 173/110 161/102 (121) Pulse Ox 97 98 O2 Delivery Room Air Room Air 03/18/20 03/18/20 03/18/20 03/18/20 04:21 07:00 08:00 08:32 Temp 98.2 97.6 98.2 97.6 Pulse 72 71 71 Resp 18 18 B/P (MAP) 149/90 (109) 162/61 (94) 144/88 (106) Pulse Ox 97 95 O2 Delivery Room Air Room Air Room Air 03/18/20 03/18/20 03/18/20 03/18/20 11:00 13:01 13:31 13:59 Temp 97.7 97.7 97.7 97.7 Pulse 70 72 Resp 18 15 B/P (MAP) 153/87 (109) 173/96 Pulse Ox 99 96 O2 Delivery Room Air Room Air Room Air Room Air Intake and Output 03/17/20 03/17/20 03/18/20 15:00 23:00 07:00 Intake Total 480 ml 100 ml 0 ml Output Total 450 ml 300 ml Balance 480 ml -350 ml -300 ml Justicifation of Admission Dx: Justifications for Admission: Justification of Admission Dx: Yes CHF: Cardiac Arrhythmias Comminuty Aquired Pneumonia: Bactermia Chronic Renal Failure: Encephalopathy Sepsis: Altered Mental Status MANOLO SANTANA MD Mar 18, 2020 16:17
--- NOTE | 2020-03-18 16:37 | PDOC4 ---
Operative Note Operative Note Date: 2019 at 1633 Preoperative diagnosis: Acute cholecystitis Postoperative diagnosis: Same Procedure: Laparoscopic cholecystectomy Surgeon: Baldomero Specimen: Gallbladder Dictation: Patient is a 74-year-old male was admitted to the hospital with sepsis improved over time but ultrasound showed inflammatory change in the right upper quadrant and gallstones concerning for acute cholecystitis. Procedure laparoscopic cholecystectomy was explained to the patient and his D POA in detail was benefits were also discussed including bleeding infection injury to intra-abdominal contents possibly necessitating further or open operations alternatives to this procedure also discussed with the patient who seemed to understand and gave both verbal and written consent to have procedure performed. Patient was taken to the operating room placed in the supine position general anesthesia was initiated once patient was sleeping intubated his abdomen was prepped and draped usual sterile fashion using ChloraPrep and area in the left upper quadrant was injected quarter percent Marcaine with epinephrine incision was made 11 blade scalpel and a 5 mm Visiport was placed under direct visualization into the abdomen creating pneumoperitoneum once this complete 5 mm port was placed within the abdomen inspected was noted there is quite a bit of inflammatory reaction in the right upper quadrant and a fairly large umbilical hernia with incarcerated omentum 11 mm port was placed in the midline under direct visualization and a 5 mm port was placed in the right lateral abdomen and 5 mm port in the right midabdomen the dome of the gallbladder is grasped retracted cephalad the top of the gallbladder basically tore part inflammatory tissues were taken down with blunt dissection down to the infundibulum the 5 mm 0 degrees scope was changed out for a 30 degree scope to get a better view of the infundibular area this was grasped tract and laterally exposing the triangle adherent tissues the triangle were taken down with blunt and sharp dissection exposing the cystic duct. Cystic duct was too big to be clipped by 5 mm clips of the 5 mm epigastric port was changed out for a 10 mm and a 10 mm clip bar host/hostess was used to clip the cystic duct. Cystic artery was also clipped with a 10 Yuan clip and transected the gallbladder was taken off the liver with hook electrocautery which was quite difficult is very thick and edematous once the gallbladder was removed was placed in Endo Catch bag removed within the the millimeter port in the midline. Right lower quadrant is irrigated and suctioned dry was quite a bit of bleeding oozing from various areas along the liver Surgicel was used to cover this area as well as then placed Raheel over the top of that this appeared to stop the bleeding hemostasis was deemed to be appropriate at that point a 10 mm Vietnamese SARKIS drain was placed and brought out through the right lateral 5 mm port site this was laid in the gallbladder fossa bed. The pneumoperitoneum was reduced all ports were removed the fascial defect at the midline 11 mm port was closed with [id number] 0 Vicryl suture and sk in was reapproximated port sites for subcu to the Monocryl Mastisol Steri-Strips and island dressings were applied. Drain was sewn into place with a 2-0 silk drain stitch. Patient was awakened expanded operating room taken to recovery in stable condition all sponge instrument needle counts listed as correct estimated blood loss 60 mL. ERICA MANCINI MD Mar 18, 2020 16:37
--- NOTE | 2020-03-18 21:00 | NUR ---
this RN paged MD about CL in neck and leaving it in over night for concerns for no access. ED Placed 22 L wrist. Flushes with IVF infusing. MD okay to leave in CL in neck overnight till new access can be gained
[2020-03-18] MEDS: FAMOTIDINE 20 MG TABLET. PO SCH (21:47)
[2020-03-19] MEDS: HEPARIN for SUB-Q USE 5,000 UNIT/ML VIAL. SQ SCH ×3 (00:23→21:54)
--- NOTE | 2020-03-19 00:23 | NUR ---
This RN paged Dr. Hook about Patient SARKIS draining excessive amount from site.
[2020-03-19 03:00] VITALS: BP 116/73
[2020-03-19] MEDS: methylPREDNISolone SOD SUCC PF 40 MG/ML VIAL. IV SCH ×3 (06:00→18:34)
[2020-03-19] MEDS: MEROPENEM 500 MG in IV NORMAL SALINE 50ML 50 ML IV SCH ×3 (06:00→21:43)
[2020-03-19 07:00] VITALS: BP 150/88
[2020-03-19] MEDS: INSULIN LISPRO 300 UNITS/3 ML VIAL. SQ SCH ×4 (07:30→21:53)
[2020-03-19] MEDS: MORPHINE SULFATE 2 MG/ML VIAL. IV PRN (08:16)
[2020-03-19] MEDS: LACTOBACILLUS RHAMNOSUS GG 1 CAPSULE. PO SCH ×2 (09:00→21:42)
[2020-03-19] MEDS: MULTIVITAMIN with MINERAL TABLET. PO SCH (09:00)
--- NOTE | 2020-03-19 09:15 | PDOC ---
DATE OF SERVICE DATE: 03/19/20 TIME: 09:15 SUBJECTIVE ROS c/o Mils pain s/p Lap Christy on 03/18 OBJECTIVE Vital Signs Vital Signs Date Time Temp Pulse Resp B/P (MAP) Pulse Ox O2 Delivery O2 Flow Rate FiO2 03/19/20 08:16 16 Room Air 03/19/20 07:00 95.0 90 150/88 (108) 93 2.0 95.0 I & 0 Intake and Output 03/19/20 06:59 Intake Total 1750 ml Output Total 1425 ml Balance 325 ml Intake Oral 100 ml IV Total 1650 ml Output Urine Total 975 ml Drainage Total 425 ml Estimated Blood Loss 25 ml PHYSICAL EXAM Physical Exam GENERAL: Propped up in bed, alert, in NAD. HEENT: Oral mucosa moist. NECK: Supple. LUNGS: Decreased breath sounds at the bases. Non labored HEART: S1, S2. No gallops or murmurs. ABDOMEN: Soft, obese,SARKIS drain + : Gates in place EXTREMITIES: Trace edema lower extremities, bilaterally. No cyanosis, no clubbing. NEUROLOGIC: Alert, oriented, generalized weakness. DIAGNOSIS/ASSESSMENT Assessment & Plan Acute renal failure - ATN 2/2 Septic shock Cr peaked at 2.9-->2.6 today , monitor At presentation 1.6, UOP improving , UA c/w UTI Baseline renal function unknown , CT abdomen- Unremarkable Kidneys and bladder, US- Rt Kidney unremarkable, Lt not evaluated Continue IVF, Avoid Nephrotoxins, supportive care , I/O Diabetes mellitus Hypertension- stable Septic shock from gram neg sepsis, improving. Gram negative bacteremia source likely GI and/or Urinary tract infection Thrombocytopenia, likely sepsis. Encephalopathy, likely sepsis, improving. Acute cholecysitis Hyperbilirubinemia, abnormal LFTs, gallbladder distention on CT. HIDA scan done. US neg S/P Lap Christy ON 03/[address]. [place] resident COMMENT/RELEVANT DATA Meds Current Medications Medications (Trade) Dose Ordered Sig/Uma Start Time Stop Time Status Last Admin Dose Admin Alteplase, Recombinant (Cathflo For Central Catheter Clearance) 1 mg 1X ONCE 03/17/20 06:00 03/17/20 06:01 DC 03/17/20 05:50 1 MG Azithromycin 250 ml @ 250 mls/hr 1X ONCE 03/12/20 17:00 03/12/20 17:59 DC 03/12/20 17:51 250 MLS/HR Bisacodyl (Dulcolax Supp) 10 mg PRN DAILY PRN 03/12/20 16:45 Bupivacaine HCl/ Epinephrine Bitart (Sensorcaine-Epi 0.25%-1:[id number] Mpf) 30 ml STK-MED ONCE 03/18/20 14:38 03/18/20 14:39 DC 03/18/20 15:42 20 ML Calcium Gluconate (Calcium Gluconate) 1,000 mg 1X ONCE 03/12/20 17:00 03/12/20 17:01 DC 03/12/20 17:50 1,000 MG Cefepime HCl (Maxipime) 1 gm Q8HRS 03/12/20 22:00 03/13/20 08:46 DC 03/13/20 05:51 1 GM Ceftriaxone Sodium (Rocephin) 1 gm 1X ONCE 03/12/20 15:00 03/12/20 15:01 DC 03/12/20 16:41 1 GM Cellulose (Surgicel Hemostat 4x8) 1 each STK-MED ONCE 03/18/20 14:38 03/18/20 14:38 DC Dexamethasone Sodium Phosphate (Decadron) 4 mg STK-MED ONCE 03/18/20 15:23 03/18/20 15:23 DC Dextrose (Dextrose 50%-Water Syringe) 12.5 gm PRN Q15MIN PRN 03/13/20 00:30 Famotidine (Pepcid Vial) 20 mg DAILY 03/14/20 09:00 03/17/20 10:32 DC 03/17/20 08:30 20 MG Famotidine (Pepcid) 20 mg QHS 03/17/20 21:00 03/18/20 21:47 20 MG Fentanyl Citrate (Fentanyl 2ml Vial) 100 mcg STK-MED ONCE 03/18/20 17:15 03/18/20 17:16 DC Glycopyrrolate (Robinul) 1 mg STK-MED ONCE 03/18/20 15:34 03/18/20 15:34 DC Heparin Sodium (Porcine) (Heparin Sodium) 5,000 unit Q8HRS 03/12/20 22:00 03/18/20 05:49 5,000 UNIT Hydralazine HCl (Apresoline Inj) 10 mg PRN Q4HRS PRN 03/17/20 23:45 03/18/20 00:06 10 MG Hydromorphone HCl (Dilaudid) 0.5 mg PRN Q10MIN PRN 03/18/20 14:30 03/19/20 14:29 Info (Icu Electrolyte Protocol) 1 ea CONT PRN PRN 03/12/20 17:00 03/12/20 17:06 DC Insulin Human Lispro (HumaLOG VIAL for OP,RR ONLY) 0-10 units PRN Q1HR PRN 03/18/20 14:30 03/19/20 14:29 03/18/20 14:35 6 UNIT Insulin Human Lispro (HumaLOG) 0-9 UNITS TIDACHC 03/16/20 21:00 03/18/20 21:00 3 UNITS Lactobacillus Rhamnosus (Culturelle) 1 cap BID 03/13/20 21:00 03/18/20 21:47 1 CAP Lidocaine HCl (Lidocaine 1% 20ml Vial) 20 ml 1X ONCE 03/12/20 15:30 03/12/20 15:31 DC 03/12/20 15:30 20 ML Lidocaine HCl (Lidocaine Pf 2% Vial) 5 ml STK-MED ONCE 03/18/20 13:58 03/18/20 13:59 DC Lidocaine HCl (Xylocaine-Mpf 1% 2ml Vial) 2 ml PRN 1X PRN 03/18/20 07:00 03/19/20 06:59 DC Linezolid (Zyvox) 600 mg BID 03/13/20 09:00 03/13/20 21:11 DC 03/13/20 10:48 600 MG Linezolid/Dextrose 300 ml @ 300 mls/hr Q12HR 03/13/20 22:00 03/15/20 08:55 DC 03/15/20 08:37 300 MLS/HR Magnesium Sulfate 50 ml @ 25 mls/hr 1X ONCE 03/12/20 17:00 03/12/20 18:59 DC 03/12/20 17:51 25 MLS/HR Meropenem 500 mg/ Sodium Chloride 50 ml @ 100 mls/hr Q8HRS 03/14/20 22:00 03/19/20 06:00 100 MLS/HR Methylprednisolone Sodium Succinate (SOLU-Medrol 40MG VIAL) 40 mg Q6HRS 03/13/20 11:00 03/19/20 06:00 40 MG Morphine Sulfate (Morphine Sulfate) 1 mg PRN Q10MIN PRN 03/18/20 14:30 03/19/20 14:29 Multivitamins (Thera M Plus) 1 tab DAILY 03/13/20 10:30 03/17/20 08:30 1 TAB Neostigmine [place] (Neostigmine Methylsulfate) 5 mg STK-MED ONCE 03/18/20 15:34 03/18/20 15:34 DC Norepinephrine Bitartrate 8 mg/ Dextrose 258 ml @ 21.285 mls/ hr CONT PRN 03/12/20 22:30 03/16/20 13:45 DC 03/13/20 18:01 27.671 MLS/HR Ondansetron HCl (Zofran) 4 mg PRN Q6HRS PRN 03/18/20 14:30 03/19/20 14:29 Perflutren Protein Type A Microsphe (Optison) 0.66 mg 1X ONCE 03/14/20 12:15 03/14/20 12:21 DC Potassium Chloride/Water 100 ml @ 100 mls/hr Q1H 03/12/20 16:45 03/12/20 17:00 DC Prochlorperazine (Compazine) 25 mg PRN Q12HR PRN 03/12/20 16:45 Prochlorperazine Edisylate (Compazine) 5 mg PACU PRN PRN 03/18/20 14:30 03/19/20 14:29 Propofol (Diprivan) 200 mg STK-MED ONCE 03/18/20 13:58 03/18/20 13:59 DC Ringer's Solution 1,000 ml @ 30 mls/hr Q24H 03/18/20 14:25 03/19/20 02:24 DC Rocuronium [place] (Zemuron) 50 mg STK-MED ONCE 03/18/20 13:58 03/18/20 13:59 DC Sodium Chloride 1,000 ml @ 100 mls/hr Q10H 03/12/20 16:33 03/18/20 23:59 100 MLS/HR Sodium Chloride (NORMAL SALINE FLUSH for STERILE FIELD) 10 ml STK-MED ONCE 03/12/20 15:24 03/12/20 15:24 DC Sodium Chloride (Normal Saline Flush) 3 ml QSHIFT PRN 03/12/20 16:45 Sodium Phosphate 15 mmol/Sodium Chloride 255 ml @ 62.5 mls/hr 1X ONCE 03/12/20 16:45 03/12/20 17:00 DC Sodium Phosphate 30 mmol/Sodium Chloride 260 ml @ 62.5 mls/hr 1X ONCE 03/12/20 16:45 03/12/20 17:00 DC Succinylcholine Chloride (Anectine) 200 mg STK-MED ONCE 03/18/20 13:58 03/18/20 13:59 DC Vancomycin HCl (Vanco Per Pharmacy) 1 each PRN DAILY PRN 03/12/20 16:45 03/13/20 08:46 DC 03/12/20 18:45 1 EACH Vancomycin HCl (Vancomycin Trough Level) 1 each 1X ONCE 03/14/20 17:30 03/14/20 17:31 Cancel Vancomycin HCl 1.5 gm/Sodium Chloride 500 ml @ 250 mls/hr Q24H 03/13/20 18:00 03/13/20 08:48 DC Vancomycin HCl 2 gm/Sodium Chloride 500 ml @ 250 mls/hr 1X ONCE 03/12/20 18:00 03/12/20 19:59 DC 03/12/20 17:53 250 MLS/HR Lab Laboratory Tests Test 03/18/20 12:12 03/18/20 14:21 03/18/20 16:43 03/18/20 20:56 Glucose (Fingerstick) 220 mg/dL (70-99) 211 mg/dL (70-99) 219 mg/dL (70-99) 214 mg/dL (70-99) Test 03/19/20 07:47 Glucose (Fingerstick) 192 mg/dL (70-99) Results All relevant outside records, renal labs, imaging studies, telemetry/EKG's were reviewed. Justicifation of Admission Dx: Justifications for Admission: Justification of Admission Dx: Yes CHF: Cardiac Arrhythmias Comminuty Aquired Pneumonia: Bactermia Chronic Renal Failure: Encephalopathy Sepsis: Altered Mental Status SANGEETA AGUIRRE MD Mar 19, 2020 09:15
[2020-03-19 09:54] LABS: CALCIUM 6.3 mg/dL (8.5-10.1); CREATININE 2.6 mg/dL (0.7-1.3); GFR 29.2; POTASSIUM 5.1 mmol/L (3.5-5.1)
--- NOTE | 2020-03-19 10:04 | NUR ---
SW following. Discussed with RN, PT/OT being ordered SARKIS drain. MATTHEW received call back from Karen - pt does have home health, provided number for ISATU RN (Zora [phone]). MATTHEW spoke with Zora who works for [employer] - pt normally gets around with a walker and is normally alert and oriented. MATTHEW contacted main office of [facility] to determine pt's insurance as MATTHEW knows [facility] does not take Medicaid. [facility] advised pt has Medicare Part A #[id number]. MATTHEW provided this information to registration June Ramirez and continuous pillowcase cutter Teresa Gallagher. MATTHEW will continue to follow.
[2020-03-19] MEDS ORDERED: LIDOCAINE WITH 8.4% SOD BICARB 3 ML DISP.SYRIN. ONE (10:45)
--- NOTE | 2020-03-19 10:54 | PDOC ---
Date of Service: DATE: 03/19/20 TIME: 10:48 Subjective: Subjective: Pain on both sides of abdomen - same as yesterday. Knows he's at [place] and who the present is, says the year is 1210. Objective: Objective: D/w nurse - some confusion (?hallucinating - asked about flies on ceiling) this morning, lots of output from SARKIS overnight - no IV access, ?getting PICC today Vital Signs: Vital Signs Date Time Temp Pulse Resp B/P (MAP) Pulse Ox O2 Delivery O2 Flow Rate FiO2 03/19/20 08:16 16 Room Air 03/19/20 07:00 95.0 90 150/88 (108) 93 2.0 95.0 Labs: Laboratory Tests Test 03/18/20 12:12 03/18/20 14:21 03/18/20 16:43 03/18/20 20:56 Glucose (Fingerstick) 220 mg/dL 211 mg/dL 219 mg/dL 214 mg/dL Test 03/19/20 07:47 03/19/20 08:55 Glucose (Fingerstick) 192 mg/dL Sodium Level 143 mmol/L Potassium Level 5.1 mmol/L Chloride Level 112 mmol/L Carbon Dioxide Level 15 mmol/L Anion Gap 16 Blood Urea Nitrogen 76 mg/dL Creatinine 2.6 mg/dL Estimated GFR (Cockcroft-Gault) 29.2 Glucose Level 234 mg/dL Calcium Level 6.3 mg/dL PE: GEN: NAD LUNGS: CTAB HEART: RRR ABD: soft, bloody drainage from SARKIS NEURO/PSYCH: some confusion A/P: S/p lap juan 03/18 Confusion E coli bacteremia, Lactobacillus UTI Thrombocytopenia, elevated LFTs (better- checked 03/17), NELLI/CKD, hypocalcemia -- Seems worse today. Will return with Dr. Muller. Justicifation of Admission Dx: Justifications for Admission: Justification of Admission Dx: Yes CHF: Cardiac Arrhythmias Comminuty Aquired Pneumonia: Bactermia Chronic Renal Failure: Encephalopathy Sepsis: Altered Mental Status LEONEL TYSON Mar 19, 2020 10:54
[2020-03-19 11:00] VITALS: BP 114/87
[2020-03-19] MEDS ORDERED: LIDOCAINE WITH 8.4% SOD BICARB 3 ML DISP.SYRIN. INJ ONE (11:00)
--- NOTE | 2020-03-19 11:23 | PDOC ---
Infectious Disease Note Subjective Subjective Doing ok Still some pain Denies N/V/D/fever/chills/rash ROS ROS o/w neg Vital Sign Vital Signs Vital Signs Date Time Temp Pulse Resp B/P (MAP) Pulse Ox O2 Delivery O2 Flow Rate FiO2 03/19/20 11:00 95.7 92 18 114/87 (96) 97 95.7 03/19/20 08:16 Room Air 03/19/20 07:00 2.0 Physical Exam PHYSICAL EXAM GENERAL: Alert, in NAD HEENT: Oral mucosa moist. No thrush NECK: Supple. No JVD. LUNGS: Decreased breath sounds at the bases. No wheezing. HEART: S1, S2. No gallops or murmurs. Left sided chest wall PPM looks intact, clean. ABDOMEN: Soft, obese, SARKIS with sanginous fluid. No rebound, no guarding. : Gates in place EXTREMITIES: Trace edema lower extremities, bilaterally. No cyanosis, no clubbing. NEUROLOGIC: Alert, oriented, a little confused - generalized weakness. RIJ (03/12) removed and previous sitie without signs of complications PIV Labs Lab Laboratory Tests Test 03/18/20 12:12 03/18/20 14:21 03/18/20 16:43 03/18/20 20:56 Glucose (Fingerstick) 220 mg/dL (70-99) 211 mg/dL (70-99) 219 mg/dL (70-99) 214 mg/dL (70-99) Test 03/19/20 07:47 03/19/20 08:55 Glucose (Fingerstick) 192 mg/dL (70-99) Sodium Level 143 mmol/L (136-145) Potassium Level 5.1 mmol/L (3.5-5.1) Chloride Level 112 mmol/L (98-107) Carbon Dioxide Level 15 mmol/L (21-32) Anion Gap 16 (6-14) Blood Urea Nitrogen 76 mg/dL (8-26) Creatinine 2.6 mg/dL (0.7-1.3) Estimated GFR (Cockcroft-Gault) 29.2 Glucose Level 234 mg/dL (70-99) Calcium Level 6.3 mg/dL (8.5-10.1) Micro Microbiology 03/14/20 Blood Culture - Preliminary, Resulted 03/12/20 Urine Culture - Final, Complete Objective Assessment Septic shock from gram neg sepsis, improving. ESBL + E. coli. Leukocytosis with bandemia, in part steroids - better Lactic acidosis. Gram negative bacteremia source likely GI and/or . ESBL + E. coli. Repeat BC 03/14 + GNR 03/17 and 03/18 neg so far Urinary tract infection. LACTOBACILLUS SPECIES Acute kidney injury - Cr worsening Thrombocytopenia, likely sepsis. Encephalopathy, likely sepsis, improving. Acute cholecysitis Hyperbilirubinemia, abnormal LFTs, gallbladder distention on CT. HIDA scan noted. US neg Diabetes mellitus. 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 [place] resident Plan Plan of Care F/u Blood cults in am 03/17 and 03/18 cont Merrem, dose to be adjusted for renal function as needed, D//w pharmacy Probiotics Monitor lab values/temp Maintain aspiration precautions Gen surg following. Imani martinez planned Consult renal for NELLI Contact isolation for ESBL Discussed with nursing HERMILA MARTINES MD Mar 19, 2020 11:23
[2020-03-19] MEDS: IV NORMAL SALINE 1000ML BAG 1,000 ML IV SCH (11:28)
--- NOTE | 2020-03-19 15:58 | NUR ---
Wound Care Wound Type/Assessment: Consult for wound to coccyx present on admission. Pictured and measured with Basilio RN, see detailed assessment. Treatment Recommendations/Plan: Apply Barrier cream daily and leave SPRAY GUNNER. Education provided: Educated patient and staff to turn Q2H to keep pressure off of wound and to prevent new skin breakdown. Offloading surface/device: P500 ordered. Follow up 03/26/2020
--- NOTE | 2020-03-19 17:10 | PDOC ---
SURGICAL PROGRESS NOTE DATE: 03/19/20 TIME: 17:08 Subjective Patient awake and alert denies any abdominal pain states he needs to use the restroom. Somewhat confused Vital Signs Vital Signs Date Time Temp Pulse Resp B/P (MAP) Pulse Ox O2 Delivery O2 Flow Rate FiO2 03/19/20 11:00 95.7 92 18 114/87 (96) 97 95.7 03/19/20 08:46 Room Air 03/19/20 07:00 2.0 I&O Intake and Output 03/19/20 07:00 Intake Total 1750 ml Output Total 1425 ml Balance 325 ml Intake Oral 100 ml IV Total 1650 ml Output Urine Total 975 ml Drainage Total 425 ml Estimated Blood Loss 25 ml PATIENT HAS A CARRION: No General: Alert, Cooperative, mild distress Abdomen: Normal bowel sounds, Soft, Other (Wounds clean dry and intact SARKIS drain intact with dark bloody drainage no bile) Labs Laboratory Tests Test 03/17/20 20:52 03/18/20 07:03 03/18/20 12:12 03/18/20 14:21 Glucose (Fingerstick) 220 mg/dL (70-99) 184 mg/dL (70-99) 220 mg/dL (70-99) 211 mg/dL (70-99) White Blood Count 11.1 x10^3/uL (4.0-11.0) Red Blood Count 5.65 x10^6/uL (4.30-5.70) Hemoglobin 16.5 g/dL (13.0-17.5) Hematocrit 51.1 % (39.0-53.0) Mean Corpuscular Volume 90 fL (79-100) Mean Corpuscular Hemoglobin 29 pg (25-35) Mean Corpuscular Hemoglobin Concent 32 g/dL (31-37) Red Cell Distribution Width 16.5 % (11.5-14.5) Platelet Count 95 x10^3/uL (140-400) Neutrophils (%) (Auto) 89 % (31-73) Lymphocytes (%) (Auto) 7 % (24-48) Monocytes (%) (Auto) 3 % (0-9) Eosinophils (%) (Auto) 0 % (0-3) Basophils (%) (Auto) 0 % (0-3) Neutrophils # (Auto) 9.9 x10^3/uL (1.8-7.7) Lymphocytes # (Auto) 0.8 x10^3/uL (1.0-4.8) Monocytes # (Auto) 0.4 x10^3/uL (0.0-1.1) Eosinophils # (Auto) 0.0 x10^3/uL (0.0-0.7) Basophils # (Auto) 0.0 x10^3/uL (0.0-0.2) Sodium Level 136 mmol/L (136-145) Potassium Level 5.7 mmol/L (3.5-5.1) Chloride Level 109 mmol/L (98-107) Carbon Dioxide Level 15 mmol/L (21-32) Anion Gap 12 (6-14) Blood Urea Nitrogen 69 mg/dL (8-26) Creatinine 2.7 mg/dL (0.7-1.3) Estimated GFR (Cockcroft-Gault) 27.9 Glucose Level 220 mg/dL (70-99) Calcium Level 7.4 mg/dL (8.5-10.1) Test 03/18/20 16:43 03/18/20 20:56 03/19/20 07:47 03/19/20 08:55 Glucose (Fingerstick) 219 mg/dL (70-99) 214 mg/dL (70-99) 192 mg/dL (70-99) Sodium Level 143 mmol/L (136-145) Potassium Level 5.1 mmol/L (3.5-5.1) Chloride Level 112 mmol/L (98-107) Carbon Dioxide Level 15 mmol/L (21-32) Anion Gap 16 (6-14) Blood Urea Nitrogen 76 mg/dL (8-26) Creatinine 2.6 mg/dL (0.7-1.3) Estimated GFR (Cockcroft-Gault) 29.2 Glucose Level 234 mg/dL (70-99) Calcium Level 6.3 mg/dL (8.5-10.1) Test 03/19/20 11:19 03/19/20 16:38 Glucose (Fingerstick) 197 mg/dL (70-99) 235 mg/dL (70-99) Laboratory Tests Test 03/18/20 20:56 03/19/20 07:47 03/19/20 08:55 03/19/20 11:19 Glucose (Fingerstick) 214 mg/dL (70-99) 192 mg/dL (70-99) 197 mg/dL (70-99) Sodium Level 143 mmol/L (136-145) Potassium Level 5.1 mmol/L (3.5-5.1) Chloride Level 112 mmol/L (98-107) Carbon Dioxide Level 15 mmol/L (21-32) Anion Gap 16 (6-14) Blood Urea Nitrogen 76 mg/dL (8-26) Creatinine 2.6 mg/dL (0.7-1.3) Estimated GFR (Cockcroft-Gault) 29.2 Glucose Level 234 mg/dL (70-99) Calcium Level 6.3 mg/dL (8.5-10.1) Test 03/19/20 16:38 Glucose (Fingerstick) 235 mg/dL (70-99) Problem List Problems Medical Problems: (1) AMS (altered mental status) Status: Acute (2) Hypocalcemia Status: Acute (3) Hypokalemia Status: Acute (4) Septic shock Status: Acute (5) Suspected 2019 novel coronavirus infection Status: Acute Assessment/Plan Status post laparoscopic cholecystectomy very bad gallbladder somewhat oozy liver bed. Bloody SARKIS drain output would hold heparin for now Labs pending Continue supportive care Justicifation of Admission Dx: Justifications for Admission: Justification of Admission Dx: Yes CHF: Cardiac Arrhythmias Comminuty Aquired Pneumonia: Bactermia Chronic Renal Failure: Encephalopathy Sepsis: Altered Mental Status ERICA MANCINI MD Mar 19, 2020 17:10
[2020-03-19 17:54] LABS: BASO % 0 % (0-3); EOS % 0 % (0-3); HEMATOCRIT 38.8 % (39.0-53.0); HEMOGLOBIN 12.6 g/dL (13.0-17.5); LYMPH # 0.7 x10^3/uL (1.0-4.8); LYMPH % 4 % (24-48); MEAN CORPUSCULAR HEMOGLOBIN 29 pg (25-35); MEAN CORPUSCULAR HGB CONC 33 g/dL (31-37); MEAN CORPUSCULAR VOLUME 90 fL (79-100); MONO # 0.6 x10^3/uL (0.0-1.1); MONO % 3 % (0-9); NEUT # 18.8 x10^3/uL (1.8-7.7); NEUT % 93 % (31-73); PLATELET COUNT 85 x10^3/uL (140-400); RED BLOOD COUNT 4.31 x10^6/uL (4.30-5.70); RED CELL DISTRIBUTION WIDTH 16.1 % (11.5-14.5); WHITE BLOOD COUNT 20.2 x10^3/uL (4.0-11.0)
[2020-03-19 18:19] LABS: % BANDS 4 % (0-9); % LYMPHS 1 % (24-48); % MONOS 3 % (0-10); % SEGS 92 % (35-66); PLT ESTIMATE DECREASED (ADEQUATE)
[2020-03-19 18:20] LABS: TOXIC GRANULATION SLIGHT
[2020-03-19 19:00] VITALS: BP 116/92
--- NOTE | 2020-03-19 19:04 | PDOC ---
PROGRESS NOTES Date of Service: DATE: 03/19/20 TIME: 19:04 Chief Complaint Chief Complaint Acute hypoxic respiratory failure secondary to septic shock, improving, out of ICU yesterday, Sepsis, and Septic shock secondary to urinary tract infection w/ ESBL + E. coli. and lactobacillus Diabetes mellitus 2 acute or chronic systolic CHF, EF 35 %, discussed with Dr. Merchant, echo read today acute renal failure on CKD 2, Severe protein-calorie malnutrition. HIDA showed cholecystitis, , gen surg following, may need juan surgery, above problems need to be addressed in short term History of Present Illness History of Present Illness Patient status post cholecystectomy. Mild incisional pain. Denies any fever, nausea, or vomiting Vitals Vitals Vital Signs Date Time Temp Pulse Resp B/P (MAP) Pulse Ox O2 Delivery O2 Flow Rate FiO2 03/19/20 11:00 95.7 92 18 114/87 (96) 97 95.7 03/19/20 08:46 Room Air 03/19/20 07:00 2.0 Physical Exam Physical Exam GENERAL: Alert, in NAD HEENT: Oral mucosa moist. No thrush NECK: Supple. No JVD. LUNGS: Decreased breath sounds at the bases. No wheezing. HEART: S1, S2. No gallops or murmurs. Left sided chest wall PPM looks intact, clean. ABDOMEN: Soft, obese, SARKIS with sanginous fluid. No rebound, no guarding. : Gates in place EXTREMITIES: Trace edema lower extremities, bilaterally. No cyanosis, no clubbing. NEUROLOGIC: Alert, oriented, a little confused - generalized weakness. RIJ (03/12) removed and previous sitie without signs of complications PIV General: Alert, Cooperative, mild distress Heart: Regular rate, Normal S1, Normal S2 Lungs: Clear Abdomen: Normal bowel sounds, Soft, Other (Wounds clean dry and intact SARKIS drain intact with dark bloody drainage no bile) Extremities: No clubbing, No cyanosis Skin: No rashes, No breakdown Labs LABS Laboratory Tests Test 03/18/20 20:56 03/19/20 07:47 03/19/20 08:55 03/19/20 11:19 Glucose (Fingerstick) 214 mg/dL (70-99) 192 mg/dL (70-99) 197 mg/dL (70-99) Sodium Level 143 mmol/L (136-145) Potassium Level 5.1 mmol/L (3.5-5.1) Chloride Level 112 mmol/L (98-107) Carbon Dioxide Level 15 mmol/L (21-32) Anion Gap 16 (6-14) Blood Urea Nitrogen 76 mg/dL (8-26) Creatinine 2.6 mg/dL (0.7-1.3) Estimated GFR (Cockcroft-Gault) 29.2 Glucose Level 234 mg/dL (70-99) Calcium Level 6.3 mg/dL (8.5-10.1) Test 03/19/20 16:38 03/19/20 17:40 Glucose (Fingerstick) 235 mg/dL (70-99) White Blood Count 20.2 x10^3/uL (4.0-11.0) Red Blood Count 4.31 x10^6/uL (4.30-5.70) Hemoglobin 12.6 g/dL (13.0-17.5) Hematocrit 38.8 % (39.0-53.0) Mean Corpuscular Volume 90 fL (79-100) Mean Corpuscular Hemoglobin 29 pg (25-35) Mean Corpuscular Hemoglobin Concent 33 g/dL (31-37) Red Cell Distribution Width 16.1 % (11.5-14.5) Platelet Count 85 x10^3/uL (140-400) Neutrophils (%) (Auto) 93 % (31-73) Lymphocytes (%) (Auto) 4 % (24-48) Monocytes (%) (Auto) 3 % (0-9) Eosinophils (%) (Auto) 0 % (0-3) Basophils (%) (Auto) 0 % (0-3) Neutrophils # (Auto) 18.8 x10^3/uL (1.8-7.7) Lymphocytes # (Auto) 0.7 x10^3/uL (1.0-4.8) Monocytes # (Auto) 0.6 x10^3/uL (0.0-1.1) Eosinophils # (Auto) 0.0 x10^3/uL (0.0-0.7) Basophils # (Auto) 0.0 x10^3/uL (0.0-0.2) Segmented Neutrophils % 92 % (35-66) Band Neutrophils % 4 % (0-9) Lymphocytes % 1 % (24-48) Monocytes % 3 % (0-10) Toxic Granulation Slight Platelet Estimate Decreased (ADEQUATE) Review of Systems Review of Systems Abdominal pain. No fever, nausea, vomiting. Denies chest pain, or shortness of breath. Assessment and Plan Assessmemt and Plan Problems Medical Problems: (1) AMS (altered mental status) Status: Acute (2) Hypocalcemia Status: Acute (3) Hypokalemia Status: Acute (4) Septic shock Status: Acute (5) Suspected 2019 novel coronavirus infection Status: Acute Comment Review of Relevant I have reviewed the following items thee (where applicable) has been applied. Labs Laboratory Tests Test 03/17/20 20:52 03/18/20 07:03 03/18/20 12:12 03/18/20 14:21 Glucose (Fingerstick) 220 mg/dL (70-99) 184 mg/dL (70-99) 220 mg/dL (70-99) 211 mg/dL (70-99) White Blood Count 11.1 x10^3/uL (4.0-11.0) Red Blood Count 5.65 x10^6/uL (4.30-5.70) Hemoglobin 16.5 g/dL (13.0-17.5) Hematocrit 51.1 % (39.0-53.0) Mean Corpuscular Volume 90 fL (79-100) Mean Corpuscular Hemoglobin 29 pg (25-35) Mean Corpuscular Hemoglobin Concent 32 g/dL (31-37) Red Cell Distribution Width 16.5 % (11.5-14.5) Platelet Count 95 x10^3/uL (140-400) Neutrophils (%) (Auto) 89 % (31-73) Lymphocytes (%) (Auto) 7 % (24-48) Monocytes (%) (Auto) 3 % (0-9) Eosinophils (%) (Auto) 0 % (0-3) Basophils (%) (Auto) 0 % (0-3) Neutrophils # (Auto) 9.9 x10^3/uL (1.8-7.7) Lymphocytes # (Auto) 0.8 x10^3/uL (1.0-4.8) Monocytes # (Auto) 0.4 x10^3/uL (0.0-1.1) Eosinophils # (Auto) 0.0 x10^3/uL (0.0-0.7) Basophils # (Auto) 0.0 x10^3/uL (0.0-0.2) Sodium Level 136 mmol/L (136-145) Potassium Level 5.7 mmol/L (3.5-5.1) Chloride Level 109 mmol/L (98-107) Carbon Dioxide Level 15 mmol/L (21-32) Anion Gap 12 (6-14) Blood Urea Nitrogen 69 mg/dL (8-26) Creatinine 2.7 mg/dL (0.7-1.3) Estimated GFR (Cockcroft-Gault) 27.9 Glucose Level 220 mg/dL (70-99) Calcium Level 7.4 mg/dL (8.5-10.1) Test 03/18/20 16:43 03/18/20 20:56 03/19/20 07:47 03/19/20 08:55 Glucose (Fingerstick) 219 mg/dL (70-99) 214 mg/dL (70-99) 192 mg/dL (70-99) Sodium Level 143 mmol/L (136-145) Potassium Level 5.1 mmol/L (3.5-5.1) Chloride Level 112 mmol/L (98-107) Carbon Dioxide Level 15 mmol/L (21-32) Anion Gap 16 (6-14) Blood Urea Nitrogen 76 mg/dL (8-26) Creatinine 2.6 mg/dL (0.7-1.3) Estimated GFR (Cockcroft-Gault) 29.2 Glucose Level 234 mg/dL (70-99) Calcium Level 6.3 mg/dL (8.5-10.1) Test 03/19/20 11:19 03/19/20 16:38 03/19/20 17:40 Glucose (Fingerstick) 197 mg/dL (70-99) 235 mg/dL (70-99) White Blood Count 20.2 x10^3/uL (4.0-11.0) Red Blood Count 4.31 x10^6/uL (4.30-5.70) Hemoglobin 12.6 g/dL (13.0-17.5) Hematocrit 38.8 % (39.0-53.0) Mean Corpuscular Volume 90 fL (79-100) Mean Corpuscular Hemoglobin 29 pg (25-35) Mean Corpuscular Hemoglobin Concent 33 g/dL (31-37) Red Cell Distribution Width 16.1 % (11.5-14.5) Platelet Count 85 x10^3/uL (140-400) Neutrophils (%) (Auto) 93 % (31-73) Lymphocytes (%) (Auto) 4 % (24-48) Monocytes (%) (Auto) 3 % (0-9) Eosinophils (%) (Auto) 0 % (0-3) Basophils (%) (Auto) 0 % (0-3) Neutrophils # (Auto) 18.8 x10^3/uL (1.8-7.7) Lymphocytes # (Auto) 0.7 x10^3/uL (1.0-4.8) Monocytes # (Auto) 0.6 x10^3/uL (0.0-1.1) Eosinophils # (Auto) 0.0 x10^3/uL (0.0-0.7) Basophils # (Auto) 0.0 x10^3/uL (0.0-0.2) Segmented Neutrophils % 92 % (35-66) Band Neutrophils % 4 % (0-9) Lymphocytes % 1 % (24-48) Monocytes % 3 % (0-10) Toxic Granulation Slight Platelet Estimate Decreased (ADEQUATE) Laboratory Tests Test 03/18/20 20:56 03/19/20 07:47 03/19/20 08:55 03/19/20 11:19 Glucose (Fingerstick) 214 mg/dL (70-99) 192 mg/dL (70-99) 197 mg/dL (70-99) Sodium Level 143 mmol/L (136-145) Potassium Level 5.1 mmol/L (3.5-5.1) Chloride Level 112 mmol/L (98-107) Carbon Dioxide Level 15 mmol/L (21-32) Anion Gap 16 (6-14) Blood Urea Nitrogen 76 mg/dL (8-26) Creatinine 2.6 mg/dL (0.7-1.3) Estimated GFR (Cockcroft-Gault) 29.2 Glucose Level 234 mg/dL (70-99) Calcium Level 6.3 mg/dL (8.5-10.1) Test 03/19/20 16:38 03/19/20 17:40 Glucose (Fingerstick) 235 mg/dL (70-99) White Blood Count 20.2 x10^3/uL (4.0-11.0) Red Blood Count 4.31 x10^6/uL (4.30-5.70) Hemoglobin 12.6 g/dL (13.0-17.5) Hematocrit 38.8 % (39.0-53.0) Mean Corpuscular Volume 90 fL (79-100) Mean Corpuscular Hemoglobin 29 pg (25-35) Mean Corpuscular Hemoglobin Concent 33 g/dL (31-37) Red Cell Distribution Width 16.1 % (11.5-14.5) Platelet Count 85 x10^3/uL (140-400) Neutrophils (%) (Auto) 93 % (31-73) Lymphocytes (%) (Auto) 4 % (24-48) Monocytes (%) (Auto) 3 % (0-9) Eosinophils (%) (Auto) 0 % (0-3) Basophils (%) (Auto) 0 % (0-3) Neutrophils # (Auto) 18.8 x10^3/uL (1.8-7.7) Lymphocytes # (Auto) 0.7 x10^3/uL (1.0-4.8) Monocytes # (Auto) 0.6 x10^3/uL (0.0-1.1) Eosinophils # (Auto) 0.0 x10^3/uL (0.0-0.7) Basophils # (Auto) 0.0 x10^3/uL (0.0-0.2) Segmented Neutrophils % 92 % (35-66) Band Neutrophils % 4 % (0-9) Lymphocytes % 1 % (24-48) Monocytes % 3 % (0-10) Toxic Granulation Slight Platelet Estimate Decreased (ADEQUATE) Microbiology 03/18/20 Blood Culture - Preliminary, Resulted NO GROWTH AFTER 1 DAY 03/12/20 Urine Culture - Final, Complete Medications Current Medications Sodium Chloride 1,000 ml @ 1,000 mls/hr 1X ONCE IV Last administered on 03/12/20at 14:00; Start 03/12/20 at 14:30; Stop 03/12/20 at 15:29; Status DC Sodium Chloride 1,000 ml @ 1,000 mls/hr 1X ONCE IV Last administered on 03/12/20at 14:05; Start 03/12/20 at 14:30; Stop 03/12/20 at 15:29; Status DC Ceftriaxone Sodium (Rocephin) 1 gm 1X ONCE IVP Last administered on 03/12/20at 16:41; Start 03/12/20 at 15:00; Stop 03/12/20 at 15:01; Status DC Sodium Chloride 1,000 ml @ 1,000 mls/hr 1X ONCE IV Last administered on 03/12/20at 16:38; Start 03/12/20 at 15:30; Stop 03/12/20 at 16:29; Status DC Sodium Chloride 1,000 ml @ 1,000 mls/hr 1X ONCE IV Last administered on 03/12/20at 16:39; Start 03/12/20 at 15:30; Stop 03/12/20 at 16:29; Status DC Sodium Chloride (NORMAL SALINE FLUSH for STERILE FIELD) 10 ml ExpertFile-MED ONCE .ROUTE ; Start 03/12/20 at 15:24; Stop 03/12/20 at 15:24; Status DC Lidocaine HCl (Lidocaine 1% 20ml Vial) 20 ml 1X ONCE INJ Last administered on 03/12/20at 15:30; Start 03/12/20 at 15:30; Stop 03/12/20 at 15:31; Status DC Norepinephrine Bitartrate 8 mg/ Dextrose 258 ml @ 21.285 mls/ hr 1X ONCE IV Last administered on 03/12/20at 16:28; Start 03/12/20 at 16:15; Stop 03/13/20 at 04:22; Status DC Calcium Gluconate (Calcium Gluconate) 1,000 mg 1X ONCE IVP Last administered on 03/12/20at 17:50; Start 03/12/20 at 17:00; Stop 03/12/20 at 17:01; Status DC Ondansetron HCl (Zofran) 4 mg PRN Q8HRS PRN IV NAUSEA/VOMITING Last administered on 03/13/20at 02:56; Start 03/12/20 at 16:30; Stop 03/13/20 at 16:29; Status DC Sodium Chloride 1,000 ml @ 75 mls/hr [id number] IV ; Start 03/12/20 at 16:28; Stop 03/12/20 at 22:33; Status DC Azithromycin 250 ml @ 250 mls/hr 1X ONCE IV Last administered on 03/12/20at 17:51; Start 03/12/20 at 17:00; Stop 03/12/20 at 17:59; Status DC Ondansetron HCl (Zofran) 4 mg PRN Q6HRS PRN IVP NAUSEA/VOMITING; Start 03/12/20 at 16:45 Prochlorperazine (Compazine) 25 mg PRN Q12HR PRN OK NAUSEA/VOMITING; Start 03/12/20 at 16:45 Famotidine (Pepcid Vial) 20 mg BID IVP Last administered on 03/12/20at 22:49; Start 03/12/20 at 21:00; Stop 03/13/20 at 09:34; Status DC Info (Icu Electrolyte Protocol) 1 ea DAILY MC ; Start 03/13/20 at 09:00; Stop 03/16/20 at 07:29; Status DC Heparin Sodium (Porcine) (Heparin Sodium) 5,000 unit Q8HRS SQ Last administered on 03/18/20at 05:49; Start 03/12/20 at 22:00 Sodium Chloride (Normal Saline Flush) 3 ml QSHIFT PRN IV AFTER MEDS AND BLOOD DRAWS; Start 03/12/20 at 16:45 Sodium Chloride 1,000 ml @ 1,000 mls/hr Q1H IV ; Start 03/12/20 at 16:33; Stop 03/12/20 at 17:32; Status DC Sodium Chloride 1,000 ml @ 100 mls/hr Q10H IV Last administered on 03/19/20at 11:28; Start 03/12/20 at 16:33 Bisacodyl (Dulcolax Supp) 10 mg PRN DAILY PRN OK CONSTIPATION; Start 03/12/20 at 16:45 Cefepime HCl (Maxipime) 1 gm Q8HRS IVP Last administered on 03/13/20at 05:51; Start 03/12/20 at 22:00; Stop 03/13/20 at 08:46; Status DC Vancomycin HCl (Vanco Per Pharmacy) 1 each PRN DAILY PRN MC SEE COMMENTS Last administered on 03/12/20at 18:45; Start 03/12/20 at 16:45; Stop 03/13/20 at 08:46; Status DC Potassium Chloride/Water 100 ml @ 100 mls/hr Q1H IV Last administered on 03/12/20at 22:51; Start 03/12/20 at 19:00; Stop 03/12/20 at 22:59; Status DC Potassium Chloride/Water 100 ml @ 100 mls/hr Q1H IV ; Start 03/12/20 at 16:45; Stop 03/12/20 at 17:00; Status DC Potassium Chloride/Water 100 ml @ 100 mls/hr Q1H IV ; Start 03/12/20 at 16:45; Stop 03/12/20 at 17:00; Status DC Magnesium Sulfate 100 ml @ 50 mls/hr DAILY IV ; Start 03/13/20 at 09:00; Stop 03/12/20 at 17:00; Status DC Sodium Phosphate 15 mmol/Sodium Chloride 255 ml @ 62.5 mls/hr 1X ONCE IV ; Start 03/12/20 at 16:45; Stop 03/12/20 at 17:00; Status DC Sodium Phosphate 30 mmol/Sodium Chloride 260 ml @ 62.5 mls/hr 1X ONCE IV ; Start 03/12/20 at 16:45; Stop 03/12/20 at 17:00; Status DC Insulin Human Lispro (HumaLOG) 0-7 UNITS TIDWMEALS SQ ; Start 03/12/20 at 17:00; Stop 03/12/20 at 22:33; Status DC Dextrose (Dextrose 50%-Water Syringe) 12.5 gm PRN Q15MIN PRN IV SEE COMMENTS; Start 03/12/20 at 16:45; Stop 03/12/20 at 22:33; Status DC Info (Icu Electrolyte Protocol) 1 ea CONT PRN PRN MC SEE COMMENTS; Start 03/12/20 at 17:00; Stop 03/12/20 at 17:06; Status DC Magnesium Sulfate 50 ml @ 25 mls/hr 1X ONCE IV Last administered on 03/12/20at 17:51; Start 03/12/20 at 17:00; Stop 03/12/20 at 18:59; Status DC Vancomycin HCl 2 gm/Sodium Chloride 500 ml @ 250 mls/hr 1X ONCE IV Last administered on 03/12/20at 17:53; Start 03/12/20 at 18:00; Stop 03/12/20 at 19:59; Status DC Vancomycin HCl 1.5 gm/Sodium Chloride 500 ml @ 250 mls/hr Q24H IV ; Start 03/13/20 at 18:00; Stop 03/13/20 at 08:48; Status DC Vancomycin HCl (Vancomycin Trough Level) 1 each 1X ONCE MC ; Start 03/14/20 at 17:30; Stop 03/14/20 at 17:31; Status Cancel Norepinephrine Bitartrate 8 mg/ Dextrose 258 ml @ 21.285 mls/ hr CONT PRN IV PER PROTOCOL Last administered on 03/13/20at 18:01; Start 03/12/20 at 22:30; Stop 03/16/20 at 13:45; Status DC Insulin Human Lispro (HumaLOG) 0-7 UNITS TIDWMEALS SQ ; Start 03/13/20 at 08:00; Stop 03/13/20 at 00:30; Status DC Dextrose (Dextrose 50%-Water Syringe) 12.5 gm PRN Q15MIN PRN IV SEE COMMENTS; Start 03/12/20 at 22:30; Stop 03/13/20 at 00:30; Status DC Insulin Human Lispro (HumaLOG) 0-9 UNITS Q4HRS SQ Last administered on 03/16/20at 18:56; Start 03/13/20 at 04:00; Stop 03/16/20 at 19:15; Status DC Dextrose (Dextrose 50%-Water Syringe) 12.5 gm PRN Q15MIN PRN IV SEE COMMENTS; Start 03/13/20 at 00:30 Meropenem 500 mg/ Sodium Chloride 50 ml @ 100 mls/hr Q6H IV ; Start 03/13/20 at 08:45; Stop 03/13/20 at 08:53; Status DC Linezolid (Zyvox) 600 mg BID PO Last administered on 03/13/20at 10:48; Start 03/13/20 at 09:00; Stop 03/13/20 at 21:11; Status DC Meropenem 500 mg/ Sodium Chloride 50 ml @ 100 mls/hr Q6HRS IV Last administered on 03/14/20at 13:02; Start 03/13/20 at 09:00; Stop 03/14/20 at 15:30; Status DC Famotidine (Pepcid Vial) 20 mg DAILY IVP Last administered on 03/17/20 08:30; Start 03/14/20 at 09:00; Stop 03/17/20 at 10:32; Status DC Multivitamins (Thera M Plus) 1 tab DAILY PO Last administered on 03/17/20at 08:30; Start 03/13/20 at 10:30 Methylprednisolone Sodium Succinate (SOLU-Medrol 40MG VIAL) 40 mg Q6HRS IV Last administered on 03/19/20at 18:34; Start 03/13/20 at 11:00 Morphine Sulfate (Morphine Sulfate) 2 mg PRN Q2HR PRN IV PAIN Last administered on 03/19/20 08:16; Start 03/13/20 at 11:00 Insulin Human Lispro (HumaLOG) 30 units 1X STAT SQ Last administered on 03/13/20 13:39; Start 03/13/20 at 13:39; Stop 03/13/20 at 13:49; Status DC Lactobacillus Rhamnosus (Culturelle) 1 cap BID PO Last administered on 03/18/20at 21:47; Start 03/13/20 at 21:00 Linezolid/Dextrose 300 ml @ 300 mls/hr Q12HR IV Last administered on 03/15/20at 08:37; Start 03/13/20 at 22:00; Stop 03/15/20 at 08:55; Status DC Morphine Sulfate (Morphine Sulfate) 4 mg 1X ONCE IV Last administered on 03/14/20at 09:22; Start 03/14/20 at 09:15; Stop 03/14/20 at 09:16; Status DC Perflutren Protein Type A Microsphe (Optison) 0.66 mg 1X ONCE IV ; Start 03/14/20 at 12:15; Stop 03/14/20 at 12:21; Status DC Meropenem 500 mg/ Sodium Chloride 50 ml @ 100 mls/hr Q8HRS IV Last ad ministered on 03/19/20at 16:00; Start 03/14/20 at 22:00 Insulin Human Lispro (HumaLOG) 0-9 UNITS TIDACHC SQ Last administered on 03/19/20at 17:45; Start 03/16/20 at 21:00 Alteplase, Recombinant (Cathflo For Central Catheter Clearance) 1 mg 1X ONCE INT CAT Last administered on 03/17/20at 05:50; Start 03/17/20 at 06:00; Stop 03/17/20 at 06:01; Status DC Famotidine (Pepcid) 20 mg QHS PO Last administered on 03/18/20at 21:47; Start 03/17/20 at 21:00 Ringer's Solution 1,000 ml @ 30 mls/hr Q24H IV ; Start 03/18/20 at 07:00; Stop 03/18/20 at 19:00; Status DC Lidocaine HCl (Xylocaine-Mpf 1% 2ml Vial) 2 ml PRN 1X PRN ID PRIOR TO IV START; Start 03/18/20 at 07:00; Stop 03/19/20 at 06:59; Status DC Hydralazine HCl (Apresoline Inj) 10 mg PRN Q4HRS PRN IVP ELEVATED BP, SEE COMMENTS; Start 03/17/20 at 23:45; Stop 03/17/20 at 23:49; Status DC Hydralazine HCl (Apresoline Inj) 10 mg PRN Q4HRS PRN IVP ELEVATED BP, SEE COMMENTS Last administered on 03/18/20at 00:06; Start 03/17/20 at 23:45 Propofol (Diprivan) 200 mg STK-MED ONCE IV ; Start 03/18/20 at 13:58; Stop 03/18/20 at 13:59; Status DC Lidocaine HCl (Lidocaine Pf 2% Vial) 5 ml STK-MED ONCE .ROUTE ; Start 03/18/20 at 13:58; Stop 03/18/20 at 13:59; Status DC Succinylcholine Chloride (Anectine) 200 mg STK-MED ONCE .ROUTE ; Start 03/18/20 at 13:58; Stop 03/18/20 at 13:59; Status DC Rocuronium [place] (Zemuron) 50 mg STK-MED ONCE .ROUTE ; Start 03/18/20 at 13:58; Stop 03/18/20 at 13:59; Status DC Fentanyl Citrate (Fentanyl 2ml Vial) 100 mcg STK-MED ONCE .ROUTE ; Start 03/18/20 at 13:58; Stop 03/18/20 at 13:59; Status DC Neostigmine [place] (Neostigmine Methylsulfate) 5 mg STK-MED ONCE .ROUTE ; Start 03/18/20 at 14:03; Stop 03/18/20 at 14:04; Status DC Glycopyrrolate (Robinul) 1 mg STK-MED ONCE .ROUTE ; Start 03/18/20 at 14:03; Stop 03/18/20 at 14:04; Status DC Ondansetron HCl (Zofran) 4 mg STK-MED ONCE .ROUTE ; Start 03/18/20 at 14:03; Stop 03/18/20 at 14:04; Status DC Ondansetron HCl (Zofran) 4 mg PRN Q6HRS PRN IV NAUSEA/VOMITING; Start 03/18/20 at 14:30; Stop 03/19/20 at 14:29; Status DC Fentanyl Citrate (Fentanyl 2ml Vial) 25 mcg PRN Q5MIN PRN IV MILD PAIN 1-3; Start 03/18/20 at 14:30; Stop 03/19/20 at 14:29; Status DC Fentanyl Citrate (Fentanyl 2ml Vial) 50 mcg PRN Q5MIN PRN IV MODERATE TO SEVERE PAIN Last administered on 03/18/20at 17:16; Start 03/18/20 at 14:30; Stop 03/19/20 at 14:29; Status DC Morphine Sulfate (Morphine Sulfate) 1 mg PRN Q10MIN PRN IV SEVERE PAIN 7-10; Start 03/18/20 at 14:30; Stop 03/19/20 at 14:29; Status DC Ringer's Solution 1,000 ml @ 30 mls/hr Q24H IV ; Start 03/18/20 at 14:25; Stop 03/19/20 at 02:24; Status DC Hydromorphone HCl (Dilaudid) 0.5 mg PRN Q10MIN PRN IV SEV PAIN, Second choice; Start 03/18/20 at 14:30; Stop 03/19/20 at 14:29; Status DC Prochlorperazine Edisylate (Compazine) 5 mg PACU PRN PRN IV NAUSEA, MRX1; Start 03/18/20 at 14:30; Stop 03/19/20 at 14:29; Status DC Insulin Human Lispro (HumaLOG VIAL for OP,RR ONLY) 0-10 units PRN Q1HR PRN SQ PER PROTOCOL Last administered on 03/18/20at 14:35; Start 03/18/20 at 14:30; Stop 03/19/20 at 14:29; Status DC Cellulose (Surgicel Hemostat 4x8) 1 each STK-MED ONCE .ROUTE ; Start 03/18/20 at 14:38; Stop 03/18/20 at 14:38; Status DC Bupivacaine HCl/ Epinephrine Bitart (Sensorcaine-Epi 0.25%-1:[id number] Mpf) 30 ml STK-MED ONCE .ROUTE Last administered on 03/18/20at 15:42; Start 03/18/20 at 14:38; Stop 03/18/20 at 14:39; Status DC Dexamethasone Sodium Phosphate (Decadron) 4 mg STK-MED ONCE .ROUTE ; Start 03/18/20 at 15:23; Stop 03/18/20 at 15:23; Status DC Neostigmine [place] (Neostigmine Methylsulfate) 5 mg STK-MED ONCE .ROUTE ; Start 03/18/20 at 15:34; Stop 03/18/20 at 15:34; Status DC Glycopyrrolate (Robinul) 1 mg STK-MED ONCE .ROUTE ; Start 03/18/20 at 15:34; Stop 03/18/20 at 15:34; Status DC Fentanyl Citrate (Fentanyl 2ml Vial) 100 mcg STK-MED ONCE .ROUTE ; Start 03/18/20 at 17:15; Stop 03/18/20 at 17:16; Status DC Lidocaine HCl (Buffered Lidocaine 1%) 3 ml STK-MED ONCE .ROUTE ; Start 03/19/20 at 10:45; Stop 03/19/20 at 10:45; Status DC Lidocaine HCl (Buffered Lidocaine 1%) 6 ml 1X ONCE INJ Last administered on 03/19/20at 14:20; Start 03/19/20 at 11:00; Stop 03/19/20 at 11:01; Status DC Vitals/I & O Vital Sign - Last 24 Hours 03/18/20 03/18/20 03/18/20 03/18/20 19:30 20:00 20:00 21:00 Temp 97.3 97.3 97.3 97.3 Pulse 74 84 88 Resp 20 20 18 B/P (MAP) 144/81 (102) 134/83 (100) 154/92 (112) Pulse Ox 98 94 97 O2 Delivery Nasal Cannula Nasal Cannula Nasal Cannula Nasal Cannula O2 Flow Rate 1.5 1.5 2 1.5 03/18/20 03/19/20 03/19/20 03/19/20 23:05 03:00 07:00 07:30 Temp 97.4 97.3 95.0 97.4 97.3 95.0 Pulse 85 85 90 Resp 18 18 18 B/P (MAP) 121/83 (96) 116/73 (87) 150/88 (108) Pulse Ox 100 95 93 O2 Delivery Nasal Cannula Nasal Cannula Nasal Cannula Room Air O2 Flow Rate 2.0 2.0 2.0 03/19/20 03/19/20 03/19/20 08:16 08:46 11:00 Temp 95.7 95.7 Pulse 92 Resp 16 20 18 B/P (MAP) 114/87 (96) Pulse Ox 97 O2 Delivery Room Air Room Air Intake and Output 03/18/20 03/18/20 03/19/20 15:00 23:00 07:00 Intake Total 250 ml 1500 ml Output Total 875 ml 550 ml Balance 250 ml 625 ml -550 ml Justicifation of Admission Dx: Justifications for Admission: Justification of Admission Dx: Yes CHF: Cardiac Arrhythmias Comminuty Aquired Pneumonia: Bactermia Chronic Renal Failure: Encephalopathy Sepsis: Altered Mental Status MANOLO SANTANA MD Mar 19, 2020 19:04
[2020-03-19 19:43] LABS: PROTHROMBIN TIME PATIENT 16.6 SEC (11.7-14.0)
[2020-03-19 19:44] LABS: CALCIUM 6.9 mg/dL (8.5-10.1); CREATININE 2.7 mg/dL (0.7-1.3); GFR 27.9; POTASSIUM 5.3 mmol/L (3.5-5.1)
[2020-03-19 21:00] VITALS: BP 154/78
[2020-03-19] MEDS: FAMOTIDINE 20 MG TABLET. PO SCH (21:42)
[2020-03-19] MEDS: ONDANSETRON PF 4 MG/2 ML VIAL. IVP PRN (21:46)
[2020-03-19 23:00] VITALS: BP 154/78
[2020-03-20] MEDS: methylPREDNISolone SOD SUCC PF 40 MG/ML VIAL. IV SCH ×4 (00:33→19:25)
[2020-03-20 02:40] VITALS: BP 168/92
[2020-03-20] MEDS: IV NORMAL SALINE 1000ML BAG 1,000 ML IV SCH ×2 (02:43→17:33)
[2020-03-20] MEDS: MORPHINE SULFATE 2 MG/ML VIAL. IV PRN ×2 (02:44→21:13)
[2020-03-20 04:48] LABS: BASO % 0 % (0-3); EOS % 0 % (0-3); HEMATOCRIT 35.2 % (39.0-53.0); HEMOGLOBIN 11.7 g/dL (13.0-17.5); LYMPH # 0.5 x10^3/uL (1.0-4.8); LYMPH % 3 % (24-48); MEAN CORPUSCULAR HEMOGLOBIN 30 pg (25-35); MEAN CORPUSCULAR HGB CONC 33 g/dL (31-37); MEAN CORPUSCULAR VOLUME 89 fL (79-100); MONO # 0.4 x10^3/uL (0.0-1.1); MONO % 3 % (0-9); NEUT # 15.2 x10^3/uL (1.8-7.7); NEUT % 94 % (31-73); PLATELET COUNT 70 x10^3/uL (140-400); RED BLOOD COUNT 3.96 x10^6/uL (4.30-5.70); RED CELL DISTRIBUTION WIDTH 15.9 % (11.5-14.5); WHITE BLOOD COUNT 16.2 x10^3/uL (4.0-11.0)
[2020-03-20] MEDS: HEPARIN for SUB-Q USE 5,000 UNIT/ML VIAL. SQ SCH ×3 (05:49→21:12)
[2020-03-20] MEDS: MEROPENEM 500 MG in IV NORMAL SALINE 50ML 50 ML IV SCH ×3 (05:49→21:12)
[2020-03-20 07:15] VITALS: BP 138/76
[2020-03-20] MEDS: INSULIN LISPRO 300 UNITS/3 ML VIAL. SQ SCH ×4 (08:44→20:41)
[2020-03-20] MEDS: MULTIVITAMIN with MINERAL TABLET. PO SCH (09:00)
[2020-03-20] MEDS: LACTOBACILLUS RHAMNOSUS GG 1 CAPSULE. PO SCH ×2 (09:00→20:37)
--- NOTE | 2020-03-20 09:14 | PDOC ---
RAMU RED WIRE HANGER 03/20/20 0914: SURGICAL PROGRESS NOTE DATE: 03/20/20 TIME: 09:10 Subjective lethargic, does open eye briefly Vital Signs Vital Signs Date Time Temp Pulse Resp B/P (MAP) Pulse Ox O2 Delivery O2 Flow Rate FiO2 03/20/20 07:15 97.1 81 20 138/76 (96) 96 Nasal Cannula 2.0 97.1 I&O Intake and Output 03/20/20 06:59 Intake Total 0 ml Output Total 1240 ml Balance -1240 ml Intake Oral 0 ml Output Urine Total 700 ml Drainage Total 540 ml General: Other (lethargic ) Abdomen: Soft, Other (bloody drainage from and around ASUNCION) Labs Laboratory Tests Test 03/18/20 12:12 03/18/20 14:21 03/18/20 16:43 03/18/20 20:56 Glucose (Fingerstick) 220 mg/dL (70-99) 211 mg/dL (70-99) 219 mg/dL (70-99) 214 mg/dL (70-99) Test 03/19/20 07:47 03/19/20 08:55 03/19/20 11:19 03/19/20 16:38 Glucose (Fingerstick) 192 mg/dL (70-99) 197 mg/dL (70-99) 235 mg/dL (70-99) Sodium Level 143 mmol/L (136-145) Potassium Level 5.1 mmol/L (3.5-5.1) Chloride Level 112 mmol/L (98-107) Carbon Dioxide Level 15 mmol/L (21-32) Anion Gap 16 (6-14) Blood Urea Nitrogen 76 mg/dL (8-26) Creatinine 2.6 mg/dL (0.7-1.3) Estimated GFR (Cockcroft-Gault) 29.2 Glucose Level 234 mg/dL (70-99) Calcium Level 6.3 mg/dL (8.5-10.1) Test 03/19/20 17:40 03/19/20 21:28 03/20/20 03:20 03/20/20 07:10 White Blood Count 20.2 x10^3/uL (4.0-11.0) 16.2 x10^3/uL (4.0-11.0) Red Blood Count 4.31 x10^6/uL (4.30-5.70) 3.96 x10^6/uL (4.30-5.70) Hemoglobin 12.6 g/dL (13.0-17.5) 11.7 g/dL (13.0-17.5) Hematocrit 38.8 % (39.0-53.0) 35.2 % (39.0-53.0) Mean Corpuscular Volume 90 fL (79-100) 89 fL (79-100) Mean Corpuscular Hemoglobin 29 pg (25-35) 30 pg (25-35) Mean Corpuscular Hemoglobin Concent 33 g/dL (31-37) 33 g/dL (31-37) Red Cell Distribution Width 16.1 % (11.5-14.5) 15.9 % (11.5-14.5) Platelet Count 85 x10^3/uL (140-400) 70 x10^3/uL (140-400) Neutrophils (%) (Auto) 93 % (31-73) 94 % (31-73) Lymphocytes (%) (Auto) 4 % (24-48) 3 % (24-48) Monocytes (%) (Auto) 3 % (0-9) 3 % (0-9) Eosinophils (%) (Auto) 0 % (0-3) 0 % (0-3) Basophils (%) (Auto) 0 % (0-3) 0 % (0-3) Neutrophils # (Auto) 18.8 x10^3/uL (1.8-7.7) 15.2 x10^3/uL (1.8-7.7) Lymphocytes # (Auto) 0.7 x10^3/uL (1.0-4.8) 0.5 x10^3/uL (1.0-4.8) Monocytes # (Auto) 0.6 x10^3/uL (0.0-1.1) 0.4 x10^3/uL (0.0-1.1) Eosinophils # (Auto) 0.0 x10^3/uL (0.0-0.7) 0.0 x10^3/uL (0.0-0.7) Basophils # (Auto) 0.0 x10^3/uL (0.0-0.2) 0.0 x10^3/uL (0.0-0.2) Segmented Neutrophils % 92 % (35-66) Band Neutrophils % 4 % (0-9) Lymphocytes % 1 % (24-48) Monocytes % 3 % (0-10) Toxic Granulation Slight Platelet Estimate Decreased (ADEQUATE) Prothrombin Time 16.6 SEC (11.7-14.0) Prothromb Time International Ratio 1.4 (0.8-1.1) Sodium Level 142 mmol/L (136-145) Potassium Level 5.3 mmol/L (3.5-5.1) Chloride Level 113 mmol/L (98-107) Carbon Dioxide Level 16 mmol/L (21-32) Anion Gap 13 (6-14) Blood Urea Nitrogen 80 mg/dL (8-26) Creatinine 2.7 mg/dL (0.7-1.3) Estimated GFR (Cockcroft-Gault) 27.9 Glucose Level 308 mg/dL (70-99) Calcium Level 6.9 mg/dL (8.5-10.1) Glucose (Fingerstick) 234 mg/dL (70-99) 257 mg/dL (70-99) Laboratory Tests Test 03/19/20 11:19 03/19/20 16:38 03/19/20 17:40 03/19/20 21:28 Glucose (Fingerstick) 197 mg/dL (70-99) 235 mg/dL (70-99) 234 mg/dL (70-99) White Blood Count 20.2 x10^3/uL (4.0-11.0) Red Blood Count 4.31 x10^6/uL (4.30-5.70) Hemoglobin 12.6 g/dL (13.0-17.5) Hematocrit 38.8 % (39.0-53.0) Mean Corpuscular Volume 90 fL (79-100) Mean Corpuscular Hemoglobin 29 pg (25-35) Mean Corpuscular Hemoglobin Concent 33 g/dL (31-37) Red Cell Distribution Width 16.1 % (11.5-14.5) Platelet Count 85 x10^3/uL (140-400) Neutrophils (%) (Auto) 93 % (31-73) Lymphocytes (%) (Auto) 4 % (24-48) Monocytes (%) (Auto) 3 % (0-9) Eosinophils (%) (Auto) 0 % (0-3) Basophils (%) (Auto) 0 % (0-3) Neutrophils # (Auto) 18.8 x10^3/uL (1.8-7.7) Lymphocytes # (Auto) 0.7 x10^3/uL (1.0-4.8) Monocytes # (Auto) 0.6 x10^3/uL (0.0-1.1) Eosinophils # (Auto) 0.0 x10^3/uL (0.0-0.7) Basophils # (Auto) 0.0 x10^3/uL (0.0-0.2) Segmented Neutrophils % 92 % (35-66) Band Neutrophils % 4 % (0-9) Lymphocytes % 1 % (24-48) Monocytes % 3 % (0-10) Toxic Granulation Slight Platelet Estimate Decreased (ADEQUATE) Prothrombin Time 16.6 SEC (11.7-14.0) Prothromb Time International Ratio 1.4 (0.8-1.1) Sodium Level 142 mmol/L (136-145) Potassium Level 5.3 mmol/L (3.5-5.1) Chloride Level 113 mmol/L (98-107) Carbon Dioxide Level 16 mmol/L (21-32) Anion Gap 13 (6-14) Blood Urea Nitrogen 80 mg/dL (8-26) Creatinine 2.7 mg/dL (0.7-1.3) Estimated GFR (Cockcroft-Gault) 27.9 Glucose Level 308 mg/dL (70-99) Calcium Level 6.9 mg/dL (8.5-10.1) Test 03/20/20 03:20 03/20/20 07:10 White Blood Count 16.2 x10^3/uL (4.0-11.0) Red Blood Count 3.96 x10^6/uL (4.30-5.70) Hemoglobin 11.7 g/dL (13.0-17.5) Hematocrit 35.2 % (39.0-53.0) Mean Corpuscular Volume 89 fL (79-100) Mean Corpuscular Hemoglobin 30 pg (25-35) Mean Corpuscular Hemoglobin Concent 33 g/dL (31-37) Red Cell Distribution Width 15.9 % (11.5-14.5) Platelet Count 70 x10^3/uL (140-400) Neutrophils (%) (Auto) 94 % (31-73) Lymphocytes (%) (Auto) 3 % (24-48) Monocytes (%) (Auto) 3 % (0-9) Eosinophils (%) (Auto) 0 % (0-3) Basophils (%) (Auto) 0 % (0-3) Neutrophils # (Auto) 15.2 x10^3/uL (1.8-7.7) Lymphocytes # (Auto) 0.5 x10^3/uL (1.0-4.8) Monocytes # (Auto) 0.4 x10^3/uL (0.0-1.1) Eosinophils # (Auto) 0.0 x10^3/uL (0.0-0.7) Basophils # (Auto) 0.0 x10^3/uL (0.0-0.2) Glucose (Fingerstick) 257 mg/dL (70-99) Problem List Problems Medical Problems: (1) AMS (altered mental status) Status: Acute (2) Hypocalcemia Status: Acute (3) Hypokalemia Status: Acute (4) Septic shock Status: Acute (5) Suspected 2019 novel coronavirus infection Status: Acute Assessment/Plan confusion/somewhat more lethargic drainage from asuncion and around site--plts decreased to 70--would hold any blood thinners WBC decreased Justicifation of Admission Dx: Justifications for Admission: Justification of Admission Dx: Yes CHF: Cardiac Arrhythmias Comminuty Aquired Pneumonia: Bactermia Chronic Renal Failure: Encephalopathy Sepsis: Altered Mental Status ERICA MANCINI MD 03/20/20 1233: SURGICAL PROGRESS NOTE Assessment/Plan Agree with Lina assessment and plan. We will monitor ASUNCION drainage. Hemoglobin 11.7 NEDARAMU L WIRE HANGER Mar 20, 2020 09:14 ERICA MANCINI MD Mar 20, 2020 12:33
--- NOTE | 2020-03-20 09:59 | NUR ---
SW following. Discussed with RN, pt has Medicaid and Medicare part B only. This will not pay for a stay at detention facility. Pt's insurance would cover acute rehab and home health only. PT/OT ordered. Pt current with [facility]. Wound care following, drain. SW will continue to follow.
[2020-03-20 11:10] VITALS: BP 141/86
--- NOTE | 2020-03-20 11:13 | PDOC ---
DATE OF SERVICE DATE: 03/20/20 TIME: 11:09 SUBJECTIVE ROS lethargic OBJECTIVE Vital Signs Vital Signs Date Time Temp Pulse Resp B/P (MAP) Pulse Ox O2 Delivery O2 Flow Rate FiO2 03/20/20 07:15 97.1 81 20 138/76 (96) 96 Nasal Cannula 2.0 97.1 I & 0 Intake and Output 03/20/20 06:59 Intake Total 0 ml Output Total 1240 ml Balance -1240 ml Intake Oral 0 ml Output Urine Total 700 ml Drainage Total 540 ml PHYSICAL EXAM Physical Exam GENERAL: NAD. HEENT: Oral mucosa moist. NECK: Supple. LUNGS: Decreased breath sounds at the bases. Non labored HEART: S1, S2. No gallops or murmurs. ABDOMEN: Soft, obese,SARKIS drain + : Gates in place EXTREMITIES: Trace edema lower extremities, bilaterally. No cyanosis, no clubbing. NEUROLOGIC: lethargic DIAGNOSIS/ASSESSMENT Assessment & Plan Acute renal failure - ATN 2/2 Septic shock Cr peaked at 2.9-->2.7 today , BUN increasing- he is on IV steroids At presentation 1.6, UOP improving , UA c/w UTI Baseline renal function unknown , CT abdomen- Unremarkable Kidneys and bladder, US- Rt Kidney unremarkable, Lt not evaluated Avoid Nephrotoxins, supportive care , strict I/O , switch from Nacl to IV Bicarb gtt Diabetes mellitus Hypertension- stable Septic shock from gram neg sepsis, Gram negative bacteremia source likely GI and/or Urinary tract infection Thrombocytopenia, likely sepsis. Encephalopathy, likely sepsis, improving. Acute cholecysitis Hyperbilirubinemia, abnormal LFTs, gallbladder distention on CT. HIDA scan done. US neg S/P Lap Christy ON 03/[address] [place] resident COMMENT/RELEVANT DATA Meds Current Medications Medications (Trade) Dose Ordered Sig/Uma Start Time Stop Time Status Last Admin Dose Admin Alteplase, Recombinant (Cathflo For Central Catheter Clearance) 1 mg 1X ONCE 03/17/20 06:00 03/17/20 06:01 DC 03/17/20 05:50 1 MG Azithromycin 250 ml @ 250 mls/hr 1X ONCE 03/12/20 17:00 03/12/20 17:59 DC 03/12/20 17:51 250 MLS/HR Bisacodyl (Dulcolax Supp) 10 mg PRN DAILY PRN 03/12/20 16:45 Bupivacaine HCl/ Epinephrine Bitart (Sensorcaine-Epi 0.25%-1:330741 Mpf) 30 ml STK-MED ONCE 03/18/20 14:38 03/18/20 14:39 DC 03/18/20 15:42 20 ML Calcium Gluconate (Calcium Gluconate) 1,000 mg 1X ONCE 03/12/20 17:00 03/12/20 17:01 DC 03/12/20 17:50 1,000 MG Cefepime HCl (Maxipime) 1 gm Q8HRS 03/12/20 22:00 03/13/20 08:46 DC 03/13/20 05:51 1 GM Ceftriaxone Sodium (Rocephin) 1 gm 1X ONCE 03/12/20 15:00 03/12/20 15:01 DC 03/12/20 16:41 1 GM Cellulose (Surgicel Hemostat 4x8) 1 each STK-MED ONCE 03/18/20 14:38 03/18/20 14:38 DC Dexamethasone Sodium Phosphate (Decadron) 4 mg STK-MED ONCE 03/18/20 15:23 03/18/20 15:23 DC Dextrose (Dextrose 50%-Water Syringe) 12.5 gm PRN Q15MIN PRN 03/13/20 00:30 Famotidine (Pepcid Vial) 20 mg DAILY 03/14/20 09:00 03/17/20 10:32 DC 03/17/20 08:30 20 MG Famotidine (Pepcid) 20 mg QHS 03/17/20 21:00 03/19/20 21:42 20 MG Fentanyl Citrate (Fentanyl 2ml Vial) 100 mcg STK-MED ONCE 03/18/20 17:15 03/18/20 17:16 DC Glycopyrrolate (Robinul) 1 mg STK-MED ONCE 03/18/20 15:34 03/18/20 15:34 DC Heparin Sodium (Porcine) (Heparin Sodium) 5,000 unit Q8HRS 03/12/20 22:00 03/18/20 05:49 5,000 UNIT Hydralazine HCl (Apresoline Inj) 10 mg PRN Q4HRS PRN 03/17/20 23:45 03/18/20 00:06 10 MG Hydromorphone HCl (Dilaudid) 0.5 mg PRN Q10MIN PRN 03/18/20 14:30 03/19/20 14:29 DC Info (Icu Electrolyte Protocol) 1 ea CONT PRN PRN 03/12/20 17:00 03/12/20 17:06 DC Insulin Human Lispro (HumaLOG VIAL for OP,RR ONLY) 0-10 units PRN Q1HR PRN 03/18/20 14:30 03/19/20 14:29 DC 03/18/20 14:35 6 UNIT Insulin Human Lispro (HumaLOG) 0-9 UNITS TIDACHC 03/16/20 21:00 03/20/20 08:44 4 UNITS Lactobacillus Rhamnosus (Culturelle) 1 cap BID 03/13/20 21:00 03/19/20 21:42 1 CAP Lidocaine HCl (Buffered Lidocaine 1%) 6 ml 1X ONCE 03/19/20 11:00 03/19/20 11:01 DC 03/19/20 14:20 6 ML Lidocaine HCl (Lidocaine 1% 20ml Vial) 20 ml 1X ONCE 03/12/20 15:30 03/12/20 15:31 DC 03/12/20 15:30 20 ML Lidocaine HCl (Lidocaine Pf 2% Vial) 5 ml STK-MED ONCE 03/18/20 13:58 03/18/20 13:59 DC Lidocaine HCl (Xylocaine-Mpf 1% 2ml Vial) 2 ml PRN 1X PRN 03/18/20 07:00 03/19/20 06:59 DC Linezolid (Zyvox) 600 mg BID 03/13/20 09:00 03/13/20 21:11 DC 03/13/20 10:48 600 MG Linezolid/Dextrose 300 ml @ 300 mls/hr Q12HR 03/13/20 22:00 03/15/20 08:55 DC 03/15/20 08:37 300 MLS/HR Magnesium Sulfate 50 ml @ 25 mls/hr 1X ONCE 03/12/20 17:00 03/12/20 18:59 DC 03/12/20 17:51 25 MLS/HR Meropenem 500 mg/ Sodium Chloride 50 ml @ 100 mls/hr Q8HRS 03/14/20 22:00 03/20/20 05:49 100 MLS/HR Methylprednisolone Sodium Succinate (SOLU-Medrol 40MG VIAL) 40 mg Q6HRS 03/13/20 11:00 03/20/20 05:49 40 MG Morphine Sulfate (Morphine Sulfate) 1 mg PRN Q10MIN PRN 03/18/20 14:30 03/19/20 14:29 DC Multivitamins (Thera M Plus) 1 tab DAILY 03/13/20 10:30 03/17/20 08:30 1 TAB Neostigmine Napoleon (Neostigmine Methylsulfate) 5 mg STK-MED ONCE 03/18/20 15:34 03/18/20 15:34 DC Norepinephrine Bitartrate 8 mg/ Dextrose 258 ml @ 21.285 mls/ hr CONT PRN 03/12/20 22:30 03/16/20 13:45 DC 03/13/20 18:01 27.671 MLS/HR Ondansetron HCl (Zofran) 4 mg PRN Q6HRS PRN 03/18/20 14:30 03/19/20 14:29 DC Perflutren Protein Type A Microsphe (Optison) 0.66 mg 1X ONCE 03/14/20 12:15 03/14/20 12:21 DC Potassium Chloride/Water 100 ml @ 100 mls/hr Q1H 03/12/20 16:45 03/12/20 17:00 DC Prochlorperazine (Compazine) 25 mg PRN Q12HR PRN 03/12/20 16:45 Prochlorperazine Edisylate (Compazine) 5 mg PACU PRN PRN 03/18/20 14:30 03/19/20 14:29 DC Propofol (Diprivan) 200 mg STK-MED ONCE 03/18/20 13:58 03/18/20 13:59 DC Ringer's Solution 1,000 ml @ 30 mls/hr Q24H 03/18/20 14:25 03/19/20 02:24 DC Rocuronium Napoleon (Zemuron) 50 mg STK-MED ONCE 03/18/20 13:58 03/18/20 13:59 DC Sodium Chloride 1,000 ml @ 100 mls/hr Q10H 03/12/20 16:33 03/20/20 02:43 100 MLS/HR Sodium Chloride (NORMAL SALINE FLUSH for STERILE FIELD) 10 ml STK-MED ONCE 03/12/20 15:24 03/12/20 15:24 DC Sodium Chloride (Normal Saline Flush) 3 ml QSHIFT PRN 03/12/20 16:45 Sodium Phosphate 15 mmol/Sodium Chloride 255 ml @ 62.5 mls/hr 1X ONCE 03/12/20 16:45 03/12/20 17:00 DC Sodium Phosphate 30 mmol/Sodium Chloride 260 ml @ 62.5 mls/hr 1X ONCE 03/12/20 16:45 03/12/20 17:00 DC Succinylcholine Chloride (Anectine) 200 mg STK-MED ONCE 03/18/20 13:58 03/18/20 13:59 DC Vancomycin HCl (Vanco Per Pharmacy) 1 each PRN DAILY PRN 03/12/20 16:45 03/13/20 08:46 DC 03/12/20 18:45 1 EACH Vancomycin HCl (Vancomycin Trough Level) 1 each 1X ONCE 03/14/20 17:30 03/14/20 17:31 Cancel Vancomycin HCl 1.5 gm/Sodium Chloride 500 ml @ 250 mls/hr Q24H 03/13/20 18:00 03/13/20 08:48 DC Vancomycin HCl 2 gm/Sodium Chloride 500 ml @ 250 mls/hr 1X ONCE 03/12/20 18:00 03/12/20 19:59 DC 03/12/20 17:53 250 MLS/HR Lab Laboratory Tests Test 03/19/20 11:19 03/19/20 16:38 03/19/20 17:40 03/19/20 21:28 Glucose (Fingerstick) 197 mg/dL (70-99) 235 mg/dL (70-99) 234 mg/dL (70-99) White Blood Count 20.2 x10^3/uL (4.0-11.0) Red Blood Count 4.31 x10^6/uL (4.30-5.70) Hemoglobin 12.6 g/dL (13.0-17.5) Hematocrit 38.8 % (39.0-53.0) Mean Corpuscular Volume 90 fL (79-100) Mean Corpuscular Hemoglobin 29 pg (25-35) Mean Corpuscular Hemoglobin Concent 33 g/dL (31-37) Red Cell Distribution Width 16.1 % (11.5-14.5) Platelet Count 85 x10^3/uL (140-400) Neutrophils (%) (Auto) 93 % (31-73) Lymphocytes (%) (Auto) 4 % (24-48) Monocytes (%) (Auto) 3 % (0-9) Eosinophils (%) (Auto) 0 % (0-3) Basophils (%) (Auto) 0 % (0-3) Neutrophils # (Auto) 18.8 x10^3/uL (1.8-7.7) Lymphocytes # (Auto) 0.7 x10^3/uL (1.0-4.8) Monocytes # (Auto) 0.6 x10^3/uL (0.0-1.1) Eosinophils # (Auto) 0.0 x10^3/uL (0.0-0.7) Basophils # (Auto) 0.0 x10^3/uL (0.0-0.2) Segmented Neutrophils % 92 % (35-66) Band Neutrophils % 4 % (0-9) Lymphocytes % 1 % (24-48) Monocytes % 3 % (0-10) Toxic Granulation Slight Platelet Estimate Decreased (ADEQUATE) Prothrombin Time 16.6 SEC (11.7-14.0) Prothromb Time International Ratio 1.4 (0.8-1.1) Sodium Level 142 mmol/L (136-145) Potassium Level 5.3 mmol/L (3.5-5.1) Chloride Level 113 mmol/L (98-107) Carbon Dioxide Level 16 mmol/L (21-32) Anion Gap 13 (6-14) Blood Urea Nitrogen 80 mg/dL (8-26) Creatinine 2.7 mg/dL (0.7-1.3) Estimated GFR (Cockcroft-Gault) 27.9 Glucose Level 308 mg/dL (70-99) Calcium Level 6.9 mg/dL (8.5-10.1) Test 03/20/20 03:20 03/20/20 07:10 03/20/20 10:00 White Blood Count 16.2 x10^3/uL (4.0-11.0) Red Blood Count 3.96 x10^6/uL (4.30-5.70) Hemoglobin 11.7 g/dL (13.0-17.5) Hematocrit 35.2 % (39.0-53.0) Mean Corpuscular Volume 89 fL (79-100) Mean Corpuscular Hemoglobin 30 pg (25-35) Mean Corpuscular Hemoglobin Concent 33 g/dL (31-37) Red Cell Distribution Width 15.9 % (11.5-14.5) Platelet Count 70 x10^3/uL (140-400) Neutrophils (%) (Auto) 94 % (31-73) Lymphocytes (%) (Auto) 3 % (24-48) Monocytes (%) (Auto) 3 % (0-9) Eosinophils (%) (Auto) 0 % (0-3) Basophils (%) (Auto) 0 % (0-3) Neutrophils # (Auto) 15.2 x10^3/uL (1.8-7.7) Lymphocytes # (Auto) 0.5 x10^3/uL (1.0-4.8) Monocytes # (Auto) 0.4 x10^3/uL (0.0-1.1) Eosinophils # (Auto) 0.0 x10^3/uL (0.0-0.7) Basophils # (Auto) 0.0 x10^3/uL (0.0-0.2) Glucose (Fingerstick) 257 mg/dL (70-99) Lactic Acid Level 1.5 mmol/L (0.4-2.0) Results All relevant outside records, renal labs, imaging studies, telemetry/EKG's were reviewed. Justicifation of Admission Dx: Justifications for Admission: Justification of Admission Dx: Yes CHF: Cardiac Arrhythmias Comminuty Aquired Pneumonia: Bactermia Chronic Renal Failure: Encephalopathy Sepsis: Altered Mental Status SANGEETA AGUIRRE MD Mar 20, 2020 11:13
--- NOTE | 2020-03-20 11:20 | PDOC ---
Infectious Disease Note Subjective Subjective Doing ok Still some pain Denies N/V/D/fever/chills/rash Vital Sign Vital Signs Vital Signs Date Time Temp Pulse Resp B/P (MAP) Pulse Ox O2 Delivery O2 Flow Rate FiO2 03/20/20 07:15 97.1 81 20 138/76 (96) 96 Nasal Cannula 2.0 97.1 Physical Exam PHYSICAL EXAM GENERAL: Alert, in NAD but sleepy HEENT: Oral mucosa moist. No thrush NECK: Supple. No JVD. LUNGS: Decreased breath sounds at the bases. No wheezing. HEART: S1, S2. No gallops or murmurs. Left sided chest wall PPM looks intact, clean. ABDOMEN: Soft, obese, SARKIS with sanginous fluid. No rebound, no guarding. : Gates in place EXTREMITIES: Trace edema lower extremities, bilaterally. No cyanosis, no clubbing. NEUROLOGIC: Alert, oriented, a little confused - generalized weakness. RIJ (03/12) removed and previous site without signs of complications - now with new IJ PIV Labs Lab Laboratory Tests Test 03/19/20 16:38 03/19/20 17:40 03/19/20 21:28 03/20/20 03:20 Glucose (Fingerstick) 235 mg/dL (70-99) 234 mg/dL (70-99) White Blood Count 20.2 x10^3/uL (4.0-11.0) 16.2 x10^3/uL (4.0-11.0) Red Blood Count 4.31 x10^6/uL (4.30-5.70) 3.96 x10^6/uL (4.30-5.70) Hemoglobin 12.6 g/dL (13.0-17.5) 11.7 g/dL (13.0-17.5) Hematocrit 38.8 % (39.0-53.0) 35.2 % (39.0-53.0) Mean Corpuscular Volume 90 fL (79-100) 89 fL (79-100) Mean Corpuscular Hemoglobin 29 pg (25-35) 30 pg (25-35) Mean Corpuscular Hemoglobin Concent 33 g/dL (31-37) 33 g/dL (31-37) Red Cell Distribution Width 16.1 % (11.5-14.5) 15.9 % (11.5-14.5) Platelet Count 85 x10^3/uL (140-400) 70 x10^3/uL (140-400) Neutrophils (%) (Auto) 93 % (31-73) 94 % (31-73) Lymphocytes (%) (Auto) 4 % (24-48) 3 % (24-48) Monocytes (%) (Auto) 3 % (0-9) 3 % (0-9) Eosinophils (%) (Auto) 0 % (0-3) 0 % (0-3) Basophils (%) (Auto) 0 % (0-3) 0 % (0-3) Neutrophils # (Auto) 18.8 x10^3/uL (1.8-7.7) 15.2 x10^3/uL (1.8-7.7) Lymphocytes # (Auto) 0.7 x10^3/uL (1.0-4.8) 0.5 x10^3/uL (1.0-4.8) Monocytes # (Auto) 0.6 x10^3/uL (0.0-1.1) 0.4 x10^3/uL (0.0-1.1) Eosinophils # (Auto) 0.0 x10^3/uL (0.0-0.7) 0.0 x10^3/uL (0.0-0.7) Basophils # (Auto) 0.0 x10^3/uL (0.0-0.2) 0.0 x10^3/uL (0.0-0.2) Segmented Neutrophils % 92 % (35-66) Band Neutrophils % 4 % (0-9) Lymphocytes % 1 % (24-48) Monocytes % 3 % (0-10) Toxic Granulation Slight Platelet Estimate Decreased (ADEQUATE) Prothrombin Time 16.6 SEC (11.7-14.0) Prothromb Time International Ratio 1.4 (0.8-1.1) Sodium Level 142 mmol/L (136-145) Potassium Level 5.3 mmol/L (3.5-5.1) Chloride Level 113 mmol/L (98-107) Carbon Dioxide Level 16 mmol/L (21-32) Anion Gap 13 (6-14) Blood Urea Nitrogen 80 mg/dL (8-26) Creatinine 2.7 mg/dL (0.7-1.3) Estimated GFR (Cockcroft-Gault) 27.9 Glucose Level 308 mg/dL (70-99) Calcium Level 6.9 mg/dL (8.5-10.1) Test 03/20/20 07:10 03/20/20 10:00 Glucose (Fingerstick) 257 mg/dL (70-99) Lactic Acid Level 1.5 mmol/L (0.4-2.0) Micro Microbiology 03/14/20 Blood Culture - Preliminary, Resulted 03/12/20 Urine Culture - Final, Complete Objective Assessment Septic shock from gram neg sepsis, improving. ESBL + E. coli. 03/14 and neg 03/17 and 03/18 Leukocytosis with bandemia, in part steroids - better Lactic acidosis. Gram negative bacteremia source likely GI and/or . ESBL + E. coli. Repeat BC 03/14 + GNR 03/17 and 03/18 neg so far Urinary tract infection. LACTOBACILLUS SPECIES Acute kidney injury - Cr worsening Thrombocytopenia, likely sepsis. Encephalopathy, likely sepsis, improving. Acute cholecysitis Hyperbilirubinemia, abnormal LFTs, gallbladder distention on CT. HIDA scan noted. US neg Diabetes mellitus. 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 [place] resident Plan Plan of Care F/u Blood cults in am 03/17 and 03/18 cont Merrem, dose to be adjusted for renal function as needed, D//w pharmacy Probiotics Monitor lab values/temp Maintain aspiration precautions Gen surg following. Imani martinez planned Consult renal for NELLI Contact isolation for ESBL Discussed with nursing HERMILA MARTINES MD Mar 20, 2020 11:20
--- NOTE | 2020-03-20 12:17 | RAD ---
Procedure: Ultrasound and fluoroscopically guided placement of right internal jugular central venous catheter03/20/2020 10:11 AM Clinical Indication: NO IV ACCESS Discussion: The risks and benefits of the procedure were discussed the patient and/or their advertising account representative. Informed consent was obtained. A timeout procedure was performed. All elements of maximal sterile barrier technique including the use of a cap, mask, sterile gown, sterile gloves, large sterile sheet, appropriate hand hygiene, and 2% chlorhexidine for cutaneous antisepsis (or acceptable alternative antiseptic per current guidelines) were followed for this procedure. The patient was prepped and draped in the usual sterile fashion. Ultrasound interrogation of the right neck revealed patency and compressibility of the right internal jugular vein. A 21-gauge micropuncture was then used to gain access to this vein under ultrasound guidance. A hard copy ultrasound image was recorded. A guidewire was advanced centrally. 5 [place] sheath was placed. Over a wire following dilatation, a triple-lumen central venous catheter was advanced centrally. Catheter was found to flush and aspirate normally. Fluoroscopic imaging demonstrates catheter to be normal in position.. Catheter secured in place and a sterile dressing was applied. No immediate complications were identified. Fluoroscopy time: 9.0 minutes Dose area product 9 saucedo centimeters squared Impression: Successful ultrasound-guided placement of right internal jugular triple-lumen central venous catheter
--- NOTE | 2020-03-20 13:12 | PDOC ---
Date of Service: DATE: 03/20/20 TIME: 13:08 Subjective: Subjective: "Yes sir" when asked about pain - difficult to clarify. Objective: Vital Signs: Vital Signs Date Time Temp Pulse Resp B/P (MAP) Pulse Ox O2 Delivery O2 Flow Rate FiO2 03/20/20 11:10 98.2 79 18 141/86 (104) 95 Nasal Cannula 2.0 98.2 Labs: Laboratory Tests Test 03/19/20 16:38 03/19/20 17:40 03/19/20 21:28 03/20/20 03:20 Glucose (Fingerstick) 235 mg/dL 234 mg/dL White Blood Count 20.2 x10^3/uL 16.2 x10^3/uL Red Blood Count 4.31 x10^6/uL 3.96 x10^6/uL Hemoglobin 12.6 g/dL 11.7 g/dL Hematocrit 38.8 % 35.2 % Mean Corpuscular Volume 90 fL 89 fL Mean Corpuscular Hemoglobin 29 pg 30 pg Mean Corpuscular Hemoglobin Concent 33 g/dL 33 g/dL Red Cell Distribution Width 16.1 % 15.9 % Platelet Count 85 x10^3/uL 70 x10^3/uL Neutrophils (%) (Auto) 93 % 94 % Lymphocytes (%) (Auto) 4 % 3 % Monocytes (%) (Auto) 3 % 3 % Eosinophils (%) (Auto) 0 % 0 % Basophils (%) (Auto) 0 % 0 % Neutrophils # (Auto) 18.8 x10^3/uL 15.2 x10^3/uL Lymphocytes # (Auto) 0.7 x10^3/uL 0.5 x10^3/uL Monocytes # (Auto) 0.6 x10^3/uL 0.4 x10^3/uL Eosinophils # (Auto) 0.0 x10^3/uL 0.0 x10^3/uL Basophils # (Auto) 0.0 x10^3/uL 0.0 x10^3/uL Segmented Neutrophils % 92 % Band Neutrophils % 4 % Lymphocytes % 1 % Monocytes % 3 % Toxic Granulation Slight Platelet Estimate Decreased Prothrombin Time 16.6 SEC Prothromb Time International Ratio 1.4 Sodium Level 142 mmol/L Potassium Level 5.3 mmol/L Chloride Level 113 mmol/L Carbon Dioxide Level 16 mmol/L Anion Gap 13 Blood Urea Nitrogen 80 mg/dL Creatinine 2.7 mg/dL Estimated GFR (Cockcroft-Gault) 27.9 Glucose Level 308 mg/dL Calcium Level 6.9 mg/dL Test 03/20/20 07:10 03/20/20 10:00 03/20/20 11:17 Glucose (Fingerstick) 257 mg/dL 209 mg/dL Lactic Acid Level 1.5 mmol/L BLOOD CULTURE Preliminary NO GROWTH AFTER 3 DAYS PE: GEN: lethargic, lunch tray untouched LUNGS: clear HEART: RRR ABD: large, ?lower abdominal discomfort - hard to say, history difficult, SARKIS output bloody NEURO/PSYCH: probably confused A/P: S/p lap juan 03/18, thrombocytopenia Sepsis, UTI -- Continue per surgery. Justicifation of Admission Dx: Justifications for Admission: Justification of Admission Dx: Yes CHF: Cardiac Arrhythmias Comminuty Aquired Pneumonia: Bactermia Chronic Renal Failure: Encephalopathy Sepsis: Altered Mental Status LEONEL TYSON Mar 20, 2020 13:12
[2020-03-20 13:45] LABS: CALCIUM 6.8 mg/dL (8.5-10.1); CREATININE 2.3 mg/dL (0.7-1.3); GFR 33.6; POTASSIUM 5.3 mmol/L (3.5-5.1)
--- NOTE | 2020-03-20 14:07 | PATHOLOGY ---
[facility] Accession Number: [id number] . 01 Material submitted: . gallbladder - GALLBLADDER AND CONTENTS . 01 Clinical history: . ACUTE CHOLECYSTITIS SEPSIS SHOCK, SUSPECTED C . 02 Diagnosis: Gallbladder, laparoscopic cholecystectomy: - Chronic and focal acute cholecystitis. LB 03/20/2020 1208 Local . 02 Comment: There are no calculi identified within the gallbladder lumen or specimen container. There is no evidence of malignancy. (JPM/db; 03/20/2020) . 02 Electronically signed: . James Rosales MD, Pathologist NPI- [id number] . 01 Gross description: . The specimen is received in formalin, labeled "Abdshaina Salim, gallbladder and contents". Received is a previously opened, predominantly torn gallbladder measuring 7.7 x 2.9 x 2.7 cm in greatest dimensions displaying a pink-rivers to saucedo-rivers serosal surface. Opening the specimen reveals a velvety, pink-rivers mucosa with a gallbladder wall thickness of up to 0.2 cm. Calculi are not present, and no masses or lesions are noted grossly. [facility] sections, to include the proximal margin, are submitted in cassette A1. (CAA; 03/19/2020) QAC/QAC 03/19/2020 1734 Local . 02 Pathologist provided ICD-10: K81.2 . 02 CPT . 947782 Specimen Comment: A courtesy copy of this report has been sent to [phone], [phone] Specimen Comment: [phone] Specimen Comment: Report sent to Performed at: [address], [place], [place] [id number] MD Jasbir Mendosa MD Phone: [phone] Performed at: 02 [facility] [address] [place] [id number] MD James Rosales MD Phone: [phone]
[2020-03-20 15:19] VITALS: BP 117/62
--- NOTE | 2020-03-20 15:23 | PDOC ---
PROGRESS NOTES Date of Service: DATE: 03/20/20 TIME: 15:21 Chief Complaint Chief Complaint Acute hypoxic respiratory failure secondary to septic shock, improving, out of ICU yesterday, Sepsis, and Septic shock secondary to urinary tract infection w/ ESBL + E. coli. and lactobacillus Diabetes mellitus 2 acute or chronic systolic CHF, EF 35 %, discussed with Dr. Merchant, echo read today acute renal failure on CKD 2, Severe protein-calorie malnutrition. HIDA showed cholecystitis, , gen surg following, may need juan surgery, above problems need to be addressed in short term History of Present Illness History of Present Illness Patient seen and evaluated. He is sitting comfortably upright in chair while eating lunch. States that he has no complaints, and his pain is well controlled. Vitals Vitals Vital Signs Date Time Temp Pulse Resp B/P (MAP) Pulse Ox O2 Delivery O2 Flow Rate FiO2 03/20/20 11:10 98.2 79 18 141/86 (104) 95 Nasal Cannula 2.0 98.2 Physical Exam Physical Exam GENERAL: Alert, in NAD but sleepy HEENT: Oral mucosa moist. No thrush NECK: Supple. No JVD. LUNGS: Decreased breath sounds at the bases. No wheezing. HEART: S1, S2. No gallops or murmurs. Left sided chest wall PPM looks intact, clean. ABDOMEN: Soft, obese, SARKIS with sanginous fluid. No rebound, no guarding. : Gates in place EXTREMITIES: Trace edema lower extremities, bilaterally. No cyanosis, no clubbing. NEUROLOGIC: Alert, oriented, a little confused - generalized weakness. RIJ (03/12) removed and previous site without signs of complications - now with new IJ PIV General: Other (lethargic ) Heart: Regular rate, Normal S1, Normal S2 Lungs: Clear Abdomen: Soft, Other (bloody drainage from and around SARKIS) Extremities: No clubbing, No cyanosis Skin: No rashes, No breakdown Labs LABS Laboratory Tests Test 03/19/20 16:38 03/19/20 17:40 03/19/20 21:28 03/20/20 03:20 Glucose (Fingerstick) 235 mg/dL (70-99) 234 mg/dL (70-99) White Blood Count 20.2 x10^3/uL (4.0-11.0) 16.2 x10^3/uL (4.0-11.0) Red Blood Count 4.31 x10^6/uL (4.30-5.70) 3.96 x10^6/uL (4.30-5.70) Hemoglobin 12.6 g/dL (13.0-17.5) 11.7 g/dL (13.0-17.5) Hematocrit 38.8 % (39.0-53.0) 35.2 % (39.0-53.0) Mean Corpuscular Volume 90 fL (79-100) 89 fL (79-100) Mean Corpuscular Hemoglobin 29 pg (25-35) 30 pg (25-35) Mean Corpuscular Hemoglobin Concent 33 g/dL (31-37) 33 g/dL (31-37) Red Cell Distribution Width 16.1 % (11.5-14.5) 15.9 % (11.5-14.5) Platelet Count 85 x10^3/uL (140-400) 70 x10^3/uL (140-400) Neutrophils (%) (Auto) 93 % (31-73) 94 % (31-73) Lymphocytes (%) (Auto) 4 % (24-48) 3 % (24-48) Monocytes (%) (Auto) 3 % (0-9) 3 % (0-9) Eosinophils (%) (Auto) 0 % (0-3) 0 % (0-3) Basophils (%) (Auto) 0 % (0-3) 0 % (0-3) Neutrophils # (Auto) 18.8 x10^3/uL (1.8-7.7) 15.2 x10^3/uL (1.8-7.7) Lymphocytes # (Auto) 0.7 x10^3/uL (1.0-4.8) 0.5 x10^3/uL (1.0-4.8) Monocytes # (Auto) 0.6 x10^3/uL (0.0-1.1) 0.4 x10^3/uL (0.0-1.1) Eosinophils # (Auto) 0.0 x10^3/uL (0.0-0.7) 0.0 x10^3/uL (0.0-0.7) Basophils # (Auto) 0.0 x10^3/uL (0.0-0.2) 0.0 x10^3/uL (0.0-0.2) Segmented Neutrophils % 92 % (35-66) Band Neutrophils % 4 % (0-9) Lymphocytes % 1 % (24-48) Monocytes % 3 % (0-10) Toxic Granulation Slight Platelet Estimate Decreased (ADEQUATE) Prothrombin Time 16.6 SEC (11.7-14.0) Prothromb Time International Ratio 1.4 (0.8-1.1) Sodium Level 142 mmol/L (136-145) Potassium Level 5.3 mmol/L (3.5-5.1) Chloride Level 113 mmol/L (98-107) Carbon Dioxide Level 16 mmol/L (21-32) Anion Gap 13 (6-14) Blood Urea Nitrogen 80 mg/dL (8-26) Creatinine 2.7 mg/dL (0.7-1.3) Estimated GFR (Cockcroft-Gault) 27.9 Glucose Level 308 mg/dL (70-99) Calcium Level 6.9 mg/dL (8.5-10.1) Test 03/20/20 07:10 03/20/20 10:00 03/20/20 11:17 03/20/20 13:00 Glucose (Fingerstick) 257 mg/dL (70-99) 209 mg/dL (70-99) Lactic Acid Level 1.5 mmol/L (0.4-2.0) Sodium Level 144 mmol/L (136-145) Potassium Level 5.3 mmol/L (3.5-5.1) Chloride Level 115 mmol/L (98-107) Carbon Dioxide Level 17 mmol/L (21-32) Anion Gap 12 (6-14) Blood Urea Nitrogen 87 mg/dL (8-26) Creatinine 2.3 mg/dL (0.7-1.3) Estimated GFR (Cockcroft-Gault) 33.6 Glucose Level 338 mg/dL (70-99) Calcium Level 6.8 mg/dL (8.5-10.1) Review of Systems Review of Systems Mild abdominal pain. Denies chest pain, denies shortness of breath, denies fever, denies chills, denies nausea, denies vomiting. Assessment and Plan Assessmemt and Plan Problems Medical Problems: (1) AMS (altered mental status) Status: Acute (2) Hypocalcemia Status: Acute (3) Hypokalemia Status: Acute (4) Septic shock Status: Acute (5) Suspected 2019 novel coronavirus infection Status: Acute Comment Review of Relevant I have reviewed the following items thee (where applicable) has been applied. Labs Laboratory Tests Test 03/18/20 16:43 03/18/20 20:56 03/19/20 07:47 03/19/20 08:55 Glucose (Fingerstick) 219 mg/dL (70-99) 214 mg/dL (70-99) 192 mg/dL (70-99) Sodium Level 143 mmol/L (136-145) Potassium Level 5.1 mmol/L (3.5-5.1) Chloride Level 112 mmol/L (98-107) Carbon Dioxide Level 15 mmol/L (21-32) Anion Gap 16 (6-14) Blood Urea Nitrogen 76 mg/dL (8-26) Creatinine 2.6 mg/dL (0.7-1.3) Estimated GFR (Cockcroft-Gault) 29.2 Glucose Level 234 mg/dL (70-99) Calcium Level 6.3 mg/dL (8.5-10.1) Test 03/19/20 11:19 03/19/20 16:38 03/19/20 17:40 03/19/20 21:28 Glucose (Fingerstick) 197 mg/dL (70-99) 235 mg/dL (70-99) 234 mg/dL (70-99) White Blood Count 20.2 x10^3/uL (4.0-11.0) Red Blood Count 4.31 x10^6/uL (4.30-5.70) Hemoglobin 12.6 g/dL (13.0-17.5) Hematocrit 38.8 % (39.0-53.0) Mean Corpuscular Volume 90 fL (79-100) Mean Corpuscular Hemoglobin 29 pg (25-35) Mean Corpuscular Hemoglobin Concent 33 g/dL (31-37) Red Cell Distribution Width 16.1 % (11.5-14.5) Platelet Count 85 x10^3/uL (140-400) Neutrophils (%) (Auto) 93 % (31-73) Lymphocytes (%) (Auto) 4 % (24-48) Monocytes (%) (Auto) 3 % (0-9) Eosinophils (%) (Auto) 0 % (0-3) Basophils (%) (Auto) 0 % (0-3) Neutrophils # (Auto) 18.8 x10^3/uL (1.8-7.7) Lymphocytes # (Auto) 0.7 x10^3/uL (1.0-4.8) Monocytes # (Auto) 0.6 x10^3/uL (0.0-1.1) Eosinophils # (Auto) 0.0 x10^3/uL (0.0-0.7) Basophils # (Auto) 0.0 x10^3/uL (0.0-0.2) Segmented Neutrophils % 92 % (35-66) Band Neutrophils % 4 % (0-9) Lymphocytes % 1 % (24-48) Monocytes % 3 % (0-10) Toxic Granulation Slight Platelet Estimate Decreased (ADEQUATE) Prothrombin Time 16.6 SEC (11.7-14.0) Prothromb Time International Ratio 1.4 (0.8-1.1) Sodium Level 142 mmol/L (136-145) Potassium Level 5.3 mmol/L (3.5-5.1) Chloride Level 113 mmol/L (98-107) Carbon Dioxide Level 16 mmol/L (21-32) Anion Gap 13 (6-14) Blood Urea Nitrogen 80 mg/dL (8-26) Creatinine 2.7 mg/dL (0.7-1.3) Estimated GFR (Cockcroft-Gault) 27.9 Glucose Level 308 mg/dL (70-99) Calcium Level 6.9 mg/dL (8.5-10.1) Test 03/20/20 03:20 03/20/20 07:10 03/20/20 10:00 03/20/20 11:17 White Blood Count 16.2 x10^3/uL (4.0-11.0) Red Blood Count 3.96 x10^6/uL (4.30-5.70) Hemoglobin 11.7 g/dL (13.0-17.5) Hematocrit 35.2 % (39.0-53.0) Mean Corpuscular Volume 89 fL (79-100) Mean Corpuscular Hemoglobin 30 pg (25-35) Mean Corpuscular Hemoglobin Concent 33 g/dL (31-37) Red Cell Distribution Width 15.9 % (11.5-14.5) Platelet Count 70 x10^3/uL (140-400) Neutrophils (%) (Auto) 94 % (31-73) Lymphocytes (%) (Auto) 3 % (24-48) Monocytes (%) (Auto) 3 % (0-9) Eosinophils (%) (Auto) 0 % (0-3) Basophils (%) (Auto) 0 % (0-3) Neutrophils # (Auto) 15.2 x10^3/uL (1.8-7.7) Lymphocytes # (Auto) 0.5 x10^3/uL (1.0-4.8) Monocytes # (Auto) 0.4 x10^3/uL (0.0-1.1) Eosinophils # (Auto) 0.0 x10^3/uL (0.0-0.7) Basophils # (Auto) 0.0 x10^3/uL (0.0-0.2) Glucose (Fingerstick) 257 mg/dL (70-99) 209 mg/dL (70-99) Lactic Acid Level 1.5 mmol/L (0.4-2.0) Test 03/20/20 13:00 Sodium Level 144 mmol/L (136-145) Potassium Level 5.3 mmol/L (3.5-5.1) Chloride Level 115 mmol/L (98-107) Carbon Dioxide Level 17 mmol/L (21-32) Anion Gap 12 (6-14) Blood Urea Nitrogen 87 mg/dL (8-26) Creatinine 2.3 mg/dL (0.7-1.3) Estimated GFR (Cockcroft-Gault) 33.6 Glucose Level 338 mg/dL (70-99) Calcium Level 6.8 mg/dL (8.5-10.1) Laboratory Tests Test 03/19/20 16:38 03/19/20 17:40 03/19/20 21:28 03/20/20 03:20 Glucose (Fingerstick) 235 mg/dL (70-99) 234 mg/dL (70-99) White Blood Count 20.2 x10^3/uL (4.0-11.0) 16.2 x10^3/uL (4.0-11.0) Red Blood Count 4.31 x10^6/uL (4.30-5.70) 3.96 x10^6/uL (4.30-5.70) Hemoglobin 12.6 g/dL (13.0-17.5) 11.7 g/dL (13.0-17.5) Hematocrit 38.8 % (39.0-53.0) 35.2 % (39.0-53.0) Mean Corpuscular Volume 90 fL (79-100) 89 fL (79-100) Mean Corpuscular Hemoglobin 29 pg (25-35) 30 pg (25-35) Mean Corpuscular Hemoglobin Concent 33 g/dL (31-37) 33 g/dL (31-37) Red Cell Distribution Width 16.1 % (11.5-14.5) 15.9 % (11.5-14.5) Platelet Count 85 x10^3/uL (140-400) 70 x10^3/uL (140-400) Neutrophils (%) (Auto) 93 % (31-73) 94 % (31-73) Lymphocytes (%) (Auto) 4 % (24-48) 3 % (24-48) Monocytes (%) (Auto) 3 % (0-9) 3 % (0-9) Eosinophils (%) (Auto) 0 % (0-3) 0 % (0-3) Basophils (%) (Auto) 0 % (0-3) 0 % (0-3) Neutrophils # (Auto) 18.8 x10^3/uL (1.8-7.7) 15.2 x10^3/uL (1.8-7.7) Lymphocytes # (Auto) 0.7 x10^3/uL (1.0-4.8) 0.5 x10^3/uL (1.0-4.8) Monocytes # (Auto) 0.6 x10^3/uL (0.0-1.1) 0.4 x10^3/uL (0.0-1.1) Eosinophils # (Auto) 0.0 x10^3/uL (0.0-0.7) 0.0 x10^3/uL (0.0-0.7) Basophils # (Auto) 0.0 x10^3/uL (0.0-0.2) 0.0 x10^3/uL (0.0-0.2) Segmented Neutrophils % 92 % (35-66) Band Neutrophils % 4 % (0-9) Lymphocytes % 1 % (24-48) Monocytes % 3 % (0-10) Toxic Granulation Slight Platelet Estimate Decreased (ADEQUATE) Prothrombin Time 16.6 SEC (11.7-14.0) Prothromb Time International Ratio 1.4 (0.8-1.1) Sodium Level 142 mmol/L (136-145) Potassium Level 5.3 mmol/L (3.5-5.1) Chloride Level 113 mmol/L (98-107) Carbon Dioxide Level 16 mmol/L (21-32) Anion Gap 13 (6-14) Blood Urea Nitrogen 80 mg/dL (8-26) Creatinine 2.7 mg/dL (0.7-1.3) Estimated GFR (Cockcroft-Gault) 27.9 Glucose Level 308 mg/dL (70-99) Calcium Level 6.9 mg/dL (8.5-10.1) Test 03/20/20 07:10 03/20/20 10:00 03/20/20 11:17 03/20/20 13:00 Glucose (Fingerstick) 257 mg/dL (70-99) 209 mg/dL (70-99) Lactic Acid Level 1.5 mmol/L (0.4-2.0) Sodium Level 144 mmol/L (136-145) Potassium Level 5.3 mmol/L (3.5-5.1) Chloride Level 115 mmol/L (98-107) Carbon Dioxide Level 17 mmol/L (21-32) Anion Gap 12 (6-14) Blood Urea Nitrogen 87 mg/dL (8-26) Creatinine 2.3 mg/dL (0.7-1.3) Estimated GFR (Cockcroft-Gault) 33.6 Glucose Level 338 mg/dL (70-99) Calcium Level 6.8 mg/dL (8.5-10.1) Microbiology 03/18/20 Blood Culture - Preliminary, Resulted NO GROWTH AFTER 2 DAYS 03/12/20 Urine Culture - Final, Complete Medications Current Medications Sodium Chloride 1,000 ml @ 1,000 mls/hr 1X ONCE IV Last administered on 03/12/20at 14:00; Start 03/12/20 at 14:30; Stop 03/12/20 at 15:29; Status DC Sodium Chloride 1,000 ml @ 1,000 mls/hr 1X ONCE IV Last administered on 03/12/20at 14:05; Start 03/12/20 at 14:30; Stop 03/12/20 at 15:29; Status DC Ceftriaxone Sodium (Rocephin) 1 gm 1X ONCE IVP Last administered on 03/12/20at 16:41; Start 03/12/20 at 15:00; Stop 03/12/20 at 15:01; Status DC Sodium Chloride 1,000 ml @ 1,000 mls/hr 1X ONCE IV Last administered on 03/12/20at 16:38; Start 03/12/20 at 15:30; Stop 03/12/20 at 16:29; Status DC Sodium Chloride 1,000 ml @ 1,000 mls/hr 1X ONCE IV Last administered on 03/12/20at 16:39; Start 03/12/20 at 15:30; Stop 03/12/20 at 16:29; Status DC Sodium Chloride (NORMAL SALINE FLUSH for STERILE FIELD) 10 ml [employer] ONCE .ROUTE ; Start 03/12/20 at 15:24; Stop 03/12/20 at 15:24; Status DC Lidocaine HCl (Lidocaine 1% 20ml Vial) 20 ml 1X ONCE INJ Last administered on 03/12/20at 15:30; Start 03/12/20 at 15:30; Stop 03/12/20 at 15:31; Status DC Norepinephrine Bitartrate 8 mg/ Dextrose 258 ml @ 21.285 mls/ hr 1X ONCE IV Last administered on 03/12/20at 16:28; Start 03/12/20 at 16:15; Stop 03/13/20 at 04:22; Status DC Calcium Gluconate (Calcium Gluconate) 1,000 mg 1X ONCE IVP Last administered on 03/12/20at 17:50; Start 03/12/20 at 17:00; Stop 03/12/20 at 17:01; Status DC Ondansetron HCl (Zofran) 4 mg PRN Q8HRS PRN IV NAUSEA/VOMITING Last administered on 03/13/20at 02:56; Start 03/12/20 at 16:30; Stop 03/13/20 at 16:29; Status DC Sodium Chloride 1,000 ml @ 75 mls/hr [id number] IV ; Start 03/12/20 at 16:28; Stop 03/12/20 at 22:33; Status DC Azithromycin 250 ml @ 250 mls/hr 1X ONCE IV Last administered on 03/12/20at 17:51; Start 03/12/20 at 17:00; Stop 03/12/20 at 17:59; Status DC Ondansetron HCl (Zofran) 4 mg PRN Q6HRS PRN IVP NAUSEA/VOMITING Last administered on 03/19/20at 21:46; Start 03/12/20 at 16:45 Prochlorperazine (Compazine) 25 mg PRN Q12HR PRN SC NAUSEA/VOMITING; Start 03/12/20 at 16:45 Famotidine (Pepcid Vial) 20 mg BID IVP Last administered on 03/12/20at 22:49; Start 03/12/20 at 21:00; Stop 03/13/20 at 09:34; Status DC Info ([facility] Electrolyte Protocol) 1 ea DAILY MC ; Start 03/13/20 at 09:00; Stop 03/16/20 at 07:29; Status DC Heparin Sodium (Porcine) (Heparin Sodium) 5,000 unit Q8HRS SQ Last administered on 03/18/20at 05:49; Start 03/12/20 at 22:00 Sodium Chloride (Normal Saline Flush) 3 ml QSHIFT PRN IV AFTER MEDS AND BLOOD DRAWS; Start 03/12/20 at 16:45 Sodium Chloride 1,000 ml @ 1,000 mls/hr Q1H IV ; Start 03/12/20 at 16:33; Stop 03/12/20 at 17:32; Status DC Sodium Chloride 1,000 ml @ 100 mls/hr Q10H IV Last administered on 03/20/20at 02:43; Start 03/12/20 at 16:33 Bisacodyl (Dulcolax Supp) 10 mg PRN DAILY PRN SC CONSTIPATION; Start 03/12/20 at 16:45 Cefepime HCl (Maxipime) 1 gm Q8HRS IVP Last administered on 03/13/20at 05:51; Start 03/12/20 at 22:00; Stop 03/13/20 at 08:46; Status DC Vancomycin HCl (Vanco Per Pharmacy) 1 each PRN DAILY PRN MC SEE COMMENTS Last administered on 03/12/20at 18:45; Start 03/12/20 at 16:45; Stop 03/13/20 at 08:46; Status DC Potassium Chloride/Water 100 ml @ 100 mls/hr Q1H IV Last administered on 03/12/20at 22:51; Start 03/12/20 at 19:00; Stop 03/12/20 at 22:59; Status DC Potassium Chloride/Water 100 ml @ 100 mls/hr Q1H IV ; Start 03/12/20 at 16:45; Stop 03/12/20 at 17:00; Status DC Potassium Chloride/Water 100 ml @ 100 mls/hr Q1H IV ; Start 03/12/20 at 16:45; Stop 03/12/20 at 17:00; Status DC Magnesium Sulfate 100 ml @ 50 mls/hr DAILY IV ; Start 03/13/20 at 09:00; Stop 03/12/20 at 17:00; Status DC Sodium Phosphate 15 mmol/Sodium Chloride 255 ml @ 62.5 mls/hr 1X ONCE IV ; Start 03/12/20 at 16:45; Stop 03/12/20 at 17:00; Status DC Sodium Phosphate 30 mmol/Sodium Chloride 260 ml @ 62.5 mls/hr 1X ONCE IV ; Start 03/12/20 at 16:45; Stop 03/12/20 at 17:00; Status DC Insulin Human Lispro (HumaLOG) 0-7 UNITS TIDWMEALS SQ ; Start 03/12/20 at 17:00; Stop 03/12/20 at 22:33; Status DC Dextrose (Dextrose 50%-Water Syringe) 12.5 gm PRN Q15MIN PRN IV SEE COMMENTS; Start 03/12/20 at 16:45; Stop 03/12/20 at 22:33; Status DC Info ([facility] Electrolyte Protocol) 1 ea CONT PRN PRN MC SEE COMMENTS; Start 03/12/20 at 17:00; Stop 03/12/20 at 17:06; Status DC Magnesium Sulfate 50 ml @ 25 mls/hr 1X ONCE IV Last administered on 03/12/20at 17:51; Start 03/12/20 at 17:00; Stop 03/12/20 at 18:59; Status DC Vancomycin HCl 2 gm/Sodium Chloride 500 ml @ 250 mls/hr 1X ONCE IV Last administered on 03/12/20at 17:53; Start 03/12/20 at 18:00; Stop 03/12/20 at 19:59; Status DC Vancomycin HCl 1.5 gm/Sodium Chloride 500 ml @ 250 mls/hr Q24H IV ; Start 03/13/20 at 18:00; Stop 03/13/20 at 08:48; Status DC Vancomycin HCl (Vancomycin Trough Level) 1 each 1X ONCE MC ; Start 03/14/20 at 17:30; Stop 03/14/20 at 17:31; Status Cancel Norepinephrine Bitartrate 8 mg/ Dextrose 258 ml @ 21.285 mls/ hr CONT PRN IV PER PROTOCOL Last administered on 03/13/20at 18:01; Start 03/12/20 at 22:30; Stop 03/16/20 at 13:45; Status DC Insulin Human Lispro (HumaLOG) 0-7 UNITS TIDWMEALS SQ ; Start 03/13/20 at 08:00; Stop 03/13/20 at 00:30; Status DC Dextrose (Dextrose 50%-Water Syringe) 12.5 gm PRN Q15MIN PRN IV SEE COMMENTS; Start 03/12/20 at 22:30; Stop 03/13/20 at 00:30; Status DC Insulin Human Lispro (HumaLOG) 0-9 UNITS Q4HRS SQ Last administered on 0at 18:56; Start 03/13/20 at 04:00; Stop 03/16/20 at 19:15; Status DC Dextrose (Dextrose 50%-Water Syringe) 12.5 gm PRN Q15MIN PRN IV SEE COMMENTS; Start 03/13/20 at 00:30 Meropenem 500 mg/ Sodium Chloride 50 ml @ 100 mls/hr Q6H IV ; Start 03/13/20 at 08:45; Stop 03/13/20 at 08:53; Status DC Linezolid (Zyvox) 600 mg BID PO Last administered on 03/13/20at 10:48; Start 03/13/20 at 09:00; Stop 03/13/20 at 21:11; Status DC Meropenem 500 mg/ Sodium Chloride 50 ml @ 100 mls/hr Q6HRS IV Last administered on 03/14/20at 13:02; Start 03/13/20 at 09:00; Stop 03/14/20 at 15:30; Status DC Famotidine (Pepcid Vial) 20 mg DAILY IVP Last administered on 03/17/20at 08:30; Start 03/14/20 at 09:00; Stop 03/17/20 at 10:32; Status DC Multivitamins (Thera M Plus) 1 tab DAILY PO Last administered on 03/17/20at 08:30; Start 03/13/20 at 10:30 Methylprednisolone Sodium Succinate (SOLU-Medrol 40MG VIAL) 40 mg Q6HRS IV Last administered on 03/20/20at 12:58; Start 03/13/20 at 11:00 Morphine Sulfate (Morphine Sulfate) 2 mg PRN Q2HR PRN IV PAIN Last administered on 03/20/20at 02:44; Start 03/13/20 at 11:00 Insulin Human Lispro (HumaLOG) 30 units 1X STAT SQ Last administered on 03/13/20at 13:39; Start 03/13/20 at 13:39; Stop 03/13/20 at 13:49; Status DC Lactobacillus Rhamnosus (Culturelle) 1 cap BID PO Last administered on 03/19/20at 21:42; Start 03/13/20 at 21:00 Linezolid/Dextrose 300 ml @ 300 mls/hr Q12HR IV Last administered on 03/15/20at 08:37; Start 03/13/20 at 22:00; Stop 03/15/20 at 08:55; Status DC Morphine Sulfate (Morphine Sulfate) 4 mg 1X ONCE IV Last administered on 03/14/20at 09:22; Start 03/14/20 at 09:15; Stop 03/14/20 at 09:16; Status DC Perflutren Protein Type A Microsphe (Optison) 0.66 mg 1X ONCE IV ; Start 03/14/20 at 12:15; Stop 03/14/20 at 12:21; Status DC Meropenem 500 mg/ Sodium Chloride 50 ml @ 100 mls/hr Q8HRS IV Last administered on 03/20/20at 05:49; Start 03/14/20 at 22:00 Insulin Human Lispro (HumaLOG) 0-9 UNITS TIDACHC SQ Last administered on 03/20/20at 13:01; Start 03/16/20 at 21:00 Alteplase, Recombinant (Cathflo For Central Catheter Clearance) 1 mg 1X ONCE INT CAT Last administered on 03/17/20at 05:50; Start 03/17/20 at 06:00; Stop 03/17/20 at 06:01; Status DC Famotidine (Pepcid) 20 mg QHS PO Last administered on 03/19/20at 21:42; Start 03/17/20 at 21:00 Ringer's Solution 1,000 ml @ 30 mls/hr Q24H IV ; Start 03/18/20 at 07:00; Stop 03/18/20 at 19:00; Status DC Lidocaine HCl (Xylocaine-Mpf 1% 2ml Vial) 2 ml PRN 1X PRN ID PRIOR TO IV START; Start 03/18/20 at 07:00; Stop 03/19/20 at 06:59; Status DC Hydralazine HCl (Apresoline Inj) 10 mg PRN Q4HRS PRN IVP ELEVATED BP, SEE COMMENTS; Start 03/17/20 at 23:45; Stop 03/17/20 at 23:49; Status DC Hydralazine HCl (Apresoline Inj) 10 mg PRN Q4HRS PRN IVP ELEVATED BP, SEE COMMENTS Last administered on 03/18/20at 00:06; Start 03/17/20 at 23:45 Propofol (Diprivan) 200 mg STK-MED ONCE IV ; Start 03/18/20 at 13:58; Stop 03/18/20 at 13:59; Status DC Lidocaine HCl (Lidocaine Pf 2% Vial) 5 ml STK-MED ONCE .ROUTE ; Start 03/18/20 at 13:58; Stop 03/18/20 at 13:59; Status DC Succinylcholine Chloride (Anectine) 200 mg STK-MED ONCE .ROUTE ; Start 03/18/20 at 13:58; Stop 03/18/20 at 13:59; Status DC Rocuronium [place] (Zemuron) 50 mg STK-MED ONCE .ROUTE ; Start 03/18/20 at 13:58; Stop 03/18/20 at 13:59; Status DC Fentanyl Citrate (Fentanyl 2ml Vial) 100 mcg STK-MED ONCE .ROUTE ; Start 03/18/20 at 13:58; Stop 03/18/20 at 13:59; Status DC Neostigmine [place] (Neostigmine Methylsulfate) 5 mg STK-MED ONCE .ROUTE ; Start 03/18/20 at 14:03; Stop 03/18/20 at 14:04; Status DC Glycopyrrolate (Robinul) 1 mg STK-MED ONCE .ROUTE ; Start 03/18/20 at 14:03; Stop 03/18/20 at 14:04; Status DC Ondansetron HCl (Zofran) 4 mg STK-MED ONCE .ROUTE ; Start 03/18/20 at 14:03; Stop 03/18/20 at 14:04; Status DC Ondansetron HCl (Zofran) 4 mg PRN Q6HRS PRN IV NAUSEA/VOMITING; Start 03/18/20 at 14:30; Stop 03/19/20 at 14:29; Status DC Fentanyl Citrate (Fentanyl 2ml Vial) 25 mcg PRN Q5MIN PRN IV MILD PAIN 1-3; Start 03/18/20 at 14:30; Stop 03/19/20 at 14:29; Status DC Fentanyl Citrate (Fentanyl 2ml Vial) 50 mcg PRN Q5MIN PRN IV MODERATE TO SEVERE PAIN Last administered on 03/18/20at 17:16; Start 03/18/20 at 14:30; Stop 03/19/20 at 14:29; Status DC Morphine Sulfate (Morphine Sulfate) 1 mg PRN Q10MIN PRN IV SEVERE PAIN 7-10; Start 03/18/20 at 14:30; Stop 03/19/20 at 14:29; Status DC Ringer's Solution 1,000 ml @ 30 mls/hr Q24H IV ; Start 03/18/20 at 14:25; Stop 03/19/20 at 02:24; Status DC Hydromorphone HCl (Dilaudid) 0.5 mg PRN Q10MIN PRN IV SEV PAIN, Second choice; Start 03/18/20 at 14:30; Stop 03/19/20 at 14:29; Status DC Prochlorperazine Edisylate (Compazine) 5 mg PACU PRN PRN IV NAUSEA, MRX1; Start 03/18/20 at 14:30; Stop 03/19/20 at 14:29; Status DC Insulin Human Lispro (HumaLOG VIAL for OP,RR ONLY) 0-10 units PRN Q1HR PRN SQ PER PROTOCOL Last administered on 03/18/20at 14:35; Start 03/18/20 at 14:30; Stop 03/19/20 at 14:29; Status DC Cellulose (Surgicel Hemostat 4x8) 1 each STK-MED ONCE .ROUTE ; Start 03/18/20 at 14:38; Stop 03/18/20 at 14:38; Status DC Bupivacaine HCl/ Epinephrine Bitart (Sensorcaine-Epi 0.25%-1:[id number] Mpf) 30 ml STK-MED ONCE .ROUTE Last administered on 03/18/20at 15:42; Start 03/18/20 at 14:38; Stop 03/18/20 at 14:39; Status DC Dexamethasone Sodium Phosphate (Decadron) 4 mg STK-MED ONCE .ROUTE ; Start 03/18/20 at 15:23; Stop 03/18/20 at 15:23; Status DC Neostigmine [place] (Neostigmine Methylsulfate) 5 mg STK-MED ONCE .ROUTE ; Start 03/18/20 at 15:34; Stop 03/18/20 at 15:34; Status DC Glycopyrrolate (Robinul) 1 mg STK-MED ONCE .ROUTE ; Start 03/18/20 at 15:34; Stop 03/18/20 at 15:34; Status DC Fentanyl Citrate (Fentanyl 2ml Vial) 100 mcg STK-MED ONCE .ROUTE ; Start 03/18/20 at 17:15; Stop 03/18/20 at 17:16; Status DC Lidocaine HCl (Buffered Lidocaine 1%) 3 ml STK-MED ONCE .ROUTE ; Start 03/19/20 at 10:45; Stop 03/19/20 at 10:45; Status DC Lidocaine HCl (Buffered Lidocaine 1%) 6 ml 1X ONCE INJ Last administered on 03/19/20at 14:20; Start 03/19/20 at 11:00; Stop 03/19/20 at 11:01; Status DC Vitals/I & O Vital Sign - Last 24 Hours 03/19/20 03/19/20 03/19/2020 19:00 20:10 21:00 23:00 Temp 96.9 96.1 96.1 96.9 96.1 96.1 Pulse 94 89 89 Resp 17 17 17 B/P (MAP) 116/92 (100) 154/78 (103) 154/78 (103) Pulse Ox 97 98 98 O2 Delivery Room Air Room Air Nasal Cannula Nasal Cannula O2 Flow Rate 2.0 2.0 03/20/20 03/20/20 03/20/20 03/20/20 02:40 02:44 07:15 07:50 Temp 97.5 97.1 97.5 97.1 Pulse 85 81 Resp 20 20 B/P (MAP) 168/92 (117) 138/76 (96) Pulse Ox 96 96 96 O2 Delivery Nasal Cannula Nasal Cannula Nasal Cannula Room Air O2 Flow Rate 2.0 2.0 2.0 03/20/20 11:10 Temp 98.2 98.2 Pulse 79 Resp 18 B/P (MAP) 141/86 (104) Pulse Ox 95 O2 Delivery Nasal Cannula O2 Flow Rate 2.0 Intake and Output 03/19/20 03/19/20 03/20/20 15:00 23:00 07:00 Intake Total 0 ml Output Total 40 ml 300 ml 900 ml Balance -40 ml -300 ml -900 ml Justicifation of Admission Dx: Justifications for Admission: Justification of Admission Dx: Yes CHF: Cardiac Arrhythmias Comminuty Aquired Pneumonia: Bactermia Chronic Renal Failure: Encephalopathy Sepsis: Altered Mental Status MANOLO SANTANA MD Mar 20, 2020 15:23
[2020-03-20] MEDS ORDERED: ALBUMIN HUMAN 5% 500 ML IV ONE (17:45)
[2020-03-20 19:00] VITALS: BP 148/92
--- NOTE | 2020-03-20 19:45 | NUR ---
Patient bladder scanned approximately 263ml measured. Orders for straight cath for >200. Straight cath performed and patient tolerated well.
[2020-03-20] MEDS: FAMOTIDINE 20 MG TABLET. PO SCH (20:37)
[2020-03-20 23:00] VITALS: BP 169/80
[2020-03-21] VITALS (7 sets, daily range): BP systolic 131–204; BP diastolic 70–90
--- NOTE | 2020-03-21 | NUR ---
Patient bladder scan performed at this time <150ml measured. Will reassess per protocol.
[2020-03-21] MEDS: methylPREDNISolone SOD SUCC PF 40 MG/ML VIAL. IV SCH ×5 (00:05→23:49)
--- NOTE | 2020-03-21 04:33 | NUR ---
Patient bladder scanned approximately 402ml measured. Orders for straight cath for >200. Straight cath performed and patient tolerated well.
[2020-03-21] MEDS: HEPARIN for SUB-Q USE 5,000 UNIT/ML VIAL. SQ SCH ×3 (06:00→21:58)
[2020-03-21] MEDS: MEROPENEM 500 MG in IV NORMAL SALINE 50ML 50 ML IV SCH ×3 (06:33→21:45)
[2020-03-21 06:55] LABS: BASO % 0 % (0-3); EOS % 0 % (0-3); HEMATOCRIT 28.1 % (39.0-53.0); HEMOGLOBIN 9.2 g/dL (13.0-17.5); LYMPH # 0.4 x10^3/uL (1.0-4.8); LYMPH % 3 % (24-48); MEAN CORPUSCULAR HEMOGLOBIN 29 pg (25-35); MEAN CORPUSCULAR HGB CONC 33 g/dL (31-37); MEAN CORPUSCULAR VOLUME 89 fL (79-100); MONO # 0.2 x10^3/uL (0.0-1.1); MONO % 2 % (0-9); NEUT # 12.1 x10^3/uL (1.8-7.7); NEUT % 95 % (31-73); PLATELET COUNT 51 x10^3/uL (140-400); RED BLOOD COUNT 3.16 x10^6/uL (4.30-5.70); RED CELL DISTRIBUTION WIDTH 15.8 % (11.5-14.5); WHITE BLOOD COUNT 12.8 x10^3/uL (4.0-11.0)
[2020-03-21 07:13] LABS: CALCIUM 6.9 mg/dL (8.5-10.1); CREATININE 2.1 mg/dL (0.7-1.3); GFR 37.3; POTASSIUM 5.2 mmol/L (3.5-5.1)
[2020-03-21] MEDS: MORPHINE SULFATE 2 MG/ML VIAL. IV PRN (09:15)
[2020-03-21] MEDS: LACTOBACILLUS RHAMNOSUS GG 1 CAPSULE. PO SCH ×2 (09:15→21:44)
[2020-03-21] MEDS: MULTIVITAMIN with MINERAL TABLET. PO SCH (09:16)
--- NOTE | 2020-03-21 09:23 | PDOC ---
DATE OF SERVICE DATE: 03/21/20 TIME: 09:23 SUBJECTIVE ROS Stable, states feeling better, more alert OBJECTIVE Vital Signs Vital Signs Date Time Temp Pulse Resp B/P (MAP) Pulse Ox O2 Delivery O2 Flow Rate FiO2 03/21/20 07:15 98.7 81 14 150/70 (96) 98 Room Air 98.7 03/20/20 11:10 2.0 I & 0 Intake and Output 03/21/20 07:00 Intake Total 700 ml Output Total 1155 ml Balance -455 ml Intake Oral 200 ml IV Total 500 ml Output Urine Total 800 ml Drainage Total 355 ml PHYSICAL EXAM Physical Exam GENERAL: NAD. HEENT: Oral mucosa moist. NECK: Supple. LUNGS: Decreased breath sounds at the bases. Non labored HEART: S1, S2. No gallops or murmurs. ABDOMEN: Soft, obese,SARKIS drain + : Gates in place EXTREMITIES: Trace edema lower extremities, bilaterally. No cyanosis, no clubbing. NEUROLOGIC: lethargic DIAGNOSIS/ASSESSMENT Assessment & Plan Acute renal failure - ATN 2/2 Septic shock Cr peaked at 2.9-->2.1 improving , BUN high, stable today - he is on IV steroids At presentation 1.6, UOP improving , UA c/w UTI Baseline renal function unknown , CT abdomen- Unremarkable Kidneys and bladder, US- Rt Kidney unremarkable, Lt not evaluated Avoid Nephrotoxins, supportive care , strict I/O , HyperNatremia - Encourage free water intake HyperKaemia- Mild Anemia -Hgb dropping Diabetes mellitus- BS high Hypertension- stable Septic shock from gram neg sepsis, Gram negative bacteremia source likely GI and/or Urinary tract infection Thrombocytopenia,plat decreasing Encephalopathy, likely sepsis, improving. Acute cholecysitis Hyperbilirubinemia, abnormal LFTs, gallbladder distention on CT. HIDA scan done. US neg S/P Lap Christy ON 03/[address]. [place] resident COMMENT/RELEVANT DATA Meds Current Medications Medications (Trade) Dose Ordered Sig/Uma Start Time Stop Time Status Last Admin Dose Admin Albumin Human 500 ml @ 125 mls/hr 1X ONCE 03/20/20 17:45 03/20/20 21:44 DC 03/20/20 17:53 125 MLS/HR Alteplase, Recombinant (Cathflo For Central Catheter Clearance) 1 mg 1X ONCE 03/17/20 06:00 03/17/20 06:01 DC 03/17/20 05:50 1 MG Azithromycin 250 ml @ 250 mls/hr 1X ONCE 03/12/20 17:00 03/12/20 17:59 DC 03/12/20 17:51 250 MLS/HR Bisacodyl (Dulcolax Supp) 10 mg PRN DAILY PRN 03/12/20 16:45 Bupivacaine HCl/ Epinephrine Bitart (Sensorcaine-Epi 0.25%-1:139401 Mpf) 30 ml STK-MED ONCE 03/18/20 14:38 03/18/20 14:39 DC 03/18/20 15:42 20 ML Calcium Gluconate (Calcium Gluconate) 1,000 mg 1X ONCE 03/12/20 17:00 03/12/20 17:01 DC 03/12/20 17:50 1,000 MG Cefepime HCl (Maxipime) 1 gm Q8HRS 03/12/20 22:00 03/13/20 08:46 DC 03/13/20 05:51 1 GM Ceftriaxone Sodium (Rocephin) 1 gm 1X ONCE 03/12/20 15:00 03/12/20 15:01 DC 03/12/20 16:41 1 GM Cellulose (Surgicel Hemostat 4x8) 1 each STK-MED ONCE 03/18/20 14:38 03/18/20 14:38 DC Dexamethasone Sodium Phosphate (Decadron) 4 mg STK-MED ONCE 03/18/20 15:23 03/18/20 15:23 DC Dextrose (Dextrose 50%-Water Syringe) 12.5 gm PRN Q15MIN PRN 03/13/20 00:30 Famotidine (Pepcid Vial) 20 mg DAILY 03/14/20 09:00 03/17/20 10:32 DC 03/17/20 08:30 20 MG Famotidine (Pepcid) 20 mg QHS 03/17/20 21:00 03/20/20 20:37 20 MG Fentanyl Citrate (Fentanyl 2ml Vial) 100 mcg STK-MED ONCE 03/18/20 17:15 03/18/20 17:16 DC Glycopyrrolate (Robinul) 1 mg STK-MED ONCE 03/18/20 15:34 03/18/20 15:34 DC Heparin Sodium (Porcine) (Heparin Sodium) 5,000 unit Q8HRS 03/12/20 22:00 03/18/20 05:49 5,000 UNIT Hydralazine HCl (Apresoline Inj) 10 mg PRN Q4HRS PRN 03/17/20 23:45 03/18/20 00:06 10 MG Hydromorphone HCl (Dilaudid) 0.5 mg PRN Q10MIN PRN 03/18/20 14:30 03/19/20 14:29 DC Info (Icu Electrolyte Protocol) 1 ea CONT PRN PRN 03/12/20 17:00 03/12/20 17:06 DC Insulin Human Lispro (HumaLOG VIAL for OP,RR ONLY) 0-10 units PRN Q1HR PRN 03/18/20 14:30 03/19/20 14:29 DC 03/18/20 14:35 6 UNIT Insulin Human Lispro (HumaLOG) 0-9 UNITS TIDACHC 03/16/20 21:00 03/20/20 20:41 4 UNITS Lactobacillus Rhamnosus (Culturelle) 1 cap BID 03/13/20 21:00 03/20/20 20:37 1 CAP Lidocaine HCl (Buffered Lidocaine 1%) 6 ml 1X ONCE 03/19/20 11:00 03/19/20 11:01 DC 03/19/20 14:20 6 ML Lidocaine HCl (Lidocaine 1% 20ml Vial) 20 ml 1X ONCE 03/12/20 15:30 03/12/20 15:31 DC 03/12/20 15:30 20 ML Lidocaine HCl (Lidocaine Pf 2% Vial) 5 ml STK-MED ONCE 03/18/20 13:58 03/18/20 13:59 DC Lidocaine HCl (Xylocaine-Mpf 1% 2ml Vial) 2 ml PRN 1X PRN 03/18/20 07:00 03/19/20 06:59 DC Linezolid (Zyvox) 600 mg BID 03/13/20 09:00 03/13/20 21:11 DC 03/13/20 10:48 600 MG Linezolid/Dextrose 300 ml @ 300 mls/hr Q12HR 03/13/20 22:00 03/15/20 08:55 DC 03/15/20 08:37 300 MLS/HR Magnesium Sulfate 50 ml @ 25 mls/hr 1X ONCE 03/12/20 17:00 03/12/20 18:59 DC 03/12/20 17:51 25 MLS/HR Meropenem 500 mg/ Sodium Chloride 50 ml @ 100 mls/hr Q8HRS 03/14/20 22:00 03/21/20 06:33 100 MLS/HR Methylprednisolone Sodium Succinate (SOLU-Medrol 40MG VIAL) 40 mg Q6HRS 03/13/20 11:00 03/21/20 06:33 40 MG Morphine Sulfate (Morphine Sulfate) 1 mg PRN Q10MIN PRN 03/18/20 14:30 03/19/20 14:29 DC Multivitamins (Thera M Plus) 1 tab DAILY 03/13/20 10:30 03/17/20 08:30 1 TAB Neostigmine Theriot (Neostigmine Methylsulfate) 5 mg STK-MED ONCE 03/18/20 15:34 03/18/20 15:34 DC Norepinephrine Bitartrate 8 mg/ Dextrose 258 ml @ 21.285 mls/ hr CONT PRN 03/12/20 22:30 03/16/20 13:45 DC 03/13/20 18:01 27.671 MLS/HR Ondansetron HCl (Zofran) 4 mg PRN Q6HRS PRN 03/18/20 14:30 03/19/20 14:29 DC Perflutren Protein Type A Microsphe (Optison) 0.66 mg 1X ONCE 03/14/20 12:15 03/14/20 12:21 DC Potassium Chloride/Water 100 ml @ 100 mls/hr Q1H 03/12/20 16:45 03/12/20 17:00 DC Prochlorperazine (Compazine) 25 mg PRN Q12HR PRN 03/12/20 16:45 Prochlorperazine Edisylate (Compazine) 5 mg PACU PRN PRN 03/18/20 14:30 03/19/20 14:29 DC Propofol (Diprivan) 200 mg STK-MED ONCE 03/18/20 13:58 03/18/20 13:59 DC Ringer's Solution 1,000 ml @ 30 mls/hr Q24H 03/18/20 14:25 03/19/20 02:24 DC Rocuronium Theriot (Zemuron) 50 mg STK-MED ONCE 03/18/20 13:58 03/18/20 13:59 DC Sodium Chloride 1,000 ml @ 100 mls/hr Q10H 03/12/20 16:33 03/20/20 17:42 DC 03/20/20 17:33 100 MLS/HR Sodium Chloride (NORMAL SALINE FLUSH for STERILE FIELD) 10 ml STK-MED ONCE 03/12/20 15:24 03/12/20 15:24 DC Sodium Chloride (Normal Saline Flush) 3 ml QSHIFT PRN 03/12/20 16:45 Sodium Phosphate 15 mmol/Sodium Chloride 255 ml @ 62.5 mls/hr 1X ONCE 03/12/20 16:45 03/12/20 17:00 DC Sodium Phosphate 30 mmol/Sodium Chloride 260 ml @ 62.5 mls/hr 1X ONCE 03/12/20 16:45 03/12/20 17:00 DC Succinylcholine Chloride (Anectine) 200 mg STK-MED ONCE 03/18/20 13:58 03/18/20 13:59 DC Vancomycin HCl (Vanco Per Pharmacy) 1 each PRN DAILY PRN 03/12/20 16:45 03/13/20 08:46 DC 03/12/20 18:45 1 EACH Vancomycin HCl (Vancomycin Trough Level) 1 each 1X ONCE 03/14/20 17:30 03/14/20 17:31 Cancel Vancomycin HCl 1.5 gm/Sodium Chloride 500 ml @ 250 mls/hr Q24H 03/13/20 18:00 03/13/20 08:48 DC Vancomycin HCl 2 gm/Sodium Chloride 500 ml @ 250 mls/hr 1X ONCE 03/12/20 18:00 03/12/20 19:59 DC 03/12/20 17:53 250 MLS/HR Lab Laboratory Tests Test 03/20/20 10:00 03/20/20 11:17 03/20/20 13:00 03/20/20 16:40 Lactic Acid Level 1.5 mmol/L (0.4-2.0) Glucose (Fingerstick) 209 mg/dL (70-99) 278 mg/dL (70-99) Sodium Level 144 mmol/L (136-145) Potassium Level 5.3 mmol/L (3.5-5.1) Chloride Level 115 mmol/L (98-107) Carbon Dioxide Level 17 mmol/L (21-32) Anion Gap 12 (6-14) Blood Urea Nitrogen 87 mg/dL (8-26) Creatinine 2.3 mg/dL (0.7-1.3) Estimated GFR (Cockcroft-Gault) 33.6 Glucose Level 338 mg/dL (70-99) Calcium Level 6.8 mg/dL (8.5-10.1) Test 03/20/20 20:36 03/21/20 06:40 03/21/20 07:16 Glucose (Fingerstick) 259 mg/dL (70-99) 247 mg/dL (70-99) White Blood Count 12.8 x10^3/uL (4.0-11.0) Red Blood Count 3.16 x10^6/uL (4.30-5.70) Hemoglobin 9.2 g/dL (13.0-17.5) Hematocrit 28.1 % (39.0-53.0) Mean Corpuscular Volume 89 fL (79-100) Mean Corpuscular Hemoglobin 29 pg (25-35) Mean Corpuscular Hemoglobin Concent 33 g/dL (31-37) Red Cell Distribution Width 15.8 % (11.5-14.5) Platelet Count 51 x10^3/uL (140-400) Neutrophils (%) (Auto) 95 % (31-73) Lymphocytes (%) (Auto) 3 % (24-48) Monocytes (%) (Auto) 2 % (0-9) Eosinophils (%) (Auto) 0 % (0-3) Basophils (%) (Auto) 0 % (0-3) Neutrophils # (Auto) 12.1 x10^3/uL (1.8-7.7) Lymphocytes # (Auto) 0.4 x10^3/uL (1.0-4.8) Monocytes # (Auto) 0.2 x10^3/uL (0.0-1.1) Eosinophils # (Auto) 0.0 x10^3/uL (0.0-0.7) Basophils # (Auto) 0.0 x10^3/uL (0.0-0.2) Sodium Level 148 mmol/L (136-145) Potassium Level 5.2 mmol/L (3.5-5.1) Chloride Level 118 mmol/L (98-107) Carbon Dioxide Level 18 mmol/L (21-32) Anion Gap 12 (6-14) Blood Urea Nitrogen 84 mg/dL (8-26) Creatinine 2.1 mg/dL (0.7-1.3) Estimated GFR (Cockcroft-Gault) 37.3 Glucose Level 278 mg/dL (70-99) Calcium Level 6.9 mg/dL (8.5-10.1) Results All relevant outside records, renal labs, imaging studies, telemetry/EKG's were reviewed. Justicifation of Admission Dx: Justifications for Admission: Justification of Admission Dx: Yes CHF: Cardiac Arrhythmias Comminuty Aquired Pneumonia: Bactermia Chronic Renal Failure: Encephalopathy Sepsis: Altered Mental Status SANGEETA AGUIRRE MD Mar 21, 2020 09:23
--- NOTE | 2020-03-21 09:24 | PDOC ---
SURGICAL PROGRESS NOTE DATE: 03/21/20 TIME: 09:23 Subjective Patient somewhat confused but denies any abdominal pain tolerating diet Vital Signs Vital Signs Date Time Temp Pulse Resp B/P (MAP) Pulse Ox O2 Delivery O2 Flow Rate FiO2 03/21/20 07:15 98.7 81 14 150/70 (96) 98 Room Air 98.7 03/20/20 11:10 2.0 I&O Intake and Output 03/21/20 07:00 Intake Total 700 ml Output Total 1155 ml Balance -455 ml Intake Oral 200 ml IV Total 500 ml Output Urine Total 800 ml Drainage Total 355 ml PATIENT HAS A CARRION: No General: Alert, Cooperative, mild distress Abdomen: Normal bowel sounds, Soft, Other (Wounds clean dry and intact SARKIS drain intact bloody output has decreased significantly) Labs Laboratory Tests Test 03/19/20 11:19 03/19/20 16:38 03/19/20 17:40 03/19/20 21:28 Glucose (Fingerstick) 197 mg/dL (70-99) 235 mg/dL (70-99) 234 mg/dL (70-99) White Blood Count 20.2 x10^3/uL (4.0-11.0) Red Blood Count 4.31 x10^6/uL (4.30-5.70) Hemoglobin 12.6 g/dL (13.0-17.5) Hematocrit 38.8 % (39.0-53.0) Mean Corpuscular Volume 90 fL (79-100) Mean Corpuscular Hemoglobin 29 pg (25-35) Mean Corpuscular Hemoglobin Concent 33 g/dL (31-37) Red Cell Distribution Width 16.1 % (11.5-14.5) Platelet Count 85 x10^3/uL (140-400) Neutrophils (%) (Auto) 93 % (31-73) Lymphocytes (%) (Auto) 4 % (24-48) Monocytes (%) (Auto) 3 % (0-9) Eosinophils (%) (Auto) 0 % (0-3) Basophils (%) (Auto) 0 % (0-3) Neutrophils # (Auto) 18.8 x10^3/uL (1.8-7.7) Lymphocytes # (Auto) 0.7 x10^3/uL (1.0-4.8) Monocytes # (Auto) 0.6 x10^3/uL (0.0-1.1) Eosinophils # (Auto) 0.0 x10^3/uL (0.0-0.7) Basophils # (Auto) 0.0 x10^3/uL (0.0-0.2) Segmented Neutrophils % 92 % (35-66) Band Neutrophils % 4 % (0-9) Lymphocytes % 1 % (24-48) Monocytes % 3 % (0-10) Toxic Granulation Slight Platelet Estimate Decreased (ADEQUATE) Prothrombin Time 16.6 SEC (11.7-14.0) Prothromb Time International Ratio 1.4 (0.8-1.1) Sodium Level 142 mmol/L (136-145) Potassium Level 5.3 mmol/L (3.5-5.1) Chloride Level 113 mmol/L (98-107) Carbon Dioxide Level 16 mmol/L (21-32) Anion Gap 13 (6-14) Blood Urea Nitrogen 80 mg/dL (8-26) Creatinine 2.7 mg/dL (0.7-1.3) Estimated GFR (Cockcroft-Gault) 27.9 Glucose Level 308 mg/dL (70-99) Calcium Level 6.9 mg/dL (8.5-10.1) Test 03/20/20 03:20 03/20/20 07:10 03/20/20 10:00 03/20/20 11:17 White Blood Count 16.2 x10^3/uL (4.0-11.0) Red Blood Count 3.96 x10^6/uL (4.30-5.70) Hemoglobin 11.7 g/dL (13.0-17.5) Hematocrit 35.2 % (39.0-53.0) Mean Corpuscular Volume 89 fL (79-100) Mean Corpuscular Hemoglobin 30 pg (25-35) Mean Corpuscular Hemoglobin Concent 33 g/dL (31-37) Red Cell Distribution Width 15.9 % (11.5-14.5) Platelet Count 70 x10^3/uL (140-400) Neutrophils (%) (Auto) 94 % (31-73) Lymphocytes (%) (Auto) 3 % (24-48) Monocytes (%) (Auto) 3 % (0-9) Eosinophils (%) (Auto) 0 % (0-3) Basophils (%) (Auto) 0 % (0-3) Neutrophils # (Auto) 15.2 x10^3/uL (1.8-7.7) Lymphocytes # (Auto) 0.5 x10^3/uL (1.0-4.8) Monocytes # (Auto) 0.4 x10^3/uL (0.0-1.1) Eosinophils # (Auto) 0.0 x10^3/uL (0.0-0.7) Basophils # (Auto) 0.0 x10^3/uL (0.0-0.2) Glucose (Fingerstick) 257 mg/dL (70-99) 209 mg/dL (70-99) Lactic Acid Level 1.5 mmol/L (0.4-2.0) Test 03/20/20 13:00 03/20/20 16:40 03/20/20 20:36 03/21/20 06:40 Sodium Level 144 mmol/L (136-145) 148 mmol/L (136-145) Potassium Level 5.3 mmol/L (3.5-5.1) 5.2 mmol/L (3.5-5.1) Chloride Level 115 mmol/L (98-107) 118 mmol/L (98-107) Carbon Dioxide Level 17 mmol/L (21-32) 18 mmol/L (21-32) Anion Gap 12 (6-14) 12 (6-14) Blood Urea Nitrogen 87 mg/dL (8-26) 84 mg/dL (8-26) Creatinine 2.3 mg/dL (0.7-1.3) 2.1 mg/dL (0.7-1.3) Estimated GFR (Cockcroft-Gault) 33.6 37.3 Glucose Level 338 mg/dL (70-99) 278 mg/dL (70-99) Calcium Level 6.8 mg/dL (8.5-10.1) 6.9 mg/dL (8.5-10.1) Glucose (Fingerstick) 278 mg/dL (70-99) 259 mg/dL (70-99) White Blood Count 12.8 x10^3/uL (4.0-11.0) Red Blood Count 3.16 x10^6/uL (4.30-5.70) Hemoglobin 9.2 g/dL (13.0-17.5) Hematocrit 28.1 % (39.0-53.0) Mean Corpuscular Volume 89 fL (79-100) Mean Corpuscular Hemoglobin 29 pg (25-35) Mean Corpuscular Hemoglobin Concent 33 g/dL (31-37) Red Cell Distribution Width 15.8 % (11.5-14.5) Platelet Count 51 x10^3/uL (140-400) Neutrophils (%) (Auto) 95 % (31-73) Lymphocytes (%) (Auto) 3 % (24-48) Monocytes (%) (Auto) 2 % (0-9) Eosinophils (%) (Auto) 0 % (0-3) Basophils (%) (Auto) 0 % (0-3) Neutrophils # (Auto) 12.1 x10^3/uL (1.8-7.7) Lymphocytes # (Auto) 0.4 x10^3/uL (1.0-4.8) Monocytes # (Auto) 0.2 x10^3/uL (0.0-1.1) Eosinophils # (Auto) 0.0 x10^3/uL (0.0-0.7) Basophils # (Auto) 0.0 x10^3/uL (0.0-0.2) Test 03/21/20 07:16 Glucose (Fingerstick) 247 mg/dL (70-99) Laboratory Tests Test 03/20/20 10:00 03/20/20 11:17 03/20/20 13:00 03/20/20 16:40 Lactic Acid Level 1.5 mmol/L (0.4-2.0) Glucose (Fingerstick) 209 mg/dL (70-99) 278 mg/dL (70-99) Sodium Level 144 mmol/L (136-145) Potassium Level 5.3 mmol/L (3.5-5.1) Chloride Level 115 mmol/L (98-107) Carbon Dioxide Level 17 mmol/L (21-32) Anion Gap 12 (6-14) Blood Urea Nitrogen 87 mg/dL (8-26) Creatinine 2.3 mg/dL (0.7-1.3) Estimated GFR (Cockcroft-Gault) 33.6 Glucose Level 338 mg/dL (70-99) Calcium Level 6.8 mg/dL (8.5-10.1) Test 03/20/20 20:36 03/21/20 06:40 03/21/20 07:16 Glucose (Fingerstick) 259 mg/dL (70-99) 247 mg/dL (70-99) White Blood Count 12.8 x10^3/uL (4.0-11.0) Red Blood Count 3.16 x10^6/uL (4.30-5.70) Hemoglobin 9.2 g/dL (13.0-17.5) Hematocrit 28.1 % (39.0-53.0) Mean Corpuscular Volume 89 fL (79-100) Mean Corpuscular Hemoglobin 29 pg (25-35) Mean Corpuscular Hemoglobin Concent 33 g/dL (31-37) Red Cell Distribution Width 15.8 % (11.5-14.5) Platelet Count 51 x10^3/uL (140-400) Neutrophils (%) (Auto) 95 % (31-73) Lymphocytes (%) (Auto) 3 % (24-48) Monocytes (%) (Auto) 2 % (0-9) Eosinophils (%) (Auto) 0 % (0-3) Basophils (%) (Auto) 0 % (0-3) Neutrophils # (Auto) 12.1 x10^3/uL (1.8-7.7) Lymphocytes # (Auto) 0.4 x10^3/uL (1.0-4.8) Monocytes # (Auto) 0.2 x10^3/uL (0.0-1.1) Eosinophils # (Auto) 0.0 x10^3/uL (0.0-0.7) Basophils # (Auto) 0.0 x10^3/uL (0.0-0.2) Sodium Level 148 mmol/L (136-145) Potassium Level 5.2 mmol/L (3.5-5.1) Chloride Level 118 mmol/L (98-107) Carbon Dioxide Level 18 mmol/L (21-32) Anion Gap 12 (6-14) Blood Urea Nitrogen 84 mg/dL (8-26) Creatinine 2.1 mg/dL (0.7-1.3) Estimated GFR (Cockcroft-Gault) 37.3 Glucose Level 278 mg/dL (70-99) Calcium Level 6.9 mg/dL (8.5-10.1) Problem List Problems Medical Problems: (1) AMS (altered mental status) Status: Acute (2) Hypocalcemia Status: Acute (3) Hypokalemia Status: Acute (4) Septic shock Status: Acute (5) Suspected 2019 novel coronavirus infection Status: Acute Assessment/Plan Status post cholecystectomy with a fair amount of bleeding. Hemoglobin 9.2 platelet count 50,000. May need transfusion of both packed red blood cells and platelets if hemoglobin drops SARKIS output is decreased significantly Justicifation of Admission Dx: Justifications for Admission: Justification of Admission Dx: Yes CHF: Cardiac Arrhythmias Comminuty Aquired Pneumonia: Bactermia Chronic Renal Failure: Encephalopathy Sepsis: Altered Mental Status ERICA MANCINI MD Mar 21, 2020 09:24
[2020-03-21] MEDS: INSULIN LISPRO 300 UNITS/3 ML VIAL. SQ SCH ×4 (09:27→22:03)
--- NOTE | 2020-03-21 09:50 | NUR ---
MATTHEW following. Discussed with RN, PT/OT recommending acute rehab. MATTHEW left voicemail for Karen, requesting call back. MATTHEW spoke with pt's sister, Yadira - she would like to speak with Karen and then both of them speak with pt to try convince him to go to acute rehab, as she does not think he will want to go. MATTHEW advised insurance has to approve acute rehab stay. MATTHEW will continue to follow. Addendum: 03/21/20 at 1226 by SHIRLEY CASTRO MATTHEW spoke with Yadira - she has not been able to reach [facility]. Yadira advised MATTHEW can fax referral to [facility], to see if pt qualifies whilst she tries to reach [facility]. Referral phoned and faxed to [facility], awaiting acceptance decision. Addendum: 03/21/20 at 1452 by SHIRLEY CASTRO [facility] stated they need to see pt progress some more with therapy over the weekend to make an acceptance decision. MATTHEW sent message to Dr. Meng to determine plan. MATTHEW spoke with therapy department, advised if pt stays over the weekend to please have pt seen both Tuesday and Tuesday due to pt's medicaid. MATTHEW will continue to follow.
--- NOTE | 2020-03-21 10:47 | PDOC ---
Infectious Disease Note Subjective Subjective Doing ok Still some pain Appetite returning Denies N/V/D/fever/chills/rash ROS ROS o/w neg Vital Sign Vital Signs Vital Signs Date Time Temp Pulse Resp B/P (MAP) Pulse Ox O2 Delivery O2 Flow Rate FiO2 03/21/20 09:15 Room Air 03/21/20 07:15 98.7 81 14 150/70 (96) 98 98.7 03/20/20 11:10 2.0 Physical Exam PHYSICAL EXAM GENERAL: Alert, in NAD, in chair HEENT: Oral mucosa moist. No thrush NECK: Supple. No JVD. LUNGS: Decreased breath sounds at the bases. No wheezing. HEART: S1, S2. No gallops or murmurs. Left sided chest wall PPM looks intact, clean. ABDOMEN: Soft, obese, SARKIS with sanginous fluid. No rebound, no guarding. : Gates in place EXTREMITIES: Trace edema lower extremities, bilaterally. No cyanosis, no clubbing. NEUROLOGIC: Alert, oriented, a little confused - generalized weakness. RIJ (03/12) removed and previous site without signs of complications - now with new IJ PIV Labs Lab Laboratory Tests Test 03/20/20 11:17 03/20/20 13:00 03/20/20 16:40 03/20/20 20:36 Glucose (Fingerstick) 209 mg/dL (70-99) 278 mg/dL (70-99) 259 mg/dL (70-99) Sodium Level 144 mmol/L (136-145) Potassium Level 5.3 mmol/L (3.5-5.1) Chloride Level 115 mmol/L (98-107) Carbon Dioxide Level 17 mmol/L (21-32) Anion Gap 12 (6-14) Blood Urea Nitrogen 87 mg/dL (8-26) Creatinine 2.3 mg/dL (0.7-1.3) Estimated GFR (Cockcroft-Gault) 33.6 Glucose Level 338 mg/dL (70-99) Calcium Level 6.8 mg/dL (8.5-10.1) Test 03/21/20 06:40 03/21/20 07:16 White Blood Count 12.8 x10^3/uL (4.0-11.0) Red Blood Count 3.16 x10^6/uL (4.30-5.70) Hemoglobin 9.2 g/dL (13.0-17.5) Hematocrit 28.1 % (39.0-53.0) Mean Corpuscular Volume 89 fL (79-100) Mean Corpuscular Hemoglobin 29 pg (25-35) Mean Corpuscular Hemoglobin Concent 33 g/dL (31-37) Red Cell Distribution Width 15.8 % (11.5-14.5) Platelet Count 51 x10^3/uL (140-400) Neutrophils (%) (Auto) 95 % (31-73) Lymphocytes (%) (Auto) 3 % (24-48) Monocytes (%) (Auto) 2 % (0-9) Eosinophils (%) (Auto) 0 % (0-3) Basophils (%) (Auto) 0 % (0-3) Neutrophils # (Auto) 12.1 x10^3/uL (1.8-7.7) Lymphocytes # (Auto) 0.4 x10^3/uL (1.0-4.8) Monocytes # (Auto) 0.2 x10^3/uL (0.0-1.1) Eosinophils # (Auto) 0.0 x10^3/uL (0.0-0.7) Basophils # (Auto) 0.0 x10^3/uL (0.0-0.2) Sodium Level 148 mmol/L (136-145) Potassium Level 5.2 mmol/L (3.5-5.1) Chloride Level 118 mmol/L (98-107) Carbon Dioxide Level 18 mmol/L (21-32) Anion Gap 12 (6-14) Blood Urea Nitrogen 84 mg/dL (8-26) Creatinine 2.1 mg/dL (0.7-1.3) Estimated GFR (Cockcroft-Gault) 37.3 Glucose Level 278 mg/dL (70-99) Calcium Level 6.9 mg/dL (8.5-10.1) Glucose (Fingerstick) 247 mg/dL (70-99) Micro Microbiology 03/14/20 Blood Culture - Preliminary, Resulted 03/12/20 Urine Culture - Final, Complete Objective Assessment Septic shock from gram neg sepsis, improving. ESBL + E. coli. 03/14 and neg 03/17 and 03/18 Leukocytosis with bandemia, in part steroids - better S/p Lap juan 03/18 Lactic acidosis. Gram negative bacteremia source likely GI and/or . ESBL + E. coli. Repeat BC 03/14 + GNR 03/17 and 03/18 neg so far Urinary tract infection. LACTOBACILLUS SPECIES Acute kidney injury - Cr worsening Thrombocytopenia, likely sepsis - still dropping ? Pepcid vs Heparin. Encephalopathy, likely sepsis, improving. Acute cholecysitis Hyperbilirubinemia, abnormal LFTs, gallbladder distention on CT. HIDA scan noted. US neg Diabetes mellitus. 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 [place] resident Plan Plan of Care F/u Blood cults in am 03/17 and 03/18 Consider d/c Pepcid with Thrombocytopenia. ? heparin cont Merrem, dose to be adjusted for renal function as needed, D/w pharmacy Probiotics Monitor lab values/temp Maintain aspiration precautions Gen surg following. Contact isolation for ESBL Discussed with nursing HERMILA MARTINES MD Mar 21, 2020 10:47
--- NOTE | 2020-03-21 11:43 | PDOC ---
Date of Service: DATE: 03/21/20 TIME: 11:38 Subjective: Subjective: "Doing what I can." Objective: Vital Signs: Vital Signs Date Time Temp Pulse Resp B/P (MAP) Pulse Ox O2 Delivery O2 Flow Rate FiO2 03/21/20 11:15 98.0 82 20 204/89 (127) 95 Room Air 98.0 03/20/20 11:10 2.0 Labs: Laboratory Tests Test 03/20/20 13:00 03/20/20 16:40 03/20/20 20:36 03/21/20 06:40 Sodium Level 144 mmol/L 148 mmol/L Potassium Level 5.3 mmol/L 5.2 mmol/L Chloride Level 115 mmol/L 118 mmol/L Carbon Dioxide Level 17 mmol/L 18 mmol/L Anion Gap 12 12 Blood Urea Nitrogen 87 mg/dL 84 mg/dL Creatinine 2.3 mg/dL 2.1 mg/dL Estimated GFR (Cockcroft-Gault) 33.6 37.3 Glucose Level 338 mg/dL 278 mg/dL Calcium Level 6.8 mg/dL 6.9 mg/dL Glucose (Fingerstick) 278 mg/dL 259 mg/dL White Blood Count 12.8 x10^3/uL Red Blood Count 3.16 x10^6/uL Hemoglobin 9.2 g/dL Hematocrit 28.1 % Mean Corpuscular Volume 89 fL Mean Corpuscular Hemoglobin 29 pg Mean Corpuscular Hemoglobin Concent 33 g/dL Red Cell Distribution Width 15.8 % Platelet Count 51 x10^3/uL Neutrophils (%) (Auto) 95 % Lymphocytes (%) (Auto) 3 % Monocytes (%) (Auto) 2 % Eosinophils (%) (Auto) 0 % Basophils (%) (Auto) 0 % Neutrophils # (Auto) 12.1 x10^3/uL Lymphocytes # (Auto) 0.4 x10^3/uL Monocytes # (Auto) 0.2 x10^3/uL Eosinophils # (Auto) 0.0 x10^3/uL Basophils # (Auto) 0.0 x10^3/uL Test 03/21/20 07:16 Glucose (Fingerstick) 247 mg/dL BLOOD CULTURE Preliminary NO GROWTH AFTER 4 DAYS PE: GEN: NAD - was asleep w/ breakfast tray when I say LUNGS: CTAB HEART: RRR ABD: drain bloody, right-sided discomfort - more upper today? NEURO/PSYCH: confused A/P: S/p lap juan 03/18 Anemia, thrombocytopenia Sepsis, UTI, HTN -- Will review w/ Dr. Muller. Justicifation of Admission Dx: Justifications for Admission: Justification of Admission Dx: Yes CHF: Cardiac Arrhythmias Comminuty Aquired Pneumonia: Bactermia Chronic Renal Failure: Encephalopathy Sepsis: Altered Mental Status LEONEL TYSON Mar 21, 2020 11:43
[2020-03-21] MEDS: HYDROcodone/APAP 7.5/325MG 1 TAB TABLET PO PRN (12:17)
--- NOTE | 2020-03-21 16:58 | PDOC ---
PROGRESS NOTES Date of Service: DATE: 03/21/20 TIME: 16:58 Chief Complaint Chief Complaint Acute hypoxic respiratory failure secondary to septic shock, improving, out of ICU yesterday, Sepsis, and Septic shock secondary to urinary tract infection w/ ESBL + E. coli. and lactobacillus Diabetes mellitus 2 acute or chronic systolic CHF, EF 35 %, discussed with Dr. Merchant, echo read today acute renal failure on CKD 2, Severe protein-calorie malnutrition. HIDA showed cholecystitis, gen surg following, may need juan surgery, above pro blems need to be addressed in short term History of Present Illness History of Present Illness Patient resting resting comfortably. He has no complaints, his pain is well controlled. Status post cholecystectomy. E. coli ESBL bacteremia, currently treated with meropenem. Concerning thrombocytopenia, possibly secondary to medication or HIT. Will investigate with HIT antibodies if platelets continue to drop. Vitals Vitals Vital Signs Date Time Temp Pulse Resp B/P (MAP) Pulse Ox O2 Delivery O2 Flow Rate FiO2 03/21/20 15:15 98.0 82 18 147/90 (109) 99 Room Air 98.0 03/20/20 11:10 2.0 Physical Exam Physical Exam GENERAL: Alert, in NAD, in chair HEENT: Oral mucosa moist. No thrush NECK: Supple. No JVD. LUNGS: Decreased breath sounds at the bases. No wheezing. HEART: S1, S2. No gallops or murmurs. Left sided chest wall PPM looks intact, clean. ABDOMEN: Soft, obese, SARKIS with sanginous fluid. No rebound, no guarding. : Gates in place EXTREMITIES: Trace edema lower extremities, bilaterally. No cyanosis, no clubbing. NEUROLOGIC: Alert, oriented, a little confused - generalized weakness. RIJ (03/12) removed and previous site without signs of complications - now with new IJ PIV General: Alert, Cooperative, mild distress Heart: Regular rate, Normal S1, Normal S2 Lungs: Clear Abdomen: Normal bowel sounds, Soft, Other (Wounds clean dry and intact SARKIS drain intact bloody output has decreased significantly) Extremities: No clubbing, No cyanosis Skin: No rashes, No breakdown Labs LABS Laboratory Tests Test 03/20/20 20:36 03/21/20 06:40 03/21/20 07:16 03/21/20 11:51 Glucose (Fingerstick) 259 mg/dL (70-99) 247 mg/dL (70-99) 275 mg/dL (70-99) White Blood Count 12.8 x10^3/uL (4.0-11.0) Red Blood Count 3.16 x10^6/uL (4.30-5.70) Hemoglobin 9.2 g/dL (13.0-17.5) Hematocrit 28.1 % (39.0-53.0) Mean Corpuscular Volume 89 fL (79-100) Mean Corpuscular Hemoglobin 29 pg (25-35) Mean Corpuscular Hemoglobin Concent 33 g/dL (31-37) Red Cell Distribution Width 15.8 % (11.5-14.5) Platelet Count 51 x10^3/uL (140-400) Neutrophils (%) (Auto) 95 % (31-73) Lymphocytes (%) (Auto) 3 % (24-48) Monocytes (%) (Auto) 2 % (0-9) Eosinophils (%) (Auto) 0 % (0-3) Basophils (%) (Auto) 0 % (0-3) Neutrophils # (Auto) 12.1 x10^3/uL (1.8-7.7) Lymphocytes # (Auto) 0.4 x10^3/uL (1.0-4.8) Monocytes # (Auto) 0.2 x10^3/uL (0.0-1.1) Eosinophils # (Auto) 0.0 x10^3/uL (0.0-0.7) Basophils # (Auto) 0.0 x10^3/uL (0.0-0.2) Sodium Level 148 mmol/L (136-145) Potassium Level 5.2 mmol/L (3.5-5.1) Chloride Level 118 mmol/L (98-107) Carbon Dioxide Level 18 mmol/L (21-32) Anion Gap 12 (6-14) Blood Urea Nitrogen 84 mg/dL (8-26) Creatinine 2.1 mg/dL (0.7-1.3) Estimated GFR (Cockcroft-Gault) 37.3 Glucose Level 278 mg/dL (70-99) Calcium Level 6.9 mg/dL (8.5-10.1) Assessment and Plan Assessmemt and Plan Problems Medical Problems: (1) AMS (altered mental status) Status: Acute (2) Hypocalcemia Status: Acute (3) Hypokalemia Status: Acute (4) Septic shock Status: Acute (5) Suspected 2019 novel coronavirus infection Status: Acute Comment Review of Relevant I have reviewed the following items thee (where applicable) has been applied. Labs Laboratory Tests Test 03/19/20 17:40 03/19/20 21:28 03/20/20 03:20 03/20/20 07:10 White Blood Count 20.2 x10^3/uL (4.0-11.0) 16.2 x10^3/uL (4.0-11.0) Red Blood Count 4.31 x10^6/uL (4.30-5.70) 3.96 x10^6/uL (4.30-5.70) Hemoglobin 12.6 g/dL (13.0-17.5) 11.7 g/dL (13.0-17.5) Hematocrit 38.8 % (39.0-53.0) 35.2 % (39.0-53.0) Mean Corpuscular Volume 90 fL (79-100) 89 fL (79-100) Mean Corpuscular Hemoglobin 29 pg (25-35) 30 pg (25-35) Mean Corpuscular Hemoglobin Concent 33 g/dL (31-37) 33 g/dL (31-37) Red Cell Distribution Width 16.1 % (11.5-14.5) 15.9 % (11.5-14.5) Platelet Count 85 x10^3/uL (140-400) 70 x10^3/uL (140-400) Neutrophils (%) (Auto) 93 % (31-73) 94 % (31-73) Lymphocytes (%) (Auto) 4 % (24-48) 3 % (24-48) Monocytes (%) (Auto) 3 % (0-9) 3 % (0-9) Eosinophils (%) (Auto) 0 % (0-3) 0 % (0-3) Basophils (%) (Auto) 0 % (0-3) 0 % (0-3) Neutrophils # (Auto) 18.8 x10^3/uL (1.8-7.7) 15.2 x10^3/uL (1.8-7.7) Lymphocytes # (Auto) 0.7 x10^3/uL (1.0-4.8) 0.5 x10^3/uL (1.0-4.8) Monocytes # (Auto) 0.6 x10^3/uL (0.0-1.1) 0.4 x10^3/uL (0.0-1.1) Eosinophils # (Auto) 0.0 x10^3/uL (0.0-0.7) 0.0 x10^3/uL (0.0-0.7) Basophils # (Auto) 0.0 x10^3/uL (0.0-0.2) 0.0 x10^3/uL (0.0-0.2) Segmented Neutrophils % 92 % (35-66) Band Neutrophils % 4 % (0-9) Lymphocytes % 1 % (24-48) Monocytes % 3 % (0-10) Toxic Granulation Slight Platelet Estimate Decreased (ADEQUATE) Prothrombin Time 16.6 SEC (11.7-14.0) Prothromb Time International Ratio 1.4 (0.8-1.1) Sodium Level 142 mmol/L (136-145) Potassium Level 5.3 mmol/L (3.5-5.1) Chloride Level 113 mmol/L (98-107) Carbon Dioxide Level 16 mmol/L (21-32) Anion Gap 13 (6-14) Blood Urea Nitrogen 80 mg/dL (8-26) Creatinine 2.7 mg/dL (0.7-1.3) Estimated GFR (Cockcroft-Gault) 27.9 Glucose Level 308 mg/dL (70-99) Calcium Level 6.9 mg/dL (8.5-10.1) Glucose (Fingerstick) 234 mg/dL (70-99) 257 mg/dL (70-99) Test 03/20/20 10:00 03/20/20 11:17 03/20/20 13:00 03/20/20 16:40 Lactic Acid Level 1.5 mmol/L (0.4-2.0) Glucose (Fingerstick) 209 mg/dL (70-99) 278 mg/dL (70-99) Sodium Level 144 mmol/L (136-145) Potassium Level 5.3 mmol/L (3.5-5.1) Chloride Level 115 mmol/L (98-107) Carbon Dioxide Level 17 mmol/L (21-32) Anion Gap 12 (6-14) Blood Urea Nitrogen 87 mg/dL (8-26) Creatinine 2.3 mg/dL (0.7-1.3) Estimated GFR (Cockcroft-Gault) 33.6 Glucose Level 338 mg/dL (70-99) Calcium Level 6.8 mg/dL (8.5-10.1) Test 03/20/20 20:36 03/21/20 06:40 03/21/20 07:16 03/21/20 11:51 Glucose (Fingerstick) 259 mg/dL (70-99) 247 mg/dL (70-99) 275 mg/dL (70-99) White Blood Count 12.8 x10^3/uL (4.0-11.0) Red Blood Count 3.16 x10^6/uL (4.30-5.70) Hemoglobin 9.2 g/dL (13.0-17.5) Hematocrit 28.1 % (39.0-53.0) Mean Corpuscular Volume 89 fL (79-100) Mean Corpuscular Hemoglobin 29 pg (25-35) Mean Corpuscular Hemoglobin Concent 33 g/dL (31-37) Red Cell Distribution Width 15.8 % (11.5-14.5) Platelet Count 51 x10^3/uL (140-400) Neutrophils (%) (Auto) 95 % (31-73) Lymphocytes (%) (Auto) 3 % (24-48) Monocytes (%) (Auto) 2 % (0-9) Eosinophils (%) (Auto) 0 % (0-3) Basophils (%) (Auto) 0 % (0-3) Neutrophils # (Auto) 12.1 x10^3/uL (1.8-7.7) Lymphocytes # (Auto) 0.4 x10^3/uL (1.0-4.8) Monocytes # (Auto) 0.2 x10^3/uL (0.0-1.1) Eosinophils # (Auto) 0.0 x10^3/uL (0.0-0.7) Basophils # (Auto) 0.0 x10^3/uL (0.0-0.2) Sodium Level 148 mmol/L (136-145) Potassium Level 5.2 mmol/L (3.5-5.1) Chloride Level 118 mmol/L (98-107) Carbon Dioxide Level 18 mmol/L (21-32) Anion Gap 12 (6-14) Blood Urea Nitrogen 84 mg/dL (8-26) Creatinine 2.1 mg/dL (0.7-1.3) Estimated GFR (Cockcroft-Gault) 37.3 Glucose Level 278 mg/dL (70-99) Calcium Level 6.9 mg/dL (8.5-10.1) Laboratory Tests Test 03/20/20 20:36 03/21/20 06:40 03/21/20 07:16 03/21/20 11:51 Glucose (Fingerstick) 259 mg/dL (70-99) 247 mg/dL (70-99) 275 mg/dL (70-99) White Blood Count 12.8 x10^3/uL (4.0-11.0) Red Blood Count 3.16 x10^6/uL (4.30-5.70) Hemoglobin 9.2 g/dL (13.0-17.5) Hematocrit 28.1 % (39.0-53.0) Mean Corpuscular Volume 89 fL (79-100) Mean Corpuscular Hemoglobin 29 pg (25-35) Mean Corpuscular Hemoglobin Concent 33 g/dL (31-37) Red Cell Distribution Width 15.8 % (11.5-14.5) Platelet Count 51 x10^3/uL (140-400) Neutrophils (%) (Auto) 95 % (31-73) Lymphocytes (%) (Auto) 3 % (24-48) Monocytes (%) (Auto) 2 % (0-9) Eosinophils (%) (Auto) 0 % (0-3) Basophils (%) (Auto) 0 % (0-3) Neutrophils # (Auto) 12.1 x10^3/uL (1.8-7.7) Lymphocytes # (Auto) 0.4 x10^3/uL (1.0-4.8) Monocytes # (Auto) 0.2 x10^3/uL (0.0-1.1) Eosinophils # (Auto) 0.0 x10^3/uL (0.0-0.7) Basophils # (Auto) 0.0 x10^3/uL (0.0-0.2) Sodium Level 148 mmol/L (136-145) Potassium Level 5.2 mmol/L (3.5-5.1) Chloride Level 118 mmol/L (98-107) Carbon Dioxide Level 18 mmol/L (21-32) Anion Gap 12 (6-14) Blood Urea Nitrogen 84 mg/dL (8-26) Creatinine 2.1 mg/dL (0.7-1.3) Estimated GFR (Cockcroft-Gault) 37.3 Glucose Level 278 mg/dL (70-99) Calcium Level 6.9 mg/dL (8.5-10.1) Microbiology 03/18/20 Blood Culture - Preliminary, Resulted NO GROWTH AFTER 3 DAYS 03/12/20 Urine Culture - Final, Complete Medications Current Medications Sodium Chloride 1,000 ml @ 1,000 mls/hr 1X ONCE IV Last administered on 03/12/20at 14:00; Start 03/12/20 at 14:30; Stop 03/12/20 at 15:29; Status DC Sodium Chloride 1,000 ml @ 1,000 mls/hr 1X ONCE IV Last administered on 03/12/20at 14:05; Start 03/12/20 at 14:30; Stop 03/12/20 at 15:29; Status DC Ceftriaxone Sodium (Rocephin) 1 gm 1X ONCE IVP Last administered on 03/12/20at 16:41; Start 03/12/20 at 15:00; Stop 03/12/20 at 15:01; Status DC Sodium Chloride 1,000 ml @ 1,000 mls/hr 1X ONCE IV Last administered on 03/12/20at 16:38; Start 03/12/20 at 15:30; Stop 03/12/20 at 16:29; Status DC Sodium Chloride 1,000 ml @ 1,000 mls/hr 1X ONCE IV Last administered on 03/12/20at 16:39; Start 03/12/20 at 15:30; Stop 03/12/20 at 16:29; Status DC Sodium Chloride (NORMAL SALINE FLUSH for STERILE FIELD) 10 ml ZoombuK-MED ONCE .ROUTE ; Start 03/12/20 at 15:24; Stop 03/12/20 at 15:24; Status DC Lidocaine HCl (Lidocaine 1% 20ml Vial) 20 ml 1X ONCE INJ Last administered on 03/12/20at 15:30; Start 03/12/20 at 15:30; Stop 03/12/20 at 15:31; Status DC Norepinephrine Bitartrate 8 mg/ Dextrose 258 ml @ 21.285 mls/ hr 1X ONCE IV Last administered on 03/12/20at 16:28; Start 03/12/20 at 16:15; Stop 03/13/20 at 04:22; Status DC Calcium Gluconate (Calcium Gluconate) 1,000 mg 1X ONCE IVP Last administered on 03/12/20at 17:50; Start 03/12/20 at 17:00; Stop 03/12/20 at 17:01; Status DC Ondansetron HCl (Zofran) 4 mg PRN Q8HRS PRN IV NAUSEA/VOMITING Last administered on 03/13/20at 02:56; Start 03/12/20 at 16:30; Stop 03/13/20 at 16:29; Status DC Sodium Chloride 1,000 ml @ 75 mls/hr [id number] IV ; Start 03/12/20 at 16:28; Stop 03/12/20 at 22:33; Status DC Azithromycin 250 ml @ 250 mls/hr 1X ONCE IV Last administered on 03/12/20at 17:51; Start 03/12/20 at 17:00; Stop 03/12/20 at 17:59; Status DC Ondansetron HCl (Zofran) 4 mg PRN Q6HRS PRN IVP NAUSEA/VOMITING Last administered on 03/19/20at 21:46; Start 03/12/20 at 16:45 Prochlorperazine (Compazine) 25 mg PRN Q12HR PRN [place] NAUSEA/VOMITING; Start 03/12/20 at 16:45 Famotidine (Pepcid Vial) 20 mg BID IVP Last administered on 03/12/20at 22:49; Start 03/12/20 at 21:00; Stop 03/13/20 at 09:34; Status DC Info ([facility] Electrolyte Protocol) 1 ea DAILY MC ; Start 03/13/20 at 09:00; Stop 03/16/20 at 07:29; Status DC Heparin Sodium (Porcine) (Heparin Sodium) 5,000 unit Q8HRS SQ Last administered on 03/21/20at 15:05; Start 03/12/20 at 22:00 Sodium Chloride (Normal Saline Flush) 3 ml QSHIFT PRN IV AFTER MEDS AND BLOOD DRAWS; Start 03/12/20 at 16:45 Sodium Chloride 1,000 ml @ 1,000 mls/hr Q1H IV ; Start 03/12/20 at 16:33; Stop 03/12/20 at 17:32; Status DC Sodium Chloride 1,000 ml @ 100 mls/hr Q10H IV Last administered on 03/20/20at 17:33; Start 03/12/20 at 16:33; Stop 03/20/20 at 17:42; Status DC Bisacodyl (Dulcolax Supp) 10 mg PRN DAILY PRN [place] CONSTIPATION; Start 03/12/20 at 16:45 Cefepime HCl (Maxipime) 1 gm Q8HRS IVP Last administered on 03/13/20at 05:51; Start 03/12/20 at 22:00; Stop 03/13/20 at 08:46; Status DC Vancomycin HCl (Vanco Per Pharmacy) 1 each PRN DAILY PRN MC SEE COMMENTS Last administered on 03/12/20at 18:45; Start 03/12/20 at 16:45; Stop 03/13/20 at 08:46; Status DC Potassium Chloride/Water 100 ml @ 100 mls/hr Q1H IV Last administered on 03/12/20at 22:51; Start 03/12/20 at 19:00; Stop 03/12/20 at 22:59; Status DC Potassium Chloride/Water 100 ml @ 100 mls/hr Q1H IV ; Start 03/12/20 at 16:45; Stop 03/12/20 at 17:00; Status DC Potassium Chloride/Water 100 ml @ 100 mls/hr Q1H IV ; Start 03/12/20 at 16:45; Stop 03/12/20 at 17:00; Status DC Magnesium Sulfate 100 ml @ 50 mls/hr DAILY IV ; Start 03/13/20 at 09:00; Stop 03/12/20 at 17:00; Status DC Sodium Phosphate 15 mmol/Sodium Chloride 255 ml @ 62.5 mls/hr 1X ONCE IV ; Start 03/12/20 at 16:45; Stop 03/12/20 at 17:00; Status DC Sodium Phosphate 30 mmol/Sodium Chloride 260 ml @ 62.5 mls/hr 1X ONCE IV ; Start 03/12/20 at 16:45; Stop 03/12/20 at 17:00; Status DC Insulin Human Lispro (HumaLOG) 0-7 UNITS TIDWMEALS SQ ; Start 03/12/20 at 17:00; Stop 03/12/20 at 22:33; Status DC Dextrose (Dextrose 50%-Water Syringe) 12.5 gm PRN Q15MIN PRN IV SEE COMMENTS; Start 03/12/20 at 16:45; Stop 03/12/20 at 22:33; Status DC Info ([facility] Electrolyte Protocol) 1 ea CONT PRN PRN MC SEE COMMENTS; Start 03/12/20 at 17:00; Stop 03/12/20 at 17:06; Status DC Magnesium Sulfate 50 ml @ 25 mls/hr 1X ONCE IV Last administered on 03/12/20at 17:51; Start 03/12/20 at 17:00; Stop 03/12/20 at 18:59; Status DC Vancomycin HCl 2 gm/Sodium Chloride 500 ml @ 250 mls/hr 1X ONCE IV Last administered on 03/12/20at 17:53; Start 03/12/20 at 18:00; Stop 03/12/20 at 19:59; Status DC Vancomycin HCl 1.5 gm/Sodium Chloride 500 ml @ 250 mls/hr Q24H IV ; Start 03/13/20 at 18:00; Stop 03/13/20 at 08:48; Status DC Vancomycin HCl (Vancomycin Trough Level) 1 each 1X ONCE MC ; Start 03/14/20 at 17:30; Stop 03/14/20 at 17:31; Status Cancel Norepinephrine Bitartrate 8 mg/ Dextrose 258 ml @ 21.285 mls/ hr CONT PRN IV PER PROTOCOL Last administered on 03/13/20at 18:01; Start 03/12/20 at 22:30; Stop 03/16/20 at 13:45; Status DC Insulin Human Lispro (HumaLOG) 0-7 UNITS TIDWMEALS SQ ; Start 03/13/20 at 08:00; Stop 03/13/20 at 00:30; Status DC Dextrose (Dextrose 50%-Water Syringe) 12.5 gm PRN Q15MIN PRN IV SEE COMMENTS; Start 03/12/20 at 22:30; Stop 03/13/20 at 00:30; Status DC Insulin Human Lispro (HumaLOG) 0-9 UNITS Q4HRS SQ Last administered on 03/16/20at 18:56; Start 03/13/20 at 04:00; Stop 03/16/20 at 19:15; Status DC Dextrose (Dextrose 50%-Water Syringe) 12.5 gm PRN Q15MIN PRN IV SEE COMMENTS; Start 03/13/20 at 00:30 Meropenem 500 mg/ Sodium Chloride 50 ml @ 100 mls/hr Q6H IV ; Start 03/13/20 at 08:45; Stop 03/13/20 at 08:53; Status DC Linezolid (Zyvox) 600 mg BID PO Last administered on 03/13/20at 10:48; Start 03/13/20 at 09:00; Stop 03/13/20 at 21:11; Status DC Meropenem 500 mg/ Sodium Chloride 50 ml @ 100 mls/hr Q6HRS IV Last administered on 03/14/20at 13:02; Start 03/13/20 at 09:00; Stop 03/14/20 at 15:30; Status DC Famotidine (Pepcid Vial) 20 mg DAILY IVP Last administered on 03/17/20at 08:30; Start 03/14/20 at 09:00; Stop 03/17/20 at 10:32; Status DC Multivitamins (Thera M Plus) 1 tab DAILY PO Last administered on 03/21/20at 09:16; Start 03/13/20 at 10:30 Methylprednisolone Sodium Succinate (SOLU-Medrol 40MG VIAL) 40 mg Q6HRS IV Last administered on 03/21/20at 12:19; Start 03/13/20 at 11:00 Morphine Sulfate (Morphine Sulfate) 2 mg PRN Q2HR PRN IV PAIN Last administered on 03/21/20at 09:15; Start 03/13/20 at 11:00 Insulin Human Lispro (HumaLOG) 30 units 1X STAT SQ Last administered on 03/13/20at 13:39; Start 03/13/20 at 13:39; Stop 03/13/20 at 13:49; Status DC Lactobacillus Rhamnosus (Culturelle) 1 cap BID PO Last administered on 03/21/20a t 09:15; Start 03/13/20 at 21:00 Linezolid/Dextrose 300 ml @ 300 mls/hr Q12HR IV Last administered on 03/15/20at 08:37; Start 03/13/20 at 22:00; Stop 03/15/20 at 08:55; Status DC Morphine Sulfate (Morphine Sulfate) 4 mg 1X ONCE IV Last administered on 03/14/20at 09:22; Start 03/14/20 at 09:15; Stop 03/14/20 at 09:16; Status DC Perflutren Protein Type A Microsphe (Optison) 0.66 mg 1X ONCE IV ; Start 03/14/20 at 12:15; Stop 03/14/20 at 12:21; Status DC Meropenem 500 mg/ Sodium Chloride 50 ml @ 100 mls/hr Q8HRS IV Last administered on 03/21/20at 14:57; Start 03/14/20 at 22:00 Insulin Human Lispro (HumaLOG) 0-9 UNITS TIDACHC SQ Last administered on 03/21/20at 12:32; Start 03/16/20 at 21:00 Alteplase, Recombinant (Cathflo For Central Catheter Clearance) 1 mg 1X ONCE INT CAT Last administered on 03/17/20at 05:50; Start 03/17/20 at 06:00; Stop 03/17/20 at 06:01; Status DC Famotidine (Pepcid) 20 mg QHS PO Last administered on 03/20/20at 20:37; Start 03/17/20 at 21:00 Ringer's Solution 1,000 ml @ 30 mls/hr Q24H IV ; Start 03/18/20 at 07:00; Stop 03/18/20 at 19:00; Status DC Lidocaine HCl (Xylocaine-Mpf 1% 2ml Vial) 2 ml PRN 1X PRN ID PRIOR TO IV START; Start 03/18/20 at 07:00; Stop 03/19/20 at 06:59; Status DC Hydralazine HCl (Apresoline Inj) 10 mg PRN Q4HRS PRN IVP ELEVATED BP, SEE COMMENTS; Start 03/17/20 at 23:45; Stop 03/17/20 at 23:49; Status DC Hydralazine HCl (Apresoline Inj) 10 mg PRN Q4HRS PRN IVP ELEVATED BP, SEE COMMENTS Last administered on 03/18/20at 00:06; Start 03/17/20 at 23:45 Propofol (Diprivan) 200 mg STK-MED ONCE IV ; Start 03/18/20 at 13:58; Stop 03/18/20 at 13:59; Status DC Lidocaine HCl (Lidocaine Pf 2% Vial) 5 ml STK-MED ONCE .ROUTE ; Start 03/18/20 at 13:58; Stop 03/18/20 at 13:59; Status DC Succinylcholine Chloride (Anectine) 200 mg STK-MED ONCE .ROUTE ; Start 03/18/20 at 13:58; Stop 03/18/20 at 13:59; Status DC Rocuronium [place] (Zemuron) 50 mg STK-MED ONCE .ROUTE ; Start 03/18/20 at 13:58; Stop 03/18/20 at 13:59; Status DC Fentanyl Citrate (Fentanyl 2ml Vial) 100 mcg STK-MED ONCE .ROUTE ; Start 03/18/20 at 13:58; Stop 03/18/20 at 13:59; Status DC Neostigmine [place] (Neostigmine Methylsulfate) 5 mg STK-MED ONCE .ROUTE ; Start 03/18/20 at 14:03; Stop 03/18/20 at 14:04; Status DC Glycopyrrolate (Robinul) 1 mg STK-MED ONCE .ROUTE ; Start 03/18/20 at 14:03; Stop 03/18/20 at 14:04; Status DC Ondansetron HCl (Zofran) 4 mg STK-MED ONCE .ROUTE ; Start 03/18/20 at 14:03; Stop 03/18/20 at 14:04; Status DC Ondansetron HCl (Zofran) 4 mg PRN Q6HRS PRN IV NAUSEA/VOMITING; Start 03/18/20 at 14:30; Stop 03/19/20 at 14:29; Status DC Fentanyl Citrate (Fentanyl 2ml Vial) 25 mcg PRN Q5MIN PRN IV MILD PAIN 1-3; Start 03/18/20 at 14:30; Stop 03/19/20 at 14:29; Status DC Fentanyl Citrate (Fentanyl 2ml Vial) 50 mcg PRN Q5MIN PRN IV MODERATE TO SEVERE PAIN Last administered on 03/18/20at 17:16; Start 03/18/20 at 14:30; Stop 03/19/20 at 14:29; Status DC Morphine Sulfate (Morphine Sulfate) 1 mg PRN Q10MIN PRN IV SEVERE PAIN 7-10; Start 03/18/20 at 14:30; Stop 03/19/20 at 14:29; Status DC Ringer's Solution 1,000 ml @ 30 mls/hr Q24H IV ; Start 03/18/20 at 14:25; Stop 03/19/20 at 02:24; Status DC Hydromorphone HCl (Dilaudid) 0.5 mg PRN Q10MIN PRN IV SEV PAIN, Second choice; Start 03/18/20 at 14:30; Stop 03/19/20 at 14:29; Status DC Prochlorperazine Edisylate (Compazine) 5 mg PACU PRN PRN IV NAUSEA, MRX1; Start 03/18/20 at 14:30; Stop 03/19/20 at 14:29; Status DC Insulin Human Lispro (HumaLOG VIAL for OP,RR ONLY) 0-10 units PRN Q1HR PRN SQ PER PROTOCOL Last administered on 03/18/20at 14:35; Start 03/18/20 at 14:30; Stop 03/19/20 at 14:29; Status DC Cellulose (Surgicel Hemostat 4x8) 1 each STK-MED ONCE .ROUTE ; Start 03/18/20 at 14:38; Stop 03/18/20 at 14:38; Status DC Bupivacaine HCl/ Epinephrine Bitart (Sensorcaine-Epi 0.25%-1:170292 Mpf) 30 ml STK-MED ONCE .ROUTE Last administered on 03/18/20at 15:42; Start 03/18/20 at 14:38; Stop 03/18/20 at 14:39; Status DC Dexamethasone Sodium Phosphate (Decadron) 4 mg STK-MED ONCE .ROUTE ; Start 03/18/20 at 15:23; Stop 03/18/20 at 15:23; Status DC Neostigmine [place] (Neostigmine Methylsulfate) 5 mg STK-MED ONCE .ROUTE ; Start 03/18/20 at 15:34; Stop 03/18/20 at 15:34; Status DC Glycopyrrolate (Robinul) 1 mg STK-MED ONCE .ROUTE ; Start 03/18/20 at 15:34; Stop 03/18/20 at 15:34; Status DC Fentanyl Citrate (Fentanyl 2ml Vial) 100 mcg STK-MED ONCE .ROUTE ; Start 03/18/20 at 17:15; Stop 03/18/20 at 17:16; Status DC Lidocaine HCl (Buffered Lidocaine 1%) 3 ml STK-MED ONCE .ROUTE ; Start 03/19/20 at 10:45; Stop 03/19/20 at 10:45; Status DC Lidocaine HCl (Buffered Lidocaine 1%) 6 ml 1X ONCE INJ Last administered on 03/19/20at 14:20; Start 03/19/20 at 11:00; Stop 03/19/20 at 11:01; Status DC Albumin Human 500 ml @ 125 mls/hr 1X ONCE IV Last administered on 03/20/20at 17:53; Start 03/20/20 at 17:45; Stop 03/20/20 at 21:44; Status DC Acetaminophen/ Hydrocodone Bitart (Lortab 7.5/325) 1 tab PRN Q4HRS PRN PO MODERATE PAIN Last administered on 03/21/20at 12:17; Start 03/21/20 at 11:30 Vitals/I & O Vital Sign - Last 24 Hours 03/20/20 03/20/20 03/20/20 03/20/20 19:00 20:00 21:13 22:26 Temp 97.6 97.6 Pulse 61 Resp 17 18 16 B/P (MAP) 148/92 (110) Pulse Ox 96 O2 Delivery Room Air Room Air Room Air Room Air 03/20/20 03/21/20 03/21/20 03/21/20 23:00 00:52 03:00 07:15 Temp 97.8 98.0 98.7 97.8 98.0 98.7 Pulse 80 83 81 Resp 17 17 14 B/P (MAP) 169/80 (109) 144/72 (96) 150/75 (100) 150/70 (96) Pulse Ox 95 97 98 O2 Delivery Room Air Room Air Room Air 03/21/20 03/21/20 03/21/20 03/21/20 08:25 09:15 09:45 11:15 Temp 98.0 98.0 Pulse 82 Resp 20 B/P (MAP) 204/89 (127) Pulse Ox 95 O2 Delivery Room Air Room Air Room Air Room Air 03/21/20 03/21/20 03/21/20 12:17 13:15 15:15 Temp 98.0 98.0 Pulse 82 Resp 18 B/P (MAP) 147/90 (109) Pulse Ox 99 O2 Delivery Room Air Room Air Room Air Intake and Output 03/20/20 03/20/20 03/21/20 15:00 23:00 07:00 Intake Total 150 ml 550 ml Output Total 710 ml 445 ml Balance -560 ml 105 ml Justicifation of Admission Dx: Justifications for Admission: Justification of Admission Dx: Yes CHF: Cardiac Arrhythmias Comminuty Aquired Pneumonia: Bactermia Chronic Renal Failure: Encephalopathy Sepsis: Altered Mental Status MANOLO SANTANA MD Mar 21, 2020 16:58
--- NOTE | 2020-03-21 18:00 | NUR ---
Pt repositioned and SARKSI drain dressing saturated and changed. Bladder scanned and has 288 ml. Straight cath and got 600 ml dark yellow urine. Took couple sips of Glucerna and orange juice. Cont. monitor.
[2020-03-21] MEDS: FAMOTIDINE 20 MG TABLET. PO SCH (21:44)
--- NOTE | 2020-03-21 22:49 | NUR ---
Patient was bladder scanned and had 339cc of urine in bladder, straight catheterized patient and got 375cc of dark yellow urine. RN will continue to monitor patient closely.
[2020-03-22 03:46] VITALS: BP 152/78
--- NOTE | 2020-03-22 05:17 | NUR ---
Patient was bladder scanned and had 255cc of urine in the bladder, patient was straight catheterized and got 225cc of dark yellow urine out. RN will continue to monitor patient closely.
[2020-03-22 05:33] LABS: CALCIUM 7.5 mg/dL (8.5-10.1); CREATININE 1.7 mg/dL (0.7-1.3); GFR 47.7; POTASSIUM 5.2 mmol/L (3.5-5.1)
[2020-03-22] MEDS: MEROPENEM 500 MG in IV NORMAL SALINE 50ML 50 ML IV SCH ×3 (05:45→21:26)
[2020-03-22] MEDS: methylPREDNISolone SOD SUCC PF 40 MG/ML VIAL. IV SCH ×3 (05:45→21:25)
[2020-03-22] MEDS: HEPARIN for SUB-Q USE 5,000 UNIT/ML VIAL. SQ SCH ×3 (05:52→21:45)
[2020-03-22 07:00] VITALS: BP 159/77
--- NOTE | 2020-03-22 08:47 | PDOC ---
Infectious Disease Note Subjective Subjective Doing better Still some pain but less Wants to go home Appetite returning Denies N/V/D/fever/chills/rash Vital Sign Vital Signs Vital Signs Date Time Temp Pulse Resp B/P (MAP) Pulse Ox O2 Delivery O2 Flow Rate FiO2 03/22/20 07:00 97.2 82 16 159/77 (104) Room Air 97.2 03/22/20 03:46 95 Physical Exam PHYSICAL EXAM GENERAL: Alert, in NAD, in bed HEENT: Oral mucosa moist. No thrush NECK: Supple. No JVD. LUNGS: Decreased breath sounds at the bases. No wheezing. HEART: S1, S2. No gallops or murmurs. Left sided chest wall PPM looks intact, clean. ABDOMEN: Soft, obese, SARKIS with sanginous fluid. No rebound, no guarding. : Gates in place EXTREMITIES: Trace edema lower extremities, bilaterally. No cyanosis, no clubbing. NEUROLOGIC: Alert, oriented, a little confused - generalized weakness. RIJ (03/12) removed and previous site without signs of complications - now with new IJ PIV Labs Lab Laboratory Tests Test 03/21/20 11:51 03/21/20 17:14 03/21/20 20:30 03/22/20 04:45 Glucose (Fingerstick) 275 mg/dL (70-99) 255 mg/dL (70-99) 254 mg/dL (70-99) Sodium Level 152 mmol/L (136-145) Potassium Level 5.2 mmol/L (3.5-5.1) Chloride Level 121 mmol/L (98-107) Carbon Dioxide Level 19 mmol/L (21-32) Anion Gap 12 (6-14) Blood Urea Nitrogen 79 mg/dL (8-26) Creatinine 1.7 mg/dL (0.7-1.3) Estimated GFR (Cockcroft-Gault) 47.7 Glucose Level 224 mg/dL (70-99) Calcium Level 7.5 mg/dL (8.5-10.1) Test 03/22/20 07:13 Glucose (Fingerstick) 173 mg/dL (70-99) Micro Microbiology 03/14/20 Blood Culture - Preliminary, Resulted 03/12/20 Urine Culture - Final, Complete Objective Assessment Septic shock from gram neg sepsis, improving. ESBL + E. coli. 03/14 and neg 03/17 and 03/18 Leukocytosis with bandemia, in part steroids - better S/p Lap juan 03/18 Lactic acidosis. Gram negative bacteremia source likely GI and/or . ESBL + E. coli. Repeat BC 03/14 + GNR 03/17 and 03/18 neg so far Urinary tract infection. LACTOBACILLUS SPECIES Acute kidney injury - Cr worsening Thrombocytopenia, likely sepsis - still dropping ? Pepcid vs Heparin. Encephalopathy, likely sepsis, improving. Acute cholecysitis Hyperbilirubinemia, abnormal LFTs, gallbladder distention on CT. HIDA scan noted. US neg Diabetes mellitus. 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 [place] resident Plan Plan of Care F/u Blood cults in am 03/17 and 03/18 platelets per primary Consider d/c Pepcid with Thrombocytopenia. ? heparin d/w Dr. Meng 03/21 cont Merrem, dose to be adjusted for renal function as needed, D/w pharmacy Probiotics Monitor lab values/temp Maintain aspiration precautions Gen surg following. Contact isolation for ESBL Discussed with nursing HERMILA MARTINES MD Mar 22, 2020 08:47
[2020-03-22] MEDS: MULTIVITAMIN with MINERAL TABLET. PO SCH (08:57)
[2020-03-22] MEDS: LACTOBACILLUS RHAMNOSUS GG 1 CAPSULE. PO SCH ×2 (08:57→21:24)
[2020-03-22] MEDS: INSULIN LISPRO 300 UNITS/3 ML VIAL. SQ SCH ×4 (09:07→21:44)
[2020-03-22 11:00] VITALS: BP 152/78
--- NOTE | 2020-03-22 11:14 | PDOC ---
DATE OF SERVICE DATE: 03/22/20 TIME: 11:14 SUBJECTIVE ROS Stable, states feeling better, more alert OBJECTIVE Vital Signs Vital Signs Date Time Temp Pulse Resp B/P (MAP) Pulse Ox O2 Delivery O2 Flow Rate FiO2 03/22/20 08:00 Room Air 2.0 03/22/20 07:00 97.2 82 16 159/77 (104) 97.2 03/22/20 03:46 95 I & 0 Intake and Output 03/22/20 07:00 Intake Total 240 ml Output Total 1750 ml Balance -1510 ml Intake Oral 240 ml Output Urine Total 1200 ml Drainage Total 550 ml # Voids 1 PHYSICAL EXAM Physical Exam GEN: Awake, Oriented x [], In [] distress EYES: Vision Unchanged, Conjunctiva Normal EN: No EN Drainage, Mucous Membranes [] NECK: [] JVD, [] JVP, Supple, [] Thyromegaly CVS: S1S2, [] Murmur, No Gallop, No Rub,[] Edema RESP: [] Rales, [] Rhonchi,[] Acc. Muscle Use GI: BS + ve, NO Bruit, Non Tender, Non Distended : [] CVA tenderness, [] Suprapubic Tenderness DIAGNOSIS/ASSESSMENT Assessment & Plan ESRD/ARF: Current fluid and E-lyte status does not necessitate emergent need for dialysis. Will re-evaluate for dialysis in the am and continue on [] schedule. ANEMIA; [] Aranap as ordered, [] Transfuse [] with next HD as needed HTN: Current BP meds as reviewed. See orders for changes. BONE & MINERAL: [] Discussed Plan of Care with family [] at bedside [] over the phone COMMENT/RELEVANT DATA Meds Current Medications Medications (Trade) Dose Ordered Sig/Uma Start Time Stop Time Status Last Admin Dose Admin Acetaminophen/ Hydrocodone Bitart (Lortab 7.5/325) 1 tab PRN Q4HRS PRN 03/21/20 11:30 03/21/20 12:17 1 TAB Albumin Human 500 ml @ 125 mls/hr 1X ONCE 03/20/20 17:45 03/20/20 21:44 DC 03/20/20 17:53 125 MLS/HR Alteplase, Recombinant (Cathflo For Central Catheter Clearance) 1 mg 1X ONCE 03/17/20 06:00 03/17/20 06:01 DC 03/17/20 05:50 1 MG Azithromycin 250 ml @ 250 mls/hr 1X ONCE 03/12/20 17:00 03/12/20 17:59 DC 03/12/20 17:51 250 MLS/HR Bisacodyl (Dulcolax Supp) 10 mg PRN DAILY PRN 03/12/20 16:45 Bupivacaine HCl/ Epinephrine Bitart (Sensorcaine-Epi 0.25%-1:344485 Mpf) 30 ml STK-MED ONCE 03/18/20 14:38 03/18/20 14:39 DC 03/18/20 15:42 20 ML Calcium Gluconate (Calcium Gluconate) 1,000 mg 1X ONCE 03/12/20 17:00 03/12/20 17:01 DC 03/12/20 17:50 1,000 MG Cefepime HCl (Maxipime) 1 gm Q8HRS 03/12/20 22:00 03/13/20 08:46 DC 03/13/20 05:51 1 GM Ceftriaxone Sodium (Rocephin) 1 gm 1X ONCE 03/12/20 15:00 03/12/20 15:01 DC 03/12/20 16:41 1 GM Cellulose (Surgicel Hemostat 4x8) 1 each STK-MED ONCE 03/18/20 14:38 03/18/20 14:38 DC Dexamethasone Sodium Phosphate (Decadron) 4 mg STK-MED ONCE 03/18/20 15:23 03/18/20 15:23 DC Dextrose (Dextrose 50%-Water Syringe) 12.5 gm PRN Q15MIN PRN 03/13/20 00:30 Famotidine (Pepcid Vial) 20 mg DAILY 03/14/20 09:00 03/17/20 10:32 DC 03/17/20 08:30 20 MG Famotidine (Pepcid) 20 mg QHS 03/17/20 21:00 03/22/20 10:51 DC 03/21/20 21:44 20 MG Fentanyl Citrate (Fentanyl 2ml Vial) 100 mcg STK-MED ONCE 03/18/20 17:15 03/18/20 17:16 DC Glycopyrrolate (Robinul) 1 mg STK-MED ONCE 03/18/20 15:34 03/18/20 15:34 DC Heparin Sodium (Porcine) (Heparin Sodium) 5,000 unit Q8HRS 03/12/20 22:00 03/22/20 05:52 5,000 UNIT Hydralazine HCl (Apresoline Inj) 10 mg PRN Q4HRS PRN 03/17/20 23:45 03/18/20 00:06 10 MG Hydromorphone HCl (Dilaudid) 0.5 mg PRN Q10MIN PRN 03/18/20 14:30 03/19/20 14:29 DC Info (Icu Electrolyte Protocol) 1 ea CONT PRN PRN 03/12/20 17:00 03/12/20 17:06 DC Insulin Glargine (Lantus Syringe) 10 unit QHS 03/22/20 21:00 Insulin Human Lispro (HumaLOG VIAL for OP,RR ONLY) 0-10 units PRN Q1HR PRN 03/18/20 14:30 03/19/20 14:29 DC 03/18/20 14:35 6 UNIT Insulin Human Lispro (HumaLOG) 0-9 UNITS TIDACHC 03/16/20 21:00 03/22/20 09:07 4 UNITS Lactobacillus Rhamnosus (Culturelle) 1 cap BID 03/13/20 21:00 03/22/20 08:57 1 CAP Lidocaine HCl (Buffered Lidocaine 1%) 6 ml 1X ONCE 03/19/20 11:00 03/19/20 11:01 DC 03/19/20 14:20 6 ML Lidocaine HCl (Lidocaine 1% 20ml Vial) 20 ml 1X ONCE 03/12/20 15:30 03/12/20 15:31 DC 03/12/20 15:30 20 ML Lidocaine HCl (Lidocaine Pf 2% Vial) 5 ml STK-MED ONCE 03/18/20 13:58 03/18/20 13:59 DC Lidocaine HCl (Xylocaine-Mpf 1% 2ml Vial) 2 ml PRN 1X PRN 03/18/20 07:00 03/19/20 06:59 DC Linezolid (Zyvox) 600 mg BID 03/13/20 09:00 03/13/20 21:11 DC 03/13/20 10:48 600 MG Linezolid/Dextrose 300 ml @ 300 mls/hr Q12HR 03/13/20 22:00 03/15/20 08:55 DC 03/15/20 08:37 300 MLS/HR Magnesium Sulfate 50 ml @ 25 mls/hr 1X ONCE 03/12/20 17:00 03/12/20 18:59 DC 03/12/20 17:51 25 MLS/HR Meropenem 500 mg/ Sodium Chloride 50 ml @ 100 mls/hr Q8HRS 03/14/20 22:00 03/22/20 05:45 100 MLS/HR Methylprednisolone Sodium Succinate (SOLU-Medrol 40MG VIAL) 40 mg BID 03/22/20 12:00 Morphine Sulfate (Morphine Sulfate) 1 mg PRN Q10MIN PRN 03/18/20 14:30 03/19/20 14:29 DC Multivitamins (Thera M Plus) 1 tab DAILY 03/13/20 10:30 03/22/20 08:57 1 TAB Neostigmine [place] (Neostigmine Methylsulfate) 5 mg STK-MED ONCE 03/18/20 15:34 03/18/20 15:34 DC Norepinephrine Bitartrate 8 mg/ Dextrose 258 ml @ 21.285 mls/ hr CONT PRN 03/12/20 22:30 03/16/20 13:45 DC 03/13/20 18:01 27.671 MLS/HR Ondansetron HCl (Zofran) 4 mg PRN Q6HRS PRN 03/18/20 14:30 03/19/20 14:29 DC Perflutren Protein Type A Microsphe (Optison) 0.66 mg 1X ONCE 03/14/20 12:15 03/14/20 12:21 DC Potassium Chloride/Water 100 ml @ 100 mls/hr Q1H 03/12/20 16:45 03/12/20 17:00 DC Prochlorperazine (Compazine) 25 mg PRN Q12HR PRN 03/12/20 16:45 Prochlorperazine Edisylate (Compazine) 5 mg PACU PRN PRN 03/18/20 14:30 03/19/20 14:29 DC Propofol (Diprivan) 200 mg STK-MED ONCE 03/18/20 13:58 03/18/20 13:59 DC Ringer's Solution 1,000 ml @ 30 mls/hr Q24H 03/18/20 14:25 03/19/20 02:24 DC Rocuronium [place] (Zemuron) 50 mg STK-MED ONCE 03/18/20 13:58 03/18/20 13:59 DC Sodium Chloride 1,000 ml @ 100 mls/hr Q10H 03/12/20 16:33 03/20/20 17:42 DC 03/20/20 17:33 100 MLS/HR Sodium Chloride (NORMAL SALINE FLUSH for STERILE FIELD) 10 ml STK-MED ONCE 03/12/20 15:24 03/12/20 15:24 DC Sodium Chloride (Normal Saline Flush) 3 ml QSHIFT PRN 03/12/20 16:45 Sodium Phosphate 15 mmol/Sodium Chloride 255 ml @ 62.5 mls/hr 1X ONCE 03/12/20 16:45 03/12/20 17:00 DC Sodium Phosphate 30 mmol/Sodium Chloride 260 ml @ 62.5 mls/hr 1X ONCE 03/12/20 16:45 03/12/20 17:00 DC Succinylcholine Chloride (Anectine) 200 mg STK-MED ONCE 03/18/20 13:58 03/18/20 13:59 DC Vancomycin HCl (Vanco Per Pharmacy) 1 each PRN DAILY PRN 03/12/20 16:45 03/13/20 08:46 DC 03/12/20 18:45 1 EACH Vancomycin HCl (Vancomycin Trough Level) 1 each 1X ONCE 03/14/20 17:30 03/14/20 17:31 Cancel Vancomycin HCl 1.5 gm/Sodium Chloride 500 ml @ 250 mls/hr Q24H 03/13/20 18:00 03/13/20 08:48 DC Vancomycin HCl 2 gm/Sodium Chloride 500 ml @ 250 mls/hr 1X ONCE 03/12/20 18:00 03/12/20 19:59 DC 03/12/20 17:53 250 MLS/HR Lab Laboratory Tests Test 03/21/20 11:51 03/21/20 17:14 03/21/20 20:30 03/22/20 04:45 Glucose (Fingerstick) 275 mg/dL (70-99) 255 mg/dL (70-99) 254 mg/dL (70-99) Sodium Level 152 mmol/L (136-145) Potassium Level 5.2 mmol/L (3.5-5.1) Chloride Level 121 mmol/L (98-107) Carbon Dioxide Level 19 mmol/L (21-32) Anion Gap 12 (6-14) Blood Urea Nitrogen 79 mg/dL (8-26) Creatinine 1.7 mg/dL (0.7-1.3) Estimated GFR (Cockcroft-Gault) 47.7 Glucose Level 224 mg/dL (70-99) Calcium Level 7.5 mg/dL (8.5-10.1) Test 03/22/20 07:13 Glucose (Fingerstick) 173 mg/dL (70-99) Results All relevant outside records, renal labs, imaging studies, telemetry/EKG's were reviewed. Justicifation of Admission Dx: Justifications for Admission: Justification of Admission Dx: Yes CHF: Cardiac Arrhythmias Comminuty Aquired Pneumonia: Bactermia Chronic Renal Failure: Encephalopathy Sepsis: Altered Mental Status SANGEETA AGUIRRE MD Mar 22, 2020 11:14
--- NOTE | 2020-03-22 11:21 | PDOC ---
GENERAL General: Patient examined chart reviewed today is hospital day 16 for this patient admitted from his assisted living with altered mental status found to have se obdulia sepsis secondary to ESBL E. coli bacteremia likely from GI source. Patient is status post cholecystectomy now day 4 postop tolerated that procedure well. We appreciate subspecialty support multiple services are following the patient. His platelet count yesterday was 51,000 and was normal on admission at 131,000. I certainly agree with infectious diseases that the Pepcid needs to be discon tinued because of this. We have also ordered a heparin-induced thrombocytopenia antibody assessment. Depending on his level tomorrow morning we may need to stop all heparin flushes. Patient tells me he feels like he is getting stronger. He is tolerating his diet. His sugar levels have been quite high we will back down on the high dose IV steroids that he has been on throughout his stay here. I will add nightly Lantus and continue the sliding scale. I defer to nephrology on the IV fluids he looks to be intracellularly dehydrated with a sodium level of 151. Continue current management otherwise. Total time today is 30 minutes with greater than 50% in counseling and coordination of care most of which in discussion with patient and nursing. His medications from his assisted living need to be reconciled we do not have his home meds ordered here. I have added an A1c for the morning as well. Problems: (1) Septic shock (2) Bacteremia due to Escherichia coli (3) S/P cholecystectomy (4) Thrombocytopenia VITAL SIGNS Vital Signs/I&O: Vital Signs Date Time Temp Pulse Resp B/P (MAP) Pulse Ox O2 Delivery O2 Flow Rate FiO2 03/22/20 08:00 Room Air 2.0 03/22/20 07:00 97.2 82 16 159/77 (104) 97.2 03/22/20 03:46 95 I & O 03/21/20 03/21/20 03/22/20 15:00 23:00 07:00 Intake Total 240 ml Output Total 100 ml 700 ml 950 ml Balance 140 ml -700 ml -950 ml In general the patient is pleasant at baseline orientation in no acute distress HEENT exam is unremarkable for acute abnormality Neck is soft and supple no adenopathy or thyromegaly noted Chest is clear to auscultation anteriorly Heart S1-S2 normal regular rate and rhythm no murmurs or gallops are noted Abdomen is morbidly obese he has dark sanguinous discharge from his abdominal drain he is soft nontender nondistended Extremity exam is notable for bruising over his right upper extremity which is soft nontender no evidence of DVT on exam. Chronic venous stasis dermatitis noted bilateral lower extremities ALLERGIES Allergies: Allergies Coded Allergies Type Severity Reaction Last Updated Verified I S O L A T I O N *CONTACT* Allergy Unknown 03/17/20 Yes No Known Medication Allergies Allergy Unknown 03/17/20 Yes MEDS Medications: Current Medications Medications (Trade) Dose Ordered Sig/Uma Start Time Stop Time Status Last Admin Dose Admin Acetaminophen/ Hydrocodone Bitart (Lortab 7.5/325) 1 tab PRN Q4HRS PRN 03/21/20 11:30 03/21/20 12:17 Albumin Human 500 ml @ 125 mls/hr 1X ONCE 03/20/20 17:45 03/20/20 21:44 DC 03/20/20 17:53 Alteplase, Recombinant (Cathflo For Central Catheter Clearance) 1 mg 1X ONCE 03/17/20 06:00 03/17/20 06:01 DC 03/17/20 05:50 Azithromycin 250 ml @ 250 mls/hr 1X ONCE 03/12/20 17:00 03/12/20 17:59 DC 03/12/20 17:51 Bisacodyl (Dulcolax Supp) 10 mg PRN DAILY PRN 03/12/20 16:45 Bupivacaine HCl/ Epinephrine Bitart (Sensorcaine-Epi 0.25%-1:560410 Mpf) 30 ml STK-MED ONCE 03/18/20 14:38 03/18/20 14:39 DC 03/18/20 15:42 Calcium Gluconate (Calcium Gluconate) 1,000 mg 1X ONCE 03/12/20 17:00 03/12/20 17:01 DC 03/12/20 17:50 Cefepime HCl (Maxipime) 1 gm Q8HRS 03/12/20 22:00 03/13/20 08:46 DC 03/13/20 05:51 Ceftriaxone Sodium (Rocephin) 1 gm 1X ONCE 03/12/20 15:00 03/12/20 15:01 DC 03/12/20 16:41 Cellulose (Surgicel Hemostat 4x8) 1 each STK-MED ONCE 03/18/20 14:38 03/18/20 14:38 DC Dexamethasone Sodium Phosphate (Decadron) 4 mg STK-MED ONCE 03/18/20 15:23 03/18/20 15:23 DC Dextrose (Dextrose 50%-Water Syringe) 12.5 gm PRN Q15MIN PRN 03/13/20 00:30 Famotidine (Pepcid Vial) 20 mg DAILY 03/14/20 09:00 03/17/20 10:32 DC 03/17/20 08:30 Famotidine (Pepcid) 20 mg QHS 03/17/20 21:00 03/22/20 10:51 DC 03/21/20 21:44 Fentanyl Citrate (Fentanyl 2ml Vial) 100 mcg STK-MED ONCE 03/18/20 17:15 03/18/20 17:16 DC Glycopyrrolate (Robinul) 1 mg STK-MED ONCE 03/18/20 15:34 03/18/20 15:34 DC Heparin Sodium (Porcine) (Heparin Sodium) 5,000 unit Q8HRS 03/12/20 22:00 03/22/20 05:52 Hydralazine HCl (Apresoline Inj) 10 mg PRN Q4HRS PRN 03/17/20 23:45 03/18/20 00:06 Hydromorphone HCl (Dilaudid) 0.5 mg PRN Q10MIN PRN 03/18/20 14:30 03/19/20 14:29 DC Info (Icu Electrolyte Protocol) 1 ea CONT PRN PRN 03/12/20 17:00 03/12/20 17:06 DC Insulin Glargine (Lantus Syringe) 10 unit QHS 03/22/20 21:00 Insulin Human Lispro (HumaLOG VIAL for OP,RR ONLY) 0-10 units PRN Q1HR PRN 03/18/20 14:30 03/19/20 14:29 DC 03/18/20 14:35 Insulin Human Lispro (HumaLOG) 0-9 UNITS TIDACHC 03/16/20 21:00 03/22/20 09:07 Lactobacillus Rhamnosus (Culturelle) 1 cap BID 03/13/20 21:00 03/22/20 08:57 Lidocaine HCl (Buffered Lidocaine 1%) 6 ml 1X ONCE 03/19/20 11:00 03/19/20 11:01 DC 03/19/20 14:20 Lidocaine HCl (Lidocaine 1% 20ml Vial) 20 ml 1X ONCE 03/12/20 15:30 03/12/20 15:31 DC 03/12/20 15:30 Lidocaine HCl (Lidocaine Pf 2% Vial) 5 ml STK-MED ONCE 03/18/20 13:58 03/18/20 13:59 DC Lidocaine HCl (Xylocaine-Mpf 1% 2ml Vial) 2 ml PRN 1X PRN 03/18/20 07:00 03/19/20 06:59 DC Linezolid (Zyvox) 600 mg BID 03/13/20 09:00 03/13/20 21:11 DC 03/13/20 10:48 Linezolid/Dextrose 300 ml @ 300 mls/hr Q12HR 03/13/20 22:00 03/15/20 08:55 DC 03/15/20 08:37 Magnesium Sulfate 50 ml @ 25 mls/hr 1X ONCE 03/12/20 17:00 03/12/20 18:59 DC 03/12/20 17:51 Meropenem 500 mg/ Sodium Chloride 50 ml @ 100 mls/hr Q8HRS 03/14/20 22:00 03/22/20 05:45 Methylprednisolone Sodium Succinate (SOLU-Medrol 40MG VIAL) 40 mg BID 03/22/20 12:00 Morphine Sulfate (Morphine Sulfate) 1 mg PRN Q10MIN PRN 03/18/20 14:30 03/19/20 14:29 DC Multivitamins (Thera M Plus) 1 tab DAILY 03/13/20 10:30 03/22/20 08:57 Neostigmine [place] (Neostigmine Methylsulfate) 5 mg STK-MED ONCE 03/18/20 15:34 03/18/20 15:34 DC Norepinephrine Bitartrate 8 mg/ Dextrose 258 ml @ 21.285 mls/ hr CONT PRN 03/12/20 22:30 03/16/20 13:45 DC 03/13/20 18:01 Ondansetron HCl (Zofran) 4 mg PRN Q6HRS PRN 03/18/20 14:30 03/19/20 14:29 DC Perflutren Protein Type A Microsphe (Optison) 0.66 mg 1X ONCE 03/14/20 12:15 03/14/20 12:21 DC Potassium Chloride/Water 100 ml @ 100 mls/hr Q1H 03/12/20 16:45 03/12/20 17:00 DC Prochlorperazine (Compazine) 25 mg PRN Q12HR PRN 03/12/20 16:45 Prochlorperazine Edisylate (Compazine) 5 mg PACU PRN PRN 03/18/20 14:30 03/19/20 14:29 DC Propofol (Diprivan) 200 mg STK-MED ONCE 03/18/20 13:58 03/18/20 13:59 DC Ringer's Solution 1,000 ml @ 30 mls/hr Q24H 03/18/20 14:25 03/19/20 02:24 DC Rocuronium [place] (Zemuron) 50 mg STK-MED ONCE 03/18/20 13:58 03/18/20 13:59 DC Sodium Chloride 1,000 ml @ 100 mls/hr Q10H 03/12/20 16:33 03/20/20 17:42 DC 03/20/20 17:33 Sodium Chloride (NORMAL SALINE FLUSH for STERILE FIELD) 10 ml STK-MED ONCE 03/12/20 15:24 03/12/20 15:24 DC Sodium Chloride (Normal Saline Flush) 3 ml QSHIFT PRN 03/12/20 16:45 Sodium Phosphate 15 mmol/Sodium Chloride 255 ml @ 62.5 mls/hr 1X ONCE 03/12/20 16:45 03/12/20 17:00 DC Sodium Phosphate 30 mmol/Sodium Chloride 260 ml @ 62.5 mls/hr 1X ONCE 03/12/20 16:45 03/12/20 17:00 DC Succinylcholine Chloride (Anectine) 200 mg STK-MED ONCE 03/18/20 13:58 03/18/20 13:59 DC Vancomycin HCl (Vanco Per Pharmacy) 1 each PRN DAILY PRN 03/12/20 16:45 03/13/20 08:46 DC 03/12/20 18:45 Vancomycin HCl (Vancomycin Trough Level) 1 each 1X ONCE 03/14/20 17:30 03/14/20 17:31 Cancel Vancomycin HCl 1.5 gm/Sodium Chloride 500 ml @ 250 mls/hr Q24H 03/13/20 18:00 03/13/20 08:48 DC Vancomycin HCl 2 gm/Sodium Chloride 500 ml @ 250 mls/hr 1X ONCE 03/12/20 18:00 03/12/20 19:59 DC 03/12/20 17:53 Current Medications Medications (Trade) Dose Ordered Sig/Uma Route PRN Reason Start Time Stop Time Status Last Admin Dose Admin Acetaminophen/ Hydrocodone Bitart (Lortab 7.5/325) 1 tab PRN Q4HRS PRN PO MODERATE PAIN 03/21/20 11:30 03/21/20 12:17 LAB Lab: Laboratory Tests Test 03/21/20 11:51 03/21/20 17:14 03/21/20 20:30 03/22/20 04:45 Glucose (Fingerstick) 275 mg/dL (70-99) H 255 mg/dL (70-99) H 254 mg/dL (70-99) H Sodium Level 152 mmol/L (136-145) H Potassium Level 5.2 mmol/L (3.5-5.1) H Chloride Level 121 mmol/L (98-107) H Carbon Dioxide Level 19 mmol/L (21-32) L Anion Gap 12 (6-14) Blood Urea Nitrogen 79 mg/dL (8-26) H Creatinine 1.7 mg/dL (0.7-1.3) H Estimated GFR (Cockcroft-Gault) 47.7 Glucose Level 224 mg/dL (70-99) H Calcium Level 7.5 mg/dL (8.5-10.1) L Test 03/22/20 07:13 Glucose (Fingerstick) 173 mg/dL (70-99) H Laboratory Tests 03/22/20 04:45 ASSESSMENT & PLAN A&P Plan as noted above This note was created using [employer] and may have omissions and/or errors due to the nature of real-time voice insights analyst. Justicifation of Admission Dx: Justifications for Admission: Justification of Admission Dx: Yes CHF: Cardiac Arrhythmias Comminuty Aquired Pneumonia: Bactermia Chronic Renal Failure: Encephalopathy Sepsis: Altered Mental Status IRWIN PHIPPS MD Mar 22, 2020 11:21
[2020-03-22] MEDS: HYDROcodone/APAP 7.5/325MG 1 TAB TABLET PO PRN ×2 (11:41→21:24)
--- NOTE | 2020-03-22 12:49 | PDOC ---
SURGICAL PROGRESS NOTE DATE: 03/22/20 TIME: 12:47 Subjective sleeping not really hungry Vital Signs Vital Signs Date Time Temp Pulse Resp B/P (MAP) Pulse Ox O2 Delivery O2 Flow Rate FiO2 03/22/20 11:41 20 Room Air 03/22/20 11:00 97.9 87 152/78 (102) 97 97.9 03/22/20 08:00 2.0 I&O Intake and Output 03/22/20 07:00 Intake Total 240 ml Output Total 1750 ml Balance -1510 ml Intake Oral 240 ml Output Urine Total 1200 ml Drainage Total 550 ml # Voids 1 General: Cooperative, No acute distress Abdomen: Soft, Other (drain bloody) Labs Laboratory Tests Test 03/20/20 13:00 03/20/20 16:40 03/20/20 20:36 03/21/20 06:40 Sodium Level 144 mmol/L (136-145) 148 mmol/L (136-145) Potassium Level 5.3 mmol/L (3.5-5.1) 5.2 mmol/L (3.5-5.1) Chloride Level 115 mmol/L (98-107) 118 mmol/L (98-107) Carbon Dioxide Level 17 mmol/L (21-32) 18 mmol/L (21-32) Anion Gap 12 (6-14) 12 (6-14) Blood Urea Nitrogen 87 mg/dL (8-26) 84 mg/dL (8-26) Creatinine 2.3 mg/dL (0.7-1.3) 2.1 mg/dL (0.7-1.3) Estimated GFR (Cockcroft-Gault) 33.6 37.3 Glucose Level 338 mg/dL (70-99) 278 mg/dL (70-99) Calcium Level 6.8 mg/dL (8.5-10.1) 6.9 mg/dL (8.5-10.1) Glucose (Fingerstick) 278 mg/dL (70-99) 259 mg/dL (70-99) White Blood Count 12.8 x10^3/uL (4.0-11.0) Red Blood Count 3.16 x10^6/uL (4.30-5.70) Hemoglobin 9.2 g/dL (13.0-17.5) Hematocrit 28.1 % (39.0-53.0) Mean Corpuscular Volume 89 fL (79-100) Mean Corpuscular Hemoglobin 29 pg (25-35) Mean Corpuscular Hemoglobin Concent 33 g/dL (31-37) Red Cell Distribution Width 15.8 % (11.5-14.5) Platelet Count 51 x10^3/uL (140-400) Neutrophils (%) (Auto) 95 % (31-73) Lymphocytes (%) (Auto) 3 % (24-48) Monocytes (%) (Auto) 2 % (0-9) Eosinophils (%) (Auto) 0 % (0-3) Basophils (%) (Auto) 0 % (0-3) Neutrophils # (Auto) 12.1 x10^3/uL (1.8-7.7) Lymphocytes # (Auto) 0.4 x10^3/uL (1.0-4.8) Monocytes # (Auto) 0.2 x10^3/uL (0.0-1.1) Eosinophils # (Auto) 0.0 x10^3/uL (0.0-0.7) Basophils # (Auto) 0.0 x10^3/uL (0.0-0.2) Test 03/21/20 07:16 03/21/20 11:51 03/21/20 17:14 03/21/20 20:30 Glucose (Fingerstick) 247 mg/dL (70-99) 275 mg/dL (70-99) 255 mg/dL (70-99) 254 mg/dL (70-99) Test 03/22/20 04:45 03/22/20 07:13 03/22/20 11:24 Sodium Level 152 mmol/L (136-145) Potassium Level 5.2 mmol/L (3.5-5.1) Chloride Level 121 mmol/L (98-107) Carbon Dioxide Level 19 mmol/L (21-32) Anion Gap 12 (6-14) Blood Urea Nitrogen 79 mg/dL (8-26) Creatinine 1.7 mg/dL (0.7-1.3) Estimated GFR (Cockcroft-Gault) 47.7 Glucose Level 224 mg/dL (70-99) Calcium Level 7.5 mg/dL (8.5-10.1) Glucose (Fingerstick) 173 mg/dL (70-99) 269 mg/dL (70-99) Laboratory Tests Test 03/21/20 17:14 03/21/20 20:30 03/22/20 04:45 03/22/20 07:13 Glucose (Fingerstick) 255 mg/dL (70-99) 254 mg/dL (70-99) 173 mg/dL (70-99) Sodium Level 152 mmol/L (136-145) Potassium Level 5.2 mmol/L (3.5-5.1) Chloride Level 121 mmol/L (98-107) Carbon Dioxide Level 19 mmol/L (21-32) Anion Gap 12 (6-14) Blood Urea Nitrogen 79 mg/dL (8-26) Creatinine 1.7 mg/dL (0.7-1.3) Estimated GFR (Cockcroft-Gault) 47.7 Glucose Level 224 mg/dL (70-99) Calcium Level 7.5 mg/dL (8.5-10.1) Test 03/22/20 11:24 Glucose (Fingerstick) 269 mg/dL (70-99) Problem List Problems Medical Problems: (1) AMS (altered mental status) Status: Acute (2) Hypocalcemia Status: Acute (3) Hypokalemia Status: Acute (4) Septic shock Status: Acute (5) Suspected 2019 novel coronavirus infection Status: Acute Assessment/Plan supportive care close observation of hgb, plts Justicifation of Admission Dx: Justifications for Admission: Justification of Admission Dx: Yes CHF: Cardiac Arrhythmias Comminuty Aquired Pneumonia: Bactermia Chronic Renal Failure: Encephalopathy Sepsis: Altered Mental Status [facility] Mar 22, 2020 12:49
--- NOTE | 2020-03-22 12:55 | PDOC ---
DATE OF SERVICE DATE: 03/22/20 TIME: 12:52 SUBJECTIVE ROS Stable, states feeling better, more alert OBJECTIVE Vital Signs Vital Signs Date Time Temp Pulse Resp B/P (MAP) Pulse Ox O2 Delivery O2 Flow Rate FiO2 03/22/20 11:41 20 Room Air 03/22/20 11:00 97.9 87 152/78 (102) 97 97.9 03/22/20 08:00 2.0 I & 0 Intake and Output 03/22/20 07:00 Intake Total 240 ml Output Total 1750 ml Balance -1510 ml Intake Oral 240 ml Output Urine Total 1200 ml Drainage Total 550 ml # Voids 1 PHYSICAL EXAM Physical Exam GENERAL: NAD. HEENT: Oral mucosa moist. NECK: Supple. LUNGS: Decreased breath sounds at the bases. Non labored HEART: S1, S2. No gallops or murmurs. ABDOMEN: Soft, obese,SARKIS drain + : Gates in place EXTREMITIES: Trace edema lower extremities, bilaterally. No cyanosis, no clubbing. NEUROLOGIC: lethargic DIAGNOSIS/ASSESSMENT Assessment & Plan Acute renal failure - ATN 2/2 Septic shock Cr peaked at 2.9--> 1.7 improving , he is on IV steroids At presentation 1.6, UOP improving , UA c/w UTI Baseline renal function unknown , CT abdomen- Unremarkable Kidneys and bladder, US- Rt Kidney unremarkable, Lt not evaluated Avoid Nephrotoxins, supportive care , strict I/O , HyperNatremia - Encourage free water intake , if no improvement may nee IV hypotonic fluid HyperKaemia- Mild , stable Anemia -Hgb dropping yest 9.2 Diabetes mellitus- BS high Hypertension- stable Septic shock from gram neg sepsis, Gram negative bacteremia source likely GI and/or Urinary tract infection Thrombocytopenia,plat decreasing Encephalopathy, likely sepsis, improving. Acute cholecysitis Hyperbilirubinemia, abnormal LFTs, gallbladder distention on CT. HIDA scan done. US neg S/P Lap Christy ON 03/[address] [place] resident August RN COMMENT/RELEVANT DATA Meds Current Medications Medications (Trade) Dose Ordered Sig/Uma Start Time Stop Time Status Last Admin Dose Admin Acetaminophen/ Hydrocodone Bitart (Lortab 7.5/325) 1 tab PRN Q4HRS PRN 03/21/20 11:30 03/22/20 11:41 1 TAB Albumin Human 500 ml @ 125 mls/hr 1X ONCE 8/20/20 17:45 03/20/20 21:44 DC 03/20/20 17:53 125 MLS/HR Alteplase, Recombinant (Cathflo For Central Catheter Clearance) 1 mg 1X ONCE 03/17/20 06:00 03/17/20 06:01 DC 03/17/20 05:50 1 MG Azithromycin 250 ml @ 250 mls/hr 1X ONCE 03/12/20 17:00 03/12/20 17:59 DC 03/12/20 17:51 250 MLS/HR Bisacodyl (Dulcolax Supp) 10 mg PRN DAILY PRN 03/12/20 16:45 Bupivacaine HCl/ Epinephrine Bitart (Sensorcaine-Epi 0.25%-1:486710 Mpf) 30 ml STK-MED ONCE 03/18/20 14:38 03/18/20 14:39 DC 03/18/20 15:42 20 ML Calcium Gluconate (Calcium Gluconate) 1,000 mg 1X ONCE 03/12/20 17:00 03/12/20 17:01 DC 03/12/20 17:50 1,000 MG Cefepime HCl (Maxipime) 1 gm Q8HRS 03/12/20 22:00 03/13/20 08:46 DC 03/13/20 05:51 1 GM Ceftriaxone Sodium (Rocephin) 1 gm 1X ONCE 03/12/20 15:00 03/12/20 15:01 DC 03/12/20 16:41 1 GM Cellulose (Surgicel Hemostat 4x8) 1 each STK-MED ONCE 03/18/20 14:38 03/18/20 14:38 DC Dexamethasone Sodium Phosphate (Decadron) 4 mg STK-MED ONCE 03/18/20 15:23 03/18/20 15:23 DC Dextrose (Dextrose 50%-Water Syringe) 12.5 gm PRN Q15MIN PRN 03/13/20 00:30 Famotidine (Pepcid Vial) 20 mg DAILY 03/14/20 09:00 03/17/20 10:32 DC 03/17/20 08:30 20 MG Famotidine (Pepcid) 20 mg QHS 03/17/20 21:00 03/22/20 10:51 DC 03/21/20 21:44 20 MG Fentanyl Citrate (Fentanyl 2ml Vial) 100 mcg STK-MED ONCE 03/18/20 17:15 03/18/20 17:16 DC Glycopyrrolate (Robinul) 1 mg STK-MED ONCE 03/18/20 15:34 03/18/20 15:34 DC Heparin Sodium (Porcine) (Heparin Sodium) 5,000 unit Q8HRS 03/12/20 22:00 03/22/20 05:52 5,000 UNIT Hydralazine HCl (Apresoline Inj) 10 mg PRN Q4HRS PRN 03/17/20 23:45 03/18/20 00:06 10 MG Hydromorphone HCl (Dilaudid) 0.5 mg PRN Q10MIN PRN 03/18/20 14:30 03/19/20 14:29 DC Info (Icu Electrolyte Protocol) 1 ea CONT PRN PRN 03/12/20 17:00 03/12/20 17:06 DC Insulin Glargine (Lantus Syringe) 10 unit QHS 03/22/20 21:00 Insulin Human Lispro (HumaLOG VIAL for OP,RR ONLY) 0-10 units PRN Q1HR PRN 03/18/20 14:30 03/19/20 14:29 DC 03/18/20 14:35 6 UNIT Insulin Human Lispro (HumaLOG) 0-9 UNITS TIDACHC 03/16/20 21:00 03/22/20 11:50 7 UNITS Lactobacillus Rhamnosus (Culturelle) 1 cap BID 03/13/20 21:00 03/22/20 08:57 1 CAP Lidocaine HCl (Buffered Lidocaine 1%) 6 ml 1X ONCE 03/19/20 11:00 03/19/20 11:01 DC 03/19/20 14:20 6 ML Lidocaine HCl (Lidocaine 1% 20ml Vial) 20 ml 1X ONCE 03/12/20 15:30 03/12/20 15:31 DC 03/12/20 15:30 20 ML Lidocaine HCl (Lidocaine Pf 2% Vial) 5 ml STK-MED ONCE 03/18/20 13:58 03/18/20 13:59 DC Lidocaine HCl (Xylocaine-Mpf 1% 2ml Vial) 2 ml PRN 1X PRN 03/18/20 07:00 8/19/20 06:59 DC Linezolid (Zyvox) 600 mg BID 03/13/20 09:00 03/13/20 21:11 DC 03/13/20 10:48 600 MG Linezolid/Dextrose 300 ml @ 300 mls/hr Q12HR 03/13/20 22:00 03/15/20 08:55 DC 03/15/20 08:37 300 MLS/HR Magnesium Sulfate 50 ml @ 25 mls/hr 1X ONCE 03/12/20 17:00 03/12/20 18:59 DC 03/12/20 17:51 25 MLS/HR Meropenem 500 mg/ Sodium Chloride 50 ml @ 100 mls/hr Q8HRS 03/14/20 22:00 03/22/20 05:45 100 MLS/HR Methylprednisolone Sodium Succinate (SOLU-Medrol 40MG VIAL) 40 mg BID 03/22/20 12:00 Morphine Sulfate (Morphine Sulfate) 1 mg PRN Q10MIN PRN 03/18/20 14:30 03/19/20 14:29 DC Multivitamins (Thera M Plus) 1 tab DAILY 03/13/20 10:30 03/22/20 08:57 1 TAB Neostigmine [place] (Neostigmine Methylsulfate) 5 mg STK-MED ONCE 03/18/20 15:34 03/18/20 15:34 DC Norepinephrine Bitartrate 8 mg/ Dextrose 258 ml @ 21.285 mls/ hr CONT PRN 03/12/20 22:30 03/16/20 13:45 DC 03/13/20 18:01 27.671 MLS/HR Ondansetron HCl (Zofran) 4 mg PRN Q6HRS PRN 03/18/20 14:30 03/19/20 14:29 DC Perflutren Protein Type A Microsphe (Optison) 0.66 mg 1X ONCE 03/14/20 12:15 03/14/20 12:21 DC Potassium Chloride/Water 100 ml @ 100 mls/hr Q1H 03/12/20 16:45 03/12/20 17:00 DC Prochlorperazine (Compazine) 25 mg PRN Q12HR PRN 03/12/20 16:45 Prochlorperazine Edisylate (Compazine) 5 mg PACU PRN PRN 03/18/20 14:30 03/19/20 14:29 DC Propofol (Diprivan) 200 mg STK-MED ONCE 03/18/20 13:58 03/18/20 13:59 DC Ringer's Solution 1,000 ml @ 30 mls/hr Q24H 03/18/20 14:25 03/19/20 02:24 DC Rocuronium [place] (Zemuron) 50 mg STK-MED ONCE 03/18/20 13:58 03/18/20 13:59 DC Sodium Chloride 1,000 ml @ 100 mls/hr Q10H 03/12/20 16:33 03/20/20 17:42 DC 03/20/20 17:33 100 MLS/HR Sodium Chloride (NORMAL SALINE FLUSH for STERILE FIELD) 10 ml STK-MED ONCE 03/12/20 15:24 03/12/20 15:24 DC Sodium Chloride (Normal Saline Flush) 3 ml QSHIFT PRN 03/12/20 16:45 Sodium Phosphate 15 mmol/Sodium Chloride 255 ml @ 62.5 mls/hr 1X ONCE 03/12/20 16:45 03/12/20 17:00 DC Sodium Phosphate 30 mmol/Sodium Chloride 260 ml @ 62.5 mls/hr 1X ONCE 03/12/20 16:45 03/12/20 17:00 DC Succinylcholine Chloride (Anectine) 200 mg STK-MED ONCE 03/18/20 13:58 03/18/20 13:59 DC Vancomycin HCl (Vanco Per Pharmacy) 1 each PRN DAILY PRN 03/12/20 16:45 03/13/20 08:46 DC 03/12/20 18:45 1 EACH Vancomycin HCl (Vancomycin Trough Level) 1 each 1X ONCE 03/14/20 17:30 03/14/20 17:31 Cancel Vancomycin HCl 1.5 gm/Sodium Chloride 500 ml @ 250 mls/hr Q24H 03/13/20 18:00 03/13/20 08:48 DC Vancomycin HCl 2 gm/Sodium Chloride 500 ml @ 250 mls/hr 1X ONCE 03/12/20 18:00 03/12/20 19:59 DC 03/12/20 17:53 250 MLS/HR Lab Laboratory Tests Test 03/21/20 17:14 03/21/20 20:30 03/22/20 04:45 03/22/20 07:13 Glucose (Fingerstick) 255 mg/dL (70-99) 254 mg/dL (70-99) 173 mg/dL (70-99) Sodium Level 152 mmol/L (136-145) Potassium Level 5.2 mmol/L (3.5-5.1) Chloride Level 121 mmol/L (98-107) Carbon Dioxide Level 19 mmol/L (21-32) Anion Gap 12 (6-14) Blood Urea Nitrogen 79 mg/dL (8-26) Creatinine 1.7 mg/dL (0.7-1.3) Estimated GFR (Cockcroft-Gault) 47.7 Glucose Level 224 mg/dL (70-99) Calcium Level 7.5 mg/dL (8.5-10.1) Test 03/22/20 11:24 Glucose (Fingerstick) 269 mg/dL (70-99) Results All relevant outside records, renal labs, imaging studies, telemetry/EKG's were reviewed. Justicifation of Admission Dx: Justifications for Admission: Justification of Admission Dx: Yes CHF: Cardiac Arrhythmias Comminuty Aquired Pneumonia: Bactermia Chronic Renal Failure: Encephalopathy Sepsis: Altered Mental Status SANGEETA AGUIRRE MD Mar 22, 2020 12:54
[2020-03-22 15:00] VITALS: BP 170/89
--- NOTE | 2020-03-22 16:03 | NUR ---
Bladder scan PVR was 676cc. Gates catheter placed, 16Fr to DD. Order from Dr Alcazar. Multiple painful straight caths have not improved patient's urinary retention and pt pleaded not to have any more straight caths done.
[2020-03-22 19:00] VITALS: BP 153/85
[2020-03-22] MEDS: INSULIN GLARGINE SYRINGE. SQ SCH (21:43)
[2020-03-22 23:00] VITALS: BP 143/73
[2020-03-23 03:04] VITALS: BP 137/81
[2020-03-23] MEDS: MEROPENEM 500 MG in IV NORMAL SALINE 50ML 50 ML IV SCH ×3 (06:22→20:46)
[2020-03-23] MEDS: HEPARIN for SUB-Q USE 5,000 UNIT/ML VIAL. SQ SCH ×3 (06:30→20:57)
[2020-03-23 07:00] VITALS: BP 143/71
[2020-03-23] MEDS: MULTIVITAMIN with MINERAL TABLET. PO SCH (07:57)
[2020-03-23] MEDS: LACTOBACILLUS RHAMNOSUS GG 1 CAPSULE. PO SCH ×2 (07:57→20:44)
[2020-03-23] MEDS: methylPREDNISolone SOD SUCC PF 40 MG/ML VIAL. IV SCH ×2 (07:58→20:45)
[2020-03-23] MEDS: INSULIN LISPRO 300 UNITS/3 ML VIAL. SQ SCH ×4 (08:17→20:45)
--- NOTE | 2020-03-23 08:26 | PDOC ---
SURGICAL PROGRESS NOTE DATE: 03/23/20 TIME: 08:24 Subjective still with pain no emesis Vital Signs Vital Signs Date Time Temp Pulse Resp B/P (MAP) Pulse Ox O2 Delivery O2 Flow Rate FiO2 03/23/20 07:00 98.0 85 20 143/71 (95) 97 Room Air 98.0 03/22/20 08:00 2.0 I&O Intake and Output 03/23/20 07:00 Output Total 1000 ml Balance -1000 ml Output Urine Total 750 ml Drainage Total 250 ml General: Cooperative, No acute distress Abdomen: Soft, Other (asuncion bloody, very light bile tinged ) Labs Laboratory Tests Test 03/21/20 11:51 03/21/20 17:14 03/21/20 20:30 03/22/20 04:45 Glucose (Fingerstick) 275 mg/dL (70-99) 255 mg/dL (70-99) 254 mg/dL (70-99) Sodium Level 152 mmol/L (136-145) Potassium Level 5.2 mmol/L (3.5-5.1) Chloride Level 121 mmol/L (98-107) Carbon Dioxide Level 19 mmol/L (21-32) Anion Gap 12 (6-14) Blood Urea Nitrogen 79 mg/dL (8-26) Creatinine 1.7 mg/dL (0.7-1.3) Estimated GFR (Cockcroft-Gault) 47.7 Glucose Level 224 mg/dL (70-99) Calcium Level 7.5 mg/dL (8.5-10.1) Test 03/22/20 07:13 03/22/20 11:24 03/22/20 16:43 03/22/20 20:13 Glucose (Fingerstick) 173 mg/dL (70-99) 269 mg/dL (70-99) 137 mg/dL (70-99) 222 mg/dL (70-99) Test 03/23/20 07:18 Glucose (Fingerstick) 169 mg/dL (70-99) Laboratory Tests Test 03/22/20 11:24 03/22/20 16:43 03/22/20 20:13 03/23/20 07:18 Glucose (Fingerstick) 269 mg/dL (70-99) 137 mg/dL (70-99) 222 mg/dL (70-99) 169 mg/dL (70-99) Problem List Problems Medical Problems: (1) AMS (altered mental status) Status: Acute (2) Hypocalcemia Status: Acute (3) Hypokalemia Status: Acute (4) Septic shock Status: Acute (5) Suspected 2019 novel coronavirus infection Status: Acute Assessment/Plan s/p juan labs pending monitor Justicifation of Admission Dx: Justifications for Admission: Justification of Admission Dx: Yes CHF: Cardiac Arrhythmias Comminuty Aquired Pneumonia: Bactermia Chronic Renal Failure: Encephalopathy Sepsis: Altered Mental Status RAMU RED APRN Mar 23, 2020 08:26
[2020-03-23 08:38] LABS: BASO % 0 % (0-3); EOS % 0 % (0-3); HEMATOCRIT 30.2 % (39.0-53.0); LYMPH # 0.6 x10^3/uL (1.0-4.8); LYMPH % 4 % (24-48); MEAN CORPUSCULAR HEMOGLOBIN 29 pg (25-35); MEAN CORPUSCULAR HGB CONC 33 g/dL (31-37); MEAN CORPUSCULAR VOLUME 89 fL (79-100); MONO # 0.5 x10^3/uL (0.0-1.1); MONO % 3 % (0-9); NEUT # 15.9 x10^3/uL (1.8-7.7); NEUT % 93 % (31-73); PLATELET COUNT 42 x10^3/uL (140-400); RED BLOOD COUNT 3.39 x10^6/uL (4.30-5.70); RED CELL DISTRIBUTION WIDTH 15.9 % (11.5-14.5); WHITE BLOOD COUNT 17.1 x10^3/uL (4.0-11.0)
[2020-03-23 08:49] LABS: ALBUMIN 1.8 g/dL (3.4-5.0); ALBUMIN/GLOBULIN RATIO 0.6 (1.0-1.7); CALCIUM 6.9 mg/dL (8.5-10.1); CREATININE 1.4 mg/dL (0.7-1.3); GFR 59.6; TOTAL BILIRUBIN 2.3 mg/dL (0.2-1.0); TOTAL PROTEIN 4.8 g/dL (6.4-8.2)
[2020-03-23 09:03] LABS: ALBUMIN 1.9 g/dL (3.4-5.0); DIRECT BILIRUBIN 1.4 mg/dL (0.0-0.2); TOTAL BILIRUBIN 2.3 mg/dL (0.2-1.0); TOTAL PROTEIN 4.4 g/dL (6.4-8.2)
[2020-03-23 11:00] VITALS: BP 149/77
--- NOTE | 2020-03-23 12:03 | PDOC ---
DATE OF SERVICE DATE: 03/23/20 TIME: 12:03 SUBJECTIVE ROS Lethargic today , per RN WBC elevated , Ate few bites OBJECTIVE Vital Signs Vital Signs Date Time Temp Pulse Resp B/P (MAP) Pulse Ox O2 Delivery O2 Flow Rate FiO2 03/23/20 11:00 98.1 86 16 149/77 (101) 96 Room Air 98.1 03/23/20 08:00 2.0 I & 0 Intake and Output 03/23/20 07:00 Output Total 1000 ml Balance -1000 ml Output Urine Total 750 ml Drainage Total 250 ml PHYSICAL EXAM Physical Exam GENERAL: NAD. HEENT: Oral mucosa moist. NECK: Supple. LUNGS: Decreased breath sounds at the bases. Non labored HEART: S1, S2. No gallops or murmurs. ABDOMEN: Soft, obese,SARKIS drain + : Gates in place EXTREMITIES: Trace edema lower extremities, bilaterally. No cyanosis, no clubbing. NEUROLOGIC: lethargic DIAGNOSIS/ASSESSMENT Assessment & Plan Acute renal failure - ATN 2/2 Septic shock improving Avoid Nephrotoxins, supportive care , strict I/O , HyperNatremia -Poor PO intake, IV hypotonic fluid , Discussed with RN HyperKaemia- stable Diabetes mellitus- BS high Hypertension- stable Septic shock from gram neg sepsis, Gram negative bacteremia source likely GI and/or Urinary tract infection Thrombocytopenia, Acute cholecysitis Hyperbilirubinemia, abnormal LFTs, gallbladder distention on CT. HIDA scan done. US neg S/P Lap Christy ON 03/[address]. [facility] resident August RN COMMENT/RELEVANT DATA Meds Current Medications Medications (Trade) Dose Ordered Sig/Uma Start Time Stop Time Status Last Admin Dose Admin Acetaminophen/ Hydrocodone Bitart (Lortab 7.5/325) 1 tab PRN Q4HRS PRN 03/21/20 11:30 03/22/20 21:24 1 TAB Albumin Human 500 ml @ 125 mls/hr 1X ONCE 03/20/20 17:45 03/20/20 21:44 DC 03/20/20 17:53 125 MLS/HR Alteplase, Recombinant (Cathflo For Central Catheter Clearance) 1 mg 1X ONCE 03/17/20 06:00 03/17/20 06:01 DC 03/17/20 05:50 1 MG Azithromycin 250 ml @ 250 mls/hr 1X ONCE 03/12/20 17:00 03/12/20 17:59 DC 03/12/20 17:51 250 MLS/HR Bisacodyl (Dulcolax Supp) 10 mg PRN DAILY PRN 03/12/20 16:45 Bupivacaine HCl/ Epinephrine Bitart (Sensorcaine-Epi 0.25%-1:452513 Mpf) 30 ml STK-MED ONCE 03/18/20 14:38 03/18/20 14:39 DC 03/18/20 15:42 20 ML Calcium Gluconate (Calcium Gluconate) 1,000 mg 1X ONCE 03/12/20 17:00 03/12/20 17:01 DC 03/12/20 17:50 1,000 MG Cefepime HCl (Maxipime) 1 gm Q8HRS 03/12/20 22:00 03/13/20 08:46 DC 03/13/20 05:51 1 GM Ceftriaxone Sodium (Rocephin) 1 gm 1X ONCE 03/12/20 15:00 03/12/20 15:01 DC 03/12/20 16:41 1 GM Cellulose (Surgicel Hemostat 4x8) 1 each STK-MED ONCE 03/18/20 14:38 03/18/20 14:38 DC Dexamethasone Sodium Phosphate (Decadron) 4 mg STK-MED ONCE 03/18/20 15:23 03/18/20 15:23 DC Dextrose (Dextrose 50%-Water Syringe) 12.5 gm PRN Q15MIN PRN 03/13/20 00:30 Famotidine (Pepcid Vial) 20 mg DAILY 03/14/20 09:00 03/17/20 10:32 DC 03/17/20 08:30 20 MG Famotidine (Pepcid) 20 mg QHS 03/17/20 21:00 03/22/20 10:51 DC 03/21/20 21:44 20 MG Fentanyl Citrate (Fentanyl 2ml Vial) 100 mcg STK-MED ONCE 03/18/20 17:15 03/18/20 17:16 DC Glycopyrrolate (Robinul) 1 mg STK-MED ONCE 03/18/20 15:34 03/18/20 15:34 DC Heparin Sodium (Porcine) (Heparin Sodium) 5,000 unit Q8HRS 03/12/20 22:00 03/23/20 06:30 5,000 UNIT Hydralazine HCl (Apresoline Inj) 10 mg PRN Q4HRS PRN 03/17/20 23:45 03/18/20 00:06 10 MG Hydromorphone HCl (Dilaudid) 0.5 mg PRN Q10MIN PRN 03/18/20 14:30 03/19/20 14:29 DC Info (Icu Electrolyte Protocol) 1 ea CONT PRN PRN 03/12/20 17:00 03/12/20 17:06 DC Insulin Glargine (Lantus Syringe) 10 unit QHS 03/22/20 21:00 03/22/20 21:43 10 UNIT Insulin Human Lispro (HumaLOG VIAL for OP,RR ONLY) 0-10 units PRN Q1HR PRN 03/18/20 14:30 03/19/20 14:29 DC 03/18/20 14:35 6 UNIT Insulin Human Lispro (HumaLOG) 0-9 UNITS TIDACHC 03/16/20 21:00 03/23/20 08:17 4 UNITS Lactobacillus Rhamnosus (Culturelle) 1 cap BID 03/13/20 21:00 03/23/20 07:57 1 CAP Lidocaine HCl (Buffered Lidocaine 1%) 6 ml 1X ONCE 03/19/20 11:00 03/19/20 11:01 DC 03/19/20 14:20 6 ML Lidocaine HCl (Lidocaine 1% 20ml Vial) 20 ml 1X ONCE 03/12/20 15:30 03/12/20 15:31 DC 03/12/20 15:30 20 ML Lidocaine HCl (Lidocaine Pf 2% Vial) 5 ml STK-MED ONCE 03/18/20 13:58 03/18/20 13:59 DC Lidocaine HCl (Xylocaine-Mpf 1% 2ml Vial) 2 ml PRN 1X PRN 03/18/20 07:00 03/19/20 06:59 DC Linezolid (Zyvox) 600 mg BID 03/13/20 09:00 03/13/20 21:11 DC 03/13/20 10:48 600 MG Linezolid/Dextrose 300 ml @ 300 mls/hr Q12HR 03/13/20 22:00 03/15/20 08:55 DC 03/15/20 08:37 300 MLS/HR Magnesium Sulfate 50 ml @ 25 mls/hr 1X ONCE 03/12/20 17:00 03/12/20 18:59 DC 03/12/20 17:51 25 MLS/HR Meropenem 500 mg/ Sodium Chloride 50 ml @ 100 mls/hr Q8HRS 03/14/20 22:00 03/23/20 06:22 100 MLS/HR Methylprednisolone Sodium Succinate (SOLU-Medrol 40MG VIAL) 40 mg BID 03/22/20 12:00 03/23/20 07:58 40 MG Morphine Sulfate (Morphine Sulfate) 1 mg PRN Q10MIN PRN 03/18/20 14:30 03/19/20 14:29 DC Multivitamins (Thera M Plus) 1 tab DAILY 03/13/20 10:30 03/23/20 07:57 1 TAB Neostigmine [place] (Neostigmine Methylsulfate) 5 mg STK-MED ONCE 03/18/20 15:34 03/18/20 15:34 DC Norepinephrine Bitartrate 8 mg/ Dextrose 258 ml @ 21.285 mls/ hr CONT PRN 03/12/20 22:30 03/16/20 13:45 DC 03/13/20 18:01 27.671 MLS/HR Ondansetron HCl (Zofran) 4 mg PRN Q6HRS PRN 03/18/20 14:30 03/19/20 14:29 DC Perflutren Protein Type A Microsphe (Optison) 0.66 mg 1X ONCE 03/14/20 12:15 03/14/20 12:21 DC Potassium Chloride/Water 100 ml @ 100 mls/hr Q1H 03/12/20 16:45 03/12/20 17:00 DC Prochlorperazine (Compazine) 25 mg PRN Q12HR PRN 03/12/20 16:45 Prochlorperazine Edisylate (Compazine) 5 mg PACU PRN PRN 03/18/20 14:30 03/19/20 14:29 DC Propofol (Diprivan) 200 mg STK-MED ONCE 03/18/20 13:58 03/18/20 13:59 DC Ringer's Solution 1,000 ml @ 30 mls/hr Q24H 03/18/20 14:25 03/19/20 02:24 DC Rocuronium [place] (Zemuron) 50 mg STK-MED ONCE 03/18/20 13:58 03/18/20 13:59 DC Sodium Chloride 1,000 ml @ 100 mls/hr Q10H 03/12/20 16:33 03/20/20 17:42 DC 03/20/20 17:33 100 MLS/HR Sodium Chloride (NORMAL SALINE FLUSH for STERILE FIELD) 10 ml STK-MED ONCE 03/12/20 15:24 03/12/20 15:24 DC Sodium Chloride (Normal Saline Flush) 3 ml QSHIFT PRN 03/12/20 16:45 Sodium Phosphate 15 mmol/Sodium Chloride 255 ml @ 62.5 mls/hr 1X ONCE 03/12/20 16:45 03/12/20 17:00 DC Sodium Phosphate 30 mmol/Sodium Chloride 260 ml @ 62.5 mls/hr 1X ONCE 03/12/20 16:45 03/12/20 17:00 DC Succinylcholine Chloride (Anectine) 200 mg STK-MED ONCE 03/18/20 13:58 03/18/20 13:59 DC Vancomycin HCl (Vanco Per Pharmacy) 1 each PRN DAILY PRN 03/12/20 16:45 03/13/20 08:46 DC 03/12/20 18:45 1 EACH Vancomycin HCl (Vancomycin Trough Level) 1 each 1X ONCE 03/14/20 17:30 03/14/20 17:31 Cancel Vancomycin HCl 1.5 gm/Sodium Chloride 500 ml @ 250 mls/hr Q24H 03/13/20 18:00 03/13/20 08:48 DC Vancomycin HCl 2 gm/Sodium Chloride 500 ml @ 250 mls/hr 1X ONCE 03/12/20 18:00 03/12/20 19:59 DC 03/12/20 17:53 250 MLS/HR Lab Laboratory Tests Test 03/22/20 16:43 03/22/20 20:13 03/23/20 07:18 03/23/20 08:15 Glucose (Fingerstick) 137 mg/dL (70-99) 222 mg/dL (70-99) 169 mg/dL (70-99) White Blood Count 17.1 x10^3/uL (4.0-11.0) Red Blood Count 3.39 x10^6/uL (4.30-5.70) Hemoglobin 10.0 g/dL (13.0-17.5) Hematocrit 30.2 % (39.0-53.0) Mean Corpuscular Volume 89 fL (79-100) Mean Corpuscular Hemoglobin 29 pg (25-35) Mean Corpuscular Hemoglobin Concent 33 g/dL (31-37) Red Cell Distribution Width 15.9 % (11.5-14.5) Platelet Count 42 x10^3/uL (140-400) Neutrophils (%) (Auto) 93 % (31-73) Lymphocytes (%) (Auto) 4 % (24-48) Monocytes (%) (Auto) 3 % (0-9) Eosinophils (%) (Auto) 0 % (0-3) Basophils (%) (Auto) 0 % (0-3) Neutrophils # (Auto) 15.9 x10^3/uL (1.8-7.7) Lymphocytes # (Auto) 0.6 x10^3/uL (1.0-4.8) Monocytes # (Auto) 0.5 x10^3/uL (0.0-1.1) Eosinophils # (Auto) 0.0 x10^3/uL (0.0-0.7) Basophils # (Auto) 0.0 x10^3/uL (0.0-0.2) Sodium Level 154 mmol/L (136-145) Potassium Level 5.0 mmol/L (3.5-5.1) Chloride Level 123 mmol/L (98-107) Carbon Dioxide Level 23 mmol/L (21-32) Anion Gap 8 (6-14) Blood Urea Nitrogen 62 mg/dL (8-26) Creatinine 1.4 mg/dL (0.7-1.3) Estimated GFR (Cockcroft-Gault) 59.6 BUN/Creatinine Ratio 44 (6-20) Glucose Level 207 mg/dL (70-99) Calcium Level 6.9 mg/dL (8.5-10.1) Total Bilirubin 2.3 mg/dL (0.2-1.0) Direct Bilirubin 1.4 mg/dL (0.0-0.2) Aspartate Amino Transf (AST/SGOT) 31 U/L (15-37) Alanine Aminotransferase (ALT/SGPT) 45 U/L (16-63) Alkaline Phosphatase 139 U/L (46-116) Total Protein 4.4 g/dL (6.4-8.2) Albumin 1.9 g/dL (3.4-5.0) Albumin/Globulin Ratio 0.6 (1.0-1.7) Test 03/23/20 11:48 Glucose (Fingerstick) 131 mg/dL (70-99) Results All relevant outside records, renal labs, imaging studies, telemetry/EKG's were reviewed. Justicifation of Admission Dx: Justifications for Admission: Justification of Admission Dx: Yes CHF: Cardiac Arrhythmias Comminuty Aquired Pneumonia: Bactermia Chronic Renal Failure: Encephalopathy Sepsis: Altered Mental Status SANGEETA AGUIRRE MD Mar 23, 2020 12:03
[2020-03-23 15:00] VITALS: BP 158/80
[2020-03-23] MEDS ORDERED: IV DEXTROSE 5% 1,000 ML IV SCH (15:00)
--- NOTE | 2020-03-23 17:38 | PDOC ---
GENERAL General: Patient examined chart reviewed discussed with nursing. Patient has declined clinically quite significantly over the last 24 hours. Nurse has noticed that he is more somnolent less participatory. He is not interested in eating. He denies any specific pain but he has quite a bit of secretions on his robe on exam today says he is just slowly regurgitating. No fever noted. His thrombocytopenia is worsening despite holding any potential meds that may be impacting platelet count. He will benefit from hematology consultation tomorrow. HIT antibody is pending. His white count is rising he may very well have worsening of his abdominal situation. We will check a portable chest x-ray and a noncontrast CT abdomen and pelvis. I appreciate subspecialty support. Total time today is 30 minutes with greater than 50% in counseling and coordina tion of care most of which in discussion with patient and nurse. Problems: (1) Bacteremia due to Escherichia coli (2) Thrombocytopenia (3) Septic shock VITAL SIGNS Vital Signs/I&O: Vital Signs Date Time Temp Pulse Resp B/P (MAP) Pulse Ox O2 Delivery O2 Flow Rate FiO2 03/23/20 15:00 97.7 88 16 158/80 (106) 97 Room Air 97.7 03/23/20 08:00 2.0 I & O 03/22/20 03/22/20 03/23/20 15:00 23:00 07:00 Output Total 1000 ml Balance -1000 ml In general the patient is more lethargic today he is resting in bed appears uncomfortable but unable to verbalize how. He has quite a bit of secretions on his robe says he has been slowly regurgitating today without specifically vomiti ng. He has not tolerated diet HEENT exam is unremarkable for acute abnormality Chest is clear to auscultation anteriorly Heart S1-S2 normal regular rate and rhythm no murmurs or gallops are noted Abdomen is obese soft nontender nondistended not extra discharge from his abdominal drain Extremity exam is notable for significant ecchymosis and swelling of the right upper extremity without tenderness or induration noted ALLERGIES Allergies: Allergies Coded Allergies Type Severity Reaction Last Updated Verified I S O L A T I O N *CONTACT* Allergy Unknown 03/17/20 Yes No Known Medication Allergies Allergy Unknown 03/17/20 Yes MEDS Medications: Current Medications Medications (Trade) Dose Ordered Sig/Uma Start Time Stop Time Status Last Admin Dose Admin Acetaminophen/ Hydrocodone Bitart (Lortab 7.5/325) 1 tab PRN Q4HRS PRN 03/21/20 11:30 03/22/20 21:24 Albumin Human 500 ml @ 125 mls/hr 1X ONCE 03/20/20 17:45 03/20/20 21:44 DC 03/20/20 17:53 Alteplase, Recombinant (Cathflo For Central Catheter Clearance) 1 mg 1X ONCE 03/17/20 06:00 03/17/20 06:01 DC 03/17/20 05:50 Amino Acids/ Glycerin/ Electrolytes 1,000 ml @ 80 mls/hr [id number] 03/23/20 16:45 Azithromycin 250 ml @ 250 mls/hr 1X ONCE 03/12/20 17:00 03/12/20 17:59 DC 03/12/20 17:51 Bisacodyl (Dulcolax Supp) 10 mg PRN DAILY PRN 03/12/20 16:45 Bupivacaine HCl/ Epinephrine Bitart (Sensorcaine-Epi 0.25%-1:373167 Mpf) 30 ml STK-MED ONCE 03/18/20 14:38 03/18/20 14:39 DC 03/18/20 15:42 Calcium Gluconate (Calcium Gluconate) 1,000 mg 1X ONCE 03/12/20 17:00 03/12/20 17:01 DC 03/12/20 17:50 Cefepime HCl (Maxipime) 1 gm Q8HRS 03/12/20 22:00 03/13/20 08:46 DC 03/13/20 05:51 Ceftriaxone Sodium (Rocephin) 1 gm 1X ONCE 03/12/20 15:00 03/12/20 15:01 DC 03/12/20 16:41 Cellulose (Surgicel Hemostat 4x8) 1 each STK-MED ONCE 03/18/20 14:38 03/18/20 14:38 DC Dexamethasone Sodium Phosphate (Decadron) 4 mg STK-MED ONCE 03/18/20 15:23 03/18/20 15:23 DC Dextrose 1,000 ml @ 75 mls/hr [id number] 03/23/20 15:00 03/23/20 16:40 DC 03/23/20 15:31 Dextrose (Dextrose 50%-Water Syringe) 12.5 gm PRN Q15MIN PRN 03/13/20 00:30 Famotidine (Pepcid Vial) 20 mg DAILY 03/14/20 09:00 03/17/20 10:32 DC 03/17/20 08:30 Famotidine (Pepcid) 20 mg QHS 03/17/20 21:00 03/22/20 10:51 DC 03/21/20 21:44 Fentanyl Citrate (Fentanyl 2ml Vial) 100 mcg STK-MED ONCE 03/18/20 17:15 03/18/20 17:16 DC Glycopyrrolate (Robinul) 1 mg STK-MED ONCE 03/18/20 15:34 03/18/20 15:34 DC Heparin Sodium (Porcine) (Heparin Sodium) 5,000 unit Q8HRS 03/12/20 22:00 03/23/20 15:37 Hydralazine HCl (Apresoline Inj) 10 mg PRN Q4HRS PRN 03/17/20 23:45 03/18/20 00:06 Hydromorphone HCl (Dilaudid) 0.5 mg PRN Q10MIN PRN 03/18/20 14:30 03/19/20 14:29 DC Info (Icu Electrolyte Protocol) 1 ea CONT PRN PRN 03/12/20 17:00 03/12/20 17:06 DC Insulin Glargine (Lantus Syringe) 10 unit QHS 03/22/20 21:00 03/22/20 21:43 Insulin Human Lispro (HumaLOG VIAL for OP,RR ONLY) 0-10 units PRN Q1HR PRN 03/18/20 14:30 03/19/20 14:29 DC 03/18/20 14:35 Insulin Human Lispro (HumaLOG) 0-9 UNITS TIDACHC 03/16/20 21:00 03/23/20 08:17 Lactobacillus Rhamnosus (Culturelle) 1 cap BID 03/13/20 21:00 03/23/20 07:57 Lidocaine HCl (Buffered Lidocaine 1%) 6 ml 1X ONCE 03/19/20 11:00 03/19/20 11:01 DC 03/19/20 14:20 Lidocaine HCl (Lidocaine 1% 20ml Vial) 20 ml 1X ONCE 03/12/20 15:30 03/12/20 15:31 DC 03/12/20 15:30 Lidocaine HCl (Lidocaine Pf 2% Vial) 5 ml STK-MED ONCE 03/18/20 13:58 03/18/20 13:59 DC Lidocaine HCl (Xylocaine-Mpf 1% 2ml Vial) 2 ml PRN 1X PRN 03/18/20 07:00 03/19/20 06:59 DC Linezolid (Zyvox) 600 mg BID 03/13/20 09:00 03/13/20 21:11 DC 03/13/20 10:48 Linezolid/Dextrose 300 ml @ 300 mls/hr Q12HR 03/13/20 22:00 03/15/20 08:55 DC 03/15/20 08:37 Magnesium Sulfate 50 ml @ 25 mls/hr 1X ONCE 03/12/20 17:00 03/12/20 18:59 DC 03/12/20 17:51 Meropenem 500 mg/ Sodium Chloride 50 ml @ 100 mls/hr Q8HRS 03/14/20 22:00 03/23/20 15:30 Methylprednisolone Sodium Succinate (SOLU-Medrol 40MG VIAL) 40 mg BID 03/22/20 12:00 03/23/20 07:58 Morphine Sulfate (Morphine Sulfate) 1 mg PRN Q10MIN PRN 03/18/20 14:30 03/19/20 14:29 DC Multivitamins (Thera M Plus) 1 tab DAILY 03/13/20 10:30 03/23/20 07:57 Neostigmine Monson (Neostigmine Methylsulfate) 5 mg STK-MED ONCE 03/18/20 15:34 03/18/20 15:34 DC Norepinephrine Bitartrate 8 mg/ Dextrose 258 ml @ 21.285 mls/ hr CONT PRN 03/12/20 22:30 03/16/20 13:45 DC 03/13/20 18:01 Ondansetron HCl (Zofran) 4 mg PRN Q6HRS PRN 03/18/20 14:30 03/19/20 14:29 DC Perflutren Protein Type A Microsphe (Optison) 0.66 mg 1X ONCE 03/14/20 12:15 03/14/20 12:21 DC Potassium Chloride/Water 100 ml @ 100 mls/hr Q1H 03/12/20 16:45 03/12/20 17:00 DC Prochlorperazine (Compazine) 25 mg PRN Q12HR PRN 03/12/20 16:45 Prochlorperazine Edisylate (Compazine) 5 mg PACU PRN PRN 03/18/20 14:30 03/19/20 14:29 DC Propofol (Diprivan) 200 mg STK-MED ONCE 03/18/20 13:58 03/18/20 13:59 DC Ringer's Solution 1,000 ml @ 30 mls/hr Q24H 03/18/20 14:25 03/19/20 02:24 DC Rocuronium Monson (Zemuron) 50 mg STK-MED ONCE 03/18/20 13:58 03/18/20 13:59 DC Sodium Chloride 1,000 ml @ 100 mls/hr Q10H 03/12/20 16:33 03/20/20 17:42 DC 03/20/20 17:33 Sodium Chloride (NORMAL SALINE FLUSH for STERILE FIELD) 10 ml STK-MED ONCE 03/12/20 15:24 03/12/20 15:24 DC Sodium Chloride (Normal Saline Flush) 3 ml QSHIFT PRN 03/12/20 16:45 Sodium Phosphate 15 mmol/Sodium Chloride 255 ml @ 62.5 mls/hr 1X ONCE 03/12/20 16:45 03/12/20 17:00 DC Sodium Phosphate 30 mmol/Sodium Chloride 260 ml @ 62.5 mls/hr 1X ONCE 03/12/20 16:45 03/12/20 17:00 DC Succinylcholine Chloride (Anectine) 200 mg STK-MED ONCE 03/18/20 13:58 03/18/20 13:59 DC Vancomycin HCl (Vanco Per Pharmacy) 1 each PRN DAILY PRN 03/12/20 16:45 03/13/20 08:46 DC 03/12/20 18:45 Vancomycin HCl (Vancomycin Trough Level) 1 each 1X ONCE 03/14/20 17:30 03/14/20 17:31 Cancel Vancomycin HCl 1.5 gm/Sodium Chloride 500 ml @ 250 mls/hr Q24H 03/13/20 18:00 03/13/20 08:48 DC Vancomycin HCl 2 gm/Sodium Chloride 500 ml @ 250 mls/hr 1X ONCE 03/12/20 18:00 03/12/20 19:59 DC 03/12/20 17:53 Current Medications Medications (Trade) Dose Ordered Sig/Uma Route PRN Reason Start Time Stop Time Status Last Admin Dose Admin Insulin Glargine (Lantus Syringe) 10 unit QHS SQ 03/22/20 21:00 03/22/20 21:43 Dextrose 1,000 ml @ 75 mls/hr [id number] IV 03/23/20 15:00 03/23/20 16:40 DC 03/23/20 15:31 LAB Lab: Laboratory Tests Test 03/22/20 20:13 03/23/20 07:18 03/23/20 08:15 03/23/20 11:48 Glucose (Fingerstick) 222 mg/dL (70-99) H 169 mg/dL (70-99) H 131 mg/dL (70-99) H White Blood Count 17.1 x10^3/uL (4.0-11.0) H Red Blood Count 3.39 x10^6/uL (4.30-5.70) L Hemoglobin 10.0 g/dL (13.0-17.5) L Hematocrit 30.2 % (39.0-53.0) L Mean Corpuscular Volume 89 fL (79-100) Mean Corpuscular Hemoglobin 29 pg (25-35) Mean Corpuscular Hemoglobin Concent 33 g/dL (31-37) Red Cell Distribution Width 15.9 % (11.5-14.5) H Platelet Count 42 x10^3/uL (140-400) L Neutrophils (%) (Auto) 93 % (31-73) H Lymphocytes (%) (Auto) 4 % (24-48) L Monocytes (%) (Auto) 3 % (0-9) Eosinophils (%) (Auto) 0 % (0-3) Basophils (%) (Auto) 0 % (0-3) Neutrophils # (Auto) 15.9 x10^3/uL (1.8-7.7) H Lymphocytes # (Auto) 0.6 x10^3/uL (1.0-4.8) L Monocytes # (Auto) 0.5 x10^3/uL (0.0-1.1) Eosinophils # (Auto) 0.0 x10^3/uL (0.0-0.7) Basophils # (Auto) 0.0 x10^3/uL (0.0-0.2) Sodium Level 154 mmol/L (136-145) H Potassium Level 5.0 mmol/L (3.5-5.1) Chloride Level 123 mmol/L (98-107) H Carbon Dioxide Level 23 mmol/L (21-32) Anion Gap 8 (6-14) Blood Urea Nitrogen 62 mg/dL (8-26) H Creatinine 1.4 mg/dL (0.7-1.3) H Estimated GFR (Cockcroft-Gault) 59.6 BUN/Creatinine Ratio 44 (6-20) H Glucose Level 207 mg/dL (70-99) H Calcium Level 6.9 mg/dL (8.5-10.1) L Total Bilirubin 2.3 mg/dL (0.2-1.0) H Direct Bilirubin 1.4 mg/dL (0.0-0.2) H Aspartate Amino Transferase (AST) 31 U/L (15-37) Alanine Aminotransferase (ALT) 45 U/L (16-63) Alkaline Phosphatase 139 U/L (46-116) H Total Protein 4.4 g/dL (6.4-8.2) L Albumin 1.9 g/dL (3.4-5.0) L Albumin/Globulin Ratio 0.6 (1.0-1.7) L Test 03/23/20 16:51 Glucose (Fingerstick) 144 mg/dL (70-99) H Laboratory Tests 03/23/20 08:15 Laboratory Tests 03/23/20 08:15 ASSESSMENT & PLAN A&P Plan as noted above This note was created using [employer] and may have omissions and/or errors due to the nature of real-time voice boardmarker. Justicifation of Admission Dx: Justifications for Admission: Justification of Admission Dx: Yes CHF: Cardiac Arrhythmias Comminuty Aquired Pneumonia: Bactermia Chronic Renal Failure: Encephalopathy Sepsis: Altered Mental Status IRWIN PHIPPS MD Mar 23, 2020 17:38
--- NOTE | 2020-03-23 17:57 | RAD ---
EXAM: Chest, single view. HISTORY: Leukocytosis. COMPARISON: 03/12/2020 FINDINGS: A frontal view of the chest is obtained. There is left lower lobe infiltrate and a suspected small left pleural effusion.. There is also a small right pleural effusion. There is a stable cardiac silhouette and evidence of prior CABG. There is a cardiac pacemaker defibrillator in expected position. There is a right internal jugular catheter with the tip in the right atrium. IMPRESSION: Left lower lobe infiltrate and small bilateral pleural effusions. This appears increased compared to the prior study. Electronically signed by: Rylee Gonzales MD (03/23/2020 5:55 PM) [facility]
--- NOTE | 2020-03-23 18:28 | RAD ---
CT abdomen and pelvis without contrast 03/23/2020. Reason for exam: Elevated white blood cell count. Sepsis. Helical noncontrast images were performed through the abdomen and pelvis. Exposure: One or more of the following individualized dose reduction techniques were utilized for this examination: 1. Automated exposure control 2. Adjustment of the mA and/or kV according to patient size 3. Use of iterative reconstruction technique. Comparison is made with a prior CT of 03/12/2020. FINDINGS: There is greater atelectasis in the left lower lobe. There is still some pleural fluid on the right. The liver and spleen show no focal parenchymal abnormality. Evaluation is limited by noncontrast technique as well as artifact arising from the patient's arms. There is now a drainage tube extending under the liver. The gallbladder apparently has been resected. A small amount of air is seen in the gallbladder fossa. There is no evidence of a significant fluid collection here. The kidneys show no apparent mass or obstruction. The adrenal glands are not enlarged. No pancreatic abnormality is seen. There is no apparent retroperitoneal or mesenteric adenopathy. No abdominal mass is seen. There is fairly extensive subcutaneous edema. This appears to be greater on the left, and hemorrhage is possible. This region is not entirely included on the scan. Images through the pelvis show no apparent abnormality of the distal ureters or bladder. The bladder has been decompressed by catheter. No pelvic or inguinal adenopathy is seen. There is no apparent pelvic mass or inflammatory process. There is a fat-containing anterior abdominal wall hernia. There is extensive subcutaneous edema in the anterior abdominal wall. IMPRESSION: There are now findings of cholecystectomy. No acute abnormality is identified within the abdomen or pelvis. There is greater atelectasis in the left lower lobe. There is now extensive increased density in the abdominal wall. This could indicate edema, although hemorrhage is also possible, especially on the left. This region was not entirely included in the [id number]. Electronically signed by: Drew Corado Jr., MD (03/23/2020 6:25 PM) [facility]
[2020-03-23] MEDS: AMINO AC 3%/ELECTROLYTE/GLYCER 1,000 ML IV SCH (18:32)
[2020-03-23 19:00] VITALS: BP 156/87
[2020-03-23] MEDS: HYDROcodone/APAP 7.5/325MG 1 TAB TABLET PO PRN (20:44)
[2020-03-23] MEDS: INSULIN GLARGINE SYRINGE. SQ SCH (20:57)
[2020-03-23 23:00] VITALS: BP 150/71
[2020-03-24 03:00] VITALS: BP 120/67
[2020-03-24 05:08] LABS: HEMOGLOBIN A1C 14.8 % (4.8-5.6)
[2020-03-24] MEDS: MEROPENEM 500 MG in IV NORMAL SALINE 50ML 50 ML IV SCH ×3 (05:33→21:40)
[2020-03-24] MEDS: AMINO AC 3%/ELECTROLYTE/GLYCER 1,000 ML IV SCH (05:33)
[2020-03-24 05:54] LABS: BASO % 0 % (0-3); EOS % 0 % (0-3); HEMATOCRIT 29.5 % (39.0-53.0); HEMOGLOBIN 9.6 g/dL (13.0-17.5); LYMPH # 0.5 x10^3/uL (1.0-4.8); LYMPH % 2 % (24-48); MEAN CORPUSCULAR HEMOGLOBIN 29 pg (25-35); MEAN CORPUSCULAR HGB CONC 33 g/dL (31-37); MEAN CORPUSCULAR VOLUME 89 fL (79-100); MONO # 0.6 x10^3/uL (0.0-1.1); MONO % 3 % (0-9); NEUT % 95 % (31-73); PLATELET COUNT 53 x10^3/uL (140-400); RED BLOOD COUNT 3.31 x10^6/uL (4.30-5.70); WHITE BLOOD COUNT 22.2 x10^3/uL (4.0-11.0)
[2020-03-24] MEDS: HEPARIN for SUB-Q USE 5,000 UNIT/ML VIAL. SQ SCH ×2 (06:00→14:00)
[2020-03-24 06:08] LABS: ALBUMIN 1.6 g/dL (3.4-5.0); ALBUMIN/GLOBULIN RATIO 0.5 (1.0-1.7); CALCIUM 7.1 mg/dL (8.5-10.1); CREATININE 1.1 mg/dL (0.7-1.3); GFR 78.7; POTASSIUM 5.1 mmol/L (3.5-5.1); TOTAL BILIRUBIN 2.5 mg/dL (0.2-1.0); TOTAL PROTEIN 4.8 g/dL (6.4-8.2)
[2020-03-24 07:00] VITALS: BP 132/73
--- NOTE | 2020-03-24 07:11 | NUR ---
Heparin non-administered this AM; endorsed to LAYA Larry.
[2020-03-24] MEDS: INSULIN LISPRO 300 UNITS/3 ML VIAL. SQ SCH ×4 (07:30→21:43)
[2020-03-24] MEDS: methylPREDNISolone SOD SUCC PF 40 MG/ML VIAL. IV SCH (09:00)
[2020-03-24] MEDS: LACTOBACILLUS RHAMNOSUS GG 1 CAPSULE. PO SCH ×2 (09:00→21:00)
[2020-03-24] MEDS: MULTIVITAMIN with MINERAL TABLET. PO SCH (09:00)
--- NOTE | 2020-03-24 09:50 | PDOC ---
Infectious Disease Note Subjective Subjective feeling ok, Wants to go home Appetite returning Denies N/V/D/fever/chills/rash ROS ROS no n/v/d/ cont to have bleeding in SARKIS drain Vital Sign Vital Signs Vital Signs Date Time Temp Pulse Resp B/P (MAP) Pulse Ox O2 Delivery O2 Flow Rate FiO2 03/24/20 07:00 98.0 65 18 132/73 (92) 96 Room Air 98.0 03/23/20 08:00 2.0 Physical Exam PHYSICAL EXAM GENERAL: Alert, in NAD, in bed HEENT: Oral mucosa moist. No thrush NECK: Supple. No JVD. LUNGS: Decreased breath sounds at the bases. No wheezing. HEART: S1, S2. No gallops or murmurs. Left sided chest wall PPM looks intact, clean. ABDOMEN: Soft, obese, SARKIS with sanginous fluid. No rebound, no guarding. : Gates in place EXTREMITIES: Trace edema lower extremities, bilaterally. No cyanosis, no clubbing. NEUROLOGIC: Alert, oriented, a little confused - generalized weakness. RIJ (03/12) removed and previous site without signs of complications - now with new IJ PIV Labs Lab Laboratory Tests Test 03/23/20 11:48 03/23/20 16:51 03/23/20 20:08 03/24/20 05:30 Glucose (Fingerstick) 131 mg/dL (70-99) 144 mg/dL (70-99) 173 mg/dL (70-99) White Blood Count 22.2 x10^3/uL (4.0-11.0) Red Blood Count 3.31 x10^6/uL (4.30-5.70) Hemoglobin 9.6 g/dL (13.0-17.5) Hematocrit 29.5 % (39.0-53.0) Mean Corpuscular Volume 89 fL (79-100) Mean Corpuscular Hemoglobin 29 pg (25-35) Mean Corpuscular Hemoglobin Concent 33 g/dL (31-37) Red Cell Distribution Width 16.0 % (11.5-14.5) Platelet Count 53 x10^3/uL (140-400) Neutrophils (%) (Auto) 95 % (31-73) Lymphocytes (%) (Auto) 2 % (24-48) Monocytes (%) (Auto) 3 % (0-9) Eosinophils (%) (Auto) 0 % (0-3) Basophils (%) (Auto) 0 % (0-3) Neutrophils # (Auto) 21.0 x10^3/uL (1.8-7.7) Lymphocytes # (Auto) 0.5 x10^3/uL (1.0-4.8) Monocytes # (Auto) 0.6 x10^3/uL (0.0-1.1) Eosinophils # (Auto) 0.0 x10^3/uL (0.0-0.7) Basophils # (Auto) 0.0 x10^3/uL (0.0-0.2) Sodium Level 154 mmol/L (136-145) Potassium Level 5.1 mmol/L (3.5-5.1) Chloride Level 123 mmol/L (98-107) Carbon Dioxide Level 24 mmol/L (21-32) Anion Gap 7 (6-14) Blood Urea Nitrogen 55 mg/dL (8-26) Creatinine 1.1 mg/dL (0.7-1.3) Estimated GFR (Cockcroft-Gault) 78.7 BUN/Creatinine Ratio 50 (6-20) Glucose Level 296 mg/dL (70-99) Calcium Level 7.1 mg/dL (8.5-10.1) Total Bilirubin 2.5 mg/dL (0.2-1.0) Aspartate Amino Transf (AST/SGOT) 31 U/L (15-37) Alanine Aminotransferase (ALT/SGPT) 42 U/L (16-63) Alkaline Phosphatase 152 U/L (46-116) Total Protein 4.8 g/dL (6.4-8.2) Albumin 1.6 g/dL (3.4-5.0) Albumin/Globulin Ratio 0.5 (1.0-1.7) Test 03/24/20 07:46 Glucose (Fingerstick) 268 mg/dL (70-99) Micro Microbiology 03/18/20 Blood Culture - Final, Complete NO GROWTH AFTER 5 DAYS 03/12/20 Urine Culture - Final, Complete Objective Assessment Septic shock from gram neg sepsis, improving. ESBL + E. coli. 03/14 and neg 03/17 and 03/18 Leukocytosis with bandemia, in part steroids - better S/p Lap juan 03/18 Lactic acidosis. Gram negative bacteremia source likely GI and/or . ESBL + E. coli. Repeat BC 03/14 + GNR 03/17 and 03/18 neg so far Urinary tract infection. LACTOBACILLUS SPECIES Acute kidney injury - Cr worsening Thrombocytopenia, likely sepsis - still dropping ? Pepcid vs Heparin. Encephalopathy, likely sepsis, improving. Acute cholecysitis Hyperbilirubinemia, abnormal LFTs, gallbladder distention on CT. HIDA scan noted. US neg Diabetes mellitus. 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 [place] resident Plan Plan of Care F/u Blood cults in am 03/17 and 03/18 platelets per primary Consider d/c Pepcid with Thrombocytopenia. ? heparin d/w Dr. Meng 03/21 cont Merrem, dose to be adjusted for renal function as needed, D/w pharmacy Probiotics Monitor lab values/temp Maintain aspiration precautions Gen surg following. Contact isolation for ESBL Discussed with nursing REA MARKS MD Mar 24, 2020 09:50
--- NOTE | 2020-03-24 10:21 | NUR ---
MATTHEW following. Discussed with RN, MATTHEW faxed updated therapy notes to [facility], per plan on Tuesday. RN advised pt has not been doing too well Tuesday and today. Dr. Whitt notified - possibility of hospice discussion with family. MATTHEW sent family phone numbers to Dr. Whitt. MATTHEW will continue to follow. Addendum: 03/24/20 at 1359 by SHIRLEY CASTRO MATTHEW spoke with Karen and Yadira regarding inpatient hospice referral - they are both agreeable. MATTHEW advised if pt does not qualify then he can go home with hospice, or to a facility. Karen stated she is unable to care for him at home, and Yadira is working. MATTHEW awaiting acceptance decision from [facility]. Pt is now a DNR. RN notified. Addendum: 03/24/20 at 1551 by SHIRLEY CASTRO [facility] is heading to Karen's house to have consents signed (Karen is unable to leave her home). [facility] skilled nursing facilities professional RN will come to al and admit pt this evening to inpatient hospice. RN notified.
[2020-03-24 11:00] VITALS: BP_SYST 142
--- NOTE | 2020-03-24 11:57 | PDOC ---
[employer] PROGRESS NOTE Date of Service DOS: DATE: 03/24/20 TIME: 11:47 Chief Complaint Chief Complaint Acute hypoxic respiratory failure secondary to septic shock, improving, out of ICU yesterday, Sepsis, and Septic shock secondary to urinary tract infection w/ ESBL + E. coli. and lactobacillus Diabetes mellitus 2 acute or chronic systolic CHF, EF 35 %, discussed with Dr. Merchant, echo read today acute renal failure on CKD 2, Severe protein-calorie malnutrition. HIDA showed cholecystitis, gen surg following, may need juan surgery, above problems need to be addressed in short term History of Present Illness History of Present Illness 03/24/20 Pt resting in bed, NAD. Anasarca on UE, ASUNCION drain Reviewed chart, discussed with RN. Tried to call sister, no answer. Prognosis appears terminal. Patient resting resting comfortably. He has no complaints, his pain is well controlled. Status post cholecystectomy. E. coli ESBL bacteremia, currently treated with meropenem. Concerning thrombocytopenia, possibly secondary to medication or HIT. Will investigate with HIT antibodies if platelets continue to drop. Vitals/I&O Vitals/I&O: Vital Signs Date Time Temp Pulse Resp B/P (MAP) Pulse Ox O2 Delivery O2 Flow Rate FiO2 03/24/20 11:00 98.4 101 14 142/ 98 Room Air 98.4 03/23/20 08:00 2.0 I & O0 03/23/20 03/23/20 03/24/20 15:00 23:00 07:00 Intake Total 230 ml Output Total 825 ml 100 ml 775 ml Balance -825 ml -100 ml -545 ml Physical Exam Physical Exam: GENERAL: Alert, extremely weak HEENT: Oral mucosa moist. No thrush NECK: Supple. No JVD. LUNGS: Decreased breath sounds at the bases. No wheezing. HEART: S1, S2. No gallops or murmurs. Left sided chest wall PPM looks intact, clean. ABDOMEN: Soft, obese, ASUNCION with sanginous fluid. No rebound, no guarding. : Gates in place EXTREMITIES: Trace edema lower extremities, bilaterally. No cyanosis, no clubb ing. NEUROLOGIC: Alert, oriented, a little confused - generalized weakness. RIJ (03/12) removed and previous site without signs of complications - now with new IJ PIV General: Cooperative, No acute distress Heart: Regular rate, Normal S1, Normal S2 Lungs: Clear Abdomen: Soft, Other (asuncion bloody, very light bile tinged ) Extremities: No clubbing, No cyanosis Skin: No rashes, No breakdown Labs Labs: Laboratory Tests Test 03/23/20 11:48 03/23/20 16:51 03/23/20 20:08 03/24/20 05:30 Glucose (Fingerstick) 131 mg/dL (70-99) 144 mg/dL (70-99) 173 mg/dL (70-99) White Blood Count 22.2 x10^3/uL (4.0-11.0) Red Blood Count 3.31 x10^6/uL (4.30-5.70) Hemoglobin 9.6 g/dL (13.0-17.5) Hematocrit 29.5 % (39.0-53.0) Mean Corpuscular Volume 89 fL (79-100) Mean Corpuscular Hemoglobin 29 pg (25-35) Mean Corpuscular Hemoglobin Concent 33 g/dL (31-37) Red Cell Distribution Width 16.0 % (11.5-14.5) Platelet Count 53 x10^3/uL (140-400) Neutrophils (%) (Auto) 95 % (31-73) Lymphocytes (%) (Auto) 2 % (24-48) Monocytes (%) (Auto) 3 % (0-9) Eosinophils (%) (Auto) 0 % (0-3) Basophils (%) (Auto) 0 % (0-3) Neutrophils # (Auto) 21.0 x10^3/uL (1.8-7.7) Lymphocytes # (Auto) 0.5 x10^3/uL (1.0-4.8) Monocytes # (Auto) 0.6 x10^3/uL (0.0-1.1) Eosinophils # (Auto) 0.0 x10^3/uL (0.0-0.7) Basophils # (Auto) 0.0 x10^3/uL (0.0-0.2) Sodium Level 154 mmol/L (136-145) Potassium Level 5.1 mmol/L (3.5-5.1) Chloride Level 123 mmol/L (98-107) Carbon Dioxide Level 24 mmol/L (21-32) Anion Gap 7 (6-14) Blood Urea Nitrogen 55 mg/dL (8-26) Creatinine 1.1 mg/dL (0.7-1.3) Estimated GFR (Cockcroft-Gault) 78.7 BUN/Creatinine Ratio 50 (6-20) Glucose Level 296 mg/dL (70-99) Calcium Level 7.1 mg/dL (8.5-10.1) Total Bilirubin 2.5 mg/dL (0.2-1.0) Aspartate Amino Transf (AST/SGOT) 31 U/L (15-37) Alanine Aminotransferase (ALT/SGPT) 42 U/L (16-63) Alkaline Phosphatase 152 U/L (46-116) Total Protein 4.8 g/dL (6.4-8.2) Albumin 1.6 g/dL (3.4-5.0) Albumin/Globulin Ratio 0.5 (1.0-1.7) Test 03/24/20 07:46 03/24/20 11:14 Glucose (Fingerstick) 268 mg/dL (70-99) 268 mg/dL (70-99) Review of Systems Review of Systems: Mild secretions/gurgling, no nausea/vomiting. Pt has muscle weakness. Assessment and Plan Assessmemt and Plan Assessment Septic shock, ALOC Cardiac Arrhythmias Bactermia Chronic renal failure Failure to thrive Plan: Advance diet Continue current care plan CT follow up Trend labs Prognosis terminal I tried to call his sister but no answer Discussed with RN she is going to try to recall the family Discussed with case management Possible discharge to hospice Problems Medical Problems: (1) AMS (altered mental status) Status: Acute (2) Hypocalcemia Status: Acute (3) Hypokalemia Status: Acute (4) Septic shock Status: Acute (5) Suspected 2019 novel coronavirus infection Status: Acute Comment Review of Relevant I have reviewed the following items thee (where applicable) has been applied. Medications: Current Medications Medications (Trade) Dose Ordered Sig/Uma Route PRN Reason Start Time Stop Time Status Last Admin Dose Admin Dextrose 1,000 ml @ 75 mls/hr [id number] IV 03/23/20 15:00 03/23/20 16:40 DC 03/23/20 15:31 Amino Acids/ Glycerin/ Electrolytes 1,000 ml @ 80 mls/hr [id number] IV 03/23/20 16:45 03/24/20 05:33 THELMA BRUCE III DO Mar 24, 2020 11:57
--- NOTE | 2020-03-24 12:13 | PDOC ---
Date of Service: DATE: 03/24/20 TIME: 12:08 Subjective: Subjective: Sister present - says she just got here, waiting to talk w/ nurse. Objective: Objective: D/w nurse - worse from Tue to Tuesday, refusing to eat, increased drain output yesterday, seems weaker - ?consider Hospice per primary - EMILI is in her 80s and doesn't get out of the house. Heparin held. Vital Signs: Vital Signs Date Time Temp Pulse Resp B/P (MAP) Pulse Ox O2 Delivery O2 Flow Rate FiO2 03/24/20 11:00 98.4 101 14 142/ 98 Room Air 98.4 03/23/20 08:00 2.0 Labs: Laboratory Tests Test 03/23/20 16:51 03/23/20 20:08 03/24/20 07:46 03/24/20 11:14 Glucose (Fingerstick) 144 mg/dL (70-99) 173 mg/dL (70-99) 268 mg/dL (70-99) 268 mg/dL (70-99) Imaging: CXR 03/23 IMPRESSION: Left lower lobe infiltrate and small bilateral pleural effusions. This appears increased compared to the prior study. CT A/P 03/23 IMPRESSION: There are now findings of cholecystectomy. No acute abnormality is identified within the abdomen or pelvis. There is greater atelectasis in the left lower lobe. There is now extensive increased density in the abdominal wall. This could indicate edema, although hemorrhage is also possible, especially on the left. This region was not entirely included in the [id number]. PE: GEN: sleeping, NAD - sister present LUNGS: clear anteriorly HEART: RRR ABD: distended, soft NEURO/PSYCH: lethargic A/P: S/p lap juan 03/18 Anemia, thrombocytopenia, leukocytosis, hypernatremia Sepsis, UTI, HTN -- Will review w/ Dr. Muller. Justicifation of Admission Dx: Justifications for Admission: Justification of Admission Dx: Yes CHF: Cardiac Arrhythmias Comminuty Aquired Pneumonia: Bactermia Chronic Renal Failure: Encephalopathy Sepsis: Altered Mental Status LEONEL TYSON Mar 24, 2020 12:13
[2020-03-24] MEDS: ONDANSETRON PF 4 MG/2 ML VIAL. IVP PRN (12:28)
--- NOTE | 2020-03-24 13:20 | PDOC ---
Renal-Progress Notes Subjective Notes Notes CONFUSED History of Present Illness Hx of present illness STABLE Vitals Vitals Vital Signs Date Time Temp Pulse Resp B/P (MAP) Pulse Ox O2 Delivery O2 Flow Rate FiO2 03/24/20 11:00 98.4 101 14 142/ 98 Room Air 98.4 03/23/20 08:00 2.0 Weight Weight [ ] I.O. Intake and Output Intake and Output 03/24/20 07:00 Intake Total 230 ml Output Total 1700 ml Balance -1470 ml Intake Oral 230 ml Output Urine Total 1425 ml Drainage Total 275 ml Labs Labs Laboratory Tests Test 03/23/20 16:51 03/23/20 20:08 03/24/20 05:30 03/24/20 07:46 Glucose (Fingerstick) 144 mg/dL (70-99) 173 mg/dL (70-99) 268 mg/dL (70-99) White Blood Count 22.2 x10^3/uL (4.0-11.0) Red Blood Count 3.31 x10^6/uL (4.30-5.70) Hemoglobin 9.6 g/dL (13.0-17.5) Hematocrit 29.5 % (39.0-53.0) Mean Corpuscular Volume 89 fL (79-100) Mean Corpuscular Hemoglobin 29 pg (25-35) Mean Corpuscular Hemoglobin Concent 33 g/dL (31-37) Red Cell Distribution Width 16.0 % (11.5-14.5) Platelet Count 53 x10^3/uL (140-400) Neutrophils (%) (Auto) 95 % (31-73) Lymphocytes (%) (Auto) 2 % (24-48) Monocytes (%) (Auto) 3 % (0-9) Eosinophils (%) (Auto) 0 % (0-3) Basophils (%) (Auto) 0 % (0-3) Neutrophils # (Auto) 21.0 x10^3/uL (1.8-7.7) Lymphocytes # (Auto) 0.5 x10^3/uL (1.0-4.8) Monocytes # (Auto) 0.6 x10^3/uL (0.0-1.1) Eosinophils # (Auto) 0.0 x10^3/uL (0.0-0.7) Basophils # (Auto) 0.0 x10^3/uL (0.0-0.2) Sodium Level 154 mmol/L (136-145) Potassium Level 5.1 mmol/L (3.5-5.1) Chloride Level 123 mmol/L (98-107) Carbon Dioxide Level 24 mmol/L (21-32) Anion Gap 7 (6-14) Blood Urea Nitrogen 55 mg/dL (8-26) Creatinine 1.1 mg/dL (0.7-1.3) Estimated GFR (Cockcroft-Gault) 78.7 BUN/Creatinine Ratio 50 (6-20) Glucose Level 296 mg/dL (70-99) Calcium Level 7.1 mg/dL (8.5-10.1) Total Bilirubin 2.5 mg/dL (0.2-1.0) Aspartate Amino Transf (AST/SGOT) 31 U/L (15-37) Alanine Aminotransferase (ALT/SGPT) 42 U/L (16-63) Alkaline Phosphatase 152 U/L (46-116) Total Protein 4.8 g/dL (6.4-8.2) Albumin 1.6 g/dL (3.4-5.0) Albumin/Globulin Ratio 0.5 (1.0-1.7) Test 03/24/20 11:14 Glucose (Fingerstick) 268 mg/dL (70-99) Micro Micro Microbiology 03/18/20 Blood Culture - Final, Complete NO GROWTH AFTER 5 DAYS 03/12/20 Urine Culture - Final, Complete Review of Systems Constitutional: yes: other (UNABLE TO OBTAIN) Physical Exam General Appearance: no apparent distress Respiratory: decreased breath sounds Heart: S1S2 Abdomen: soft Extremities: pulses present, atrophy Neurology: confused Assessment Assessment IMP SEPSIS WITH ECOLI S/P LAP EMMANUEL LACTIC ACIDOSIS TYPE A NELLI WITH CR OF 1.1 FROM 2.9 HYPERNATREMIA UTI ENCEPHALOPATHY DM II PLAN HYDRATION CONT PPN FOR NOW EXPECT NA LEVEL TO DROP IN TIME HAS SIGNIFICANT FREE WATER DEFICIT ANTIBIOTICS MITCH TOMAS MD Mar 24, 2020 13:20
[2020-03-24] MEDS ORDERED: IV DEXTROSE 5% 1,000 ML IV SCH (13:30)
--- NOTE | 2020-03-24 13:54 | PDOC ---
RAMU RED CLINICAL DATA ASSISTANT 03/24/20 1354: SURGICAL PROGRESS NOTE DATE: 03/24/20 TIME: 13:53 Subjective vomiting today more drainage from asuncion Vital Signs Vital Signs Date Time Temp Pulse Resp B/P (MAP) Pulse Ox O2 Delivery O2 Flow Rate FiO2 03/24/20 11:00 98.4 101 14 142/ 98 Room Air 98.4 03/23/20 08:00 2.0 I&O Intake and Output 03/24/20 07:00 Intake Total 230 ml Output Total 1700 ml Balance -1470 ml Intake Oral 230 ml Output Urine Total 1425 ml Drainage Total 275 ml General: Cooperative, Other (ill appearing ) Abdomen: Soft, Other (drainage bili tinge) Labs Laboratory Tests Test 03/22/20 16:43 03/22/20 20:13 03/23/20 07:18 03/23/20 08:15 Glucose (Fingerstick) 137 mg/dL (70-99) 222 mg/dL (70-99) 169 mg/dL (70-99) White Blood Count 17.1 x10^3/uL (4.0-11.0) Red Blood Count 3.39 x10^6/uL (4.30-5.70) Hemoglobin 10.0 g/dL (13.0-17.5) Hematocrit 30.2 % (39.0-53.0) Mean Corpuscular Volume 89 fL (79-100) Mean Corpuscular Hemoglobin 29 pg (25-35) Mean Corpuscular Hemoglobin Concent 33 g/dL (31-37) Red Cell Distribution Width 15.9 % (11.5-14.5) Platelet Count 42 x10^3/uL (140-400) Neutrophils (%) (Auto) 93 % (31-73) Lymphocytes (%) (Auto) 4 % (24-48) Monocytes (%) (Auto) 3 % (0-9) Eosinophils (%) (Auto) 0 % (0-3) Basophils (%) (Auto) 0 % (0-3) Neutrophils # (Auto) 15.9 x10^3/uL (1.8-7.7) Lymphocytes # (Auto) 0.6 x10^3/uL (1.0-4.8) Monocytes # (Auto) 0.5 x10^3/uL (0.0-1.1) Eosinophils # (Auto) 0.0 x10^3/uL (0.0-0.7) Basophils # (Auto) 0.0 x10^3/uL (0.0-0.2) Sodium Level 154 mmol/L (136-145) Potassium Level 5.0 mmol/L (3.5-5.1) Chloride Level 123 mmol/L (98-107) Carbon Dioxide Level 23 mmol/L (21-32) Anion Gap 8 (6-14) Blood Urea Nitrogen 62 mg/dL (8-26) Creatinine 1.4 mg/dL (0.7-1.3) Estimated GFR (Cockcroft-Gault) 59.6 BUN/Creatinine Ratio 44 (6-20) Glucose Level 207 mg/dL (70-99) Hemoglobin A1c 14.8 % (4.8-5.6) Calcium Level 6.9 mg/dL (8.5-10.1) Total Bilirubin 2.3 mg/dL (0.2-1.0) Direct Bilirubin 1.4 mg/dL (0.0-0.2) Aspartate Amino Transf (AST/SGOT) 31 U/L (15-37) Alanine Aminotransferase (ALT/SGPT) 45 U/L (16-63) Alkaline Phosphatase 139 U/L (46-116) Total Protein 4.4 g/dL (6.4-8.2) Albumin 1.9 g/dL (3.4-5.0) Albumin/Globulin Ratio 0.6 (1.0-1.7) Test 03/23/20 11:48 03/23/20 16:51 03/23/20 20:08 03/24/20 05:30 Glucose (Fingerstick) 131 mg/dL (70-99) 144 mg/dL (70-99) 173 mg/dL (70-99) White Blood Count 22.2 x10^3/uL (4.0-11.0) Red Blood Count 3.31 x10^6/uL (4.30-5.70) Hemoglobin 9.6 g/dL (13.0-17.5) Hematocrit 29.5 % (39.0-53.0) Mean Corpuscular Volume 89 fL (79-100) Mean Corpuscular Hemoglobin 29 pg (25-35) Mean Corpuscular Hemoglobin Concent 33 g/dL (31-37) Red Cell Distribution Width 16.0 % (11.5-14.5) Platelet Count 53 x10^3/uL (140-400) Neutrophils (%) (Auto) 95 % (31-73) Lymphocytes (%) (Auto) 2 % (24-48) Monocytes (%) (Auto) 3 % (0-9) Eosinophils (%) (Auto) 0 % (0-3) Basophils (%) (Auto) 0 % (0-3) Neutrophils # (Auto) 21.0 x10^3/uL (1.8-7.7) Lymphocytes # (Auto) 0.5 x10^3/uL (1.0-4.8) Monocytes # (Auto) 0.6 x10^3/uL (0.0-1.1) Eosinophils # (Auto) 0.0 x10^3/uL (0.0-0.7) Basophils # (Auto) 0.0 x10^3/uL (0.0-0.2) Sodium Level 154 mmol/L (136-145) Potassium Level 5.1 mmol/L (3.5-5.1) Chloride Level 123 mmol/L (98-107) Carbon Dioxide Level 24 mmol/L (21-32) Anion Gap 7 (6-14) Blood Urea Nitrogen 55 mg/dL (8-26) Creatinine 1.1 mg/dL (0.7-1.3) Estimated GFR (Cockcroft-Gault) 78.7 BUN/Creatinine Ratio 50 (6-20) Glucose Level 296 mg/dL (70-99) Calcium Level 7.1 mg/dL (8.5-10.1) Total Bilirubin 2.5 mg/dL (0.2-1.0) Aspartate Amino Transf (AST/SGOT) 31 U/L (15-37) Alanine Aminotransferase (ALT/SGPT) 42 U/L (16-63) Alkaline Phosphatase 152 U/L (46-116) Total Protein 4.8 g/dL (6.4-8.2) Albumin 1.6 g/dL (3.4-5.0) Albumin/Globulin Ratio 0.5 (1.0-1.7) Test 03/24/20 07:46 8/24/20 11:14 Glucose (Fingerstick) 268 mg/dL (70-99) 268 mg/dL (70-99) Laboratory Tests Test 03/23/20 16:51 03/23/20 20:08 03/24/20 05:30 03/24/20 07:46 Glucose (Fingerstick) 144 mg/dL (70-99) 173 mg/dL (70-99) 268 mg/dL (70-99) White Blood Count 22.2 x10^3/uL (4.0-11.0) Red Blood Count 3.31 x10^6/uL (4.30-5.70) Hemoglobin 9.6 g/dL (13.0-17.5) Hematocrit 29.5 % (39.0-53.0) Mean Corpuscular Volume 89 fL (79-100) Mean Corpuscular Hemoglobin 29 pg (25-35) Mean Corpuscular Hemoglobin Concent 33 g/dL (31-37) Red Cell Distribution Width 16.0 % (11.5-14.5) Platelet Count 53 x10^3/uL (140-400) Neutrophils (%) (Auto) 95 % (31-73) Lymphocytes (%) (Auto) 2 % (24-48) Monocytes (%) (Auto) 3 % (0-9) Eosinophils (%) (Auto) 0 % (0-3) Basophils (%) (Auto) 0 % (0-3) Neutrophils # (Auto) 21.0 x10^3/uL (1.8-7.7) Lymphocytes # (Auto) 0.5 x10^3/uL (1.0-4.8) Monocytes # (Auto) 0.6 x10^3/uL (0.0-1.1) Eosinophils # (Auto) 0.0 x10^3/uL (0.0-0.7) Basophils # (Auto) 0.0 x10^3/uL (0.0-0.2) Sodium Level 154 mmol/L (136-145) Potassium Level 5.1 mmol/L (3.5-5.1) Chloride Level 123 mmol/L (98-107) Carbon Dioxide Level 24 mmol/L (21-32) Anion Gap 7 (6-14) Blood Urea Nitrogen 55 mg/dL (8-26) Creatinine 1.1 mg/dL (0.7-1.3) Estimated GFR (Cockcroft-Gault) 78.7 BUN/Creatinine Ratio 50 (6-20) Glucose Level 296 mg/dL (70-99) Calcium Level 7.1 mg/dL (8.5-10.1) Total Bilirubin 2.5 mg/dL (0.2-1.0) Aspartate Amino Transf (AST/SGOT) 31 U/L (15-37) Alanine Aminotransferase (ALT/SGPT) 42 U/L (16-63) Alkaline Phosphatase 152 U/L (46-116) Total Protein 4.8 g/dL (6.4-8.2) Albumin 1.6 g/dL (3.4-5.0) Albumin/Globulin Ratio 0.5 (1.0-1.7) Test 03/24/20 11:14 Glucose (Fingerstick) 268 mg/dL (70-99) Problem List Problems Medical Problems: (1) AMS (altered mental status) Status: Acute (2) Hypocalcemia Status: Acute (3) Hypokalemia Status: Acute (4) Septic shock Status: Acute (5) Suspected 2019 novel coronavirus infection Status: Acute Assessment/Plan wbc up, t bili 2.5--bili tinged drainage--will check HIDA ct reviewed Justicifation of Admission Dx: Justifications for Admission: Justification of Admission Dx: Yes CHF: Cardiac Arrhythmias Comminuty Aquired Pneumonia: Bactermia Chronic Renal Failure: Encephalopathy Sepsis: Altered Mental Status ERICA MANCINI MD 03/24/20 1653: SURGICAL PROGRESS NOTE Assessment/Plan Imaging reviewed. HIDA normal without eviedence of leak. Hyponatremia maybe contributing to N/V H/H stable. Doesn't appear to be issues with his surgery. RAMU RED CLINICAL DATA ASSISTANT Mar 24, 2020 13:54 ERICA MANCINI MD Mar 24, 2020 16:53
[2020-03-24 15:00] VITALS: BP 103/76
--- NOTE | 2020-03-24 15:12 | RAD ---
Hepatobiliary scan: History: Bile leak No prior studies are available for comparison. Patient received 5.4 mCi of technetium 99m Choletec intravenously and serial imaging of the abdomen was performed FINDINGS: There is homogeneous uptake of the radiopharmaceutical throughout the liver. Biliary excretion is seen by 15 minutes. Biliary to bowel transit is evident at 15 minutes. Impression: 1. Normal hepatobiliary excretion with activity advancing into the proximal small intestine and no evidence of biliary extravasation Electronically signed by: Adam Juarez MD (03/24/2020 3:09 PM) [id number]
--- NOTE | 2020-03-24 18:50 | NUR ---
Patient cleaned, linens changed and patient turned at this time. Patients family remains at bedside.
[2020-03-24 19:00] VITALS: BP 87/53
[2020-03-24] MEDS: INSULIN GLARGINE SYRINGE. SQ SCH (21:42)
--- NOTE | 2020-03-24 21:50 | NUR ---
Patient's daughter Milagros requesting to visit patient this evening, supervisor die casting notified and per supervisor die casting unable to allow visitors at this time. Daughter Milagros contacted and advised of 7am-7pm visiting hour restrictions.
[2020-03-24] MEDS ORDERED: GLYCOPYRROLATE 1 MG/5 ML VIAL. IV PRN (22:00)
[2020-03-24 23:00] VITALS: BP 77/47
--- NOTE | 2020-03-24 23:07 | NUR ---
rn delivery Hina here to assess patient's needs, MD notified and awaiting orders.
[2020-03-25] MEDS ORDERED: ACETAMINOPHEN 650 MG SUPP.RECT. PR PRN (00:30)
[2020-03-25] MEDS ORDERED: MORPHINE SULFATE 30 ML IV PRN (00:30)
[2020-03-25] MEDS ORDERED: IV NORMAL SALINE 1000ML BAG 1,000 ML IV SCH (00:30)
[2020-03-25] MEDS ORDERED: NALOXONE 0.4 MG/ML VIAL. IV PRN (00:30)
[2020-03-25] MEDS ORDERED: BISACODYL 10 MG SUPP.RECT. PR PRN ×2 (00:30→00:45)
[2020-03-25] MEDS ORDERED: ONDANSETRON PF 4 MG/2 ML VIAL. IVP PRN (00:30)
[2020-03-25 03:00] VITALS: BP 87/41
[2020-03-25] MEDS: MEROPENEM 500 MG in IV NORMAL SALINE 50ML 50 ML IV SCH (06:00)
[2020-03-25 07:00] VITALS: BP 84/44
[2020-03-25] MEDS: LACTOBACILLUS RHAMNOSUS GG 1 CAPSULE. PO SCH (07:21)
[2020-03-25] MEDS: INSULIN LISPRO 300 UNITS/3 ML VIAL. SQ SCH (07:21)
[2020-03-25] MEDS: MULTIVITAMIN with MINERAL TABLET. PO SCH (07:21)
--- NOTE | 2020-03-26 09:31 | DS ---
DATE OF DISCHARGE: 03/25/2020 ADMISSION DIAGNOSES: Sepsis, morbid obesity, possible COVID-19, metabolic encephalopathy, hypocalcemia, hypokalemia, possible gallstones. DISCHARGE DIAGNOSES: Progression of disease (he is being discharged with inpatient hospice). Laparoscopic cholecystectomy. HOSPITAL COURSE: The patient is a pleasant elderly male who presented with severe sepsis. There was some concern he could have COVID-19. He was admitted. The above consults were obtained. We gave him IV antibiotics and fluids and home meds. He did go for a laparoscopic cholecystectomy, but postoperatively he just seemed to decline. Yesterday, we discharged the patient to hospice. DISPOSITION: Inpatient hospice. ACTIVITY: As tolerated. DIET: N.p.o. MEDICATIONS: Please see MRAD. TOTAL TIME: 32 minutes. ACTIVITY: Bed rest. THELMA BRUCE DO DR: BIBI/errol JOB#: [id number] / [id number]
== END 2020-03-25 08:33 | disposition hospice, inpatient (51) | DRG 853 ==
LOC: ER 13:46 → ED HOLD 16:35 → 1 WEST ICU 19:00 → 4 NORTH 03-15 17:15
PROVIDERS: ADMIT Family Medicine; ATTEND Family Medicine
PROC: 0FT44ZZ Resection of Gallbladder, Percutaneous Endoscopic Approach (ICD-10-PCS; principal; 2020-03-18 14:00)
PROC: 02HV33Z Insertion of Infusion Device into Superior Vena Cava, Percutaneous Approach (ICD-10-PCS; 2020-03-20)
PROC: B5181ZA Fluoroscopy of Superior Vena Cava using Low Osmolar Contrast, Guidance (ICD-10-PCS; 2020-03-20)
PROC: B548ZZA Ultrasonography of Superior Vena Cava, Guidance (ICD-10-PCS; 2020-03-20)
DX: A41.51 Sepsis due to Escherichia coli [E. coli] (principal); J96.01 Acute respiratory failure with hypoxia; E43 Unspecified severe protein-calorie malnutrition; R65.21 Severe sepsis with septic shock; N17.9 Acute kidney failure, unspecified; G93.40 Encephalopathy, unspecified; N39.0 Urinary tract infection, site not specified; E87.0 Hyperosmolality and hypernatremia; E87.1 Hypo-osmolality and hyponatremia; I13.0 Hypertensive heart and chronic kidney disease with heart failure and stage 1 through stage 4 chronic kidney disease, or unspecified chronic kidney disease; I50.22 Chronic systolic (congestive) heart failure; J98.11 Atelectasis; K81.0 Acute cholecystitis; D64.9 Anemia, unspecified; D69.6 Thrombocytopenia, unspecified; E11.22 Type 2 diabetes mellitus with diabetic chronic kidney disease; E11.40 Type 2 diabetes mellitus with diabetic neuropathy, unspecified; E66.01 Morbid (severe) obesity due to excess calories; E78.5 Hyperlipidemia, unspecified; E83.51 Hypocalcemia; E87.6 Hypokalemia; I25.10 Atherosclerotic heart disease of native coronary artery without angina pectoris; K82.8 Other specified diseases of gallbladder; M25.78 Osteophyte, vertebrae; M48.00 Spinal stenosis, site unspecified; M51.16 Intervertebral disc disorders with radiculopathy, lumbar region; M51.27 Other intervertebral disc displacement, lumbosacral region; N18.3 Chronic kidney disease, stage 3 (moderate); R62.7 Adult failure to thrive; Z20.828 Contact with and (suspected) exposure to other viral communicable diseases; Z82.49 Family history of ischemic heart disease and other diseases of the circulatory system; Z86.73 Personal history of transient ischemic attack (TIA), and cerebral infarction without residual deficits; Z95.1 Presence of aortocoronary bypass graft; Z99.3 Dependence on wheelchair
CPT/HCPCS: 36556; 51702; 96361; 96365; 96368; 96375; 99285; C8929; 36415; 71045; 74176; 76705; 76937; 77001; 78226; 80048; 80053; 80076; 81001; 82140; 82542; 82607; 82962; 83036; 83540; 83550; 83605; 83690; 83735; 84100; 84443; 84484; 85007; 85025; 85610; 85730; 86705; 86709; 86803; 87040; 87077; 87086; 87186; 87205; 87340; 88304; 93005; 96374; A7015; A9537; C1892; J0330; J0360; J0456; J0610; J0692; J0696; J1100; J1644; J1815; J2020; J2185; J2270; J2405; J2704; J2710; J2920; J2997; J3010; J3370; J3475; J3480; J3490; J7030; J7040; J7060; J7120; P9045; 92526-GN; 92610-GN; 97110-GP; 97530-GO; 97530-GP; 97535-GO; G0378; U0003-CS

== ENCOUNTER 2020-03-25 08:45 | Inpatient (IN) | payer OTHER ==
[~2020-03-25] VITALS: Ht 172.7 cm; Wt 111.9 kg
[2020-03-25] MEDS ORDERED: GLYCOPYRROLATE 1 MG/5 ML VIAL. IV ONE (09:00)
[2020-03-25] MEDS ORDERED: ACETAMINOPHEN 650 MG/20.3 ML SOLUTION. PEG PRN (09:00)
[2020-03-25] MEDS ORDERED: BISACODYL 10 MG SUPP.RECT. PR PRN (09:00)
[2020-03-25] MEDS ORDERED: MORPHINE SULFATE 30 ML IV PRN (09:00)
[2020-03-25] MEDS ORDERED: ONDANSETRON PF 4 MG/2 ML VIAL. IVP PRN (09:00)
[2020-03-25] MEDS ORDERED: ACETAMINOPHEN 650 MG SUPP.RECT. PR PRN (09:15)
--- NOTE | 2020-03-25 09:30 | NUR ---
SW following. Discussed with RN, pt admitted to inpatient hospice. SW will continue to follow.
[2020-03-25 11:00] VITALS: BP 81/49
--- NOTE | 2020-03-25 11:43 | PDOC ---
[employer] PROGRESS NOTE Date of Service DOS: DATE: 03/25/20 TIME: 11:35 Chief Complaint Chief Complaint Septic shock History of Present Illness History of Present Illness 03/24/20 Patient was resting and in NAD Patient was on morphine drip of 2mg per hour Patient appears comfortable Vitals/I&O Vitals/I&O: Vital Signs Date Time Temp Pulse Resp B/P (MAP) Pulse Ox O2 Delivery O2 Flow Rate FiO2 03/25/20 11:00 97.6 94 18 81/49 (60) 92 Room Air 97.6 03/25/20 08:00 2.0 Physical Exam General: No acute distress Heart: Regular rate Lungs: Clear Abdomen: No hepatosplenomegaly Extremities: No edema Skin: No significant lesion Review of Systems Review of Systems: Patient denies nausea. Patient denies weakness Assessment and Plan Assessmemt and Plan Plan Continue in-patient hospice Continue pain meds DVT prophylaxis Home meds Trend labs Comment Review of Relevant I have reviewed the following items thee (where applicable) has been applied. THELMA BRUCE III DO Mar 25, 2020 11:43
[2020-03-25] MEDS: GLYCOPYRROLATE 1 MG/5 ML VIAL. IV PRN ×3 (14:35→23:59)
[2020-03-25 15:00] VITALS: BP 84/46
--- NOTE | 2020-03-25 15:42 | NUR ---
Patient has pacemaker with AICD. Hospice nurse notified health technical writer she received verbal order from Dr. Whitt to discontinue the AICD, hospice nurse is waiting for approval from family to proceed with discontinuing of AICD.
[2020-03-25 19:00] VITALS: BP 84/52
[2020-03-26 03:00] VITALS: BP 91/57
--- NOTE | 2020-03-26 07:43 | NUR ---
Patient found unresponsive, eyes dilated, no gag reflex, no breath sounds or heart beat noted. Time of pronounced and verified by two RNs at 0626. PHIL wash house worker paged and informed of patient passing. Dr. Whitt notified via messaging service. [facility] referral complete. DPOA notified; DPOA informed this RN that family is still waiting to decide on home. Endorsed to day RN and PHIL RN at this time.
--- NOTE | 2020-03-26 08:48 | NUR ---
Notified Esther nursing marble supervisor that patient is not a candidate to be a organ donor, per LAYA Dye who called [facility]. Also notified Esther nursing marble supervisor that [facility], but they are not certain if thats who they want. Family will notify nursing marble supervisor within the next 24 hours to verify half-way.
--- NOTE | 2020-03-26 08:57 | NUR ---
[facility] DEVELOPER and hospice nurse, record sheet filled out and sent with the .
--- NOTE | 2020-03-26 10:39 | DS ---
DATE OF DISCHARGE: 03/26/2020 DATE OF : 03/26/2020. ADMISSION DIAGNOSIS: Dictation Ends Here THELMA BRUCE DO DR: BIBI/errol JOB#: [id number] / [id number]
--- NOTE | 2020-03-26 10:41 | DS ---
DATE OF DISCHARGE: 03/26/2020 DATE OF : 03/26/2020. ADMISSION DIAGNOSES: Severe sepsis, failure to thrive, and recent laparoscopic cholecystectomy. CAUSE OF : Progression of disease. HOSPITAL COURSE: The patient is a pleasant elderly male who had been in the hospital recently for severe sepsis and multiple comorbidities. He was failing to thrive. We admitted him to inpatient hospice. This morning when I saw and examined, he had just . I discussed the case with his nurse. TOTAL TIME: 31 minutes. THELMA BRUCE DO DR: BIBI/errol JOB#: [id number] / [id number]
== END 2020-03-26 08:58 | disposition expired | DRG 871 ==
LOC: 4 NORTH 08:45
PROVIDERS: ADMIT Family Medicine; ATTEND Family Medicine
DX: A41.9 Sepsis, unspecified organism (principal); R65.21 Severe sepsis with septic shock; R62.7 Adult failure to thrive; I10 Essential (primary) hypertension; E66.01 Morbid (severe) obesity due to excess calories; Z68.37 Body mass index [BMI] 37.0-37.9, adult
CPT/HCPCS: 82962; J2270; J3490; G0378